=== PATIENT | male | born 1965 | race Caucasian/White ===

== ENCOUNTER → 2018-11-30 | Outpatient (CLI) | payer OTHER ==
--- NOTE | 2018-11-30 16:25 | CT ---
EXAMINATION TYPE: CT sinus wo con DATE OF EXAM: 11/30/2018 COMPARISON: NONE HISTORY: chronic sinus congestion and facial pain worse on right side per patient. Chronic sinusitis prior. CT DLP: 495 mGycm. Automated Exposure Control for Dose Reduction was Utilized. TECHNIQUE: CT scan of the sinuses is performed without contrast, axial images are obtained, coronal r eformatted images are also reviewed. FINDINGS: There is hyperdense material nearly completely filling the right maxillary sinus extending into the nasal vault. Moderate mucosal thickening is present superiorly . No bony destruction is evid ent. Mild mucosal thickening in the periphery of the left maxillary sinus is seen. Patchy opacificati on right ethmoid sinuses is noted. There is mild mucosal thickening inferior right maxillary sinus. T he ostiomeatal complex is patent on the left on the coronal images. Nasal septum is slightly deviated to right of midline. Visualized portion of mastoid air cells show no abnormal opacification. The globes are intact bilate rally. Visualized portion of brain parenchyma is unremarkable. IMPRESSION: Confirmation of significant right maxillary sinus disease. Consider ENT referral and dir ect visualization if this does not clear with treatment to rule out underlying mass.
== END | disposition home or self-care (01) ==
LOC: RADCTMAIN 15:48
PROVIDERS: ATTEND Internal Medicine
DX: J32.0 Chronic maxillary sinusitis (principal)
CPT/HCPCS: 70486

== ENCOUNTER 2023-01-17 09:18 | Inpatient (IN) | payer OTHER ==
[2023-01-17] MEDS: SODIUM CHLORIDE 0.9% 1,000 ML IV SCH (12:32)
--- NOTE | 2023-01-17 14:48 | XR ---
EXAMINATION TYPE: XR chest 2V DATE OF EXAM: 01/17/2023 COMPARISON: NONE TECHNIQUE: PA and lateral views submitted. HISTORY: Preop FINDINGS: The lungs are clear and there is no pneumothorax, pleural effusion, or focal pneumonia. Heart size normal and no overt failure. Osseous structures demonstrate hypertrophic changes of the spine. Hyperi nflation suggests COPD. IMPRESSION: 1. No acute process.
[2023-01-17 15:24] LABS: Basophils # (A) 0.1 k/uL (0-0.2); Basophils % (A) 1 %; Eosinophils # (A) 0.3 k/uL (0-0.7); Eosinophils % (A) 3 %; HCT 46.4 % (39.0-53.0); HGB 15.7 gm/dL (13.0-17.5); Lymphocytes # (A) 2.1 k/uL (1.0-4.8); Lymphocytes % (A) 18 %; MCH 31.3 pg (25.0-35.0); MCHC 33.8 g/dL (31.0-37.0); MCV 92.5 fL (80.0-100.0); Mean Platelet Volume 7.4; Monocytes # (A) 0.8 k/uL (0-1.0); Monocytes % (A) 7 %; Neutrophils # (A) 8.3 k/uL (1.3-7.7); Neutrophils % (A) 70 %; Platelet Count 217 k/uL (150-450); RBC 5.01 m/uL (4.30-5.90); RDW 12.7 % (11.5-15.5); WBC 11.8 k/uL (3.8-10.6)
[2023-01-17 15:34] LABS: Partial Thromboplastin Time 23.7 sec (22.0-30.0); Prothrombin Time 10.4 sec (9.0-12.0)
[2023-01-17 16:17] LABS: ALT 71 U/L (4-49); AST 52 U/L (17-59); African American GFR (CKD) >90 (>60 ml/min/1.73 sqM); Albumin 4.4 g/dL (3.5-5.0); Alkaline Phosphatase 104 U/L (38-126); Anion Gap 8 mmol/L; Blood Urea Nitrogen 16 mg/dL (9-20); Calcium 9.5 mg/dL (8.4-10.2); Carbon Dioxide 28 mmol/L (22-30); Chloride 100 mmol/L (98-107); Glucose 130 mg/dL (74-99); Magnesium 2.2 mg/dL (1.6-2.3); Non-African American GFR(CKD) >90 (>60 ml/min/1.73 sqM); Potassium 4.4 mmol/L (3.5-5.1); Sodium 136 mmol/L (137-145); Total Bilirubin 1.6 mg/dL (0.2-1.3); Total Protein 7.2 g/dL (6.3-8.2)
[2023-01-17] MEDS: METOPROLOL SUCCINATE (ER) 25 MG TAB.ER.24H PO SCH (17:08)
[2023-01-17] MEDS: EZETIMIBE 10 MG TAB PO SCH (17:08)
[2023-01-17] MEDS: ATORVASTATIN 80 MG TAB PO SCH (17:08)
[2023-01-17 17:34] LABS: Appearance,Urine Clear (Clear); Bilirubin,Urine Negative (Negative); Blood,Urine Negative (Negative); Glucose,Urine (UA) Negative (Negative); Ketones,Urine Negative (Negative); Leukocyte Esterase,Urine Negative (Negative); Nitrite,Urine Negative (Negative); PH, Urine 5.5 (5.0-8.0); Protein,Urine Negative (Negative); Specific Gravity,Urine 1.021 (1.001-1.035); Urobilinogen,Urine <2.0 mg/dL (<2.0)
--- NOTE | 2023-01-17 17:34 | P.GSCN ---
History of Present Illness Consult date: 01/17/23 Reason for Consult: Coronary artery disease with left main disease Requesting physician: Oneal Vaughan History of present illness: This a 57-year-old gentleman who follows on an outpatient basis for his primary care service with Dr. Garnica and with Dr. Byrd for his cardiology care. He is a past medical history significant for hyperlipidemia, cardiomyopathy with an ejection fraction of 40%, myocardial infarction 15 years ago, insomnia, hiatal hernia, GERD, family history of early onset coronary artery disease with his mom having a myocardial infarction before the age of 60 and has a remote history of nicotine dependence in which he quit smoking 13 years ago. Recently, the patient has had complaints of progressive shortness of breath in which the patient states that his shortness of breath has been getting worse over about a 1 year period. The patient denies any recent fever, chills, nausea, vomiting, diarrhea, headache, palpitations, lightheadedness, chest pain/pressure, presyncope or syncope. Subsequently, due to the patient's complaints of shortness of breath he underwent a pulmonary function test on 12/29/2022 which showed an FEV1 of 87% of predicted value with a base volume of 3.56. The patient also underwent a low-dose CT of the chest which showed scattered small nodules and severe calcification of his coronary arteries. Due to the findings of coronary calcification on the computed tomography scan it triggered an evaluation for workup for coronary artery disease. The patient underwent a stress test on 10/27/2022 which showed no evidence of stress-induced ischemia. Today 01/17/2023 the patient underwent a cardiac catheterization at [facility] which revealed multivessel coronary artery disease with an 80% stenosis to his distal left main coronary artery and 80% stenosis to his mid left anterior descending coronary artery, and 80% stenosis to his ostial left circumflex coronary artery and a 20-30% stenosis in his right coronary artery. Due to the findings on the cardiac catheterization the patient was transferred here to [facility] with a consult placed to Dr. Justin Whitlock from cardiothoracic surgery for further evaluation and treatment recommendations including myocardial revascularization surgery. Review of Systems A 14 point review of systems was completed and was negative except as mentioned in the HPI. Past Medical History Past Medical History: GERD/Reflux, Hyperlipidemia, Myocardial Infarction (SD) Additional Past Medical History / Comment(s): Stress test negative in October that was negative, SD in about 2003, insomnia, hiatal hernia, cardiomyopathy with an ejection fraction of 40% Last Myocardial Infarction Date:: 2003 History of Any Multi-Drug Resistant Organisms: None Reported Past Surgical History: Heart Catheterization Additional Past Surgical History / Comment(s): Nasal polyps removed "a couple years ago," heart catheterization 01/17/23 revealing severe left main blockage (cardiothoracic consult) Past Anesthesia/Blood Transfusion Reactions: No Reported Reaction Past Psychological History: No Psychological Hx Reported Smoking Status: Former smoker (Quit smoking about 13 years ago) Past Alcohol Use History: None Reported Additional Past Alcohol Use History / Comment(s): Reports he quit drinking in 1998 Past Drug Use History: None Reported - Past Family History Father Additional Family Medical History / Comment(s): Heart disease Mother Family Medical History: Myocardial Infarction (SD) Additional Family Medical History / Comment(s): Heart disease Medications and Allergies Home Medications Medication Instructions Recorded Confirmed Type Atorvastatin [Lipitor] 80 mg PO DAILY 01/17/23 01/17/23 History Ezetimibe [Zetia] 10 mg PO DAILY 01/17/23 01/17/23 History Metoprolol Succinate (ER) [Toprol 25 mg PO DAILY 01/17/23 01/17/23 History Xl] Omeprazole [PriLOSEC] 20 mg PO AC-BRKFST 01/17/23 01/17/23 History Allergies Allergy/AdvReac Type Severity Reaction Status Date / Time Sesame Seed Allergy Rash/Hives Verified 01/17/23 12:17 Surgical - Exam Vital Signs Pulse 55 L 01/17/23 11:15 - General well developed, well nourished, no distress, no pain - Eyes PERRL, normal ocular movement, no pale, no icteric - ENT normal pinna, normal nares, normal mucosa, no hearing loss, no congestion - Neck Neck is supple, no JVD. no masses, no bruits, trachea midline, no venous distension - Respiratory Lungs sounds essentially clear throughout. No wheezes, rhonchi or crackles. Respirations are symmetrical and nonlabored. - Cardiovascular Regular rhythm and rate. S1 and S2 present, negative for S3, gallop or murmur. - Abdomen Abdomen soft, nontender and nondistended. Active bowel sounds present in all 4 abdominal quadrants. No guarding or rigidity. No organomegaly appreciated. - Genitourinary Deferred - Rectum Deferred - Integumentary Skin is warm and dry. No clubbing or cyanosis is present. No rash or abnormal pigmentation is present. - Neurologic No focal deficits. normal coordination, normal sensation - Musculoskeletal Moves all 4 extremities with equal strength bilateral. normal gait, normal posture Results - Labs 01/17/23 14:52 01/17/23 14:52 Abnormal Lab Results - Last 24 Hours (Table) 01/17/23 01/17/23 Range/Units 14:52 14:52 WBC 11.8 H (3.8-10.6) k/uL Neutrophils # 8.3 H (1.3-7.7) k/uL Sodium 136 L (137-145) mmol/L Glucose 130 H (74-99) mg/dL Total Bilirubin 1.6 H (0.2-1.3) mg/dL ALT 71 H (4-49) U/L Diabetes panel 01/17/23 Range/Units 14:52 Sodium 136 L (137-145) mmol/L Potassium 4.4 (3.5-5.1) mmol/L Chloride 100 (98-107) mmol/L Carbon Dioxide 28 (22-30) mmol/L BUN 16 (9-20) mg/dL Creatinine 0.93 (0.66-1.25) mg/dL Glucose 130 H (74-99) mg/dL Calcium 9.5 (8.4-10.2) mg/dL AST 52 (17-59) U/L ALT 71 H (4-49) U/L Alkaline Phosphatase 104 (38-126) U/L Total Protein 7.2 (6.3-8.2) g/dL Albumin 4.4 (3.5-5.0) g/dL Thyroid panel 01/17/23 Range/Units 14:52 TSH 1.050 (0.465-4.680) mIU/L Calcium panel 01/17/23 Range/Units 14:52 Calcium 9.5 (8.4-10.2) mg/dL Albumin 4.4 (3.5-5.0) g/dL Pituitary panel 01/17/23 Range/Units 14:52 Sodium 136 L (137-145) mmol/L Potassium 4.4 (3.5-5.1) mmol/L Chloride 100 (98-107) mmol/L Carbon Dioxide 28 (22-30) mmol/L BUN 16 (9-20) mg/dL Creatinine 0.93 (0.66-1.25) mg/dL Glucose 130 H (74-99) mg/dL Calcium 9.5 (8.4-10.2) mg/dL TSH 1.050 (0.465-4.680) mIU/L Adrenal panel 01/17/23 Range/Units 14:52 Sodium 136 L (137-145) mmol/L Potassium 4.4 (3.5-5.1) mmol/L Chloride 100 (98-107) mmol/L Carbon Dioxide 28 (22-30) mmol/L BUN 16 (9-20) mg/dL Creatinine 0.93 (0.66-1.25) mg/dL Glucose 130 H (74-99) mg/dL Calcium 9.5 (8.4-10.2) mg/dL Total Bilirubin 1.6 H (0.2-1.3) mg/dL AST 52 (17-59) U/L ALT 71 H (4-49) U/L Alkaline Phosphatase 104 (38-126) U/L Total Protein 7.2 (6.3-8.2) g/dL Albumin 4.4 (3.5-5.0) g/dL - Imaging Additional studies: Cardiac catheterization films reviewed by Dr. Justin Whitlock. Assessment and Plan Assessment: Multivessel coronary artery disease with left main disease Hyperlipidemia History of cardiomyopathy with an ejection fraction of 40% Myocardial infarction 15 years ago History of insomnia History of hiatal hernia GERD Family history of early onset coronary artery disease with his mom having a myocardial infarction before the age of 60 years of age Remote history of nicotine dependence quit smoking around 13 years ago Plan: The patient was seen and examined at his bedside on the cardiac stepdown unit with Dr. Justin Whitlock. His chart and diagnostics were reviewed. Dr. Whitlock reviewed the patient's cardiac catheterization findings with the patient and with the patient's daughter present at his bedside. Treatment options discussed including myocardial revascularization surgery. Risks and benefits of myocardial revascularization surgery discussed. Preoperative teaching and preo perative testing has been initiated. Once the patient's preoperative testing has been obtained and reviewed, timing of surgery to follow. Continue to maximize medical management with aspirin, statin and beta mustapha. Once the patient is able to ambulate we will obtain a 5 m walk test. Once the patient's preoperative testing has been obtained we will calculate an STS risk score which will be discussed with the patient. Medical management and other comorbidities per primary care service and cardiology. More recommendations to follow based on patient's clinical course. Thank you Dr. Vaughan for this consult and we will look forward to working with you in the care of this patient. I have personally seen and examined the patient, performed the documentation and the assessment and plan as written. Number of minutes spent on the visit, 30 minutes . Junior SALDIVAR
[2023-01-17 17:37] LABS: Color,Urine Light Yellow
[2023-01-17] MEDS ORDERED: ACETAMINOPHEN TAB 325 MG TAB PO PRN (18:58)
[2023-01-17] MEDS ORDERED: MELATONIN 3 MG TABLET PO PRN (18:58)
[2023-01-17] MEDS ORDERED: CALCIUM CARBONATE 500 MG CHEWABLE PO PRN (18:58)
[2023-01-17] MEDS ORDERED: ONDANSETRON 4 MG/2 ML VIAL IVP PRN (18:58)
[2023-01-17] MEDS ORDERED: LACTULOSE 20 GM/30 ML CUP PO PRN (18:58)
[2023-01-17] MEDS ORDERED: NALOXONE 0.4 MG/ML 1 ML VIAL IV PRN (18:58)
[2023-01-17] MEDS ORDERED: ALBUTEROL NEBULIZED 2.5 MG/3 ML INHALATION PRN (19:01)
--- NOTE | 2023-01-17 19:01 | P.HPIM ---
History of Present Illness H&P Date: 01/17/23 Chief Complaint: CAD This is a pleasant 57-year-old patient who follows with Dr.S Garnica. Chronic stable medical conditions include GERD, hyperlipidemia, hiatal hernia, known cardiomyopathy EF of 40%. Patient had been experiencing short of breath with activity for example going on to the mailbox. Going on for some time. 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 Patient did undergo a elective cardiac catheterization at [facility] by Dr. Vaughan. Was found to have significant disease in the left main. Sent over to [facility] for surgical evaluation. Denies any cramping in the lower extremity. No chest pain. Patient is accompanied by his daughter the bedside. Review of systems: GEN.: None EYES: None HEENT: None NECK: None RESPIRATORY: As above CARDIOVASCULAR: As above, no edema GASTROINTESTINAL: Reflux GENITOURINARY: None MUSCULOSKELETAL: None LYMPHATICS: None HEMATOLOGICAL: None PSYCHIATRY: None NEUROLOGICAL: None Past medical history to include: GERD, hyperlipidemia, hiatal hernia, myocardial infarction in 2003, insomnia, cardiomyopathy with EF of 40%. Social history: Lives alone. 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 Smoked a pack a day for about 30 years stopped about 30 years ago. Quit drinking alcohol in 1998. Physical examination: VITAL SIGNS: 97.7, 63, 20, 112/71, 96% room air GENERAL: BMI 26.9, reclining in bed awake comfortable. EYES: Pupils equal. Conjunctiva normal. HEENT: External appearance of nose and ears normal, oral cavity grossly normal. NECK: JVD not raised; masses not palpable. HEART: First and second heart sounds are normal; no edema. LUNGS: Respiratory rate normal; clear to auscultation. ABDOMEN: Soft, nontender, liver spleen not palpable, no masses palpable. PSYCH: Alert and oriented x3; mood and affect normal. MUSCULOSKELETAL:No Clubbing/cyanosis;muscles-grossly intact NEUROLOGICAL: Cranial nerves grossly intact; no facial asymmetry, power and sensation grossly intact. LYMPHATICS: No lymph nodes palpable in the axilla and neck INVESTIGATIONS, reviewed in the clinical context: White count 11.8 hemoglobin 15.7 platelets 217 sodium 136 potassium 4.4 BUN 16 creatinine 0.93 UA: Unremarkable EKG tracing personally reviewed by me-normal sinus rhythm. Chest x-ray film personally reviewed by me-mild hyperinflation Assessment plan: -Significant coronary artery disease with left main disease. Patient had been symptomatic outpatient,, was short of breath with exertion Aspirin. Lipitor. Zetia. Toprol-XL. Cardiothoracic surgery consulted for bypass evaluation. -CAD with prior NC in 2013 -Mild emphysema and a prior smoker. Albuterol when necessary -GERD Protonix -Hyperlipidemia Lipitor -Hiatal hernia Care was discussed with the patient and daughter the bedside. Patient is being evaluated for coronary bypass to the cardiothoracic team. Preoperative workup is in place. Patient is probably not safe to go home because of significant disease of the left main.Given the complexity and severity of patient's condition expect the patient to be in the hospital at least for 2 overnights Past Medical History Past Medical History: GERD/Reflux, Hyperlipidemia, Myocardial Infarction (NC) Additional Past Medical History / Comment(s): Stress test negative in October that was negative, NC in about 2003, insomnia, hiatal hernia, cardiomyopathy with an ejection fraction of 40% Last Myocardial Infarction Date:: 2003 History of Any Multi-Drug Resistant Organisms: None Reported Past Surgical History: Heart Catheterization Additional Past Surgical History / Comment(s): Nasal polyps removed "a couple years ago," heart catheterization 01/17/23 revealing severe left main blockage (cardiothoracic consult) Past Anesthesia/Blood Transfusion Reactions: No Reported Reaction Past Psychological History: No Psychological Hx Reported Smoking Status: Former smoker (Quit smoking about 13 years ago) Past Alcohol Use History: None Reported Additional Past Alcohol Use History / Comment(s): Reports he quit drinking in 1998 Past Drug Use History: None Reported - Past Family History Father Additional Family Medical History / Comment(s): Heart disease Mother Family Medical History: Myocardial Infarction (NC) Additional Family Medical History / Comment(s): Heart disease Medications and Allergies Home Medications Medication Instructions Recorded Confirmed Type Atorvastatin [Lipitor] 80 mg PO DAILY 01/17/23 01/17/23 History Ezetimibe [Zetia] 10 mg PO DAILY 01/17/23 01/17/23 History Metoprolol Succinate (ER) [Toprol 25 mg PO DAILY 01/17/23 01/17/23 History Xl] Omeprazole [PriLOSEC] 20 mg PO AC-BRKFST 01/17/23 01/17/23 History Allergies Allergy/AdvReac Type Severity Reaction Status Date / Time Sesame Seed Allergy Rash/Hives Verified 01/17/23 12:17 Physical Exam Vitals: Vital Signs Temp Pulse Resp BP Pulse Ox 01/17/23 15:04 97.7 F 63 20 112/71 96 01/17/23 11:19 98.2 F 55 L 20 135/80 94 L 01/17/23 11:15 55 L Intake and Output 01/17/23 01/17/23 01/17/23 06:59 14:59 22:59 Intake Total 110 Output Total 600 Balance -490 Intake: Oral 110 Output: Urine 600 Other: Voiding Method Toilet Weight 97.72 kg Results CBC & Chem 7: 01/17/23 14:52 01/17/23 14:52 Labs: Abnormal Lab Results - Last 24 Hours (Table) 01/17/23 01/17/23 Range/Units 14:52 14:52 WBC 11.8 H (3.8-10.6) k/uL Neutrophils # 8.3 H (1.3-7.7) k/uL Sodium 136 L (137-145) mmol/L Glucose 130 H (74-99) mg/dL Total Bilirubin 1.6 H (0.2-1.3) mg/dL ALT 71 H (4-49) U/L Thrombosis Risk Factor Assmnt - Choose All That Apply Any of the Below Risk Factors Present?: Yes Each Factor Represents 1 point: Age 41-60 years Other Risk Factors: No Other congenital or acquired thrombophilia - If yes, enter type in comment: No Thrombosis Risk Factor Assessment Total Risk Factor Score: 1 Thrombosis Risk Factor Assessment Level: Low Risk
[2023-01-17 20:43] LABS: Chol/HDL Ratio 3.49 Ratio; LDL Cholesterol,Calculated 51.1 mg/dL (0.0-131.0)
[2023-01-17 20:50] LABS: Hepatitis A Antibody IgM Nonreactive; Hepatitis B Core IgM Nonreactive; Hepatitis B Surface Antigen Nonreactive; Hepatitis C IgG Antibody Nonreactive
--- NOTE | 2023-01-17 22:12 | US ---
EXAMINATION TYPE: Pre-Operative Non-Invasive Evaluation of the hand for Potential Radial Artery Yancy gutierrez, Measurements only DATE OF EXAM: 01/17/2023 4:40 PM CLINICAL INDICATION: Male, 57 years old with history of Pre-Op Cardiac Surgery; open heart SIDE PERFORMED: Left TECHNIQUE: Radial artery is measured utilizing real time linear array sonography. Dominant hand: Right Duplex Findings: Radial Artery: Color flow seen Measurements in mm, transverse view: Left Radial: Proximal: 3.7 x 4.1 mm Mid: 3.4 x 4.1 mm Distal: 4.0 x 4.2 mm IMPRESSION: 1. Left radial measurements listed above. 2. Performing surgeon to determine viability as conduit.
--- NOTE | 2023-01-17 22:12 | US ---
EXAMINATION TYPE: US vein mapping BILAT DATE OF EXAM: 01/17/2023 4:40 PM COMPARISON: NONE CLINICAL INDICATION: Male, 57 years old with history of PreOp Cardiac Surgery; open heart SIDE PERFORMED: Bilateral TECHNIQUE: Lower extremity saphenous vein is examined and measured utilizing real time linear array sonography DUPLEX FINDINGS: Greater Saphenous: Color flow seen Measurements in mm: Right Greater Saphenous: Groin: 7.9 x 6.8 mm High Thigh: 3.7 x 4.4 mm Mid Thigh: 2.7 x 3.3 mm Above Knee: 3.0 x 3.1 mm Knee: 3.1 x 4.2 mm Below Knee: 2.6 x 3.0 mm Mid Calf: 2.1 x 2.4 mm At Ankle: 3.1 x 3.6 mm Left Greater Saphenous: Groin: 11.2 x 8.9 mm High Thigh: 3.1 x 3.5 mm Mid Thigh: 2.9 x 3.6 mm Above Knee: 3.1 x 4.7 mm Knee: 2.9 x 3.8 mm Below Knee: 1.9 x 2.2 mm Mid Calf: 2.4 x 3.0 mm At Ankle: 2.5 x 2.8 mm IMPRESSION: 1. Bilateral GSV measurements listed above. 2. Performing surgeon to determine viability as conduit.
--- NOTE | 2023-01-17 22:14 | US ---
EXAMINATION TYPE: US arterial LE single level DATE OF EXAM: 01/17/2023 9:34 PM CLINICAL INDICATION: Male, 57 years old with history of Ankle Brachial Index (VALENCIA) ; History of: Smoker: Yes Hypertension: No Diabetic: No Hyperlipidemia: Yes TIA/CVA: No Previous Vascular Surgery: No CAD: WV: Yes Vascular Ulcers: Claudication: No Gangrene: Doppler Waveforms: Right: Monophasic multiphasic Left: Predominantly monophasic Right Brachial Pressure: Left Brachial Pressure: 131 Ankle-Brachial Indices: Right: 1.16 Left: 1.10 Toe Brachial Indices: Right: 0.79 Left: n/o IMPRESSION: Loss of phasicity is nonspecific. Normal bilateral VALENCIA values noted.
--- NOTE | 2023-01-17 22:15 | US ---
EXAMINATION TYPE: US carotid duplex BILAT DATE OF EXAM: 01/17/2023 COMPARISON: NONE CLINICAL INDICATION: Male, 57 years old with history of PreOp Cardiac Surgery; open heart, no h/o str cristina TECHNIQUE: Carotid duplex ultrasound examination. Indirect Doppler criteria was utilized. 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 Criteria for Assigning % of Stenosis / Diameter reduction (Estimation based on the indirect measurements of the internal carotid artery velocities (ICA PSV). 1. Normal (no stenosis)=ICA PSV < 125 cm/s: ratio < 2.0: ICA EDV<40 cm/s. 2. Less than 50% stenosis=ICA PSV < 125 cm/s: ratio < 2.0: ICA EDV<40 cm/s. 3. 50 to 69% stenosis=ICA PSV of 125 to 230 cm/s: ration 2.0 ? 4.0: ICA EDV 40-100 cm/s. 4. Greater than 70% stenosis to near occlusion= ICA PSV > 230 cm/s: ratio > 4.0: ICA EDV > 100 cm/s. 5. Near occlusion= ICA PSV velocities may be low or undetectable: variable ratio and ICA EDV. 6. Total occlusion=unable to detect flow.
[2023-01-17] MEDS: MUPIROCIN 2% OINT 22 GM TUBE NASAL SCH (22:30)
[2023-01-18] MEDS: PANTOPRAZOLE 40 MG TABLET PO SCH (07:13)
[2023-01-18] MEDS: SODIUM CHLORIDE 0.9% 1,000 ML IV SCH ×2 (07:13→17:38)
[2023-01-18] MEDS: MUPIROCIN 2% OINT 22 GM TUBE NASAL SCH ×2 (08:21→20:13)
[2023-01-18] MEDS: ASPIRIN 81 MG PO SCH (08:21)
--- NOTE | 2023-01-18 09:00 | P.CRDCN ---
History of Present Illness Consult date: 01/18/23 History of present illness: History of present illness: This is a 57-year-old male patient of Dr. Byrd with past medical history of hyperlipidemia, cardiomyopathy with EF 40%, myocardial infarction 15 years ago, insomnia, hiatal hernia, gastric esophageal reflux disease, family history of early onset coronary artery disease, history of tobacco use and dependence, e nvironmental exposure to paint fumes, history of alcohol use in the past. Patient had recent workup for dyspnea on exertion with pulmonary medicine for PFT and a low-dose CAT scan of the lungs which showed mild nodules and also severe coronary calcification. He was recently started on atorvastatin and Zetia. He also underwent stress test which revealed EF of 38% and normal wall motion, no distinct perfusion abnormality. Patient subsequently underwent cardiac catheterization at [facility] was performed by Dr. Vaughan on 01/17/2023 which revealed multivessel disease with 80% distal left main stenosis, ostial circumflex disease and bifurcating mid LAD/diagonal disease. Patient has been transferred to [facility] for evaluation by cardiothoracic surgery team. At the time of this evaluation, patient denies having any chest pain, he continues to have some shortness of breath although he thinks this is slightly improved. He has dyspnea on exertion. He denies having any lightheadedness or dizziness. Physical examination: Gen: This is a 57-year-old male, resting in recliner and appears to be comfortable and in no acute distress. VS: reviewed HEENT: Head is atraumatic, normocephalic. Pupils equal, round. Sclerae is anicteric. NECK: Supple. No JVD. . LUNGS: Bilateral wheezing. No intercostal retractions. HEART: Regular rate and rhythm. No murmur. ABDOMEN: Soft No tenderness. EXTREMITIES: No pedal edema. No calf tenderness. NEUROLOGICAL: Patient is awake, alert and oriented x3. Assessment: Multivessel coronary artery disease with 80% left main disease, evaluation with cardiothoracic surgery Hyperlipidemia History of cardiomyopathy with EF of 40% History of myocardial infarction 15 years ago, details are unknown History of tobacco use and dependence and alcohol use quit both 13 years ago Plan: Cardiothoracic team evaluation for CABG scheduled for tomorrow Continue current cardiac medications Further recommendations to follow based upon clinical course Thank you kindly for this consultation. Nurse practitioner note has been reviewed, I agree with documented findings and plan of care. Patient was seen and examined. Past Medical History Past Medical History: GERD/Reflux, Hyperlipidemia, Myocardial Infarction (GA) Additional Past Medical History / Comment(s): Stress test negative in October that was negative, GA in about 2003, insomnia, hiatal hernia, cardiomyopathy with an ejection fraction of 40% Last Myocardial Infarction Date:: 2003 History of Any Multi-Drug Resistant Organisms: None Reported Past Surgical History: Heart Catheterization Additional Past Surgical History / Comment(s): Nasal polyps removed "a couple years ago," heart catheterization 01/17/23 revealing severe left main blockage (cardiothoracic consult) Past Anesthesia/Blood Transfusion Reactions: No Reported Reaction Past Psychological History: No Psychological Hx Reported Smoking Status: Former smoker (Quit smoking about 13 years ago) Past Alcohol Use History: None Reported Additional Past Alcohol Use History / Comment(s): Reports he quit drinking in 1998 Past Drug Use History: None Reported - Past Family History Father Additional Family Medical History / Comment(s): Heart disease Mother Family Medical History: Myocardial Infarction (GA) Additional Family Medical History / Comment(s): Heart disease Medications and Allergies Home Medications Medication Instructions Recorded Confirmed Type Atorvastatin [Lipitor] 80 mg PO DAILY 01/17/23 01/17/23 History Ezetimibe [Zetia] 10 mg PO DAILY 01/17/23 01/17/23 History Metoprolol Succinate (ER) [Toprol 25 mg PO DAILY 01/17/23 01/17/23 History Xl] Omeprazole [PriLOSEC] 20 mg PO AC-BRKFST 01/17/23 01/17/23 History Allergies Allergy/AdvReac Type Severity Reaction Status Date / Time Sesame Seed Allergy Rash/Hives Verified 01/17/23 12:17 Physical Exam Vitals: Vital Signs Temp Pulse Pulse Resp BP Pulse Ox 01/18/23 07:41 96.9 F L 71 17 113/61 95 01/18/23 04:00 97.8 F 67 20 119/76 94 L 01/18/23 02:00 60 63 20 01/18/23 00:00 97.7 F 60 20 124/82 93 L 01/17/23 20:00 97.7 F 65 63 20 136/69 94 L 01/17/23 15:04 97.7 F 63 20 112/71 96 08/29/23 11:19 98.2 F 55 L 20 135/80 94 L 01/17/23 11:15 55 L Intake and Output 01/17/23 01/18/23 01/18/23 22:59 06:59 14:59 Intake Total 110 Output Total 600 Balance -490 Intake: Oral 110 Output: Urine 600 Other: Voiding Method Toilet Toilet # Voids 2 Results 01/17/23 14:52 01/17/23 14:52 Cardiac Enzymes 01/17/23 Range/Units 14:52 AST 52 (17-59) U/L Coagulation 01/17/23 Range/Units 14:52 PT 10.4 (9.0-12.0) sec APTT 23.7 (22.0-30.0) sec Lipids 01/17/23 Range/Units 14:52 Triglycerides 251.00 H (0.00-149.00) mg/dL Cholesterol 142.00 (0.00-200.00) mg/dL HDL Cholesterol 40.70 (40.00-60.00) mg/dL Cholesterol/HDL Ratio 3.49 Ratio CBC 01/17/23 Range/Units 14:52 WBC 11.8 H (3.8-10.6) k/uL RBC 5.01 (4.30-5.90) m/uL Hgb 15.7 (13.0-17.5) gm/dL Hct 46.4 (39.0-53.0) % Plt Count 217 (150-450) k/uL Comprehensive Metabolic Panel 01/17/23 Range/Units 14:52 Sodium 136 L (137-145) mmol/L Potassium 4.4 (3.5-5.1) mmol/L Chloride 100 (98-107) mmol/L Carbon Dioxide 28 (22-30) mmol/L BUN 16 (9-20) mg/dL Creatinine 0.93 (0.66-1.25) mg/dL Glucose 130 H (74-99) mg/dL Calcium 9.5 (8.4-10.2) mg/dL AST 52 (17-59) U/L ALT 71 H (4-49) U/L Alkaline Phosphatase 104 (38-126) U/L Total Protein 7.2 (6.3-8.2) g/dL Albumin 4.4 (3.5-5.0) g/dL Current Medications Generic Name Dose Route Start Last Admin Trade Name Freq PRN Reason Stop Dose Admin Acetaminophen 650 mg 01/17/23 18:58 Acetaminophen Tab 325 Mg Tab PO Q6HR PRN Mild Pain or Fever > 100.5 Albuterol Sulfate 2.5 mg 01/17/23 19:01 Albuterol Nebulized 2.5 Mg/3 Ml INHALATION RT-QID PRN Shortness Of Breath Or Wheezing Alprazolam 0.25 mg 01/17/23 18:58 Alprazolam 0.25 Mg Tab PO Q6HR PRN Anxiety Aspirin 81 mg 01/18/23 09:00 Aspirin 81 Mg PO DAILY INA Atorvastatin Calcium 80 mg 01/17/23 18:00 01/17/23 17:08 Atorvastatin 80 Mg Tab PO 80 mg DAILY@1800 INA Administration Calcium Carbonate/Glycine 1,000 mg 01/17/23 18:58 Calcium Carbonate 500 Mg Chewable PO Q4HR PRN Dyspepsia Ezetimibe 10 mg 01/17/23 18:00 01/17/23 17:08 Ezetimibe 10 Mg Tab PO 10 mg DAILY@1800 INA Administration Sodium Chloride 1,000 mls @ 75 mls/hr 01/17/23 12:30 01/18/23 07:13 Saline 0.9% IV 75 mls/hr .[id number] INA Administration Lactulose 20 gm 01/17/23 18:58 Lactulose 20 Gm/30 Ml Cup PO DAILY PRN Constipation Melatonin 3 mg 01/17/23 18:58 Melatonin 3 Mg Tablet PO HS PRN Insomnia Metoprolol Succinate 25 mg 01/17/23 18:00 01/17/23 17:08 Metoprolol Succinate (Er) 25 Mg Tab.Er.24h PO 25 mg DAILY@1800 INA Administration Mupirocin 1 applic 01/17/23 21:00 01/17/23 22:30 Mupirocin 2% Oint 22 Gm Tube NASAL 01/22/23 21:01 Not Given BID INA Naloxone HCl 0.2 mg 01/17/23 18:58 Naloxone 0.4 Mg/Ml 1 Ml Vial IV Q2M PRN Opioid Reversal Ondansetron HCl 4 mg 01/17/23 18:58 Ondansetron 4 Mg/2 Ml Vial IVP Q8HR PRN Nausea And Vomiting Pantoprazole Sodium 40 mg 01/18/23 07:30 01/18/23 07:13 Pantoprazole 40 Mg Tablet PO 40 mg AC-BRKFST IAN Administration Intake and Output 01/17/23 01/18/23 01/18/23 22:59 06:59 14:59 Intake Total 110 Output Total 600 Balance -490 Intake: Oral 110 Output: Urine 600 Other: Voiding Method Toilet Toilet # Voids 2 01/17/23 14:52 01/17/23 14:52
--- NOTE | 2023-01-18 10:09 | CA ---
Transthoracic Echo Report Name: Daniel Walton Age: 57 Gender: M : 1965 Exam Date: 01/17/2023 16:40 Exam Location: [place] [facility] Echo Ht (in): 75 Wt (lb): 215 Ordering Physician: Jacky Curry Attending/Referring Phys: Patricio FRANCO Packaging Manager Rakel Mcdowell RDCS Procedure CPT: Indications: preop cabg Cardiac Hx: Technical Quality: Technically difficult study Contrast 1: Lumason Total Dose (mL): 4 Contrast 2: Total Dose (mL): MEASUREMENTS (Male / Female) Normal Values 2D ECHO LV Diastolic Diameter PLAX 4.2 cm 4.2 - 5.9 / 3.9 - 5.3 cm LV Systolic Diameter PLAX 2.8 cm IVS Diastolic Thickness 1.5 cm 0.6 - 1.0 / 0.6 - 0.9 cm LVPW Diastolic Thickness 1.3 cm 0.6 - 1.0 / 0.6 - 0.9 cm LV Relative Wall Thickness 0.7 RV Internal Dim ED PLAX 4.6 cm LA Volume 38.5 cm??? 18 - 58 / 22 - 52 cm??? M-MODE Aortic Root Diameter MM 2.9 cm LA Systolic Diameter MM 4.5 cm LA Ao Ratio MM 1.6 AV Cusp Separation MM 1.5 cm DOPPLER AV Peak Velocity 150.3 cm/s AV Peak Gradient 9.0 mmHg AV Mean Velocity 108.2 cm/s AV Mean Gradient 5.2 mmHg AV Velocity Time Integral 30.1 cm LVOT Peak Velocity 102.2 cm/s LVOT Peak Gradient 4.2 mmHg LVOT Velocity Time Integral 20.0 cm MV Area PHT 3.2 cm??? Mitral E Point Velocity 65.3 cm/s Mitral A Point Velocity 83.5 cm/s Mitral E to A Ratio 0.8 MV Deceleration Time 240.1 ms MV E' Velocity 6.8 cm/s Mitral E to MV E' Ratio 9.5 TR Peak Velocity 236.8 cm/s TR Peak Gradient 22.4 mmHg Right Ventricular Systolic Press 27.4 mmHg FINDINGS Left Ventricle Moderately increased left ventricular wall thickness. Left ventricular cavity size normal. Preserved Systolic function.left ventricular cavity size normal. Left ventricular ejection fraction is estimated at 50 %. Right Ventricle Moderate right ventricular dilatation. Right ventricular systolic pressure within normal limits. Right Atrium Normal right atrial size. Left Atrium Normal left atrial size. Mitral Valve Structurally normal mitral valve. No mitral stenosis, regurgitation or prolapse. Mild mitral annular calcification. Aortic Valve No aortic valve stenosis or regurgitation. Tricuspid Valve Structurally normal tricuspid valve. Mild tricuspid regurgitation. Pulmonic Valve Structurally normal pulmonic valve. Pericardium No pericardial effusion. Aorta Normal size aortic root and proximal ascending aorta. CONCLUSIONS Technically difficult study for interpretation Low normal LV systolic function. The ejection fraction is 50% Previewed by: Dr. Baldemar Quinteros MD (Electronically Signed) Final Date: 18 January 2023 10:08
[2023-01-18] MEDS ORDERED: MD COMMUNICATION TO PHARMACY 1 EACH MISC PO ONE ×4 (11:21)
--- NOTE | 2023-01-18 11:59 | P.PN ---
Subjective Progress Note Date: 01/18/23 Principal diagnosis: Coronary artery disease with left main disease. Past medical history significant for hyperlipidemia, cardiomyopathy with an ejection fraction of 40%, myocardial infarction 15 years ago, insomnia, hiatal hernia, GERD, family history of early onset coronary artery disease with his mom having a myocardial infarction before the age of 60 and has a remote history of nicotine dependence in which he quit smoking 13 years ago. The patient was seen and examined in follow-up today 01/18/2023 at his bedside on the cardiac stepdown unit. He is currently up ambulating in his room, is alert, oriented 3 and is in no acute apparent distress. Denies any complaints of pain or shortness of breath at this time. FEV1 from 12/29/2022 has been obtained which shows a predicted value of 87% and a base volume of 3.56. As part of his preoperative workup he underwent a carotid duplex study which demonstrated no hemodynamically significant stenosis in either internal carotid artery. Preoperative teaching has been reinforced with the patient. Transthoracic 2-D echocardiogram was completed which demonstrated a normal left ventricular ejection fraction estimated at 50%, no mitral valve stenosis or regurgitation, no aortic valve stenosis or regurgitation, and no pericardial effusion. Remote telemetry showing normal sinus rhythm heart rate 88 BPM. Laboratory results from yesterday were reviewed which showed a WBC count of 11.8, hemoglobin 15.7, hematocrit 46.4, platelets 217, sodium 136, potassium 4.4, BUN 16, creatinine 0.93, hemoglobin A1c 6.3%, magnesium 2.2, total bilirubin 1.6, AST 52, ALT 71, triglycerides 251, cholesterol 142, LDL 51, an HDL 40.7. Chest x-ray showed no acute process. Objective - Vital Signs Vital signs: Vital Signs Temp 97.6 F 01/18/23 07:41 Pulse 71 01/18/23 07:41 Resp 17 01/18/23 07:41 BP 113/61 01/18/23 07:41 Pulse Ox 95 01/18/23 07:41 FiO2 Intake & Output 01/17/23 01/18/23 01/18/23 18:59 06:59 18:59 Intake Total 110 110 Output Total 600 Balance -490 110 Weight 97.72 kg Intake: Oral 110 110 Output: Urine 600 Other: Voiding Method Toilet Toilet Toilet # Voids 2 - Exam CONSTITUTIONAL: Up ambulating in his room on the cardiac stepdown unit, appears comfortable, cooperative, no apparent acute distress. HEENT: Neck is supple, no JVD, no lymphadenopathy. RESPIRATORY: Lungs sounds essentially clear throughout. Respirations are symmetrical and nonlabored. Currently on room air with oxygen saturations 95%. Able to achieve 4000 mL on his incentive spirometry. Strong cough. CARDIOVASCULAR: Regular rhythm and rate. S1 and S2 present, negative for S3, gallop or murmur. Remote telemetry showing normal sinus rhythm heart rate 88 BPM. GASTROINTESTINAL: Abdomen soft, nontender, nondistended. Active bowel sounds present 4 quadrants. Tolerating diet. Passing flatus. No guarding or rigidity. GENITOURINARY: Continues to void. INTEGUMENTARY: Skin is warm and dry with no evidence of clubbing or cyanosis. NEUROLOGIC: Cranial nerves II through XII intact. No focal deficits. MUSKULOSKELETAL: Able to move all extremities, strength equal bilaterally. PSYCHIATRIC: Alert and oriented to person place and time, appropriate affect, intact judgment and insight. - Allied health notes Allied health notes reviewed: nursing - Labs CBC & Chem 7: 01/17/23 14:52 01/17/23 14:52 Labs: Abnormal Lab Results - Last 24 Hours (Table) 01/17/23 01/17/23 01/17/23 Range/Units 14:52 14:52 14:52 WBC 11.8 H (3.8-10.6) k/uL Neutrophils # 8.3 H (1.3-7.7) k/uL Sodium 136 L (137-145) mmol/L Glucose 130 H (74-99) mg/dL Hemoglobin A1c 6.3 H (<=6.0) % Total Bilirubin 1.6 H (0.2-1.3) mg/dL ALT 71 H (4-49) U/L Triglycerides 251.00 H (0.00-149.00) mg/dL VLDL Cholesterol, Calc 50.20 H (5.00-40.00) mg/dL - Imaging and Cardiology Chest x-ray: report reviewed, image reviewed Assessment and Plan Assessment: Multivessel coronary artery disease with left main disease Hyperlipidemia History of cardiomyopathy with an ejection fraction of 40%, ejection fraction 50% on most current transthoracic 2-D echocardiogram. Myocardial infarction 15 years ago History of insomnia History of hiatal hernia GERD Family history of early onset coronary artery disease with his mom having a myocardial infarction before the age of 60 years of age Remote history of nicotine dependence quit smoking around 13 years ago Plan: Preoperative teaching has been reinforced with patient. An STS risk score has been calculated in discussed with the patient. Continue to maximize medical therapy with aspirin, statin and beta mustapha. The patient is scheduled for myocardial revascularization surgery with left internal mammary artery, left radial artery endoscopic harvest, endoscopic vein harvest, exclusion of left atrial appendage and intraoperative transesophageal echocardiogram tomorrow 01/19/2023 to be performed by Dr. Justin Whitlock. Nothing by mouth after midnight A 5 m walk test was completed with the patient, time 1: 2.28 seconds, Time 2: 2.38 seconds, Time 3: 2.51 seconds. More recommendations to follow based on patient's clinical course. Time with Patient: Greater than 30
[2023-01-18 12:58] LABS: Basophils # (A) 0.1 k/uL (0-0.2); Basophils % (A) 1 %; Eosinophils # (A) 0.2 k/uL (0-0.7); Eosinophils % (A) 2 %; HCT 50.2 % (39.0-53.0); HGB 16.8 gm/dL (13.0-17.5); Lymphocytes # (A) 2.3 k/uL (1.0-4.8); Lymphocytes % (A) 23 %; MCH 31.1 pg (25.0-35.0); MCHC 33.5 g/dL (31.0-37.0); MCV 92.6 fL (80.0-100.0); Mean Platelet Volume 7.8; Monocytes # (A) 0.8 k/uL (0-1.0); Monocytes % (A) 8 %; Neutrophils # (A) 6.5 k/uL (1.3-7.7); Neutrophils % (A) 65 %; Platelet Count 232 k/uL (150-450); RBC 5.42 m/uL (4.30-5.90); RDW 12.7 % (11.5-15.5); WBC 10.1 k/uL (3.8-10.6)
[2023-01-18] MEDS ORDERED: DEXTROSE 50% SYRINGE 50 ML IVP PRN ×2 (16:09)
--- NOTE | 2023-01-18 16:16 | P.PN ---
Subjective Progress Note Date: 01/18/23 This is a 57-year-old male admitted to the hospital for further evaluation for coronary artery disease. Patient has undergone extensive workup being followed by cardiothoracic services. Echocardiogram showing low normal LV systolic function with EF of 50%, mild TR. On patient underwent cardiac catheterization at [facility] which revealed multivessel disease with 80% distal left main stenosis, ostial circumflex disease and bifurcating mid LAD/diagonal disease. Patient was transferred to [facility] for cardiothoracic evaluation. Patient is scheduled to undergo coronary artery bypass grafting tomorrow with Dr. Whitlock. Today he has no acute complaints. Discussed he will go to the ICU after surgery tomorrow. Patient would like to have a BM today. He complains of heart burn sensation today and is continued on oral protonix. Review of Systems Constitutional: Denied any fatigue denied any fever. Cardio vascular: denied any chest pain, palpitations Gastrointestinal: denied any nausea, vomiting, diarrhea Pulmonary: Denied any shortness of breath cough Neurologic denied any new focal deficits All inpatient medications were reviewed and appropriate changes in these medications as dictated in the interval history and assessment and plan. REVIEW OF SYSTEMS: CONSTITUTIONAL: No fever, no malaise, no fatigue. HEENT: No recent visual problems or hearing problems. Denied any sore throat. CARDIOVASCULAR: No chest pain, orthopnea, PND, no palpitations, no syncope. PULMONARY: No shortness of breath, no cough, no hemoptysis. GASTROINTESTINAL: No diarrhea, no nausea, no vomiting, no abdominal pain. NEUROLOGICAL: No headaches, no weakness, no numbness. HEMATOLOGICAL: Denies any bleeding or petechiae. GENITOURINARY: Denies any burning micturition, frequency, or urgency. MUSCULOSKELETAL/RHEUMATOLOGICAL: Denies any joint pain, swelling, or any muscle pain. ENDOCRINE: Denies any polyuria or polydipsia. The rest of the 14-point review of systems is negative. Assessment Exertional dyspnea with outpatient CT showing coronary calcifications and mild nodules Positive stress test and cardiac catheterization revealing multivessel disease History of myocardial infarction 15 yrs ago and prior cardiac catheterization Hyperglycemia with A1C of 6.3 consistent with prediabetes History hyperlipidemia Hx cardiomyopathy with EF 40% with improved EF of 50% this hospital stay Gastroesophageal reflux disease Hx hiatal hernia Hx of tobacco use in the past Hx of alcohol use in the past GI prophylaxis on protonix Full Code Plan Patient continues on oral protonix Continue accuchecks ACHS and sliding scale insulin has been added for improved glycemic control patient likely will not require insulin on discharge Patient scheduled to undergo coronary artery bypass grafting tomorrow 01/18/[address] Whitlock The impression and plan of care has been dictated by Kera Blair, Nurse Practitioner as directed. Dr. Juanpablo MD I have performed a history and physical examination and medical decision making of this patient, discussed the same with the dictator, and agree with the dictators assessment and plan as written, documented as a scribe. Based on total visit time, I have performed more than 50% of this visit. Objective - Vital Signs Vital signs: Vital Signs Temp 97.6 F 01/18/23 12:24 Pulse 68 01/18/23 15:53 Resp 18 01/18/23 15:53 BP 141/81 01/18/23 15:53 Pulse Ox 97 01/18/23 15:53 FiO2 Intake & Output 01/17/23 01/18/23 01/18/23 18:59 06:59 18:59 Intake Total 110 460 Output Total 600 Balance -490 460 Weight 97.72 kg Intake: Oral 110 460 Output: Urine 600 Other: Voiding Method Toilet Toilet Toilet # Voids 2 3 - Labs CBC & Chem 7: 01/18/23 12:24 01/17/23 14:52 Labs: Abnormal Lab Results - Last 24 Hours (Table) 01/17/23 01/17/23 Range/Units 14:52 14:52 Sodium 136 L (137-145) mmol/L Glucose 130 H (74-99) mg/dL Hemoglobin A1c 6.3 H (<=6.0) % Total Bilirubin 1.6 H (0.2-1.3) mg/dL ALT 71 H (4-49) U/L Triglycerides 251.00 H (0.00-149.00) mg/dL VLDL Cholesterol, Calc 50.20 H (5.00-40.00) mg/dL Assessment and Plan Time with Patient: Less than 30
[2023-01-18] MEDS: INSULIN ASPART (NovoLOG) 100 UNIT/ML VIAL SQ SCH ×2 (16:31→20:13)
[2023-01-18 16:32] LABS: Glucose,Whole Blood 103 mg/dL (70-110)
[2023-01-18] MEDS: EZETIMIBE 10 MG TAB PO SCH (17:37)
[2023-01-18] MEDS: METOPROLOL SUCCINATE (ER) 25 MG TAB.ER.24H PO SCH (17:37)
[2023-01-18] MEDS: ATORVASTATIN 80 MG TAB PO SCH (17:37)
[2023-01-18 19:52] LABS: Glucose,Whole Blood 105 mg/dL (70-110)
[2023-01-18] MEDS: ALPRAZolam 0.25 MG TAB PO PRN (20:13)
[2023-01-19 00:22] LABS: Glucose,Whole Blood 107 mg/dL (70-110)
[2023-01-19 04:13] LABS: Glucose,Whole Blood 108 mg/dL (70-110)
[2023-01-19] MEDS: PANTOPRAZOLE 40 MG TABLET PO SCH (04:16)
[2023-01-19] MEDS: ALPRAZolam 0.25 MG TAB PO PRN (04:17)
[2023-01-19] MEDS ORDERED: ALBUMIN HUMAN 25% 50 ML in EMPTY BAG 1 BAG IVPB ONE (05:00)
[2023-01-19] MEDS ORDERED: NOREPINEPHRINE 4 MG in SODIUM CHLORIDE 0.9% 250 ML IV SCH (05:00)
[2023-01-19] MEDS ORDERED: INSULIN REGULAR 100 UNIT in SODIUM CHLORIDE 0.9% 100 ML IV SCH (05:00)
[2023-01-19] MEDS ORDERED: PAPAVERINE 360 MG in SODIUM CHLORIDE 0.9% 90 ML IV ONE ×2 (05:00→09:32)
[2023-01-19] MEDS ORDERED: PHENYLEPHRINE 40 MG in SODIUM CHLORIDE 0.9% 250 ML IV ONE (05:00)
[2023-01-19] MEDS ORDERED: PROTAMINE SULFATE 250 MG in EMPTY BAG 1 BAG IV ONE (05:00)
[2023-01-19] MEDS ORDERED: HEPARIN SODIUM 1,000 UN/ML (10ML VL) IV ONE (05:00)
[2023-01-19] MEDS ORDERED: TRANEXAMIC ACID 2,000 MG in SODIUM CHLORIDE 0.9% 80 ML IV ONE ×4 (05:00)
[2023-01-19] MEDS ORDERED: CALCIUM CHLORIDE 100 MG/ML 10 ML SYRINGE IVP ONE (05:00)
[2023-01-19] MEDS ORDERED: MAGNESIUM SULFATE 16.24 MEQ in EMPTY SYRINGE 1 SYR IV ONE (05:00)
[2023-01-19] MEDS ORDERED: PROTAMINE SULFATE 10 MG/ML 25 ML VIAL IV ONE (05:00)
[2023-01-19] MEDS ORDERED: METOPROLOL TARTRATE 12.5 MG TAB PO ONE (05:00)
[2023-01-19] MEDS ORDERED: DILTIAZEM 125 MG in SODIUM CHLORIDE 0.9% 100 ML IV SCH (05:00)
[2023-01-19] MEDS ORDERED: PHENYLEPHRINE 10 MG/ML VIAL IV ONE (05:00)
[2023-01-19] MEDS ORDERED: ATORVASTATIN 10 MG TAB PO ONE (05:00)
[2023-01-19] MEDS ORDERED: ELECTROLYTE-A SOLUTION 1,000 ML with POTASSIUM CHLORIDE 40 MEQ, MAGNESIUM SULFATE 16 ME... IV ONE ×5 (05:00)
[2023-01-19] MEDS ORDERED: ASPIRIN 325 MG TAB PO ONE (05:00)
[2023-01-19] MEDS ORDERED: SODIUM BICARB 8.4% 50 ML SYR (1 MEQ/ML) IV ONE (05:00)
[2023-01-19] MEDS ORDERED: NITROGLYCERIN-D5W PMX 25 MG/250 ML BTL IV ONE (05:00)
[2023-01-19] MEDS ORDERED: CHLORHEXIDINE GLUCONATE 15 ML CUP MUCOUS MEM ONE (05:00)
[2023-01-19] MEDS ORDERED: ELECTROLYTE-A SOLUTION 1,000 ML with POTASSIUM CHLORIDE 100 MEQ, MAGNESIUM SULFATE 16 M... IV ONE ×5 (05:00)
[2023-01-19] MEDS ORDERED: HEPARIN SODIUM,PORCINE (1 ML) 5,000 UNIT in SODIUM CHLORIDE 0.9% 500 ML 500 ML IV ONE (05:00)
[2023-01-19] MEDS ORDERED: ceFAZolin 1,000 MG in SODIUM CHLORIDE 0.9% IRRIGATIO 1,000 ML IRRIGATION ONE (05:00)
[2023-01-19] MEDS ORDERED: MANNITOL 25% 12.5 GM/50 ML VIAL IV ONE ×2 (05:00)
[2023-01-19] MEDS ORDERED: ALBUMIN HUMAN 5% 500 ML in EMPTY BAG 1 BAG IVPB ONE ×6 (05:00)
[2023-01-19] MEDS ORDERED: IV FLUID CONTINUATION 200 ML IV ONE (06:04)
[2023-01-19] MEDS ORDERED: LIDOCAINE 2% INJ 20 MG/ML (2 ML VIAL) ONE (07:25)
[2023-01-19] MEDS ORDERED: GLYCOPYRROLATE 0.2 MG/ML 2 ML VIAL ONE (07:25)
[2023-01-19] MEDS ORDERED: HEPARIN SODIUM,PORCINE 10,000 UNIT/ML 1 ML VIAL ONE (07:25)
[2023-01-19] MEDS ORDERED: NITROGLYCERIN-D5W PMX 50 MG/250 ML BOTTLE IV ONE (07:25)
[2023-01-19] MEDS ORDERED: VECURONIUM 10 MG VIAL IV ONE (07:25)
[2023-01-19] MEDS ORDERED: fentaNYL (PF) 50 MCG/ML 50 ML VIAL ONE (07:25)
[2023-01-19] MEDS ORDERED: MIDAZOLAM HCL 10 MG/10 ML VIAL ONE (07:25)
[2023-01-19] MEDS ORDERED: ALBUMIN HUMAN 5% (25gm) 500 ML VIAL IVPB ONE (07:25)
[2023-01-19] MEDS ORDERED: INSULIN REGULAR 100 UNIT/ML VIAL (IV) ONE (07:25)
[2023-01-19] MEDS ORDERED: TRANEXAMIC 1,000 MG/100ML-NACL PREMIX BAG ONE (07:25)
[2023-01-19] MEDS ORDERED: PROPOFOL 10 MG/ML 20 ML VIAL IV ONE (07:25)
[2023-01-19] MEDS ORDERED: PROTAMINE SULFATE 10 MG/ML 5 ML VIAL IV ONE (07:25)
[2023-01-19] MEDS ORDERED: ceFAZolin 1,000 MG in SODIUM CHLORIDE 0.9% 1,000 ML IRRIGATION ONE (09:32)
[2023-01-19] MEDS ORDERED: SODIUM CHLORIDE 0.9% 500 ML 500 ML with HEPARIN SODIUM,PORCINE (1 ML) 5,000 UNIT IV ONE ×2 (09:32)
[2023-01-19 10:06] LABS: ABG Base Excess -0.3 mmol/L; ABG Glucose Whole Blood 133 mg/dL (75-99); ABG HCO3 28 mmol/L (21-25); ABG Hematocrit 43 % (34.0-46.0); ABG Ionized Calcium 4.8 mg/dL (4.5-5.3); ABG Lactic Acid Whole Blood 1.1 mmol/L (0.5-1.6); ABG Oxygen Saturation 98.5 % (94-97); ABG PCO2 57 mmHg (35-45); ABG PH 7.29 (7.35-7.45); ABG PO2 166 mmHg (83-108); ABG Potassium Whole Blood 4.3 mmol/L (3.4-4.5); ABG Sodium Whole Blood 139 mmol/L (135-146); ABG TCO2 29 mmol/L (19-24)
[2023-01-19 11:19] LABS: ABG Base Excess 3.5 mmol/L; ABG Glucose Whole Blood 108 mg/dL (75-99); ABG HCO3 28 mmol/L (21-25); ABG Hematocrit 35 % (34.0-46.0); ABG Lactic Acid Whole Blood 1.3 mmol/L (0.5-1.6); ABG Oxygen Saturation 99.6 % (94-97); ABG PCO2 39 mmHg (35-45); ABG PH 7.46 (7.35-7.45); ABG Potassium Whole Blood 4.4 mmol/L (3.4-4.5); ABG Sodium Whole Blood 138 mmol/L (135-146); ABG TCO2 29 mmol/L (19-24)
--- NOTE | 2023-01-19 11:22 | P.ANPRN ---
Procedure Note - Anesthesia - NIMISHA Intraop Pre Bypass NIMISHA Intraop - Anesthesia Indication: Coronary artery bypass graft Date of Procedure: 01/19/23 Pre-operative Diagnosis: Coronary artery disease Post-operative Diagnosis: Coronary arterty disease s/p CABG Surgeon: Justin Whitlock Ejection Fraction: Other (50%) Regional Wall Motion Abnormalities: None Left Ventricle Hypertrophy: No R. Ventricle Function: Other (mildly dilated) Aortic Valve: peak gradient 8mm of Hg and mean 4 mm of Hg Anatomy: Trileaflet Aortic Stenosis: None Aortic Regurgitation: None Mitral Stenosis: None Mitral Regurgitation: None Tricuspid Stenosis: None Tricuspid Regurgitation: Trace Pulmonic Stenosis: None Pulmonic Regurgitation: None R. Atrial Dilation: Yes R. Atrial PFO: No L. Atrial Dilation: Yes Aortic Dissection: No Aortic Calcification: None Plural Effusion: None - NIMISHA Intraop Post Bypass NIMISHA Intraop Post Bypass Procedure Performed: Coronary artery bypass graft Left Ventricle: Ejection fraction 50%, normal No new Regional wall motion abnormalities noted. Ejection Fraction: Normal Regional Wall Motion Abnormalities: None R. Ventricle Function: Normal Aortic Valve: Unchanged Mitral Valve: Unchanged Tricuspid: Unchanged Pulmonic: Unchanged Aortic Dissection: No
--- NOTE | 2023-01-19 11:39 | P.ANPRN ---
Procedure Note - Anesthesia - Invasive Line Right Central Line Time Out Performed: Yes (711) Date of Procedure: 01/19/23 Time of Procedure: 07:12 Location of Patient: PreOp Preparation: Sterile Prep, Sterile Dressing Central Line Location: Internal Jugular (right ij cordis) Ultrasound Used: Yes Purpose - Visualization and Identification of Vasculature: Yes Needle Guage: 18g angio Image Stored and Saved: Yes Narrative: Central line placement per sterile protocol utilized. +local +angio +jwire +cvp +uneventful dilation and introduction right ij cordis. Lumens bled and flushed.
--- NOTE | 2023-01-19 11:40 | P.ANPRN ---
Procedure Note - Anesthesia - Invasive Line Right Gunlock Rekha Time Out Performed: Yes (711) Date of Procedure: 01/19/23 Time of Procedure: 07:12 Location of Patient: PreOp Preparation: Sterile Prep, Sterile Dressing Gunlock Rekha Line Location: Internal Jugular (right IJ floated sterily in sheath in one attempt to wedge at 53cm, b/d and w/d to 48cm.) Ultrasound Used: No Purpose - Visualization and Identification of Vasculature: No Image Stored and Saved: No Narrative: Central line placement per sterile protocol utilized.
[2023-01-19 11:47] LABS: ABG Glucose Whole Blood 135 mg/dL (75-99); ABG HCO3 28 mmol/L (21-25); ABG Hematocrit 33 % (34.0-46.0); ABG Ionized Calcium 4.1 mg/dL (4.5-5.3); ABG Lactic Acid Whole Blood 1.5 mmol/L (0.5-1.6); ABG Oxygen Saturation 99.5 % (94-97); ABG PCO2 42 mmHg (35-45); ABG PH 7.43 (7.35-7.45); ABG PO2 403 mmHg (83-108); ABG Potassium Whole Blood 5.6 mmol/L (3.4-4.5); ABG Sodium Whole Blood 137 mmol/L (135-146); ABG TCO2 29 mmol/L (19-24)
[2023-01-19 13:05] LABS: ABG Base Excess 1.6 mmol/L; ABG Glucose Whole Blood 118 mg/dL (75-99); ABG HCO3 26 mmol/L (21-25); ABG Hematocrit 33 % (34.0-46.0); ABG Ionized Calcium 4.1 mg/dL (4.5-5.3); ABG Lactic Acid Whole Blood 1.9 mmol/L (0.5-1.6); ABG Oxygen Saturation 99.5 % (94-97); ABG PCO2 38 mmHg (35-45); ABG PH 7.44 (7.35-7.45); ABG Potassium Whole Blood 5.8 mmol/L (3.4-4.5); ABG Sodium Whole Blood 138 mmol/L (135-146); ABG TCO2 27 mmol/L (19-24)
--- NOTE | 2023-01-19 13:54 | P.PN ---
Subjective Progress Note Date: 01/19/23 This is a 57-year-old male admitted to the hospital for further evaluation for coronary artery disease. Patient has undergone extensive workup being followed by cardiothoracic services. Echocardiogram showing low normal LV systolic function with EF of 50%, mild TR. On patient underwent cardiac catheterization at [facility] which revealed multivessel disease with 80% distal left main stenosis, ostial circumflex disease and bifurcating mid LAD/diagonal disease. Patient was transferred to [facility] for cardiothoracic evaluation. Patient is scheduled to undergo coronary artery bypass grafting tomorrow with Dr. Whitlock. Today he has no acute complaints. Discussed he will go to the ICU after surgery tomorrow. Patient would like to have a BM today. He complains of heart burn sensation today and is continued on oral protonix. 01/19/2023 Patient scheduled to undergo coronary artery bypass grafting today for multivessel CAD with left main disease. Patient will be monitored in the intensive care unit post procedure. Patient remains on optimized medical therapy. Sliding scale insulin coverage and blood glucose has been controlled in the 100s and not requiring any insulin. Preoperative vital signs; temperature of 98.1, heart rate 68, blood pressure 135/70, 95% on room air. Review of Systems Constitutional: Denied any fatigue denied any fever. Cardio vascular: denied any chest pain, palpitations Gastrointestinal: denied any nausea, vomiting, diarrhea Pulmonary: Denied any shortness of breath cough Neurologic denied any new focal deficits All inpatient medications were reviewed and appropriate changes in these medications as dictated in the interval history and assessment and plan. REVIEW OF SYSTEMS: CONSTITUTIONAL: No fever, no malaise, no fatigue. HEENT: No recent visual problems or hearing problems. Denied any sore throat. CARDIOVASCULAR: No chest pain, orthopnea, PND, no palpitations, no syncope. PULMONARY: No shortness of breath, no cough, no hemoptysis. GASTROINTESTINAL: No diarrhea, no nausea, no vomiting, no abdominal pain. NEUROLOGICAL: No headaches, no weakness, no numbness. HEMATOLOGICAL: Denies any bleeding or petechiae. GENITOURINARY: Denies any burning micturition, frequency, or urgency. MUSCULOSKELETAL/RHEUMATOLOGICAL: Denies any joint pain, swelling, or any muscle pain. ENDOCRINE: Denies any polyuria or polydipsia. The rest of the 14-point review of systems is negative. Assessment Exertional dyspnea with outpatient CT showing coronary calcifications and mild nodules Positive stress test and cardiac catheterization revealing multivessel CAD with left main disease. History of myocardial infarction 15 yrs ago and prior cardiac catheterization Hyperglycemia with A1C of 6.3 consistent with prediabetes History hyperlipidemia Hx cardiomyopathy with EF 40% with improved EF of 50% this hospital stay Gastroesophageal reflux disease Hx hiatal hernia Hx of tobacco use in the past Hx of alcohol use in the past GI prophylaxis on protonix Full Code Plan Remains on optimal medical therapy, protonix for GI prophylaxis. Continue accuchecks ACHS and sliding scale insulin has been added for improved glycemic control patient likely will not require insulin on discharge and has not been requiring insulin in the hospital. Patient scheduled to undergo coronary artery bypass grafting today 01/18/[address] Whitlock Patient will be monitored in the ICU postoperative. The impression and plan of care has been dictated by Kera Blair, Nurse Practitioner as directed. Dr. Juanpablo MD I have performed a history and physical examination and medical decision making of this patient, discussed the same with the dictator, and agree with the dictators assessment and plan as written, documented as a scribe. Based on total visit time, I have performed more than 50% of this visit. Objective - Vital Signs Vital signs: Vital Signs Temp 97.8 F 01/19/23 06:09 Pulse 71 01/19/23 06:09 Resp 18 01/19/23 06:09 BP 160/77 01/19/23 06:09 Pulse Ox 96 01/19/23 06:09 FiO2 Intake & Output 01/18/23 01/19/23 01/19/23 18:59 06:59 18:59 Intake Total 700 50 54 Balance 700 50 54 Weight 94.347 kg Intake: IV 50 54 Oral 700 Other: Voiding Method Toilet Toilet # Voids 3 - Labs CBC & Chem 7: 01/18/23 12:24 01/17/23 14:52 Labs: Abnormal Lab Results - Last 24 Hours (Table) 01/18/23 Range/Units 12:24 Crossmatch See Detail Microbiology - Last 24 Hours (Table) 01/17/23 14:30 Nasal Screen MRSA/MSSA - Final Nasal Swab Assessment and Plan Time with Patient: Less than 30
[2023-01-19 14:03] LABS: ABG Base Excess -0.4 mmol/L; ABG Glucose Whole Blood 134 mg/dL (75-99); ABG HCO3 25 mmol/L (21-25); ABG Hematocrit 30 % (34.0-46.0); ABG Ionized Calcium 4.1 mg/dL (4.5-5.3); ABG Oxygen Saturation 97.1 % (94-97); ABG PCO2 46 mmHg (35-45); ABG PH 7.35 (7.35-7.45); ABG PO2 90 mmHg (83-108); ABG Potassium Whole Blood 4.7 mmol/L (3.4-4.5); ABG Sodium Whole Blood 139 mmol/L (135-146); ABG TCO2 27 mmol/L (19-24)
[2023-01-19 14:45] LABS: ABG PO2 >420 mmHg (83-108)
[2023-01-19 14:48] LABS: ABG PO2 >420 mmHg (83-108)
[2023-01-19] MEDS: NITROGLYCERIN-D5W PMX 50 MG in DEXTROSE/WATER 1 250ML.BAG IV SCH ×2 (15:35→16:48)
[2023-01-19 15:41] LABS: Glucose,Whole Blood 101 mg/dL (70-110)
[2023-01-19] MEDS: CLEVIDIPINE BUTYRATE 25 MG in EMPTY BAG 1 BAG IV SCH ×3 (15:45→17:15)
--- NOTE | 2023-01-19 16:06 | P.CNPUL ---
History of Present Illness Consult date: 01/19/23 Requesting physician: Justin Whitlock Reason for consult: other (Ventilator/critical care management) Chief complaint: Dyspnea on exertion History of present illness: This is a 57-year-old male patient with a known history of hyperlipidemia, gastroesophageal reflux disease, hiatal hernia, ischemic cardiomyopathy with ejection fraction of 40% and a prior myocardial infarction, former smoker. He had been having ongoing issues with dyspnea on minimal exertion. He had undergone elective cardiac catheterization at [facility] and was found to have significant triple-vessel disease and was transferred here for cardiothoracic evaluation. Epogen FEV1 value from 12/29/2022 revealed a baseline of 3.56 which is 87% of predicted. He had undergone coronary artery bypass grafting 4 today 01/19/2023. He is seen in the immediate postop per day. In the intensive care unit. Currently intubated on mechanical ventilator with blood settings of assist control mode of 14, tidal M6 100, FiO2 100% and a PEEP of 5. Sternal dressing is dry and intact mediastinal split chest tubes in place, right and left pleural chest tubes in place, right IJ [place]-Rekha catheter in place. Initial cardiac output 5.1. Cardiac index 2.3. PA pressures 31/16, CVP of 10. He is currently on propofol 50 mcg/kg/m. Nitroglycerin drip at 10 mcg/m. Insulin drip currently off. Labs, chest x-ray and ABGs are pending. Review of Systems ROS unobtainable: due to endotracheal tube Past Medical History Past Medical History: GERD/Reflux, Hyperlipidemia, Myocardial Infarction (RI) Additional Past Medical History / Comment(s): Stress test negative in October that was negative, RI in about 2003, insomnia, hiatal hernia, cardiomyopathy with an ejection fraction of 40% Last Myocardial Infarction Date:: 2003 History of Any Multi-Drug Resistant Organisms: None Reported Past Surgical History: Heart Catheterization Additional Past Surgical History / Comment(s): Nasal polyps removed "a couple years ago," heart catheterization 01/17/23 revealing severe left main blockage (cardiothoracic consult) Past Anesthesia/Blood Transfusion Reactions: No Reported Reaction Past Psychological History: No Psychological Hx Reported Smoking Status: Former smoker (Quit smoking about 13 years ago) Past Alcohol Use History: None Reported Additional Past Alcohol Use History / Comment(s): Reports he quit drinking in 1998 Past Drug Use History: None Reported - Past Family History Father Additional Family Medical History / Comment(s): Heart disease Mother Family Medical History: Myocardial Infarction (RI) Additional Family Medical History / Comment(s): Heart disease Medications and Allergies Home Medications Medication Instructions Recorded Confirmed Type Atorvastatin [Lipitor] 80 mg PO DAILY 01/17/23 01/17/23 History Ezetimibe [Zetia] 10 mg PO DAILY 01/17/23 01/17/23 History Metoprolol Succinate (ER) [Toprol 25 mg PO DAILY 01/17/23 01/17/23 History Xl] Omeprazole [PriLOSEC] 20 mg PO AC-BRKFST 01/17/23 01/17/23 History Allergies Allergy/AdvReac Type Severity Reaction Status Date / Time Sesame Seed Allergy Rash/Hives Verified 01/17/23 12:17 Physical Exam Vitals: Vital Signs Temp Pulse Resp BP BP Pulse Ox FiO2 01/19/23 15:37 100 01/19/23 15:11 100 01/19/23 06:09 97.8 F 71 18 160/77 96 01/19/23 04:10 98.1 F 68 18 135/70 134/76 95 01/19/23 02:00 16 01/19/23 00:00 97.7 F 62 16 144/82 96 01/18/23 20:00 97.7 F 67 18 143/86 95 01/18/23 15:53 68 18 141/81 97 Intake and Output 01/19/23 01/19/23 01/19/23 06:59 14:59 22:59 Intake Total 50 54 Output Total 2700 Balance 50 2646 Intake: IV 50 54 Output: Urine 700 Estimated Blood Loss 1999 Other: Voiding Method Toilet Weight 94.347 kg GENERAL EXAM: Intubated, sedated 57-year-old male patient, comfortable in no apparent distress. HEAD: Normocephalic. EYES: Sluggish reaction of pupils, equal size. NOSE: Clear with pink turbinates. THROAT: Oral endotracheal and gastric tube secured in place. No erythema or exudates. NECK: No masses, no JVD. CHEST: Sternal dressing dry and intact. Mediastinal split chest tubes, right and left pleural chest tubes in place. Pacer wires in place.. LUNGS: Equal air entry with no crackles, wheeze, rhonchi or dullness. CVS: S1 and S2 normal with no audible murmur, regular rhythm. ABDOMEN: No hepatosplenomegaly, normal bowel sounds, no guarding or rigidity. SPINE: No scoliosis or deformity SKIN: No rashes CENTRAL NERVOUS SYSTEM: Sedated, tone is normal in all 4 extremities. EXTREMITIES: Right radial arterial line in place. Raul wraps to bilateral lower extremities. There is no peripheral edema. No clubbing, no cyanosis. Peripheral pulses are intact. Results - Laboratory Findings CBC and BMP: 01/18/23 12:24 01/17/23 14:52 ABG ABG pH 7.35 (7.35-7.45) 01/19/23 07:29 ABG pH 7.40 (7.35-7.45) 01/19/23 07:29 ABG pH 7.43 (7.35-7.45) 01/19/23 07:29 ABG pH 7.44 (7.35-7.45) 01/19/23 07:29 ABG pH 7.44 (7.35-7.45) 01/19/23 07:29 ABG pH 7.46 (7.35-7.45) H 01/19/23 07:29 ABG pCO2 38 mmHg (35-45) 01/19/23 07:29 ABG pCO2 39 mmHg (35-45) 01/19/23 07:29 ABG pCO2 39 mmHg (35-45) 01/19/23 07:29 ABG pCO2 42 mmHg (35-45) 01/19/23 07:29 ABG pCO2 42 mmHg (35-45) 01/19/23 07:29 ABG pCO2 46 mmHg (35-45) H 01/19/23 07:29 ABG pO2 90 mmHg (83-108) 01/19/23 07:29 ABG pO2 92 mmHg (83-108) 01/19/23 07:29 ABG pO2 354 mmHg (83-108) H 01/19/23 07:29 ABG pO2 403 mmHg (83-108) H 01/19/23 07:29 ABG pO2 >420 mmHg (83-108) H 01/19/23 07:29 ABG pO2 >420 mmHg (83-108) H 01/19/23 07:29 ABG O2 Saturation 97.1 % (94-97) H 01/19/23 07:29 ABG O2 Saturation 97.3 % (94-97) H 01/19/23 07:29 ABG O2 Saturation 99.5 % (94-97) H 01/19/23 07:29 ABG O2 Saturation 99.5 % (94-97) H 01/19/23 07:29 ABG O2 Saturation 99.5 % (94-97) H 01/19/23 07:29 ABG O2 Saturation 99.6 % (94-97) H 01/19/23 07:29 PT/INR, D-dimer PT 10.4 sec (9.0-12.0) 01/17/23 14:52 INR 1.0 (<1.2) 01/17/23 14:52 Abnormal lab findings: Abnormal Labs 01/17/23 01/17/23 01/17/23 14:52 14:52 14:52 WBC 11.8 H Neutrophils # 8.3 H ABG pH ABG pCO2 ABG pO2 ABG HCO3 ABG Total CO2 ABG O2 Saturation ABG Hematocrit ABG Potassium ABG Ionized Calcium ABG Glucose ABG Lactic Acid Hemoglobin Sodium 136 L Glucose 130 H Hemoglobin A1c 6.3 H Total Bilirubin 1.6 H ALT 71 H Triglycerides 251.00 H VLDL Cholesterol, Calc 50.20 H Arterial Blood Potassium Arterial Blood Glucose Crossmatch 01/18/23 01/19/23 01/19/23 12:24 07:26 07:29 WBC Neutrophils # ABG pH 7.29 L 7.46 H ABG pCO2 57 H ABG pO2 166 H >420 H ABG HCO3 28 H 28 H ABG Total CO2 29 H 29 H ABG O2 Saturation 98.5 H 99.6 H ABG Hematocrit ABG Potassium ABG Ionized Calcium 4.0 L ABG Glucose 133 H 108 H ABG Lactic Acid Hemoglobin 11.5 L Sodium Glucose Hemoglobin A1c Total Bilirubin ALT Triglycerides VLDL Cholesterol, Calc Arterial Blood Potassium Arterial Blood Glucose 133 H 108 H Crossmatch See Detail 01/19/23 01/19/23 01/19/23 07:29 07:29 07:29 WBC Neutrophils # ABG pH ABG pCO2 46 H ABG pO2 >420 H 403 H ABG HCO3 26 H 28 H ABG Total CO2 27 H 29 H 27 H ABG O2 Saturation 99.5 H 99.5 H 97.1 H ABG Hematocrit 33 L 33 L 30 L ABG Potassium 5.8 H 5.6 H 4.7 H ABG Ionized Calcium 4.1 L 4.1 L 4.1 L ABG Glucose 118 H 135 H 134 H ABG Lactic Acid 1.9 H 2.0 H Hemoglobin 10.6 L 10.8 L 9.9 L Sodium Glucose Hemoglobin A1c Total Bilirubin ALT Triglycerides VLDL Cholesterol, Calc Arterial Blood Potassium 5.8 H 5.6 H 4.7 H Arterial Blood Glucose 118 H 135 H 134 H Crossmatch 01/19/23 01/19/23 07:29 07:29 WBC Neutrophils # ABG pH ABG pCO2 ABG pO2 354 H ABG HCO3 27 H 26 H ABG Total CO2 28 H 27 H ABG O2 Saturation 99.5 H 97.3 H ABG Hematocrit 33 L ABG Potassium 5.7 H ABG Ionized Calcium 4.1 L ABG Glucose 132 H 122 H ABG Lactic Acid Hemoglobin 10.7 L Sodium Glucose Hemoglobin A1c Total Bilirubin ALT Triglycerides VLDL Cholesterol, Calc Arterial Blood Potassium 5.7 H Arterial Blood Glucose 132 H 122 H Crossmatch Assessment and Plan Assessment: Significant coronary artery disease, status post coronary artery bypass grafting 4. Postoperative day #0 History of ischemic cardiomyopathy with ejection fraction 40-50%, previous myocardial infarction many years ago Hyperlipidemia Hypertension Gastroesophageal reflux disease Hiatal hernia Former smoker, FEV1 value 2.36 L, 87% of predicted Plan: The patient was seen and evaluated Ventilator settings and medications reviewed Chest x-ray, ABGs and labs pending We'll plan for early extubation protocol if tolerated We will continue to follow and make further recommendations based on his clinical status I have personally seen and examined the patient, performed the documentation and the assessment and plan as written. Number of minutes spent on the visit: 20.
[2023-01-19 16:21] LABS: ABG HCO3 25 mmol/L (21-25); ABG Oxygen Saturation 97.7 % (94-97); ABG PCO2 44 mmHg (35-45); ABG PH 7.37 (7.35-7.45); ABG PO2 104 mmHg (83-108); ABG TCO2 27 mmol/L (19-24)
[2023-01-19 16:22] LABS: Glucose,Whole Blood 128 mg/dL (70-110)
--- NOTE | 2023-01-19 16:32 | XR ---
EXAMINATION TYPE: XR chest 1V portable DATE OF EXAM: 01/19/2023 4:13 PM COMPARISON: Chest radiographs from 01/17/2023 TECHNIQUE: XR chest 1V portable Portable AP radiograph of the chest. CLINICAL INDICATION:Male, 57 years old with history of sob ; FINDINGS: Lungs/Pleura: There is no evidence of pleural effusion, focal consolidation, or pneumothorax. Right midlung linear atelectasis. Pulmonary vascularity: Unremarkable. Heart/mediastinum: Cardiomediastinal silhouette is enlarged and stable. Post CABG changes Left atria l appendage occlusion devices present. Musculoskeletal: No acute osseous pathology. Midline sternotomy wires are noted and stable. Other findings: None Lines/Tubes: Endotracheal tube with distal tip 6.5 cm above the patti Nasogastric tube with its distal tip in the lower esophagus. Mediastinal drains identified. Right IJ [place]Rekha catheter with distal tip in the region of the main pulmonary artery. IMPRESSION: 1. Endotracheal tube 6.5 cm above the patti. Recommend advancement of 2 to 3 cm. 2. NG tube with distal tip in the distal esophagus. Recommend advancement of 15 cm. 3. Post CABG changes.
[2023-01-19 16:33] LABS: HCT 32.7 % (39.0-53.0); MCH 32.3 pg (25.0-35.0); MCHC 35.3 g/dL (31.0-37.0); MCV 91.3 fL (80.0-100.0); Mean Platelet Volume 7.8; RBC 3.58 m/uL (4.30-5.90); RDW 12.5 % (11.5-15.5); WBC 13.9 k/uL (3.8-10.6)
[2023-01-19 16:43] LABS: HGB 11.6 gm/dL (13.0-17.5); Platelet Count 96 k/uL (150-450)
[2023-01-19 16:44] LABS: Allen Test Performed? no
[2023-01-19] MEDS: SODIUM CHLORIDE 0.9% 1,000 ML IV SCH (16:45)
[2023-01-19] MEDS: INSULIN ASPART (NovoLOG) 100 UNIT/ML VIAL SQ SCH ×2 (16:50→16:51)
[2023-01-19] MEDS: MUPIROCIN 2% OINT 22 GM TUBE NASAL SCH ×2 (16:51→21:37)
[2023-01-19] MEDS: ASPIRIN 81 MG PO SCH (16:51)
[2023-01-19 16:53] LABS: ALT 33 U/L (4-49); AST 53 U/L (17-59); African American GFR (CKD) >90 (>60 ml/min/1.73 sqM); Albumin 3.2 g/dL (3.5-5.0); Alkaline Phosphatase 58 U/L (38-126); Anion Gap 6 mmol/L; Blood Urea Nitrogen 13 mg/dL (9-20); Calcium 7.6 mg/dL (8.4-10.2); Carbon Dioxide 25 mmol/L (22-30); Chloride 107 mmol/L (98-107); Glucose 102 mg/dL (74-99); Magnesium 2.6 mg/dL (1.6-2.3); Non-African American GFR(CKD) >90 (>60 ml/min/1.73 sqM); Potassium 4.3 mmol/L (3.5-5.1); Sodium 138 mmol/L (137-145); Total Bilirubin 2.2 mg/dL (0.2-1.3)
[2023-01-19] MEDS: INSULIN REGULAR 100 UNIT in SODIUM CHLORIDE 0.9% 100 ML IV SCH (17:00)
[2023-01-19] MEDS ORDERED: FUROSEMIDE 10 MG/ML 2 ML VIAL IV ONE (17:02)
[2023-01-19 17:07] LABS: INR 1.2 (<1.2)
[2023-01-19 17:11] LABS: Glucose,Whole Blood 151 mg/dL (70-110)
[2023-01-19] MEDS ORDERED: CALCIUM GLUCONATE IN NACL 2 GM in SALINE 1 100ML.BAG IVPB PRN (17:29)
[2023-01-19] MEDS ORDERED: IPRATROPIUM-ALBUTEROL 3 ML NEB INHALATION PRN (17:29)
[2023-01-19] MEDS ORDERED: DEXTROSE 50% SYRINGE 50 ML IVP PRN ×2 (17:29)
[2023-01-19] MEDS ORDERED: CLEVIDIPINE BUTYRATE 25 MG in EMPTY BAG 1 BAG IV SCH (17:29)
[2023-01-19] MEDS ORDERED: Potassium Replacement Protocol 1 EACH MISC MISCELLANE PRN (17:29)
[2023-01-19] MEDS ORDERED: NITROGLYCERIN-D5W PMX 50 MG in DEXTROSE/WATER 1 250ML.BAG IV SCH (17:29)
[2023-01-19] MEDS ORDERED: ONDANSETRON 4 MG/2 ML VIAL IVP PRN (17:29)
[2023-01-19] MEDS ORDERED: METOCLOPRAMIDE 5 MG/ML 2 ML VIAL IVP PRN (17:29)
[2023-01-19] MEDS ORDERED: Phosphorus Replacement Protoco 1 EACH MISC MISCELLANE PRN (17:29)
[2023-01-19] MEDS ORDERED: BENZOCAINE/MENTHOL LOZENG 1 EACH LOZENGE MUCOUS MEM PRN (17:29)
[2023-01-19] MEDS ORDERED: Magnesium Replacement Protocol 1 EACH MISC MISCELLANE PRN (17:29)
--- NOTE | 2023-01-19 17:34 | P.PN ---
Subjective Progress Note Date: 01/19/23 PROGRESS NOTE The patient is a 57-year-old male who underwent cardiac catheterization and was found to have severe coronary artery disease with severe left main, ostial left circumflex and mid LAD and diagonal branch disease. He underwent coronary artery bypass grafting today. He is intubated and sedated. Hemodynamically stable. He is in sinus mechanism. There is no evidence of malignant arrhythmia and he is on no vasopressors. Medications: Aspirin, Lipitor 40 mg daily, IV nitroglycerin, metoprolol 12.5 mg twice a day. PHYSICAL EXAMINATION: Blood pressure 110/60 heart rate 90 intubated and sedated LUNGS: Clear to auscultation anteriorly HEART: Regular rate and rhythm, S1, S2. No S3. No systolic murmur ABDOMEN: Soft, no organomegaly EXTREMETIES: No edema LAB: Hemoglobin 11.6, BUN 13, creatinine 0.74 IMPRESSION: 1. Status post CABG 2. Hyperlipidemia 3. Remote history of myocardial infarction 4. Remote history of smoking PLAN: 1. Routine postoperative care 2. . Wean and extubate soon 3. Depending on the blood pressure adjust medical therapy with adjustment of the beta mustapha Objective - Vital Signs Vital signs: Vital Signs Temp 97.2 F L 01/19/23 16:00 Pulse 92 01/19/23 17:15 Resp 14 01/19/23 17:15 BP 160/77 01/19/23 06:09 Pulse Ox 92 L 01/19/23 17:15 FiO2 90 01/19/23 16:49 Intake & Output 01/18/23 01/19/23 01/19/23 18:59 06:59 18:59 Intake Total 700 50 301 Output Total 3894 Balance 700 50 -3593 Weight 94.347 kg Intake: IV 50 301 0.9 NACL 150 Co/CI 70 pressure bags 27 Oral 700 Output: Chest Tube Drainage 559 Left pleural 158 Right pleural 131 mediastinal x2 270 Urine 1335 Estimated Blood Loss 1999 Other: Voiding Method Toilet Toilet # Voids 3 ABP, PAP, CO, CI - Last Documented Arterial Blood Pressure 110/56 Pulmonary Artery Pressure 39/26 Cardiac Output 6.6 Cardiac Index 3 - Labs CBC & Chem 7: 01/19/23 15:46 01/19/23 15:46 Labs: Abnormal Lab Results - Last 24 Hours (Table) 01/18/23 01/19/23 01/19/23 Range/Units 12:24 07:26 07:29 WBC (3.8-10.6) k/uL RBC (4.30-5.90) m/uL Hgb (13.0-17.5) gm/dL Hct (39.0-53.0) % Plt Count (150-450) k/uL INR (<1.2) ABG pH 7.29 L 7.46 H (7.35-7.45) ABG pCO2 57 H (35-45) mmHg ABG pO2 166 H >420 H (83-108) mmHg ABG HCO3 28 H 28 H (21-25) mmol/L ABG Total CO2 29 H 29 H (19-24) mmol/L ABG O2 Saturation 98.5 H 99.6 H (94-97) % ABG Hematocrit (34.0-46.0) % ABG Potassium (3.4-4.5) mmol/L ABG Ionized Calcium 4.0 L (4.5-5.3) mg/dL ABG Glucose 133 H 108 H (75-99) mg/dL ABG Lactic Acid (0.5-1.6) mmol/L Hemoglobin 11.5 L (13.0-17.5) gm/dL Glucose (74-99) mg/dL POC Glucose (mg/dL) (70-110) mg/dL Calcium (8.4-10.2) mg/dL Magnesium (1.6-2.3) mg/dL Total Bilirubin (0.2-1.3) mg/dL Total Protein (6.3-8.2) g/dL Albumin (3.5-5.0) g/dL Arterial Blood Potassium (3.4-4.5) mmol/L Arterial Blood Glucose 133 H 108 H (75-99) mg/dL Crossmatch See Detail 01/19/23 01/19/23 01/19/23 Range/Units 07: 07:29 07:29 WBC (3.8-10.6) k/uL RBC (4.30-5.90) m/uL Hgb (13.0-17.5) gm/dL Hct (39.0-53.0) % Plt Count (150-450) k/uL INR (<1.2) ABG pH (7.35-7.45) ABG pCO2 46 H (35-45) mmHg ABG pO2 >420 H 403 H (83-108) mmHg ABG HCO3 26 H 28 H (21-25) mmol/L ABG Total CO2 27 H 29 H 27 H (19-24) mmol/L ABG O2 Saturation 99.5 H 99.5 H 97.1 H (94-97) % ABG Hematocrit 33 L 33 L 30 L (34.0-46.0) % ABG Potassium 5.8 H 5.6 H 4.7 H (3.4-4.5) mmol/L ABG Ionized Calcium 4.1 L 4.1 L 4.1 L (4.5-5.3) mg/dL ABG Glucose 118 H 135 H 134 H (75-99) mg/dL ABG Lactic Acid 1.9 H 2.0 H (0.5-1.6) mmol/L Hemoglobin 10.6 L 10.8 L 9.9 L (13.0-17.5) gm/dL Glucose (74-99) mg/dL POC Glucose (mg/dL) (70-110) mg/dL Calcium (8.4-10.2) mg/dL Magnesium (1.6-2.3) mg/dL Total Bilirubin (0.2-1.3) mg/dL Total Protein (6.3-8.2) g/dL Albumin (3.5-5.0) g/dL Arterial Blood Potassium 5.8 H 5.6 H 4.7 H (3.4-4.5) mmol/L Arterial Blood Glucose 118 H 135 H 134 H (75-99) mg/dL Crossmatch 01/19/23 01/19/23 01/19/23 Range/Units 15:46 15:46 16:19 WBC 13.9 H (3.8-10.6) k/uL RBC 3.58 L (4.30-5.90) m/uL Hgb 11.6 L D (13.0-17.5) gm/dL Hct 32.7 L (39.0-53.0) % Plt Count 96 L D (150-450) k/uL INR (<1.2) ABG pH (7.35-7.45) ABG pCO2 (35-45) mmHg ABG pO2 (83-108) mmHg ABG HCO3 (21-25) mmol/L ABG Total CO2 27 H (19-24) mmol/L ABG O2 Saturation 97.7 H (94-97) % ABG Hematocrit (34.0-46.0) % ABG Potassium (3.4-4.5) mmol/L ABG Ionized Calcium (4.5-5.3) mg/dL ABG Glucose (75-99) mg/dL ABG Lactic Acid (0.5-1.6) mmol/L Hemoglobin (13.0-17.5) gm/dL Glucose 102 H (74-99) mg/dL POC Glucose (mg/dL) (70-110) mg/dL Calcium 7.6 L (8.4-10.2) mg/dL Magnesium 2.6 H (1.6-2.3) mg/dL Total Bilirubin 2.2 H (0.2-1.3) mg/dL Total Protein 5.0 L (6.3-8.2) g/dL Albumin 3.2 L (3.5-5.0) g/dL Arterial Blood Potassium (3.4-4.5) mmol/L Arterial Blood Glucose (75-99) mg/dL Crossmatch 01/19/23 01/19/23 01/19/23 Range/Units 16:19 16:21 17:10 WBC (3.8-10.6) k/uL RBC (4.30-5.90) m/uL Hgb (13.0-17.5) gm/dL Hct (39.0-53.0) % Plt Count (150-450) k/uL INR 1.2 H (<1.2) ABG pH (7.35-7.45) ABG pCO2 (35-45) mmHg ABG pO2 (83-108) mmHg ABG HCO3 (21-25) mmol/L ABG Total CO2 (19-24) mmol/L ABG O2 Saturation (94-97) % ABG Hematocrit (34.0-46.0) % ABG Potassium (3.4-4.5) mmol/L ABG Ionized Calcium (4.5-5.3) mg/dL ABG Glucose (75-99) mg/dL ABG Lactic Acid (0.5-1.6) mmol/L Hemoglobin (13.0-17.5) gm/dL Glucose (74-99) mg/dL POC Glucose (mg/dL) 128 H 151 H (70-110) mg/dL Calcium (8.4-10.2) mg/dL Magnesium (1.6-2.3) mg/dL Total Bilirubin (0.2-1.3) mg/dL Total Protein (6.3-8.2) g/dL Albumin (3.5-5.0) g/dL Arterial Blood Potassium (3.4-4.5) mmol/L Arterial Blood Glucose (75-99) mg/dL Crossmatch Microbiology - Last 24 Hours (Table) 01/17/23 14:30 Nasal Screen MRSA/MSSA - Final Nasal Swab
[2023-01-19 17:41] LABS: ABG Base Excess -2.1 mmol/L; ABG HCO3 25 mmol/L (21-25); ABG Oxygen Saturation 94.3 % (94-97); ABG PCO2 53 mmHg (35-45); ABG PH 7.28 (7.35-7.45); ABG PO2 78 mmHg (83-108); ABG TCO2 26 mmol/L (19-24)
[2023-01-19 17:43] LABS: Allen Test Performed? no
[2023-01-19] MEDS: NOREPINEPHRINE 4 MG in SODIUM CHLORIDE 0.9% 250 ML IV SCH (18:03)
[2023-01-19] MEDS: ALBUMIN HUMAN 5% 250 ML in EMPTY BAG 1 BAG IVPB PRN ×3 (18:05→21:36)
[2023-01-19 18:16] LABS: Glucose,Whole Blood 140 mg/dL (70-110)
[2023-01-19] MEDS: ACETAMINOPHEN IV (For NPO) 1,000 MG in EMPTY BAG 1 BAG IVPB SCH (18:45)
[2023-01-19 19:03] LABS: Glucose,Whole Blood 132 mg/dL (70-110)
[2023-01-19 19:56] LABS: Glucose,Whole Blood 136 mg/dL (70-110)
[2023-01-19] MEDS ORDERED: IPRATROPIUM-ALBUTEROL 3 ML NEB INHALATION SCH (20:00)
[2023-01-19 20:02] LABS: ABG Base Excess -0.2 mmol/L; ABG HCO3 25 mmol/L (21-25); ABG Oxygen Saturation 98.6 % (94-97); ABG PCO2 43 mmHg (35-45); ABG PH 7.38 (7.35-7.45); ABG PO2 304 mmHg (83-108); ABG TCO2 26 mmol/L (19-24); Allen Test Performed? Yes
[2023-01-19 20:05] LABS: Basophils % (A) 0 %; Eosinophils % (A) 0 %; HCT 30.9 % (39.0-53.0); HGB 10.7 gm/dL (13.0-17.5); Lymphocytes # (A) 0.6 k/uL (1.0-4.8); Lymphocytes % (A) 5 %; MCH 31.7 pg (25.0-35.0); MCHC 34.6 g/dL (31.0-37.0); MCV 91.6 fL (80.0-100.0); Monocytes # (A) 0.7 k/uL (0-1.0); Monocytes % (A) 6 %; Neutrophils # (A) 10.6 k/uL (1.3-7.7); Neutrophils % (A) 88 %; Platelet Count 115 k/uL (150-450); RBC 3.38 m/uL (4.30-5.90); RDW 12.7 % (11.5-15.5)
[2023-01-19 20:54] LABS: Glucose,Whole Blood 136 mg/dL (70-110)
[2023-01-19 22:07] LABS: Glucose,Whole Blood 135 mg/dL (70-110)
[2023-01-19 22:19] LABS: ABG Base Excess -0.3 mmol/L; ABG HCO3 25 mmol/L (21-25); ABG Oxygen Saturation 98.6 % (94-97); ABG PCO2 42 mmHg (35-45); ABG PH 7.38 (7.35-7.45); ABG PO2 132 mmHg (83-108); ABG TCO2 26 mmol/L (19-24); Allen Test Performed? Yes
--- NOTE | 2023-01-19 22:34 | OP ---
OPERATIVE REPORT DATE OF SERVICE : 01/19/2023 ASSISTANTS: Junior Curry, nurse practitioner and Eduardo Casey. PREOPERATIVE DIAGNOSES: Triple-vessel coronary artery disease with left main disease, history of prior myocardial infarction with mild to moderate left ventricular dysfunction, hyperlipidemia, strong family history of coronary artery disease. POSTOPERATIVE DIAGNOSES: Triple-vessel coronary artery disease with left main disease, history of prior myocardial infarction with mild to moderate left ventricular dysfunction, hyperlipidemia, strong family history of coronary artery disease with severe diffuse coronary artery disease. PROCEDURES PERFORMED: 1. Quadruple multiple arterial coronary artery bypass grafting using the left internal mammary artery sequentially to the diagonal artery, then to the left anterior descending artery, left radial artery from the aorta to the obtuse marginal artery, reverse saphenous vein graft from the aorta to the posterior descending artery. 2. Exclusion of the left atrial appendage using a 35 mm AtriClip. 3. Intraoperative graft flow measurements using the Vivonetstim system. 4. Endoscopic harvesting of the left radial artery. 5. Endoscopic harvesting of the left greater saphenous vein. 6. Intraoperative transesophageal echocardiogram and epiaortic scanning. INDICATION FOR SURGERY: The patient is a 57-year-old gentleman with the above comorbidities, who was worked up for essentially worsening shortness of breath with a cardiac catheterization at [facility] in view of severe calcification of his coronary vessels by cardiac CTA. He was found to have left main disease with calcified coronary artery disease and what seems to be also moderate disease of the right coronary artery as well as the proximal part of the posterior descending artery. His echocardiogram performed here as a prelude for surgery showed a low normal left ventricular function and no significant valvular abnormalities. The patient has been taken today for urgent coronary artery bypass grafting. The STS risk was discussed with him and his daughter. They understood it and agreed to proceed. DESCRIPTION OF THE PROCEDURE: The patient in supine position. Right internal jugular [place]-Rekha catheter and a right radial arterial line were placed in the preoperative holding area. The patient had normal PA pressure and normal cardiac index. Subsequently, he was brought to the operating room, where general endotracheal anesthesia was induced uneventfully. Thomas catheter was inserted. The patient received 2 g of cefazolin intravenously. Subsequently, the chest, abdomen, both lower extremity and the left upper extremities were prepped and draped using ChloraPrep. Ioban was used to cover the skin. Transesophageal echocardiogram confirmed the preoperative finding of mild left ventricular dysfunction and no valvular abnormalities. Midline sternotomy was performed and no bone wax was used. There was a breach in the right pleura that was drained with a 19[place] Jarred drain. The left hemisternum was elevated and the left internal mammary artery was harvested in a somewhat skeletonized fashion. The left pleura was intentionally opened in this process and drained with a 19[place] Jarred drain. The patient was given 5000 units of heparin and the mammary artery was clipped distally and transected, had an excellent pulsatile flow in it and was around 2 mm in diameter. In the same setting, the left radial artery was exposed at the wrist and clamping trial revealed preserved signal in the left index O2 saturation probe. Subsequently, the radial artery was harvested endoscopically without using a tourniquet. The forearm incisions were closed over a drain. The radial artery was prepared by incising the fascia all along its volar aspect and clipping all its branches. It was of excellent quality around 3 mm in diameter. Also in the same setting, the left greater saphenous vein was harvested endoscopically from groin to just below knee level. The leg incisions were closed over a drain. The vein was prepared by tying and clipping all its branches. It was of good quality around 4 mm in diameter. Ankeney retractor was used. Mediastinal fat was transected between 2 ties and epiaortic ultrasound revealed no protruding atheroma in the ascending aorta. Pericardium was opened in an inverted T-fashion and a pericardial cradle was created. Findings included a normal soft, short aorta and a normal size heart; however, there was a palpable and visible diffuse calcific coronary artery disease. After systemic heparinization and after placement of respective pledgeted pursestring, the aortic cannulation in the proximal arch with a 21-[place] soft flow cannula, venous cannulation via the right atrial appendage with a 3-stage 29-[place] cannula was performed. Antegrade as well as retrograde cardioplegia catheters were placed. Cardiopulmonary bypass was initiated and with the heart empty and beating, we looked at the target. Again, there was diffuse coronary artery disease. We found a spot between 2 plaques in the left anterior descending artery distally, which would be the site for bypass. The diagonal artery was also identified as well as the first obtuse marginal artery as site for bypass. The bifurcation of the right coronary artery was calcified and it was diseased in the proximal part of the posterior descending artery, but there was a soft spot beyond that, so the proximal descending artery would be the site for bypass. Aorta was clamped and during aortic clamping, myocardial protection was achieved with initial dose of 900 mL of antegrade cold blood cardioplegia, followed by 400 mL of retrograde cold blood cardioplegia. All subsequent doses were given retrograde at 15 minutes interval. We also had to give some doses from [id number] as there was a lot of noncoronary collateral flow to the heart resulting into reversal of the cardioplegic effect. We started by excluding the left atrial appendage by deploying a 35 mm AtriClip at its base. The first distal anastomosis was to the segment of vein of good quality and 1.5 mm posterior descending artery proximally using Prolene 7-0 in continuous fashion. The second distal anastomosis was between the radial artery and 1.5 mm diffusely diseased first obtuse marginal artery,using Prolene 7-0 in continuous fashion. The third distal anastomosis was between the in situ left internal mammary artery and the first diagonal artery in a [id number] parallel fashion using Prolene 7-0 in continuous fashion. The fourth and last distal anastomoses wAS between the end of the left internal mammary artery that had preserved flow in it and the mid to distal left anterior descending artery again that was a diffusely diseased using Prolene 7-0 in continuous fashion. I used a 1 mm shunt in all the vessels as I was performing the anastomosis. Satisfied with the distal anastomosis, rewarming was started as we punched out 2 buttons of the ascending aorta and performed the 2 proximal anastomoses of the radial artery and the vein using running Prolene. The patient was given lidocaine and magnesium. He was placed in Trendelenburg position and after de-airing, the aorta was unclamped. The patient regained spontaneous sinus rhythm readily after. Two monopolar atrial pacing wires were affixed to the respective pursing of the right atrium and two 19[place] Jarred drains were left substernally. After around 15 minutes of reperfusion, we were able to wean off cardiac bypass without the need of any inotropic or vasopressor support. NIMISHA showed good LV function. Cardiac index was 2.4, then 3. With stable hemodynamics, we proceeded at the graft flow measurements using the OneBreath system. The flow into the vein to the posterior descending artery was 44 mL/minute, pulsatility index of 3.2, diastolic filling of 51%. The flow into the radial artery to the obtuse marginal artery was 69 mL/minute, pulsatility index of 2.1 and diastolic filling of 66%. The flow into the left internal mammary artery to the left anterior descending artery and sequentially to the diagonal artery was 74 mL/minute, pulsatility index of 1.3 and diastolic filling 53% showing excellent functioning graft. With that, all pump suckers were stopped as we gave test dose followed by full dose protamine. Decannulation followed. No ventricular pacing wire was placed. Mediastinal and pericardial fat were approximated over the aorta and the heart. After ensuring adequate hemostasis and hemodynamic and after correct sponge, instrument, and needle count, the sternum was closed using 5 [id number] pioneer cable as well as 1 interrupted pioneer cable distally after interposing the fibrillar between the sternal edges. Thorough irrigation with cefazolin followed. The rest of the closure proceeded in layers. Skin glue was applied. The patient did not receive any blood bank product, but received 900 mL of Cell Saver blood. He was transferred to the ICU on low-dose nitroglycerin, stable with a cardiac index of 2.5, PA pressure of 35/12, atrially paced at 84, sinus bradycardia at around 65 and a mean pressure of around 72. MMODL / IJN: [id number] / NANCY
[2023-01-19 22:38] LABS: Basophils % (A) 0 %; Eosinophils # (A) 0.1 k/uL (0-0.7); Eosinophils % (A) 1 %; HCT 30.3 % (39.0-53.0); HGB 10.6 gm/dL (13.0-17.5); Lymphocytes # (A) 0.9 k/uL (1.0-4.8); Lymphocytes % (A) 8 %; MCHC 34.9 g/dL (31.0-37.0); MCV 91.7 fL (80.0-100.0); Mean Platelet Volume 8.5; Monocytes # (A) 0.7 k/uL (0-1.0); Monocytes % (A) 6 %; Neutrophils # (A) 10.1 k/uL (1.3-7.7); Neutrophils % (A) 84 %; Platelet Count 121 k/uL (150-450); RBC 3.31 m/uL (4.30-5.90)
[2023-01-19] MEDS: DEXMEDETOMIDINE/0.9% NACL(PMX) 400 MCG in EMPTY BAG 1 BAG IV SCH (22:38)
[2023-01-19 23:14] LABS: Glucose,Whole Blood 134 mg/dL (70-110)
--- NOTE | 2023-01-19 23:57 | XR ---
EXAMINATION TYPE: XR chest 1V portable DATE OF EXAM: 01/19/2023 COMPARISON: 01/19/2023 at 4:02 PM. HISTORY: Tube placement. TECHNIQUE: Single frontal view of the chest is obtained. FINDINGS: Endotracheal tube is unchanged since the previous examination. [place]-Rekha catheter is also unchanged. NG tube projects projects in the expected location of the gastroesophageal junction. Recom mend advancement. The cardiac silhouette is moderately enlarged with some mild diffuse interstitial changes seen throug hout the lungs which are likely chronic. There are midline sternotomy wires. There is no gross pulmon kurt edema clearly identified. There is no focal area of consolidation. IMPRESSION: No significant change.
[2023-01-20 00:03] LABS: Glucose,Whole Blood 132 mg/dL (70-110)
[2023-01-20] MEDS: HEPARIN SODIUM,PORCINE 5,000 UNIT/ML 1 ML VIAL SQ SCH ×3 (00:14→16:02)
[2023-01-20] MEDS: ACETAMINOPHEN IV (For NPO) 1,000 MG in EMPTY BAG 1 BAG IVPB SCH (00:14)
[2023-01-20 01:19] LABS: Glucose,Whole Blood 132 mg/dL (70-110)
[2023-01-20 02:17] LABS: Glucose,Whole Blood 128 mg/dL (70-110)
[2023-01-20 03:06] LABS: Glucose,Whole Blood 128 mg/dL (70-110)
[2023-01-20 03:56] LABS: Glucose,Whole Blood 127 mg/dL (70-110)
[2023-01-20 04:10] LABS: Basophils % (A) 0 %; Eosinophils % (A) 0 %; HCT 29.2 % (39.0-53.0); HGB 10.3 gm/dL (13.0-17.5); Lymphocytes # (A) 1.1 k/uL (1.0-4.8); Lymphocytes % (A) 10 %; MCH 32.2 pg (25.0-35.0); MCHC 35.4 g/dL (31.0-37.0); Mean Platelet Volume 9.1; Monocytes # (A) 0.8 k/uL (0-1.0); Monocytes % (A) 7 %; Neutrophils # (A) 8.9 k/uL (1.3-7.7); Neutrophils % (A) 81 %; Platelet Count 101 k/uL (150-450); RBC 3.21 m/uL (4.30-5.90); RDW 12.8 % (11.5-15.5); WBC 10.9 k/uL (3.8-10.6)
[2023-01-20 04:13] LABS: Ionized Calcium 4.5 mg/dL (4.5-5.3)
[2023-01-20 04:22] LABS: ALT 30 U/L (4-49); AST 50 U/L (17-59); African American GFR (CKD) >90 (>60 ml/min/1.73 sqM); Albumin 3.3 g/dL (3.5-5.0); Alkaline Phosphatase 51 U/L (38-126); Anion Gap 6 mmol/L; Blood Urea Nitrogen 13 mg/dL (9-20); Calcium 7.7 mg/dL (8.4-10.2); Carbon Dioxide 24 mmol/L (22-30); Chloride 106 mmol/L (98-107); Glucose 117 mg/dL (74-99); Magnesium 2.3 mg/dL (1.6-2.3); Non-African American GFR(CKD) >90 (>60 ml/min/1.73 sqM); Potassium 4.1 mmol/L (3.5-5.1); Sodium 136 mmol/L (137-145); Total Bilirubin 2.2 mg/dL (0.2-1.3); Total Protein 5.1 g/dL (6.3-8.2)
[2023-01-20] MEDS ORDERED: HYDROcodone/APAP 5-325MG 1 EACH TAB PO PRN (04:51)
[2023-01-20 05:02] LABS: Glucose,Whole Blood 126 mg/dL (70-110)
[2023-01-20 05:59] LABS: Glucose,Whole Blood 127 mg/dL (70-110)
[2023-01-20 06:48] LABS: ABG Base Excess 0.7 mmol/L; ABG HCO3 25 mmol/L (21-25); ABG Oxygen Saturation 97.8 % (94-97); ABG PCO2 39 mmHg (35-45); ABG PH 7.42 (7.35-7.45); ABG PO2 93 mmHg (83-108); ABG TCO2 26 mmol/L (19-24); Allen Test Performed? Yes
[2023-01-20 07:00] LABS: Glucose,Whole Blood 122 mg/dL (70-110)
--- NOTE | 2023-01-20 08:00 | P.PN ---
Subjective Progress Note Date: 01/20/23 PROGRESS NOTE The patient is a 57-year-old male who underwent cardiac catheterization and was found to have severe coronary artery disease with severe left main, ostial left circumflex and mid LAD and diagonal branch disease. He underwent coronary artery bypass grafting today. He is intubated and sedated. Hemodynamically stable. He is in sinus mechanism. There is no evidence of malignant arrhythmia and he is on no vasopressors. January 20: The patient underwent CABG yesterday, he remains intubated, following commands. Hemodynamically stable. His urine output has been stable. He could not be weaned and extubated yesterday. Apparently had bradycardia with attempted weaning yesterday. He received sequential GOMEZ to the diastolic in the LAD, left radial to the OM and SVG to the PDA with left atrial appendage clipped. His echocardiogram preoperatively showed an ejection fraction of 50% Medications: Aspirin, Lipitor 40 mg daily, IV nitroglycerin, metoprolol 12.5 mg twice a day. Plavix 75 mg daily PHYSICAL EXAMINATION: Blood pressure 105/50 heart rate 85 intubated , opening eyes to verbal stimulation LUNGS: Clear to auscultation anteriorly HEART: Regular rate and rhythm, S1, S2. No S3. No systolic murmur ABDOMEN: Soft, no organomegaly EXTREMETIES: No edema LAB: Hemoglobin 10.3, BUN 13, creatinine 0.77 IMPRESSION: 1. Status post CABG 2. Hyperlipidemia 3. Remote history of myocardial infarction 4. Remote history of smoking PLAN: 1. Routine postoperative care 2. . Wean and extubate soon 3. Depending on the blood pressure adjust medical therapy with adjustment of the beta mustapha Objective - Vital Signs Vital signs: Vital Signs Temp 99.5 F 01/20/23 04:00 Pulse 85 01/20/23 07:00 Resp 16 01/20/23 07:00 BP 107/62 01/20/23 07:00 Pulse Ox 96 01/20/23 07:00 FiO2 50 01/20/23 07:00 Intake & Output 01/19/23 01/20/23 01/20/23 18:59 06:59 18:59 Intake Total 230.612 5221.743 79 Output Total 4018 1150 115 Balance -3369.267 1140.743 -36 Weight 99.8 kg Intake: IV 640 1828 79 0.9% NaCl @ 50 200 600 50 ACETAMINOPHEN IV (For NPO 200 ) 1,000 mg In Empty Bag 1 bag @ 400 mls/hr IVPB Q6HR INA Rx#:[id number] Albumin Human 5% 250 ml 250 500 In Empty Bag 1 bag @ 250 mls/hr IVPB Q1HR PRN Rx#: [id number] CO/CI 100 320 20 Pressure Bags 36 108 9 ceFAZolin 2 gm In Sodium 100 Chloride 0.9% 50 ml @ 100 mls/hr IVPB ONCE ONE Rx# :[id number] Intake, IV Titration 8.733 412.743 Amount Clevidipine Butyrate 25 1.333 mg In Empty Bag 1 bag @ 1 MG/HR 2 mls/hr IV .Q24H INA Rx#:[id number] Dexmedetomidine/0.9% NaCl 3.499 (Pmx) 400 mcg In Empty Bag 1 bag @ 0.2 MCG/KG/HR 4.717 mls/hr IV .[id number] INA Rx#:[id number] Insulin Regular 100 unit 15.00 In Sodium Chloride 0.9% 100 ml @ Per Protocol IV .Q0M INA Rx#:[id number] Nitroglycerin-D5w Pmx 50 7.4 mg In Dextrose/Water 1 250ml.bag @ 5 MCG/MIN 1.5 mls/hr IV .Q24H INA Rx#: [id number] Norepinephrine 4 mg In 23.005 Sodium Chloride 0.9% 250 ml @ 0.03 MCG/KG/MIN 10. 784 mls/hr IV .[id number] INA Rx#:[id number] propofoL 1,000 mg In 371.239 Empty Bag 1 bag @ Titrate IV .Q0M INA Rx#: [id number] Other 50 Output: Chest Tube Drainage 623 405 30 Left pleural 166 108 10 Right pleural 167 57 10 mediastinal x2 290 240 10 Urine 1395 745 85 Estimated Blood Loss 1999 Other: Voiding Method Indwelling Catheter Indwelling Catheter ABP, PAP, CO, CI - Last Documented Arterial Blood Pressure 105/44 Pulmonary Artery Pressure 22/11 Cardiac Output 5.7 Cardiac Index 2.6 - Labs CBC & Chem 7: 01/20/23 03:50 01/20/23 03:50 Labs: Abnormal Lab Results - Last 24 Hours (Table) 01/18/23 01/19/23 01/19/23 Range/Units 12:24 07:26 07:29 WBC (3.8-10.6) k/uL RBC (4.30-5.90) m/uL Hgb (13.0-17.5) gm/dL Hct (39.0-53.0) % Plt Count (150-450) k/uL Neutrophils # (1.3-7.7) k/uL Lymphocytes # (1.0-4.8) k/uL INR (<1.2) ABG pH 7.29 L 7.46 H (7.35-7.45) ABG pCO2 57 H (35-45) mmHg ABG pO2 166 H >420 H (83-108) mmHg ABG HCO3 28 H 28 H (21-25) mmol/L ABG Total CO2 29 H 29 H (19-24) mmol/L ABG O2 Saturation 98.5 H 99.6 H (94-97) % ABG Hematocrit (34.0-46.0) % ABG Potassium (3.4-4.5) mmol/L ABG Ionized Calcium 4.0 L (4.5-5.3) mg/dL ABG Glucose 133 H 108 H (75-99) mg/dL ABG Lactic Acid (0.5-1.6) mmol/L Hemoglobin 11.5 L (13.0-17.5) gm/dL Sodium (137-145) mmol/L Glucose (74-99) mg/dL POC Glucose (mg/dL) (70-110) mg/dL Calcium (8.4-10.2) mg/dL Magnesium (1.6-2.3) mg/dL Total Bilirubin (0.2-1.3) mg/dL Total Protein (6.3-8.2) g/dL Albumin (3.5-5.0) g/dL Arterial Blood Potassium (3.4-4.5) mmol/L Arterial Blood Glucose 133 H 108 H (75-99) mg/dL Crossmatch See Detail 01/19/23 01/19/23 01/19/23 Range/Units 07: 07:29 07:29 WBC (3.8-10.6) k/uL RBC (4.30-5.90) m/uL Hgb (13.0-17.5) gm/dL Hct (39.0-53.0) % Plt Count (150-450) k/uL Neutrophils # (1.3-7.7) k/uL Lymphocytes # (1.0-4.8) k/uL INR (<1.2) ABG pH (7.35-7.45) ABG pCO2 46 H (35-45) mmHg ABG pO2 >420 H 403 H (83-108) mmHg ABG HCO3 26 H 28 H (21-25) mmol/L ABG Total CO2 27 H 29 H 27 H (19-24) mmol/L ABG O2 Saturation 99.5 H 99.5 H 97.1 H (94-97) % ABG Hematocrit 33 L 33 L 30 L (34.0-46.0) % ABG Potassium 5.8 H 5.6 H 4.7 H (3.4-4.5) mmol/L ABG Ionized Calcium 4.1 L 4.1 L 4.1 L (4.5-5.3) mg/dL ABG Glucose 118 H 135 H 134 H (75-99) mg/dL ABG Lactic Acid 1.9 H 2.0 H (0.5-1.6) mmol/L Hemoglobin 10.6 L 10.8 L 9.9 L (13.0-17.5) gm/dL Sodium (137-145) mmol/L Glucose (74-99) mg/dL POC Glucose (mg/dL) (70-110) mg/dL Calcium (8.4-10.2) mg/dL Magnesium (1.6-2.3) mg/dL Total Bilirubin (0.2-1.3) mg/dL Total Protein (6.3-8.2) g/dL Albumin (3.5-5.0) g/dL Arterial Blood Potassium 5.8 H 5.6 H 4.7 H (3.4-4.5) mmol/L Arterial Blood Glucose 118 H 135 H 134 H (75-99) mg/dL Crossmatch 01/19/23 01/19/23 01/19/23 Range/Units 15:46 15:46 16:19 WBC 13.9 H (3.8-10.6) k/uL RBC 3.58 L (4.30-5.90) m/uL Hgb 11.6 L D (13.0-17.5) gm/dL Hct 32.7 L (39.0-53.0) % Plt Count 96 L D (150-450) k/uL Neutrophils # (1.3-7.7) k/uL Lymphocytes # (1.0-4.8) k/uL INR (<1.2) ABG pH (7.35-7.45) ABG pCO2 (35-45) mmHg ABG pO2 (83-108) mmHg ABG HCO3 (21-25) mmol/L ABG Total CO2 27 H (19-24) mmol/L ABG O2 Saturation 97.7 H (94-97) % ABG Hematocrit (34.0-46.0) % ABG Potassium (3.4-4.5) mmol/L ABG Ionized Calcium (4.5-5.3) mg/dL ABG Glucose (75-99) mg/dL ABG Lactic Acid (0.5-1.6) mmol/L Hemoglobin (13.0-17.5) gm/dL Sodium (137-145) mmol/L Glucose 102 H (74-99) mg/dL POC Glucose (mg/dL) (70-110) mg/dL Calcium 7.6 L (8.4-10.2) mg/dL Magnesium 2.6 H (1.6-2.3) mg/dL Total Bilirubin 2.2 H (0.2-1.3) mg/dL Total Protein 5.0 L (6.3-8.2) g/dL Albumin 3.2 L (3.5-5.0) g/dL Arterial Blood Potassium (3.4-4.5) mmol/L Arterial Blood Glucose (75-99) mg/dL Crossmatch 01/19/23 01/19/23 01/19/23 Range/Units 16:19 16:21 17:10 WBC (3.8-10.6) k/uL RBC (4.30-5.90) m/uL Hgb (13.0-17.5) gm/dL Hct (39.0-53.0) % Plt Count (150-450) k/uL Neutrophils # (1.3-7.7) k/uL Lymphocytes # (1.0-4.8) k/uL INR 1.2 H (<1.2) ABG pH (7.35-7.45) ABG pCO2 (35-45) mmHg ABG pO2 (83-108) mmHg ABG HCO3 (21-25) mmol/L ABG Total CO2 (19-24) mmol/L ABG O2 Saturation (94-97) % ABG Hematocrit (34.0-46.0) % ABG Potassium (3.4-4.5) mmol/L ABG Ionized Calcium (4.5-5.3) mg/dL ABG Glucose (75-99) mg/dL ABG Lactic Acid (0.5-1.6) mmol/L Hemoglobin (13.0-17.5) gm/dL Sodium (137-145) mmol/L Glucose (74-99) mg/dL POC Glucose (mg/dL) 128 H 151 H (70-110) mg/dL Calcium (8.4-10.2) mg/dL Magnesium (1.6-2.3) mg/dL Total Bilirubin (0.2-1.3) mg/dL Total Protein (6.3-8.2) g/dL Albumin (3.5-5.0) g/dL Arterial Blood Potassium (3.4-4.5) mmol/L Arterial Blood Glucose (75-99) mg/dL Crossmatch 01/19/23 01/19/23 01/19/23 Range/Units 17:39 18:15 19:02 WBC (3.8-10.6) k/uL RBC (4.30-5.90) m/uL Hgb (13.0-17.5) gm/dL Hct (39.0-53.0) % Plt Count (150-450) k/uL Neutrophils # (1.3-7.7) k/uL Lymphocytes # (1.0-4.8) k/uL INR (<1.2) ABG pH 7.28 L (7.35-7.45) ABG pCO2 53 H (35-45) mmHg ABG pO2 78 L (83-108) mmHg ABG HCO3 (21-25) mmol/L ABG Total CO2 26 H (19-24) mmol/L ABG O2 Saturation (94-97) % ABG Hematocrit (34.0-46.0) % ABG Potassium (3.4-4.5) mmol/L ABG Ionized Calcium (4.5-5.3) mg/dL ABG Glucose (75-99) mg/dL ABG Lactic Acid (0.5-1.6) mmol/L Hemoglobin (13.0-17.5) gm/dL Sodium (137-145) mmol/L Glucose (74-99) mg/dL POC Glucose (mg/dL) 140 H 132 H (70-110) mg/dL Calcium (8.4-10.2) mg/dL Magnesium (1.6-2.3) mg/dL Total Bilirubin (0.2-1.3) mg/dL Total Protein (6.3-8.2) g/dL Albumin (3.5-5.0) g/dL Arterial Blood Potassium (3.4-4.5) mmol/L Arterial Blood Glucose (75-99) mg/dL Crossmatch 01/19/23 01/19/23 01/19/23 Range/Units 19:48 19:52 19:57 WBC 12.0 H (3.8-10.6) k/uL RBC 3.38 L (4.30-5.90) m/uL Hgb 10.7 L (13.0-17.5) gm/dL Hct 30.9 L (39.0-53.0) % Plt Count 115 L (150-450) k/uL Neutrophils # 10.6 H (1.3-7.7) k/uL Lymphocytes # 0.6 L (1.0-4.8) k/uL INR (<1.2) ABG pH (7.35-7.45) ABG pCO2 (35-45) mmHg ABG pO2 304 H (83-108) mmHg ABG HCO3 (21-25) mmol/L ABG Total CO2 26 H (19-24) mmol/L ABG O2 Saturation 98.6 H (94-97) % ABG Hematocrit (34.0-46.0) % ABG Potassium (3.4-4.5) mmol/L ABG Ionized Calcium (4.5-5.3) mg/dL ABG Glucose (75-99) mg/dL ABG Lactic Acid (0.5-1.6) mmol/L Hemoglobin (13.0-17.5) gm/dL Sodium (137-145) mmol/L Glucose (74-99) mg/dL POC Glucose (mg/dL) 136 H (70-110) mg/dL Calcium (8.4-10.2) mg/dL Magnesium (1.6-2.3) mg/dL Total Bilirubin (0.2-1.3) mg/dL Total Protein (6.3-8.2) g/dL Albumin (3.5-5.0) g/dL Arterial Blood Potassium (3.4-4.5) mmol/L Arterial Blood Glucose (75-99) mg/dL Crossmatch 01/19/23 01/19/23 01/19/23 Range/Units 20:53 22:06 22:13 WBC 12.0 H (3.8-10.6) k/uL RBC 3.31 L (4.30-5.90) m/uL Hgb 10.6 L (13.0-17.5) gm/dL Hct 30.3 L (39.0-53.0) % Plt Count 121 L (150-450) k/uL Neutrophils # 10.1 H (1.3-7.7) k/uL Lymphocytes # 0.9 L (1.0-4.8) k/uL INR (<1.2) ABG pH (7.35-7.45) ABG pCO2 (35-45) mmHg ABG pO2 (83-108) mmHg ABG HCO3 (21-25) mmol/L ABG Total CO2 (19-24) mmol/L ABG O2 Saturation (94-97) % ABG Hematocrit (34.0-46.0) % ABG Potassium (3.4-4.5) mmol/L ABG Ionized Calcium (4.5-5.3) mg/dL ABG Glucose (75-99) mg/dL ABG Lactic Acid (0.5-1.6) mmol/L Hemoglobin (13.0-17.5) gm/dL Sodium (137-145) mmol/L Glucose (74-99) mg/dL POC Glucose (mg/dL) 136 H 135 H (70-110) mg/dL Calcium (8.4-10.2) mg/dL Magnesium (1.6-2.3) mg/dL Total Bilirubin (0.2-1.3) mg/dL Total Protein (6.3-8.2) g/dL Albumin (3.5-5.0) g/dL Arterial Blood Potassium (3.4-4.5) mmol/L Arterial Blood Glucose (75-99) mg/dL Crossmatch 01/19/23 01/19/23 01/20/23 Range/Units 22:15 23:13 00:02 WBC (3.8-10.6) k/uL RBC (4.30-5.90) m/uL Hgb (13.0-17.5) gm/dL Hct (39.0-53.0) % Plt Count (150-450) k/uL Neutrophils # (1.3-7.7) k/uL Lymphocytes # (1.0-4.8) k/uL INR (<1.2) ABG pH (7.35-7.45) ABG pCO2 (35-45) mmHg ABG pO2 132 H (83-108) mmHg ABG HCO3 (21-25) mmol/L ABG Total CO2 26 H (19-24) mmol/L ABG O2 Saturation 98.6 H (94-97) % ABG Hematocrit (34.0-46.0) % ABG Potassium (3.4-4.5) mmol/L ABG Ionized Calcium (4.5-5.3) mg/dL ABG Glucose (75-99) mg/dL ABG Lactic Acid (0.5-1.6) mmol/L Hemoglobin (13.0-17.5) gm/dL Sodium (137-145) mmol/L Glucose (74-99) mg/dL POC Glucose (mg/dL) 134 H 132 H (70-110) mg/dL Calcium (8.4-10.2) mg/dL Magnesium (1.6-2.3) mg/dL Total Bilirubin (0.2-1.3) mg/dL Total Protein (6.3-8.2) g/dL Albumin (3.5-5.0) g/dL Arterial Blood Potassium (3.4-4.5) mmol/L Arterial Blood Glucose (75-99) mg/dL Crossmatch 01/20/23 01/20/23 01/20/23 Range/Units 01:18 02:16 03:05 WBC (3.8-10.6) k/uL RBC (4.30-5.90) m/uL Hgb (13.0-17.5) gm/dL Hct (39.0-53.0) % Plt Count (150-450) k/uL Neutrophils # (1.3-7.7) k/uL Lymphocytes # (1.0-4.8) k/uL INR (<1.2) ABG pH (7.35-7.45) ABG pCO2 (35-45) mmHg ABG pO2 (83-108) mmHg ABG HCO3 (21-25) mmol/L ABG Total CO2 (19-24) mmol/L ABG O2 Saturation (94-97) % ABG Hematocrit (34.0-46.0) % ABG Potassium (3.4-4.5) mmol/L ABG Ionized Calcium (4.5-5.3) mg/dL ABG Glucose (75-99) mg/dL ABG Lactic Acid (0.5-1.6) mmol/L Hemoglobin (13.0-17.5) gm/dL Sodium (137-145) mmol/L Glucose (74-99) mg/dL POC Glucose (mg/dL) 132 H 128 H 128 H (70-110) mg/dL Calcium (8.4-10.2) mg/dL Magnesium (1.6-2.3) mg/dL Total Bilirubin (0.2-1.3) mg/dL Total Protein (6.3-8.2) g/dL Albumin (3.5-5.0) g/dL Arterial Blood Potassium (3.4-4.5) mmol/L Arterial Blood Glucose (75-99) mg/dL Crossmatch 01/20/23 01/20/23 01/20/23 Range/Units 03:50 03:50 03:54 WBC 10.9 H (3.8-10.6) k/uL RBC 3.21 L (4.30-5.90) m/uL Hgb 10.3 L (13.0-17.5) gm/dL Hct 29.2 L (39.0-53.0) % Plt Count 101 L (150-450) k/uL Neutrophils # 8.9 H (1.3-7.7) k/uL Lymphocytes # (1.0-4.8) k/uL INR (<1.2) ABG pH (7.35-7.45) ABG pCO2 (35-45) mmHg ABG pO2 (83-108) mmHg ABG HCO3 (21-25) mmol/L ABG Total CO2 (19-24) mmol/L ABG O2 Saturation (94-97) % ABG Hematocrit (34.0-46.0) % ABG Potassium (3.4-4.5) mmol/L ABG Ionized Calcium (4.5-5.3) mg/dL ABG Glucose (75-99) mg/dL ABG Lactic Acid (0.5-1.6) mmol/L Hemoglobin (13.0-17.5) gm/dL Sodium 136 L (137-145) mmol/L Glucose 117 H (74-99) mg/dL POC Glucose (mg/dL) 127 H (70-110) mg/dL Calcium 7.7 L (8.4-10.2) mg/dL Magnesium (1.6-2.3) mg/dL Total Bilirubin 2.2 H (0.2-1.3) mg/dL Total Protein 5.1 L (6.3-8.2) g/dL Albumin 3.3 L (3.5-5.0) g/dL Arterial Blood Potassium (3.4-4.5) mmol/L Arterial Blood Glucose (75-99) mg/dL Crossmatch 01/20/23 01/20/23 01/20/23 Range/Units 05:01 05:58 06:44 WBC (3.8-10.6) k/uL RBC (4.30-5.90) m/uL Hgb (13.0-17.5) gm/dL Hct (39.0-53.0) % Plt Count (150-450) k/uL Neutrophils # (1.3-7.7) k/uL Lymphocytes # (1.0-4.8) k/uL INR (<1.2) ABG pH (7.35-7.45) ABG pCO2 (35-45) mmHg ABG pO2 (83-108) mmHg ABG HCO3 (21-25) mmol/L ABG Total CO2 26 H (19-24) mmol/L ABG O2 Saturation 97.8 H (94-97) % ABG Hematocrit (34.0-46.0) % ABG Potassium (3.4-4.5) mmol/L ABG Ionized Calcium (4.5-5.3) mg/dL ABG Glucose (75-99) mg/dL ABG Lactic Acid (0.5-1.6) mmol/L Hemoglobin (13.0-17.5) gm/dL Sodium (137-145) mmol/L Glucose (74-99) mg/dL POC Glucose (mg/dL) 126 H 127 H (70-110) mg/dL Calcium (8.4-10.2) mg/dL Magnesium (1.6-2.3) mg/dL Total Bilirubin (0.2-1.3) mg/dL Total Protein (6.3-8.2) g/dL Albumin (3.5-5.0) g/dL Arterial Blood Potassium (3.4-4.5) mmol/L Arterial Blood Glucose (75-99) mg/dL Crossmatch 01/20/23 Range/Units 06:58 WBC (3.8-10.6) k/uL RBC (4.30-5.90) m/uL Hgb (13.0-17.5) gm/dL Hct (39.0-53.0) % Plt Count (150-450) k/uL Neutrophils # (1.3-7.7) k/uL Lymphocytes # (1.0-4.8) k/uL INR (<1.2) ABG pH (7.35-7.45) ABG pCO2 (35-45) mmHg ABG pO2 (83-108) mmHg ABG HCO3 (21-25) mmol/L ABG Total CO2 (19-24) mmol/L ABG O2 Saturation (94-97) % ABG Hematocrit (34.0-46.0) % ABG Potassium (3.4-4.5) mmol/L ABG Ionized Calcium (4.5-5.3) mg/dL ABG Glucose (75-99) mg/dL ABG Lactic Acid (0.5-1.6) mmol/L Hemoglobin (13.0-17.5) gm/dL Sodium (137-145) mmol/L Glucose (74-99) mg/dL POC Glucose (mg/dL) 122 H (70-110) mg/dL Calcium (8.4-10.2) mg/dL Magnesium (1.6-2.3) mg/dL Total Bilirubin (0.2-1.3) mg/dL Total Protein (6.3-8.2) g/dL Albumin (3.5-5.0) g/dL Arterial Blood Potassium (3.4-4.5) mmol/L Arterial Blood Glucose (75-99) mg/dL Crossmatch
[2023-01-20] MEDS: IPRATROPIUM-ALBUTEROL 3 ML NEB INHALATION SCH ×4 (08:02→20:17)
[2023-01-20] MEDS: HYDROcodone/APAP 10-325MG 1 EACH TAB PO PRN ×4 (08:26→20:33)
[2023-01-20] MEDS: ASPIRIN 325 MG TAB PO SCH (08:27)
[2023-01-20] MEDS: ATORVASTATIN 40 MG TAB PO SCH (08:27)
[2023-01-20] MEDS: CLOPIDOGREL 75 MG TAB PO SCH (08:27)
[2023-01-20] MEDS: MUPIROCIN 2% OINT 22 GM TUBE NASAL SCH ×2 (08:28→20:33)
--- NOTE | 2023-01-20 08:32 | XR ---
EXAMINATION TYPE: XR chest 1V portable DATE OF EXAM: 01/20/2023 COMPARISON: 01/19/2023 HISTORY: Tube placement TECHNIQUE: Single frontal view of the chest is obtained. FINDINGS: ET tube, NG tube and [place] catheter stable. Just in the mediastinal. Bilateral consoli dation small effusion. No pneumothorax. Limited inspiration. Postoperative changes and atrial appenda ge clip. IMPRESSION: Bilateral consolidation small effusion.
[2023-01-20] MEDS: ALBUMIN HUMAN 5% 250 ML in EMPTY BAG 1 BAG IVPB PRN ×3 (08:35→09:50)
[2023-01-20] MEDS ORDERED: bisacodyL 10 MG SUPP RECTAL PRN (09:00)
[2023-01-20] MEDS ORDERED: PANTOPRAZOLE 40 MG/10 ML VIAL IVP SCH (09:00)
[2023-01-20 09:03] LABS: Glucose,Whole Blood 124 mg/dL (70-110)
[2023-01-20 09:56] LABS: ABG Base Excess -0.2 mmol/L; ABG HCO3 25 mmol/L (21-25); ABG Oxygen Saturation 98.3 % (94-97); ABG PCO2 41 mmHg (35-45); ABG PH 7.39 (7.35-7.45); ABG PO2 109 mmHg (83-108); ABG TCO2 26 mmol/L (19-24)
[2023-01-20] MEDS: KETOROLAC 15 MG/ML 1 ML VIAL IVP SCH ×2 (10:23→16:50)
[2023-01-20 10:47] LABS: Glucose,Whole Blood 139 mg/dL (70-110)
[2023-01-20] MEDS: METOPROLOL TARTRATE 12.5 MG TAB PO SCH ×2 (12:12→20:33)
[2023-01-20 13:00] LABS: Glucose,Whole Blood 120 mg/dL (70-110)
--- NOTE | 2023-01-20 13:54 | P.PN ---
Subjective Progress Note Date: 01/20/23 Principal diagnosis: Significant coronary artery disease, status post coronary artery bypass grafting 4. Postoperative day #1 This is a 57-year-old male patient with a known history of hyperlipidemia, gastroesophageal reflux disease, hiatal hernia, ischemic cardiomyopathy with ejection fraction of 40% and a prior myocardial infarction, former smoker. He had been having ongoing issues with dyspnea on minimal exertion. He had undergone elective cardiac catheterization at [facility] and was found to have significant triple-vessel disease and was transferred here for cardiothoracic evaluation. Epogen FEV1 value from 12/29/2022 revealed a baseline of 3.56 which is 87% of predicted. He had undergone coronary artery bypass grafting 4 today 01/19/2023. He is seen in the immediate postop per day. In the intensive care unit. Currently intubated on mechanical ventilator with blood settings of assist control mode of 14, tidal M6 100, FiO2 100% and a PEEP of 5. Sternal dressing is dry and intact mediastinal split chest tubes in place, right and left pleural chest tubes in place, right IJ Houck-Rekha catheter in place. Initial cardiac output 5.1. Cardiac index 2.3. PA pressures 31/16, CVP of 10. He is currently on propofol 50 mcg/kg/m. Nitroglycerin drip at 10 mcg/m. Insulin drip currently off. Labs, chest x-ray and ABGs are pending. Patient was reevaluated today on 01/20/2023, patient is now postoperative day #1, remains intubated and mechanically ventilated, he is presently on assist control rate of 16 tidal volume 600 FiO2 50% and PEEP of 5. Patient is still requiring propofol at 10 mcg/kg/m, he is on norepinephrine at 0.03 mcg/kg/m, he is on insulin at 0.5 units per hour and on IV fluid at 50 mL per hour in the form of 0.9 normal saline. Patient has borderline blood pressure, hence he was given albumin 2, urine output is about 60 mL per hour. Cardiac output is 3.0, cardiac index is 6.7. CVP is 10. Pulmonary artery pressure 28/13. ABG on the same noted above are pO2 of 93 pCO2 39 pH of 7.42. Chest x-ray showed adequate placement of the lines and the PA catheter, adequate placement of the endotracheal tube and nasogastric tube, there is a fairly good sized left-sided pleural effusion noted. With minimal atelectasis at the left base, expected, patient will be weaned off from propofol, and I plan to give the patient a trial of weaning if tolerated may even consider extubation. WBC count today is 10.9 hemoglobin is 10.3. Basic metabolic profile is normal, renal profile is normal. Objective - Vital Signs Vital signs: Vital Signs Temp 100.2 F H 01/20/23 08:00 Pulse 90 01/20/23 12:38 Resp 17 01/20/23 12:00 BP 98/63 01/20/23 12:00 Pulse Ox 93 L 01/20/23 12:00 FiO2 50 01/20/23 08:00 Intake & Output 01/19/23 01/20/23 01/20/23 18:59 06:59 18:59 Intake Total 668.842 3111.743 1273.113 Output Total 4018 1150 635 Balance -3369.267 1140.743 638.113 Weight 99.8 kg 99.8 kg Intake: IV 640 1828 876 0.9% NaCl @ 50 200 600 270 ACETAMINOPHEN IV (For NPO 200 ) 1,000 mg In Empty Bag 1 bag @ 400 mls/hr IVPB Q6HR INA Rx#:[id number] Albumin Human 5% 250 ml 250 500 500 In Empty Bag 1 bag @ 250 mls/hr IVPB Q1HR PRN Rx#: [id number] CO/CI 100 320 70 Pressure Bags 36 108 36 ceFAZolin 2 gm In Sodium 100 Chloride 0.9% 50 ml @ 100 mls/hr IVPB ONCE ONE Rx# :[id number] Intake, IV Titration 8.733 412.743 397.113 Amount Albumin Human 5% 250 ml 250 In Empty Bag 1 bag @ 250 mls/hr IVPB Q1HR PRN Rx#: [id number] Clevidipine Butyrate 25 1.333 mg In Empty Bag 1 bag @ 1 MG/HR 2 mls/hr IV .Q24H INA Rx#:[id number] Dexmedetomidine/0.9% NaCl 3.499 22.566 (Pmx) 400 mcg In Empty Bag 1 bag @ 0.2 MCG/KG/HR 4.717 mls/hr IV .[id number] INA Rx#:[id number] Insulin Regular 100 unit 15.00 1.9 In Sodium Chloride 0.9% 100 ml @ Per Protocol IV .Q0M INA Rx#:[id number] Nitroglycerin-D5w Pmx 50 7.4 mg In Dextrose/Water 1 250ml.bag @ 5 MCG/MIN 1.5 mls/hr IV .Q24H INA Rx#: [id number] Norepinephrine 4 mg In 23.005 Sodium Chloride 0.9% 250 ml @ 0.03 MCG/KG/MIN 10. 784 mls/hr IV .[id number] INA Rx#:[id number] ceFAZolin 2 gm In Sodium 50 Chloride 0.9% 50 ml @ 100 mls/hr IVPB Q8HR INA Rx# :[id number] propofoL 1,000 mg In 371.239 72.647 Empty Bag 1 bag @ Titrate IV .Q0M INA Rx#: [id number] Other 50 Output: Chest Tube Drainage 623 405 320 Left pleural 166 108 90 Right pleural 167 57 140 mediastinal x2 290 240 90 Drainage 10 Left calf 10 Urine 1395 745 305 Estimated Blood Loss 1999 Other: Voiding Method Indwelling Catheter Indwelling Catheter Indwelling Catheter ABP, PAP, CO, CI - Last Documented Arterial Blood Pressure 105/54 Pulmonary Artery Pressure 35/20 Cardiac Output 6.6 Cardiac Index 3 - Exam GENERAL EXAM: Intubated, sedated, remains on propofol, mechanically ventilated, does not seem to be in distress seems a bit restless on the ventilator. HEAD: Normocephalic. EENT: PERRLA, EOMI, nonicteric, no neck masses. No JVD. CHEST: Sternal dressing dry and intact. Mediastinal split chest tubes, right and left pleural chest tubes in place. Pacer wires in place.. LUNGS: Symmetrical chest expansion, diminished breath sounds at the bases especially at the left base nor rhonchi no wheezes. CVS: S1 and S2 normal with no audible murmur, regular rhythm. ABDOMEN: Soft nontender no megaly no rebound no guarding. SKIN: No rashes CENTRAL NERVOUS SYSTEM: Bit lethargic, remains on propofol, and follows very simple instructions but generally weak. EXTREMITIES: Right radial arterial line in place. Raul wraps to bilateral lower extremities. There is no peripheral edema. No clubbing, no cyanosis. Periph eral pulses are intact. Psychiatric: Could not assess. - Labs CBC & Chem 7: 01/20/23 03:50 01/20/23 03:50 Labs: Abnormal Lab Results - Last 24 Hours (Table) 01/18/23 01/19/23 01/19/23 Range/Units 12:24 07:26 07:29 WBC (3.8-10.6) k/uL RBC (4.30-5.90) m/uL Hgb (13.0-17.5) gm/dL Hct (39.0-53.0) % Plt Count (150-450) k/uL Neutrophils # (1.3-7.7) k/uL Lymphocytes # (1.0-4.8) k/uL INR (<1.2) ABG pH 7.29 L 7.46 H (7.35-7.45) ABG pCO2 57 H (35-45) mmHg ABG pO2 166 H >420 H (83-108) mmHg ABG HCO3 28 H 28 H (21-25) mmol/L ABG Total CO2 29 H 29 H (19-24) mmol/L ABG O2 Saturation 98.5 H 99.6 H (94-97) % ABG Hematocrit (34.0-46.0) % ABG Potassium (3.4-4.5) mmol/L ABG Ionized Calcium 4.0 L (4.5-5.3) mg/dL ABG Glucose 133 H 108 H (75-99) mg/dL ABG Lactic Acid (0.5-1.6) mmol/L Hemoglobin 11.5 L (13.0-17.5) gm/dL Sodium (137-145) mmol/L Glucose (74-99) mg/dL POC Glucose (mg/dL) (70-110) mg/dL Calcium (8.4-10.2) mg/dL Magnesium (1.6-2.3) mg/dL Total Bilirubin (0.2-1.3) mg/dL Total Protein (6.3-8.2) g/dL Albumin (3.5-5.0) g/dL Arterial Blood Potassium (3.4-4.5) mmol/L Arterial Blood Glucose 133 H 108 H (75-99) mg/dL Crossmatch See Detail 01/19/23 01/19/23 01/19/23 Range/Units 07:29 07:29 07:29 WBC (3.8-10.6) k/uL RBC (4.30-5.90) m/uL Hgb (13.0-17.5) gm/dL Hct (39.0-53.0) % Plt Count (150-450) k/uL Neutrophils # (1.3-7.7) k/uL Lymphocytes # (1.0-4.8) k/uL INR (<1.2) ABG pH (7.35-7.45) ABG pCO2 46 H (35-45) mmHg ABG pO2 >420 H 403 H (83-108) mmHg ABG HCO3 26 H 28 H (21-25) mmol/L ABG Total CO2 27 H 29 H 27 H (19-24) mmol/L ABG O2 Saturation 99.5 H 99.5 H 97.1 H (94-97) % ABG Hematocrit 33 L 33 L 30 L (34.0-46.0) % ABG Potassium 5.8 H 5.6 H 4.7 H (3.4-4.5) mmol/L ABG Ionized Calcium 4.1 L 4.1 L 4.1 L (4.5-5.3) mg/dL ABG Glucose 118 H 135 H 134 H (75-99) mg/dL ABG Lactic Acid 1.9 H 2.0 H (0.5-1.6) mmol/L Hemoglobin 10.6 L 10.8 L 9.9 L (13.0-17.5) gm/dL Sodium (137-145) mmol/L Glucose (74-99) mg/dL POC Glucose (mg/dL) (70-110) mg/dL Calcium (8.4-10.2) mg/dL Magnesium (1.6-2.3) mg/dL Total Bilirubin (0.2-1.3) mg/dL Total Protein (6.3-8.2) g/dL Albumin (3.5-5.0) g/dL Arterial Blood Potassium 5.8 H 5.6 H 4.7 H (3.4-4.5) mmol/L Arterial Blood Glucose 118 H 135 H 134 H (75-99) mg/dL Crossmatch 01/19/23 01/19/23 01/19/23 Range/Units 15:46 15:46 16:19 WBC 13.9 H (3.8-10.6) k/uL RBC 3.58 L (4.30-5.90) m/uL Hgb 11.6 L D (13.0-17.5) gm/dL Hct 32.7 L (39.0-53.0) % Plt Count 96 L D (150-450) k/uL Neutrophils # (1.3-7.7) k/uL Lymphocytes # (1.0-4.8) k/uL INR (<1.2) ABG pH (7.35-7.45) ABG pCO2 (35-45) mmHg ABG pO2 (83-108) mmHg ABG HCO3 (21-25) mmol/L ABG Total CO2 27 H (19-24) mmol/L ABG O2 Saturation 97.7 H (94-97) % ABG Hematocrit (34.0-46.0) % ABG Potassium (3.4-4.5) mmol/L ABG Ionized Calcium (4.5-5.3) mg/dL ABG Glucose (75-99) mg/dL ABG Lactic Acid (0.5-1.6) mmol/L Hemoglobin (13.0-17.5) gm/dL Sodium (137-145) mmol/L Glucose 102 H (74-99) mg/dL POC Glucose (mg/dL) (70-110) mg/dL Calcium 7.6 L (8.4-10.2) mg/dL Magnesium 2.6 H (1.6-2.3) mg/dL Total Bilirubin 2.2 H (0.2-1.3) mg/dL Total Protein 5.0 L (6.3-8.2) g/dL Albumin 3.2 L (3.5-5.0) g/dL Arterial Blood Potassium (3.4-4.5) mmol/L Arterial Blood Glucose (75-99) mg/dL Crossmatch 01/19/23 01/19/23 01/19/23 Range/Units 16:19 16:21 17:10 WBC (3.8-10.6) k/uL RBC (4.30-5.90) m/uL Hgb (13.0-17.5) gm/dL Hct (39.0-53.0) % Plt Count (150-450) k/uL Neutrophils # (1.3-7.7) k/uL Lymphocytes # (1.0-4.8) k/uL INR 1.2 H (<1.2) ABG pH (7.35-7.45) ABG pCO2 (35-45) mmHg ABG pO2 (83-108) mmHg ABG HCO3 (21-25) mmol/L ABG Total CO2 (19-24) mmol/L ABG O2 Saturation (94-97) % ABG Hematocrit (34.0-46.0) % ABG Potassium (3.4-4.5) mmol/L ABG Ionized Calcium (4.5-5.3) mg/dL ABG Glucose (75-99) mg/dL ABG Lactic Acid (0.5-1.6) mmol/L Hemoglobin (13.0-17.5) gm/dL Sodium (137-145) mmol/L Glucose (74-99) mg/dL POC Glucose (mg/dL) 128 H 151 H (70-110) mg/dL Calcium (8.4-10.2) mg/dL Magnesium (1.6-2.3) mg/dL Total Bilirubin (0.2-1.3) mg/dL Total Protein (6.3-8.2) g/dL Albumin (3.5-5.0) g/dL Arterial Blood Potassium (3.4-4.5) mmol/L Arterial Blood Glucose (75-99) mg/dL Crossmatch 01/19/23 01/19/23 01/19/23 Range/Units 17:39 18:15 19:02 WBC (3.8-10.6) k/uL RBC (4.30-5.90) m/uL Hgb (13.0-17.5) gm/dL Hct (39.0-53.0) % Plt Count (150-450) k/uL Neutrophils # (1.3-7.7) k/uL Lymphocytes # (1.0-4.8) k/uL INR (<1.2) ABG pH 7.28 L (7.35-7.45) ABG pCO2 53 H (35-45) mmHg ABG pO2 78 L (83-108) mmHg ABG HCO3 (21-25) mmol/L ABG Total CO2 26 H (19-24) mmol/L ABG O2 Saturation (94-97) % ABG Hematocrit (34.0-46.0) % ABG Potassium (3.4-4.5) mmol/L ABG Ionized Calcium (4.5-5.3) mg/dL ABG Glucose (75-99) mg/dL ABG Lactic Acid (0.5-1.6) mmol/L Hemoglobin (13.0-17.5) gm/dL Sodium (137-145) mmol/L Glucose (74-99) mg/dL POC Glucose (mg/dL) 140 H 132 H (70-110) mg/dL Calcium (8.4-10.2) mg/dL Magnesium (1.6-2.3) mg/dL Total Bilirubin (0.2-1.3) mg/dL Total Protein (6.3-8.2) g/dL Albumin (3.5-5.0) g/dL Arterial Blood Potassium (3.4-4.5) mmol/L Arterial Blood Glucose (75-99) mg/dL Crossmatch 01/19/23 01/19/23 01/19/23 Range/Units 19:48 19:52 19:57 WBC 12.0 H (3.8-10.6) k/uL RBC 3.38 L (4.30-5.90) m/uL Hgb 10.7 L (13.0-17.5) gm/dL Hct 30.9 L (39.0-53.0) % Plt Count 115 L (150-450) k/uL Neutrophils # 10.6 H (1.3-7.7) k/uL Lymphocytes # 0.6 L (1.0-4.8) k/uL INR (<1.2) ABG pH (7.35-7.45) ABG pCO2 (35-45) mmHg ABG pO2 304 H (83-108) mmHg ABG HCO3 (21-25) mmol/L ABG Total CO2 26 H (19-24) mmol/L ABG O2 Saturation 98.6 H (94-97) % ABG Hematocrit (34.0-46.0) % ABG Potassium (3.4-4.5) mmol/L ABG Ionized Calcium (4.5-5.3) mg/dL ABG Glucose (75-99) mg/dL ABG Lactic Acid (0.5-1.6) mmol/L Hemoglobin (13.0-17.5) gm/dL Sodium (137-145) mmol/L Glucose (74-99) mg/dL POC Glucose (mg/dL) 136 H (70-110) mg/dL Calcium (8.4-10.2) mg/dL Magnesium (1.6-2.3) mg/dL Total Bilirubin (0.2-1.3) mg/dL Total Protein (6.3-8.2) g/dL Albumin (3.5-5.0) g/dL Arterial Blood Potassium (3.4-4.5) mmol/L Arterial Blood Glucose (75-99) mg/dL Crossmatch 01/19/23 01/19/23 01/19/23 Range/Units 20:53 22:06 22:13 WBC 12.0 H (3.8-10.6) k/uL RBC 3.31 L (4.30-5.90) m/uL Hgb 10.6 L (13.0-17.5) gm/dL Hct 30.3 L (39.0-53.0) % Plt Count 121 L (150-450) k/uL Neutrophils # 10.1 H (1.3-7.7) k/uL Lymphocytes # 0.9 L (1.0-4.8) k/uL INR (<1.2) ABG pH (7.35-7.45) ABG pCO2 (35-45) mmHg ABG pO2 (83-108) mmHg ABG HCO3 (21-25) mmol/L ABG Total CO2 (19-24) mmol/L ABG O2 Saturation (94-97) % ABG Hematocrit (34.0-46.0) % ABG Potassium (3.4-4.5) mmol/L ABG Ionized Calcium (4.5-5.3) mg/dL ABG Glucose (75-99) mg/dL ABG Lactic Acid (0.5-1.6) mmol/L Hemoglobin (13.0-17.5) gm/dL Sodium (137-145) mmol/L Glucose (74-99) mg/dL POC Glucose (mg/dL) 136 H 135 H (70-110) mg/dL Calcium (8.4-10.2) mg/dL Magnesium (1.6-2.3) mg/dL Total Bilirubin (0.2-1.3) mg/dL Total Protein (6.3-8.2) g/dL Albumin (3.5-5.0) g/dL Arterial Blood Potassium (3.4-4.5) mmol/L Arterial Blood Glucose (75-99) mg/dL Crossmatch 01/19/23 01/19/23 01/20/23 Range/Units 22:15 23:13 00:02 WBC (3.8-10.6) k/uL RBC (4.30-5.90) m/uL Hgb (13.0-17.5) gm/dL Hct (39.0-53.0) % Plt Count (150-450) k/uL Neutrophils # (1.3-7.7) k/uL Lymphocytes # (1.0-4.8) k/uL INR (<1.2) ABG pH (7.35-7.45) ABG pCO2 (35-45) mmHg ABG pO2 132 H (83-108) mmHg ABG HCO3 (21-25) mmol/L ABG Total CO2 26 H (19-24) mmol/L ABG O2 Saturation 98.6 H (94-97) % ABG Hematocrit (34.0-46.0) % ABG Potassium (3.4-4.5) mmol/L ABG Ionized Calcium (4.5-5.3) mg/dL ABG Glucose (75-99) mg/dL ABG Lactic Acid (0.5-1.6) mmol/L Hemoglobin (13.0-17.5) gm/dL Sodium (137-145) mmol/L Glucose (74-99) mg/dL POC Glucose (mg/dL) 134 H 132 H (70-110) mg/dL Calcium (8.4-10.2) mg/dL Magnesium (1.6-2.3) mg/dL Total Bilirubin (0.2-1.3) mg/dL Total Protein (6.3-8.2) g/dL Albumin (3.5-5.0) g/dL Arterial Blood Potassium (3.4-4.5) mmol/L Arterial Blood Glucose (75-99) mg/dL Crossmatch 01/20/23 01/20/23 01/20/23 Range/Units 01:18 02:16 03:05 WBC (3.8-10.6) k/uL RBC (4.30-5.90) m/uL Hgb (13.0-17.5) gm/dL Hct (39.0-53.0) % Plt Count (150-450) k/uL Neutrophils # (1.3-7.7) k/uL Lymphocytes # (1.0-4.8) k/uL INR (<1.2) ABG pH (7.35-7.45) ABG pCO2 (35-45) mmHg ABG pO2 (83-108) mmHg ABG HCO3 (21-25) mmol/L ABG Total CO2 (19-24) mmol/L ABG O2 Saturation (94-97) % ABG Hematocrit (34.0-46.0) % ABG Potassium (3.4-4.5) mmol/L ABG Ionized Calcium (4.5-5.3) mg/dL ABG Glucose (75-99) mg/dL ABG Lactic Acid (0.5-1.6) mmol/L Hemoglobin (13.0-17.5) gm/dL Sodium (137-145) mmol/L Glucose (74-99) mg/dL POC Glucose (mg/dL) 132 H 128 H 128 H (70-110) mg/dL Calcium (8.4-10.2) mg/dL Magnesium (1.6-2.3) mg/dL Total Bilirubin (0.2-1.3) mg/dL Total Protein (6.3-8.2) g/dL Albumin (3.5-5.0) g/dL Arterial Blood Potassium (3.4-4.5) mmol/L Arterial Blood Glucose (75-99) mg/dL Crossmatch 01/20/23 01/20/23 01/20/23 Range/Units 03:50 03:50 03:54 WBC 10.9 H (3.8-10.6) k/uL RBC 3.21 L (4.30-5.90) m/uL Hgb 10.3 L (13.0-17.5) gm/dL Hct 29.2 L (39.0-53.0) % Plt Count 101 L (150-450) k/uL Neutrophils # 8.9 H (1.3-7.7) k/uL Lymphocytes # (1.0-4.8) k/uL INR (<1.2) ABG pH (7.35-7.45) ABG pCO2 (35-45) mmHg ABG pO2 (83-108) mmHg ABG HCO3 (21-25) mmol/L ABG Total CO2 (19-24) mmol/L ABG O2 Saturation (94-97) % ABG Hematocrit (34.0-46.0) % ABG Potassium (3.4-4.5) mmol/L ABG Ionized Calcium (4.5-5.3) mg/dL ABG Glucose (75-99) mg/dL ABG Lactic Acid (0.5-1.6) mmol/L Hemoglobin (13.0-17.5) gm/dL Sodium 136 L (137-145) mmol/L Glucose 117 H (74-99) mg/dL POC Glucose (mg/dL) 127 H (70-110) mg/dL Calcium 7.7 L (8.4-10.2) mg/dL Magnesium (1.6-2.3) mg/dL Total Bilirubin 2.2 H (0.2-1.3) mg/dL Total Protein 5.1 L (6.3-8.2) g/dL Albumin 3.3 L (3.5-5.0) g/dL Arterial Blood Potassium (3.4-4.5) mmol/L Arterial Blood Glucose (75-99) mg/dL Crossmatch 01/20/23 01/20/23 01/20/23 Range/Units 05:01 05:58 06:44 WBC (3.8-10.6) k/uL RBC (4.30-5.90) m/uL Hgb (13.0-17.5) gm/dL Hct (39.0-53.0) % Plt Count (150-450) k/uL Neutrophils # (1.3-7.7) k/uL Lymphocytes # (1.0-4.8) k/uL INR (<1.2) ABG pH (7.35-7.45) ABG pCO2 (35-45) mmHg ABG pO2 (83-108) mmHg ABG HCO3 (21-25) mmol/L ABG Total CO2 26 H (19-24) mmol/L ABG O2 Saturation 97.8 H (94-97) % ABG Hematocrit (34.0-46.0) % ABG Potassium (3.4-4.5) mmol/L ABG Ionized Calcium (4.5-5.3) mg/dL ABG Glucose (75-99) mg/dL ABG Lactic Acid (0.5-1.6) mmol/L Hemoglobin (13.0-17.5) gm/dL Sodium (137-145) mmol/L Glucose (74-99) mg/dL POC Glucose (mg/dL) 126 H 127 H (70-110) mg/dL Calcium (8.4-10.2) mg/dL Magnesium (1.6-2.3) mg/dL Total Bilirubin (0.2-1.3) mg/dL Total Protein (6.3-8.2) g/dL Albumin (3.5-5.0) g/dL Arterial Blood Potassium (3.4-4.5) mmol/L Arterial Blood Glucose (75-99) mg/dL Crossmatch 01/20/23 01/20/23 01/20/23 Range/Units 06:58 09:01 09:53 WBC (3.8-10.6) k/uL RBC (4.30-5.90) m/uL Hgb (13.0-17.5) gm/dL Hct (39.0-53.0) % Plt Count (150-450) k/uL Neutrophils # (1.3-7.7) k/uL Lymphocytes # (1.0-4.8) k/uL INR (<1.2) ABG pH (7.35-7.45) ABG pCO2 (35-45) mmHg ABG pO2 109 H (83-108) mmHg ABG HCO3 (21-25) mmol/L ABG Total CO2 26 H (19-24) mmol/L ABG O2 Saturation 98.3 H (94-97) % ABG Hematocrit (34.0-46.0) % ABG Potassium (3.4-4.5) mmol/L ABG Ionized Calcium (4.5-5.3) mg/dL ABG Glucose (75-99) mg/dL ABG Lactic Acid (0.5-1.6) mmol/L Hemoglobin (13.0-17.5) gm/dL Sodium (137-145) mmol/L Glucose (74-99) mg/dL POC Glucose (mg/dL) 122 H 124 H (70-110) mg/dL Calcium (8.4-10.2) mg/dL Magnesium (1.6-2.3) mg/dL Total Bilirubin (0.2-1.3) mg/dL Total Protein (6.3-8.2) g/dL Albumin (3.5-5.0) g/dL Arterial Blood Potassium (3.4-4.5) mmol/L Arterial Blood Glucose (75-99) mg/dL Crossmatch 01/20/23 01/20/23 Range/Units 10:45 12:58 WBC (3.8-10.6) k/uL RBC (4.30-5.90) m/uL Hgb (13.0-17.5) gm/dL Hct (39.0-53.0) % Plt Count (150-450) k/uL Neutrophils # (1.3-7.7) k/uL Lymphocytes # (1.0-4.8) k/uL INR (<1.2) ABG pH (7.35-7.45) ABG pCO2 (35-45) mmHg ABG pO2 (83-108) mmHg ABG HCO3 (21-25) mmol/L ABG Total CO2 (19-24) mmol/L ABG O2 Saturation (94-97) % ABG Hematocrit (34.0-46.0) % ABG Potassium (3.4-4.5) mmol/L ABG Ionized Calcium (4.5-5.3) mg/dL ABG Glucose (75-99) mg/dL ABG Lactic Acid (0.5-1.6) mmol/L Hemoglobin (13.0-17.5) gm/dL Sodium (137-145) mmol/L Glucose (74-99) mg/dL POC Glucose (mg/dL) 139 H 120 H (70-110) mg/dL Calcium (8.4-10.2) mg/dL Magnesium (1.6-2.3) mg/dL Total Bilirubin (0.2-1.3) mg/dL Total Protein (6.3-8.2) g/dL Albumin (3.5-5.0) g/dL Arterial Blood Potassium (3.4-4.5) mmol/L Arterial Blood Glucose (75-99) mg/dL Crossmatch Assessment and Plan Assessment: Impression: Delayed weaning from mechanical ventilation, patient was not ready to be weaned and extubated in the postoperative period/within a few hours, hence his weaning was delayed for multiple factors, patient remains on pressors and requiring norepinephrine. Patient remains on propofol patient is also getting more agitation last night hence we decided to place the patient on Precedex after stopping propofol today. Status post CABG 4 postoperative day #1 Ischemic cardiomyopathy and LV dysfunction and mild. Dyslipidemia Benign essential hypertension Ex-smoker. History of hiatal hernia and GERD. Recommendation: Continue ventilatory support for now Discontinue propofol. Used Precedex instead. Give the patient a weaning trial today with pressure support and CPAP after propofol wearing off. Continue hemodynamic support/norepinephrine Agree with albumin infusions for low blood pressure. We will continue to monitor in the ICU and hopefully will wean and extubate in the next couple of hours. Patient remains critically ill. We will continue to follow Critical care time is over 30 minutes Time with Patient: Greater than 30
--- NOTE | 2023-01-20 14:58 | P.PN ---
Subjective Progress Note Date: 01/20/23 Principal diagnosis: Coronary artery disease with left main disease. Past medical history significant for hyperlipidemia, cardiomyopathy with an ejection fraction of 40%, myocardial infarction 15 years ago, insomnia, hiatal hernia, GERD, family history of early onset coronary artery disease with his mom having a myocardial infarction before the age of 60 and has a remote history of nicotine dependence in which he quit smoking 13 years ago. POD #1 quadruple multiple arterial coronary artery bypass grafting using the left internal mammary artery sequentially to the diagonal coronary artery, then to the left anterior descending coronary artery, left radial artery from the aorta to the obtuse marginal coronary artery, a reverse greater saphenous vein graft from the aorta to the posterior descending coronary artery. Exclusion of the left atrial appendage using a 35 mm Atriclip, intraoperative graft flow measurement using the [employer] system, endoscopic harvesting of the left radial artery, endoscopic harvesting of the left greater saphenous vein, intraoperative transesophageal echocardiogram and epi-aortic scanning. Postoperative acute blood loss anemia, expected given hemodilution and cardiopulmonary bypass. The patient was seen and examined in follow-up today 01/20/2023 at his bedside in the intensive care unit. The patient remains intubated with mechanical ventilator support and is sedated on propofol drip at this time. He is following some verbal commands appropriately. Current mechanical ventilator settings are assist control 16, tidal volume 600, FiO2 50% and a PEEP of 5. Oxygen saturations are 96% on current mechanical ventilator settings. Right IJ Cordis and [place]-Rekha catheter remains in place with current hemodynamic showing a cardiac output of 5.7, cardiac index 2.6, PA pressures 24/10 and a CVP of 6 mmHg. Bedside telemetry showing normal sinus rhythm heart rate 74 BPM. He remains on the Levophed drip at 0.03 mcg/kg/m for blood pressure support. Mediastinal, left pleural and right pleural chest tubes remain in place to low continuous wall suction -20 cm H2O. Small intermittent air leak is present to his mediastinal chest tubes. Left pleural chest tube draining 80 mL of thin serosanguineous drainage in the last 8 hours and 280 mL since surgery. Mediastinal chest tubes drained 160 mL of thin serosanguineous drainage in the last 8 hours and 540 mL since surgery. Right pleural chest tube drained 40 mL of thin serosanguineous drainage in the last 8 hours and 260 mL output since surgery. Atrial epicardial pacemaker wires remain in place and is currently on an AAI backup of 50 BPM. Chest x-ray and laboratory results reviewed. Objective - Vital Signs Vital signs: Vital Signs Temp 100.2 F H 01/20/23 08:00 Pulse 90 01/20/23 14:00 Resp 19 01/20/23 14:00 BP 107/71 01/20/23 13:00 Pulse Ox 92 L 01/20/23 14:00 FiO2 50 01/20/23 08:00 Intake & Output 01/19/23 01/20/23 01/20/23 18:59 06:59 18:59 Intake Total 249.677 1500.743 1546.855 Output Total 4018 1150 750 Balance -3369.267 1140.743 796.855 Weight 99.8 kg 99.8 kg Intake: IV 640 1828 976 0.9% NaCl @ 50 200 600 370 ACETAMINOPHEN IV (For NPO 200 ) 1,000 mg In Empty Bag 1 bag @ 400 mls/hr IVPB Q6HR INA Rx#:[id number] Albumin Human 5% 250 ml 250 500 500 In Empty Bag 1 bag @ 250 mls/hr IVPB Q1HR PRN Rx#: [id number] CO/CI 100 320 70 Pressure Bags 36 108 36 ceFAZolin 2 gm In Sodium 100 Chloride 0.9% 50 ml @ 100 mls/hr IVPB ONCE ONE Rx# :[id number] Intake, IV Titration 8.733 412.743 570.855 Amount Albumin Human 5% 250 ml 250 In Empty Bag 1 bag @ 250 mls/hr IVPB Q1HR PRN Rx#: [id number] Clevidipine Butyrate 25 1.333 mg In Empty Bag 1 bag @ 1 MG/HR 2 mls/hr IV .Q24H INA Rx#:[id number] Dexmedetomidine/0.9% NaCl 3.499 22.566 (Pmx) 400 mcg In Empty Bag 1 bag @ 0.2 MCG/KG/HR 4.717 mls/hr IV .[id number] INA Rx#:[id number] Insulin Regular 100 unit 15.00 1.9 In Sodium Chloride 0.9% 100 ml @ Per Protocol IV .Q0M INA Rx#:[id number] Nitroglycerin-D5w Pmx 50 7.4 mg In Dextrose/Water 1 250ml.bag @ 5 MCG/MIN 1.5 mls/hr IV .Q24H INA Rx#: [id number] Norepinephrine 4 mg In 23.005 173.742 Sodium Chloride 0.9% 250 ml @ 0.03 MCG/KG/MIN 10. 784 mls/hr IV .[id number] INA Rx#:[id number] ceFAZolin 2 gm In Sodium 50 Chloride 0.9% 50 ml @ 100 mls/hr IVPB Q8HR INA Rx# :[id number] propofoL 1,000 mg In 371.239 72.647 Empty Bag 1 bag @ Titrate IV .Q0M INA Rx#: [id number] Other 50 Output: Chest Tube Drainage 623 405 380 Left pleural 166 108 90 Right pleural 167 57 170 mediastinal x2 290 240 120 Drainage 10 Left calf 10 Urine 1395 745 360 Estimated Blood Loss 1999 Other: Voiding Method Indwelling Catheter Indwelling Catheter Indwelling Catheter ABP, PAP, CO, CI - Last Documented Arterial Blood Pressure 116/58 Pulmonary Artery Pressure 28/15 Cardiac Output 6.6 Cardiac Index 3 - Exam CONSTITUTIONAL: Laying in bed in the intensive care unit, appears comfortable, cooperative, remain sedated on propofol drip and is currently intubated with mechanical ventilator support, no apparent acute distress. HEENT: Neck is supple, no JVD, no lymphadenopathy. Right IJ Cordis and [place]- Rekha catheter in place and functioning. RESPIRATORY: Lungs sounds essentially clear throughout, diminished to his bilateral bases. Respirations are symmetrical and nonlabored with mechanical ventilator support. Currently remains intubated with mechanical ventilator support. Oxygen saturations are 96% on current mechanical ventilator settings. Strong cough. CARDIOVASCULAR: Regular rhythm and rate. S1 and S2 present, negative for S3, gallop or murmur. Sternum is stable. Palpable peripheral pulses bilaterally, +1 edema to his bilateral lower extremities. No calf pain or tenderness noted. Heart hugger in place. Knee-high MIRTHA hose and sequential compression devices in place to his bilateral lower extremities. GASTROINTESTINAL: Abdomen soft, nontender, nondistended. Hypoactive bowel sounds present 4 quadrants. Tolerating diet. No guarding or rigidity. GENITOURINARY: Thomas present draining clear, yellow urine. Output 570 mL in the last 8 hours INTEGUMENTARY: Skin is warm and dry with no evidence of clubbing or cyanosis. Midline sternal incision clean dry and well approximated, covered with dry intact dressing. Left lower extremity EVH sites well approximated without redness or drainage. Ecchymosis to his left thigh, soft to touch. Left arm radial artery harvest sites clean, dry and approximated. No drainage or redness is present. NEUROLOGIC: Cranial nerves II through XII intact. No focal deficits. MUSKULOSKELETAL: Unable to accurately assess at this time as the patient remains sedated on propofol drip PSYCHIATRIC: Unable to accurately assess at this time as the patient remains sedated on propofol drip INVASIVE LINES AND TUBES: Mediastinal/left/right pleural chest tubes present and connected to low continuous wall suction, small intermittent air leak present to his mediastinal chest tubes. Mediastinal tube with 160 mL of thin serosanguineous drainage overnight, 540 mL output in the last 24 hours. Left pleural chest tube with 80 mL of thin serosanguineous drainage overnight, 280 mL output in the last 24 hours. Right pleural chest tube with 40 mL of thin serosanguineous drainage overnight, 260 mL output in the last 24 hours. Atrial epicardial pacemaker wires present, connected to generator, AAI backup rate 50 bpm. Right internal jugular [place]/Cordis, right radial arterial line present. Last CO 5.7, CI 2.6, PA 24/10 and CVP 6 mmHg. Left lower extremity CARLITA drain in place with scant thin serosanguineous drainage with 10 mL output in the last 8 hours. - Allied health notes Allied health notes reviewed: nursing - Labs CBC & Chem 7: 01/20/23 03:50 01/20/23 03:50 Labs: Abnormal Lab Results - Last 24 Hours (Table) 01/18/23 01/19/23 01/19/23 Range/Units 12:24 07:26 07:29 WBC (3.8-10.6) k/uL RBC (4.30-5.90) m/uL Hgb (13.0-17.5) gm/dL Hct (39.0-53.0) % Plt Count (150-450) k/uL Neutrophils # (1.3-7.7) k/uL Lymphocytes # (1.0-4.8) k/uL INR (<1.2) ABG pH 7.29 L 7.46 H (7.35-7.45) ABG pCO2 57 H (35-45) mmHg ABG pO2 166 H >420 H (83-108) mmHg ABG HCO3 28 H 28 H (21-25) mmol/L ABG Total CO2 29 H 29 H (19-24) mmol/L ABG O2 Saturation 98.5 H 99.6 H (94-97) % ABG Hematocrit (34.0-46.0) % ABG Potassium (3.4-4.5) mmol/L ABG Ionized Calcium 4.0 L (4.5-5.3) mg/dL ABG Glucose 133 H 108 H (75-99) mg/dL ABG Lactic Acid (0.5-1.6) mmol/L Hemoglobin 11.5 L (13.0-17.5) gm/dL Sodium (137-145) mmol/L Glucose (74-99) mg/dL POC Glucose (mg/dL) (70-110) mg/dL Calcium (8.4-10.2) mg/dL Magnesium (1.6-2.3) mg/dL Total Bilirubin (0.2-1.3) mg/dL Total Protein (6.3-8.2) g/dL Albumin (3.5-5.0) g/dL Arterial Blood Potassium (3.4-4.5) mmol/L Arterial Blood Glucose 133 H 108 H (75-99) mg/dL Crossmatch See Detail 01/19/23 01/19/23 01/19/23 Range/Units 07:29 07:29 07:29 WBC (3.8-10.6) k/uL RBC (4.30-5.90) m/uL Hgb (13.0-17.5) gm/dL Hct (39.0-53.0) % Plt Count (150-450) k/uL Neutrophils # (1.3-7.7) k/uL Lymphocytes # (1.0-4.8) k/uL INR (<1.2) ABG pH (7.35-7.45) ABG pCO2 46 H (35-45) mmHg ABG pO2 >420 H 403 H (83-108) mmHg ABG HCO3 26 H 28 H (21-25) mmol/L ABG Total CO2 27 H 29 H 27 H (19-24) mmol/L ABG O2 Saturation 99.5 H 99.5 H 97.1 H (94-97) % ABG Hematocrit 33 L 33 L 30 L (34.0-46.0) % ABG Potassium 5.8 H 5.6 H 4.7 H (3.4-4.5) mmol/L ABG Ionized Calcium 4.1 L 4.1 L 4.1 L (4.5-5.3) mg/dL ABG Glucose 118 H 135 H 134 H (75-99) mg/dL ABG Lactic Acid 1.9 H 2.0 H (0.5-1.6) mmol/L Hemoglobin 10.6 L 10.8 L 9.9 L (13.0-17.5) gm/dL Sodium (137-145) mmol/L Glucose (74-99) mg/dL POC Glucose (mg/dL) (70-110) mg/dL Calcium (8.4-10.2) mg/dL Magnesium (1.6-2.3) mg/dL Total Bilirubin (0.2-1.3) mg/dL Total Protein (6.3-8.2) g/dL Albumin (3.5-5.0) g/dL Arterial Blood Potassium 5.8 H 5.6 H 4.7 H (3.4-4.5) mmol/L Arterial Blood Glucose 118 H 135 H 134 H (75-99) mg/dL Crossmatch 01/19/23 01/19/23 01/19/23 Range/Units 15:46 15:46 16:19 WBC 13.9 H (3.8-10.6) k/uL RBC 3.58 L (4.30-5.90) m/uL Hgb 11.6 L D (13.0-17.5) gm/dL Hct 32.7 L (39.0-53.0) % Plt Count 96 L D (150-450) k/uL Neutrophils # (1.3-7.7) k/uL Lymphocytes # (1.0-4.8) k/uL INR (<1.2) ABG pH (7.35-7.45) ABG pCO2 (35-45) mmHg ABG pO2 (83-108) mmHg ABG HCO3 (21-25) mmol/L ABG Total CO2 27 H (19-24) mmol/L ABG O2 Saturation 97.7 H (94-97) % ABG Hematocrit (34.0-46.0) % ABG Potassium (3.4-4.5) mmol/L ABG Ionized Calcium (4.5-5.3) mg/dL ABG Glucose (75-99) mg/dL ABG Lactic Acid (0.5-1.6) mmol/L Hemoglobin (13.0-17.5) gm/dL Sodium (137-145) mmol/L Glucose 102 H (74-99) mg/dL POC Glucose (mg/dL) (70-110) mg/dL Calcium 7.6 L (8.4-10.2) mg/dL Magnesium 2.6 H (1.6-2.3) mg/dL Total Bilirubin 2.2 H (0.2-1.3) mg/dL Total Protein 5.0 L (6.3-8.2) g/dL Albumin 3.2 L (3.5-5.0) g/dL Arterial Blood Potassium (3.4-4.5) mmol/L Arterial Blood Glucose (75-99) mg/dL Crossmatch 01/19/23 01/19/23 01/19/23 Range/Units 16:19 16:21 17:10 WBC (3.8-10.6) k/uL RBC (4.30-5.90) m/uL Hgb (13.0-17.5) gm/dL Hct (39.0-53.0) % Plt Count (150-450) k/uL Neutrophils # (1.3-7.7) k/uL Lymphocytes # (1.0-4.8) k/uL INR 1.2 H (<1.2) ABG pH (7.35-7.45) ABG pCO2 (35-45) mmHg ABG pO2 (83-108) mmHg ABG HCO3 (21-25) mmol/L ABG Total CO2 (19-24) mmol/L ABG O2 Saturation (94-97) % ABG Hematocrit (34.0-46.0) % ABG Potassium (3.4-4.5) mmol/L ABG Ionized Calcium (4.5-5.3) mg/dL ABG Glucose (75-99) mg/dL ABG Lactic Acid (0.5-1.6) mmol/L Hemoglobin (13.0-17.5) gm/dL Sodium (137-145) mmol/L Glucose (74-99) mg/dL POC Glucose (mg/dL) 128 H 151 H (70-110) mg/dL Calcium (8.4-10.2) mg/dL Magnesium (1.6-2.3) mg/dL Total Bilirubin (0.2-1.3) mg/dL Total Protein (6.3-8.2) g/dL Albumin (3.5-5.0) g/dL Arterial Blood Potassium (3.4-4.5) mmol/L Arterial Blood Glucose (75-99) mg/dL Crossmatch 01/19/23 01/19/23 01/19/23 Range/Units 17:39 18:15 19:02 WBC (3.8-10.6) k/uL RBC (4.30-5.90) m/uL Hgb (13.0-17.5) gm/dL Hct (39.0-53.0) % Plt Count (150-450) k/uL Neutrophils # (1.3-7.7) k/uL Lymphocytes # (1.0-4.8) k/uL INR (<1.2) ABG pH 7.28 L (7.35-7.45) ABG pCO2 53 H (35-45) mmHg ABG pO2 78 L (83-108) mmHg ABG HCO3 (21-25) mmol/L ABG Total CO2 26 H (19-24) mmol/L ABG O2 Saturation (94-97) % ABG Hematocrit (34.0-46.0) % ABG Potassium (3.4-4.5) mmol/L ABG Ionized Calcium (4.5-5.3) mg/dL ABG Glucose (75-99) mg/dL ABG Lactic Acid (0.5-1.6) mmol/L Hemoglobin (13.0-17.5) gm/dL Sodium (137-145) mmol/L Glucose (74-99) mg/dL POC Glucose (mg/dL) 140 H 132 H (70-110) mg/dL Calcium (8.4-10.2) mg/dL Magnesium (1.6-2.3) mg/dL Total Bilirubin (0.2-1.3) mg/dL Total Protein (6.3-8.2) g/dL Albumin (3.5-5.0) g/dL Arterial Blood Potassium (3.4-4.5) mmol/L Arterial Blood Glucose (75-99) mg/dL Crossmatch 01/19/23 01/19/23 01/19/23 Range/Units 19:48 19:52 19:57 WBC 12.0 H (3.8-10.6) k/uL RBC 3.38 L (4.30-5.90) m/uL Hgb 10.7 L (13.0-17.5) gm/dL Hct 30.9 L (39.0-53.0) % Plt Count 115 L (150-450) k/uL Neutrophils # 10.6 H (1.3-7.7) k/uL Lymphocytes # 0.6 L (1.0-4.8) k/uL INR (<1.2) ABG pH (7.35-7.45) ABG pCO2 (35-45) mmHg ABG pO2 304 H (83-108) mmHg ABG HCO3 (21-25) mmol/L ABG Total CO2 26 H (19-24) mmol/L ABG O2 Saturation 98.6 H (94-97) % ABG Hematocrit (34.0-46.0) % ABG Potassium (3.4-4.5) mmol/L ABG Ionized Calcium (4.5-5.3) mg/dL ABG Glucose (75-99) mg/dL ABG Lactic Acid (0.5-1.6) mmol/L Hemoglobin (13.0-17.5) gm/dL Sodium (137-145) mmol/L Glucose (74-99) mg/dL POC Glucose (mg/dL) 136 H (70-110) mg/dL Calcium (8.4-10.2) mg/dL Magnesium (1.6-2.3) mg/dL Total Bilirubin (0.2-1.3) mg/dL Total Protein (6.3-8.2) g/dL Albumin (3.5-5.0) g/dL Arterial Blood Potassium (3.4-4.5) mmol/L Arterial Blood Glucose (75-99) mg/dL Crossmatch 01/19/23 01/19/23 01/19/23 Range/Units 20:53 22:06 22:13 WBC 12.0 H (3.8-10.6) k/uL RBC 3.31 L (4.30-5.90) m/uL Hgb 10.6 L (13.0-17.5) gm/dL Hct 30.3 L (39.0-53.0) % Plt Count 121 L (150-450) k/uL Neutrophils # 10.1 H (1.3-7.7) k/uL Lymphocytes # 0.9 L (1.0-4.8) k/uL INR (<1.2) ABG pH (7.35-7.45) ABG pCO2 (35-45) mmHg ABG pO2 (83-108) mmHg ABG HCO3 (21-25) mmol/L ABG Total CO2 (19-24) mmol/L ABG O2 Saturation (94-97) % ABG Hematocrit (34.0-46.0) % ABG Potassium (3.4-4.5) mmol/L ABG Ionized Calcium (4.5-5.3) mg/dL ABG Glucose (75-99) mg/dL ABG Lactic Acid (0.5-1.6) mmol/L Hemoglobin (13.0-17.5) gm/dL Sodium (137-145) mmol/L Glucose (74-99) mg/dL POC Glucose (mg/dL) 136 H 135 H (70-110) mg/dL Calcium (8.4-10.2) mg/dL Magnesium (1.6-2.3) mg/dL Total Bilirubin (0.2-1.3) mg/dL Total Protein (6.3-8.2) g/dL Albumin (3.5-5.0) g/dL Arterial Blood Potassium (3.4-4.5) mmol/L Arterial Blood Glucose (75-99) mg/dL Crossmatch 01/19/23 01/19/23 01/20/23 Range/Units 22:15 23:13 00:02 WBC (3.8-10.6) k/uL RBC (4.30-5.90) m/uL Hgb (13.0-17.5) gm/dL Hct (39.0-53.0) % Plt Count (150-450) k/uL Neutrophils # (1.3-7.7) k/uL Lymphocytes # (1.0-4.8) k/uL INR (<1.2) ABG pH (7.35-7.45) ABG pCO2 (35-45) mmHg ABG pO2 132 H (83-108) mmHg ABG HCO3 (21-25) mmol/L ABG Total CO2 26 H (19-24) mmol/L ABG O2 Saturation 98.6 H (94-97) % ABG Hematocrit (34.0-46.0) % ABG Potassium (3.4-4.5) mmol/L ABG Ionized Calcium (4.5-5.3) mg/dL ABG Glucose (75-99) mg/dL ABG Lactic Acid (0.5-1.6) mmol/L Hemoglobin (13.0-17.5) gm/dL Sodium (137-145) mmol/L Glucose (74-99) mg/dL POC Glucose (mg/dL) 134 H 132 H (70-110) mg/dL Calcium (8.4-10.2) mg/dL Magnesium (1.6-2.3) mg/dL Total Bilirubin (0.2-1.3) mg/dL Total Protein (6.3-8.2) g/dL Albumin (3.5-5.0) g/dL Arterial Blood Potassium (3.4-4.5) mmol/L Arterial Blood Glucose (75-99) mg/dL Crossmatch 01/20/23 01/20/23 01/20/23 Range/Units 01:18 02:16 03:05 WBC (3.8-10.6) k/uL RBC (4.30-5.90) m/uL Hgb (13.0-17.5) gm/dL Hct (39.0-53.0) % Plt Count (150-450) k/uL Neutrophils # (1.3-7.7) k/uL Lymphocytes # (1.0-4.8) k/uL INR (<1.2) ABG pH (7.35-7.45) ABG pCO2 (35-45) mmHg ABG pO2 (83-108) mmHg ABG HCO3 (21-25) mmol/L ABG Total CO2 (19-24) mmol/L ABG O2 Saturation (94-97) % ABG Hematocrit (34.0-46.0) % ABG Potassium (3.4-4.5) mmol/L ABG Ionized Calcium (4.5-5.3) mg/dL ABG Glucose (75-99) mg/dL ABG Lactic Acid (0.5-1.6) mmol/L Hemoglobin (13.0-17.5) gm/dL Sodium (137-145) mmol/L Glucose (74-99) mg/dL POC Glucose (mg/dL) 132 H 128 H 128 H (70-110) mg/dL Calcium (8.4-10.2) mg/dL Magnesium (1.6-2.3) mg/dL Total Bilirubin (0.2-1.3) mg/dL Total Protein (6.3-8.2) g/dL Albumin (3.5-5.0) g/dL Arterial Blood Potassium (3.4-4.5) mmol/L Arterial Blood Glucose (75-99) mg/dL Crossmatch 01/20/23 01/20/23 01/20/23 Range/Units 03:50 03:50 03:54 WBC 10.9 H (3.8-10.6) k/uL RBC 3.21 L (4.30-5.90) m/uL Hgb 10.3 L (13.0-17.5) gm/dL Hct 29.2 L (39.0-53.0) % Plt Count 101 L (150-450) k/uL Neutrophils # 8.9 H (1.3-7.7) k/uL Lymphocytes # (1.0-4.8) k/uL INR (<1.2) ABG pH (7.35-7.45) ABG pCO2 (35-45) mmHg ABG pO2 (83-108) mmHg ABG HCO3 (21-25) mmol/L ABG Total CO2 (19-24) mmol/L ABG O2 Saturation (94-97) % ABG Hematocrit (34.0-46.0) % ABG Potassium (3.4-4.5) mmol/L ABG Ionized Calcium (4.5-5.3) mg/dL ABG Glucose (75-99) mg/dL ABG Lactic Acid (0.5-1.6) mmol/L Hemoglobin (13.0-17.5) gm/dL Sodium 136 L (137-145) mmol/L Glucose 117 H (74-99) mg/dL POC Glucose (mg/dL) 127 H (70-110) mg/dL Calcium 7.7 L (8.4-10.2) mg/dL Magnesium (1.6-2.3) mg/dL Total Bilirubin 2.2 H (0.2-1.3) mg/dL Total Protein 5.1 L (6.3-8.2) g/dL Albumin 3.3 L (3.5-5.0) g/dL Arterial Blood Potassium (3.4-4.5) mmol/L Arterial Blood Glucose (75-99) mg/dL Crossmatch 01/20/23 01/20/23 01/20/23 Range/Units 05:01 05:58 06:44 WBC (3.8-10.6) k/uL RBC (4.30-5.90) m/uL Hgb (13.0-17.5) gm/dL Hct (39.0-53.0) % Plt Count (150-450) k/uL Neutrophils # (1.3-7.7) k/uL Lymphocytes # (1.0-4.8) k/uL INR (<1.2) ABG pH (7.35-7.45) ABG pCO2 (35-45) mmHg ABG pO2 (83-108) mmHg ABG HCO3 (21-25) mmol/L ABG Total CO2 26 H (19-24) mmol/L ABG O2 Saturation 97.8 H (94-97) % ABG Hematocrit (34.0-46.0) % ABG Potassium (3.4-4.5) mmol/L ABG Ionized Calcium (4.5-5.3) mg/dL ABG Glucose (75-99) mg/dL ABG Lactic Acid (0.5-1.6) mmol/L Hemoglobin (13.0-17.5) gm/dL Sodium (137-145) mmol/L Glucose (74-99) mg/dL POC Glucose (mg/dL) 126 H 127 H (70-110) mg/dL Calcium (8.4-10.2) mg/dL Magnesium (1.6-2.3) mg/dL Total Bilirubin (0.2-1.3) mg/dL Total Protein (6.3-8.2) g/dL Albumin (3.5-5.0) g/dL Arterial Blood Potassium (3.4-4.5) mmol/L Arterial Blood Glucose (75-99) mg/dL Crossmatch 01/20/23 01/20/23 01/20/23 Range/Units 06:58 09:01 09:53 WBC (3.8-10.6) k/uL RBC (4.30-5.90) m/uL Hgb (13.0-17.5) gm/dL Hct (39.0-53.0) % Plt Count (150-450) k/uL Neutrophils # (1.3-7.7) k/uL Lymphocytes # (1.0-4.8) k/uL INR (<1.2) ABG pH (7.35-7.45) ABG pCO2 (35-45) mmHg ABG pO2 109 H (83-108) mmHg ABG HCO3 (21-25) mmol/L ABG Total CO2 26 H (19-24) mmol/L ABG O2 Saturation 98.3 H (94-97) % ABG Hematocrit (34.0-46.0) % ABG Potassium (3.4-4.5) mmol/L ABG Ionized Calcium (4.5-5.3) mg/dL ABG Glucose (75-99) mg/dL ABG Lactic Acid (0.5-1.6) mmol/L Hemoglobin (13.0-17.5) gm/dL Sodium (137-145) mmol/L Glucose (74-99) mg/dL POC Glucose (mg/dL) 122 H 124 H (70-110) mg/dL Calcium (8.4-10.2) mg/dL Magnesium (1.6-2.3) mg/dL Total Bilirubin (0.2-1.3) mg/dL Total Protein (6.3-8.2) g/dL Albumin (3.5-5.0) g/dL Arterial Blood Potassium (3.4-4.5) mmol/L Arterial Blood Glucose (75-99) mg/dL Crossmatch 01/20/23 01/20/23 Range/Units 10:45 12:58 WBC (3.8-10.6) k/uL RBC (4.30-5.90) m/uL Hgb (13.0-17.5) gm/dL Hct (39.0-53.0) % Plt Count (150-450) k/uL Neutrophils # (1.3-7.7) k/uL Lymphocytes # (1.0-4.8) k/uL INR (<1.2) ABG pH (7.35-7.45) ABG pCO2 (35-45) mmHg ABG pO2 (83-108) mmHg ABG HCO3 (21-25) mmol/L ABG Total CO2 (19-24) mmol/L ABG O2 Saturation (94-97) % ABG Hematocrit (34.0-46.0) % ABG Potassium (3.4-4.5) mmol/L ABG Ionized Calcium (4.5-5.3) mg/dL ABG Glucose (75-99) mg/dL ABG Lactic Acid (0.5-1.6) mmol/L Hemoglobin (13.0-17.5) gm/dL Sodium (137-145) mmol/L Glucose (74-99) mg/dL POC Glucose (mg/dL) 139 H 120 H (70-110) mg/dL Calcium (8.4-10.2) mg/dL Magnesium (1.6-2.3) mg/dL Total Bilirubin (0.2-1.3) mg/dL Total Protein (6.3-8.2) g/dL Albumin (3.5-5.0) g/dL Arterial Blood Potassium (3.4-4.5) mmol/L Arterial Blood Glucose (75-99) mg/dL Crossmatch - Imaging and Cardiology Chest x-ray: report reviewed, image reviewed Assessment and Plan Assessment: Multivessel coronary artery disease with left main disease, status post four- vessel coronary artery bypass grafting surgery Hyperlipidemia History of cardiomyopathy with an ejection fraction of 40%, ejection fraction 50% on most current transthoracic 2-D echocardiogram. Myocardial infarction 15 years ago History of insomnia History of hiatal hernia GERD Family history of early onset coronary artery disease with his mom having a myocardial infarction before the age of 60 years of age Remote history of nicotine dependence quit smoking around 13 years ago Postoperative acute blood loss anemia, expected given hemodilution and cardiopulmonary bypass Hypotension, requiring norepinephrine drip Plan: Continue to maximize medical therapy with aspirin, Plavix, statin, beta mustapha. Metoprolol tartrate this a.m. Wean norepinephrine drip as tolerated to keep a map greater than or equal to 70 mmHg Will start oral calcium channel mustapha for radial artery spasm prophylaxis when blood pressure is able to tolerate. Mechanical ventilator weaning per pulmonary/critical care medicine recommendations. Once extubated encourage incentive spirometry use 10 times every hour while awake. Bronchodilators per pulmonology. Increase activity, ambulate as tolerated. PT/OT/cardiac rehab consulted. Will monitor daily labs and x-rays. Electrolyte replacement per protocol. GI/DVT prophylaxis. Pain control with current medication regimen. Toradol added Insulin management per internal medicine. Patient is not diabetic, preoperative hemoglobin A1c 6.3%. Needs tight blood sugar control to promote healing and prevent infection Keep right IJ Cordis and [place] catheter in place, continue to monitor hemodynamics. Continue mediastinal/left/right pleural chest tubes for another 24 hours. Will discontinue CARLITA drain to his [place] leg. Continue Thomas catheter for another 24 hours for strict accurate intake and output. Daily weights. More recommendations to follow based on patient's clinical course. Time with Patient: Greater than 30
[2023-01-20 15:18] LABS: Glucose,Whole Blood 130 mg/dL (70-110)
[2023-01-20 17:06] LABS: Glucose,Whole Blood 136 mg/dL (70-110)
[2023-01-20] MEDS: NOREPINEPHRINE 4 MG in SODIUM CHLORIDE 0.9% 250 ML IV SCH (18:25)
[2023-01-20] MEDS: ALPRAZolam 0.25 MG TAB PO PRN (18:36)
[2023-01-20 19:11] LABS: Glucose,Whole Blood 132 mg/dL (70-110)
[2023-01-20 20:03] LABS: Glucose,Whole Blood 136 mg/dL (70-110)
[2023-01-20] MEDS: DEXMEDETOMIDINE/0.9% NACL(PMX) 400 MCG in EMPTY BAG 1 BAG IV SCH (20:08)
[2023-01-20] MEDS: SENNOSIDES-DOCUSATE SODIUM 1 EACH TAB PO SCH (20:33)
[2023-01-20 20:58] LABS: Glucose,Whole Blood 142 mg/dL (70-110)
[2023-01-20 22:05] LABS: Glucose,Whole Blood 137 mg/dL (70-110)
[2023-01-20 22:58] LABS: Glucose,Whole Blood 139 mg/dL (70-110)
[2023-01-21] MEDS: KETOROLAC 15 MG/ML 1 ML VIAL IVP SCH ×4 (00:08→17:40)
[2023-01-21] MEDS: HEPARIN SODIUM,PORCINE 5,000 UNIT/ML 1 ML VIAL SQ SCH ×3 (00:09→16:14)
[2023-01-21 00:38] LABS: Glucose,Whole Blood 130 mg/dL (70-110)
[2023-01-21 01:09] LABS: Glucose,Whole Blood 131 mg/dL (70-110)
[2023-01-21 02:05] LABS: Glucose,Whole Blood 127 mg/dL (70-110)
[2023-01-21 03:15] LABS: Glucose,Whole Blood 121 mg/dL (70-110)
[2023-01-21 04:07] LABS: Glucose,Whole Blood 125 mg/dL (70-110)
[2023-01-21] MEDS: HYDROcodone/APAP 10-325MG 1 EACH TAB PO PRN ×5 (04:12→22:37)
[2023-01-21 04:20] LABS: Basophils % (A) 0 %; Eosinophils % (A) 0 %; HCT 28.4 % (39.0-53.0); HGB 9.7 gm/dL (13.0-17.5); Lymphocytes # (A) 1.3 k/uL (1.0-4.8); Lymphocytes % (A) 10 %; MCH 31.9 pg (25.0-35.0); MCHC 34.2 g/dL (31.0-37.0); MCV 93.3 fL (80.0-100.0); Mean Platelet Volume 8.5; Monocytes # (A) 0.8 k/uL (0-1.0); Monocytes % (A) 6 %; Neutrophils # (A) 11.2 k/uL (1.3-7.7); Neutrophils % (A) 83 %; RBC 3.04 m/uL (4.30-5.90); RDW 13.1 % (11.5-15.5); WBC 13.4 k/uL (3.8-10.6)
[2023-01-21 04:46] LABS: Ionized Calcium 4.8 mg/dL (4.5-5.3)
[2023-01-21 04:50] LABS: ALT 27 U/L (4-49); AST 58 U/L (17-59); African American GFR (CKD) >90 (>60 ml/min/1.73 sqM); Albumin 3.7 g/dL (3.5-5.0); Alkaline Phosphatase 58 U/L (38-126); Anion Gap 7 mmol/L; Blood Urea Nitrogen 15 mg/dL (9-20); Calcium 8.4 mg/dL (8.4-10.2); Carbon Dioxide 23 mmol/L (22-30); Chloride 106 mmol/L (98-107); Glucose 111 mg/dL (74-99); Non-African American GFR(CKD) >90 (>60 ml/min/1.73 sqM); Potassium 4.3 mmol/L (3.5-5.1); Sodium 136 mmol/L (137-145); Total Bilirubin 2.5 mg/dL (0.2-1.3); Total Protein 5.7 g/dL (6.3-8.2)
[2023-01-21 04:54] LABS: Platelet Count 92 k/uL (150-450)
[2023-01-21 04:55] LABS: Glucose,Whole Blood 127 mg/dL (70-110)
[2023-01-21] MEDS: PANTOPRAZOLE 40 MG TABLET PO SCH (06:45)
[2023-01-21 06:59] LABS: Glucose,Whole Blood 136 mg/dL (70-110)
--- NOTE | 2023-01-21 07:08 | P.PN ---
Subjective Progress Note Date: 01/20/23 This is a 57-year-old male admitted to the hospital for further evaluation for coronary artery disease. Patient has undergone extensive workup being followed by cardiothoracic services. Echocardiogram showing low normal LV systolic function with EF of 50%, mild TR. On patient underwent cardiac catheterization at [facility] which revealed multivessel disease with 80% distal left main stenosis, ostial circumflex disease and bifurcating mid LAD/diagonal disease. Patient was transferred to [facility] for cardiothoracic evaluation. Patient is scheduled to undergo coronary artery bypass grafting tomorrow with Dr. Whitlock. Today he has no acute complaints. Discussed he will go to the ICU after surgery tomorrow. Patient would like to have a BM today. He complains of heart burn sensation today and is continued on oral protonix. 01/19/2023 Patient scheduled to undergo coronary artery bypass grafting today for multivessel CAD with left main disease. Patient will be monitored in the intensive care unit post procedure. Patient remains on optimized medical therapy. Sliding scale insulin coverage and blood glucose has been controlled in the 100s and not requiring any insulin. Preoperative vital signs; temperature of 98.1, heart rate 68, blood pressure 135/70, 95% on room air. 01/20/2023 Patient is seen in follow-up today remains in the ICU with multiple medical consultations following. Per nursing staff there was difficulty with patient being ready for extubation requiring Precedex his propofol was being weaned off. Patient remains on pressor support and has been weaned off of sedation and is status post extubation approximately 20 minutes prior to exam. Patient is on 4- 5 L via nasal cannula and appears in no acute distress. Patient is reporting significantly dry mouth requesting swabs as patient remains nothing by mouth per protocol. Chest x-ray showing pleural effusion. Patient remains on insulin drip per surgical protocol and we will transition to sliding scale once resumed on oral diet. Patient is afebrile report some generalized discomfort with extensive weakness and chest wall pain. Patient does have heart hugger noted. Multiple chest tubes and drains remain in place at this time. Review of Systems Constitutional: Denied any fatigue denied any fever. Cardio vascular: denied any chest pain, palpitations Gastrointestinal: denied any nausea, vomiting, diarrhea Pulmonary: reports shortness of breath cough Neurologic denied any new focal deficits, reports generalized weakness All inpatient medications were reviewed and appropriate changes in these medications as dictated in the interval history and assessment and plan. Assessment: Exertional dyspnea with outpatient CT showing coronary calcifications and mild nodules Positive stress test and cardiac catheterization revealing multivessel CAD with left main disease. Patient is status post CABG 4 History of myocardial infarction 15 yrs ago and prior cardiac catheterization Hyperglycemia with A1C of 6.3 consistent with prediabetes History hyperlipidemia Hx cardiomyopathy with EF 40% with improved EF of 50% this hospital stay Gastroesophageal reflux disease Hx hiatal hernia Hx of tobacco use in the past Hx of alcohol use in the past GI prophylaxis on protonix Full Code Plan: Patient continues in the ICU with multiple medical consultations following status post CABG 4 postop day 1. Patient was continued on mechanical ventilation and was just successfully extubated approximately 20-30 minutes ago and maintained on 4 L via nasal cannula Patient is awake, alert and oriented 3. Awaiting per protocol for swallow eval in the next few hours. Patient to continue on insulin drip until diet is resumed we'll transition to sliding scale with Accu-Cheks Remains on pressor support at this time and weaning as tolerated. Patient was just weaned off Precedex and propofol has been off. Patient will be continued in the ICU with guarded prognosis We will continue to follow with cardiothoracic surgery during hospitalization. Thank you kindly for this consultation The impression and plan of care has been dictated by Cesilia Ordonez, Nurse Practitioner as directed. Dr. Tanner MD I have performed a history and examination and MDM of this patient, discussed the same with the dictator, and agree with the dictator's assessment and plan as written ,documented as a scribe. Based on total visit time, I have performed more than 50% of the visit. Objective - Vital Signs Vital signs: Vital Signs Temp 100.2 F H 01/20/23 08:00 Pulse 80 01/20/23 09:00 Resp 17 01/20/23 09:00 BP 105/34 01/20/23 09:00 Pulse Ox 96 01/20/23 09:00 FiO2 50 01/20/23 08:00 Intake & Output 01/19/23 01/20/23 01/20/23 18:59 06:59 18:59 Intake Total 780.008 0430.743 837.274 Output Total 4018 1150 325 Balance -3369.267 1140.743 512.274 Weight 99.8 kg Intake: IV 640 1828 707 0.9% NaCl @ 50 200 600 120 ACETAMINOPHEN IV (For NPO 200 ) 1,000 mg In Empty Bag 1 bag @ 400 mls/hr IVPB Q6HR INA Rx#:[id number] Albumin Human 5% 250 ml 250 500 500 In Empty Bag 1 bag @ 250 mls/hr IVPB Q1HR PRN Rx#: [id number] CO/CI 100 320 60 Pressure Bags 36 108 27 ceFAZolin 2 gm In Sodium 100 Chloride 0.9% 50 ml @ 100 mls/hr IVPB ONCE ONE Rx# :[id number] Intake, IV Titration 8.733 412.743 130.274 Amount Clevidipine Butyrate 25 1.333 mg In Empty Bag 1 bag @ 1 MG/HR 2 mls/hr IV .Q24H INA Rx#:[id number] Dexmedetomidine/0.9% NaCl 3.499 7.627 (Pmx) 400 mcg In Empty Bag 1 bag @ 0.2 MCG/KG/HR 4.717 mls/hr IV .[id number] INA Rx#:[id number] Insulin Regular 100 unit 15.00 In Sodium Chloride 0.9% 100 ml @ Per Protocol IV .Q0M INA Rx#:[id number] Nitroglycerin-D5w Pmx 50 7.4 mg In Dextrose/Water 1 250ml.bag @ 5 MCG/MIN 1.5 mls/hr IV .Q24H INA Rx#: [id number] Norepinephrine 4 mg In 23.005 Sodium Chloride 0.9% 250 ml @ 0.03 MCG/KG/MIN 10. 784 mls/hr IV .[id number] INA Rx#:[id number] ceFAZolin 2 gm In Sodium 50 Chloride 0.9% 50 ml @ 100 mls/hr IVPB Q8HR INA Rx# :[id number] propofoL 1,000 mg In 371.239 72.647 Empty Bag 1 bag @ Titrate IV .Q0M INA Rx#: [id number] Other 50 Output: Chest Tube Drainage 623 405 120 Left pleural 166 108 30 Right pleural 167 57 60 mediastinal x2 290 240 30 Urine 1395 745 205 Estimated Blood Loss 1999 Other: Voiding Method Indwelling Catheter Indwelling Catheter ABP, PAP, CO, CI - Last Documented Arterial Blood Pressure 99/41 Pulmonary Artery Pressure 24/9 Cardiac Output 6.7 Cardiac Index 3.0 - Labs CBC & Chem 7: 01/21/23 04:07 01/21/23 04:07 Labs: Abnormal Lab Results - Last 24 Hours (Table) 01/18/23 01/19/23 01/19/23 Range/Units 12:24 07:26 07:29 WBC (3.8-10.6) k/uL RBC (4.30-5.90) m/uL Hgb (13.0-17.5) gm/dL Hct (39.0-53.0) % Plt Count (150-450) k/uL Neutrophils # (1.3-7.7) k/uL Lymphocytes # (1.0-4.8) k/uL INR (<1.2) ABG pH 7.29 L 7.46 H (7.35-7.45) ABG pCO2 57 H (35-45) mmHg ABG pO2 166 H >420 H (83-108) mmHg ABG HCO3 28 H 28 H (21-25) mmol/L ABG Total CO2 29 H 29 H (19-24) mmol/L ABG O2 Saturation 98.5 H 99.6 H (94-97) % ABG Hematocrit (34.0-46.0) % ABG Potassium (3.4-4.5) mmol/L ABG Ionized Calcium 4.0 L (4.5-5.3) mg/dL ABG Glucose 133 H 108 H (75-99) mg/dL ABG Lactic Acid (0.5-1.6) mmol/L Hemoglobin 11.5 L (13.0-17.5) gm/dL Sodium (137-145) mmol/L Glucose (74-99) mg/dL POC Glucose (mg/dL) (70-110) mg/dL Calcium (8.4-10.2) mg/dL Magnesium (1.6-2.3) mg/dL Total Bilirubin (0.2-1.3) mg/dL Total Protein (6.3-8.2) g/dL Albumin (3.5-5.0) g/dL Arterial Blood Potassium (3.4-4.5) mmol/L Arterial Blood Glucose 133 H 108 H (75-99) mg/dL Crossmatch See Detail 01/19/23 01/19/23 01/19/23 Range/Units 07:29 07:29 07:29 WBC (3.8-10.6) k/uL RBC (4.30-5.90) m/uL Hgb (13.0-17.5) gm/dL Hct (39.0-53.0) % Plt Count (150-450) k/uL Neutrophils # (1.3-7.7) k/uL Lymphocytes # (1.0-4.8) k/uL INR (<1.2) ABG pH (7.35-7.45) ABG pCO2 46 H (35-45) mmHg ABG pO2 >420 H 403 H (83-108) mmHg ABG HCO3 26 H 28 H (21-25) mmol/L ABG Total CO2 27 H 29 H 27 H (19-24) mmol/L ABG O2 Saturation 99.5 H 99.5 H 97.1 H (94-97) % ABG Hematocrit 33 L 33 L 30 L (34.0-46.0) % ABG Potassium 5.8 H 5.6 H 4.7 H (3.4-4.5) mmol/L ABG Ionized Calcium 4.1 L 4.1 L 4.1 L (4.5-5.3) mg/dL ABG Glucose 118 H 135 H 134 H (75-99) mg/dL ABG Lactic Acid 1.9 H 2.0 H (0.5-1.6) mmol/L Hemoglobin 10.6 L 10.8 L 9.9 L (13.0-17.5) gm/dL Sodium (137-145) mmol/L Glucose (74-99) mg/dL POC Glucose (mg/dL) (70-110) mg/dL Calcium (8.4-10.2) mg/dL Magnesium (1.6-2.3) mg/dL Total Bilirubin (0.2-1.3) mg/dL Total Protein (6.3-8.2) g/dL Albumin (3.5-5.0) g/dL Arterial Blood Potassium 5.8 H 5.6 H 4.7 H (3.4-4.5) mmol/L Arterial Blood Glucose 118 H 135 H 134 H (75-99) mg/dL Crossmatch 01/19/23 01/19/23 01/19/23 Range/Units 15:46 15:46 16:19 WBC 13.9 H (3.8-10.6) k/uL RBC 3.58 L (4.30-5.90) m/uL Hgb 11.6 L D (13.0-17.5) gm/dL Hct 32.7 L (39.0-53.0) % Plt Count 96 L D (150-450) k/uL Neutrophils # (1.3-7.7) k/uL Lymphocytes # (1.0-4.8) k/uL INR (<1.2) ABG pH (7.35-7.45) ABG pCO2 (35-45) mmHg ABG pO2 (83-108) mmHg ABG HCO3 (21-25) mmol/L ABG Total CO2 27 H (19-24) mmol/L ABG O2 Saturation 97.7 H (94-97) % ABG Hematocrit (34.0-46.0) % ABG Potassium (3.4-4.5) mmol/L ABG Ionized Calcium (4.5-5.3) mg/dL ABG Glucose (75-99) mg/dL ABG Lactic Acid (0.5-1.6) mmol/L Hemoglobin (13.0-17.5) gm/dL Sodium (137-145) mmol/L Glucose 102 H (74-99) mg/dL POC Glucose (mg/dL) (70-110) mg/dL Calcium 7.6 L (8.4-10.2) mg/dL Magnesium 2.6 H (1.6-2.3) mg/dL Total Bilirubin 2.2 H (0.2-1.3) mg/dL Total Protein 5.0 L (6.3-8.2) g/dL Albumin 3.2 L (3.5-5.0) g/dL Arterial Blood Potassium (3.4-4.5) mmol/L Arterial Blood Glucose (75-99) mg/dL Crossmatch 01/19/23 01/19/23 01/19/23 Range/Units 16:19 16:21 17:10 WBC (3.8-10.6) k/uL RBC (4.30-5.90) m/uL Hgb (13.0-17.5) gm/dL Hct (39.0-53.0) % Plt Count (150-450) k/uL Neutrophils # (1.3-7.7) k/uL Lymphocytes # (1.0-4.8) k/uL INR 1.2 H (<1.2) ABG pH (7.35-7.45) ABG pCO2 (35-45) mmHg ABG pO2 (83-108) mmHg ABG HCO3 (21-25) mmol/L ABG Total CO2 (19-24) mmol/L ABG O2 Saturation (94-97) % ABG Hematocrit (34.0-46.0) % ABG Potassium (3.4-4.5) mmol/L ABG Ionized Calcium (4.5-5.3) mg/dL ABG Glucose (75-99) mg/dL ABG Lactic Acid (0.5-1.6) mmol/L Hemoglobin (13.0-17.5) gm/dL Sodium (137-145) mmol/L Glucose (74-99) mg/dL POC Glucose (mg/dL) 128 H 151 H (70-110) mg/dL Calcium (8.4-10.2) mg/dL Magnesium (1.6-2.3) mg/dL Total Bilirubin (0.2-1.3) mg/dL Total Protein (6.3-8.2) g/dL Albumin (3.5-5.0) g/dL Arterial Blood Potassium (3.4-4.5) mmol/L Arterial Blood Glucose (75-99) mg/dL Crossmatch 01/19/23 01/19/23 01/19/23 Range/Units 17:39 18:15 19:02 WBC (3.8-10.6) k/uL RBC (4.30-5.90) m/uL Hgb (13.0-17.5) gm/dL Hct (39.0-53.0) % Plt Count (150-450) k/uL Neutrophils # (1.3-7.7) k/uL Lymphocytes # (1.0-4.8) k/uL INR (<1.2) ABG pH 7.28 L (7.35-7.45) ABG pCO2 53 H (35-45) mmHg ABG pO2 78 L (83-108) mmHg ABG HCO3 (21-25) mmol/L ABG Total CO2 26 H (19-24) mmol/L ABG O2 Saturation (94-97) % ABG Hematocrit (34.0-46.0) % ABG Potassium (3.4-4.5) mmol/L ABG Ionized Calcium (4.5-5.3) mg/dL ABG Glucose (75-99) mg/dL ABG Lactic Acid (0.5-1.6) mmol/L Hemoglobin (13.0-17.5) gm/dL Sodium (137-145) mmol/L Glucose (74-99) mg/dL POC Glucose (mg/dL) 140 H 132 H (70-110) mg/dL Calcium (8.4-10.2) mg/dL Magnesium (1.6-2.3) mg/dL Total Bilirubin (0.2-1.3) mg/dL Total Protein (6.3-8.2) g/dL Albumin (3.5-5.0) g/dL Arterial Blood Potassium (3.4-4.5) mmol/L Arterial Blood Glucose (75-99) mg/dL Crossmatch 01/19/23 01/19/23 01/19/23 Range/Units 19:48 19:52 19:57 WBC 12.0 H (3.8-10.6) k/uL RBC 3.38 L (4.30-5.90) m/uL Hgb 10.7 L (13.0-17.5) gm/dL Hct 30.9 L (39.0-53.0) % Plt Count 115 L (150-450) k/uL Neutrophils # 10.6 H (1.3-7.7) k/uL Lymphocytes # 0.6 L (1.0-4.8) k/uL INR (<1.2) ABG pH (7.35-7.45) ABG pCO2 (35-45) mmHg ABG pO2 304 H (83-108) mmHg ABG HCO3 (21-25) mmol/L ABG Total CO2 26 H (19-24) mmol/L ABG O2 Saturation 98.6 H (94-97) % ABG Hematocrit (34.0-46.0) % ABG Potassium (3.4-4.5) mmol/L ABG Ionized Calcium (4.5-5.3) mg/dL ABG Glucose (75-99) mg/dL ABG Lactic Acid (0.5-1.6) mmol/L Hemoglobin (13.0-17.5) gm/dL Sodium (137-145) mmol/L Glucose (74-99) mg/dL POC Glucose (mg/dL) 136 H (70-110) mg/dL Calcium (8.4-10.2) mg/dL Magnesium (1.6-2.3) mg/dL Total Bilirubin (0.2-1.3) mg/dL Total Protein (6.3-8.2) g/dL Albumin (3.5-5.0) g/dL Arterial Blood Potassium (3.4-4.5) mmol/L Arterial Blood Glucose (75-99) mg/dL Crossmatch 01/19/23 01/19/23 01/19/23 Range/Units 20:53 22:06 22:13 WBC 12.0 H (3.8-10.6) k/uL RBC 3.31 L (4.30-5.90) m/uL Hgb 10.6 L (13.0-17.5) gm/dL Hct 30.3 L (39.0-53.0) % Plt Count 121 L (150-450) k/uL Neutrophils # 10.1 H (1.3-7.7) k/uL Lymphocytes # 0.9 L (1.0-4.8) k/uL INR (<1.2) ABG pH (7.35-7.45) ABG pCO2 (35-45) mmHg ABG pO2 (83-108) mmHg ABG HCO3 (21-25) mmol/L ABG Total CO2 (19-24) mmol/L ABG O2 Saturation (94-97) % ABG Hematocrit (34.0-46.0) % ABG Potassium (3.4-4.5) mmol/L ABG Ionized Calcium (4.5-5.3) mg/dL ABG Glucose (75-99) mg/dL ABG Lactic Acid (0.5-1.6) mmol/L Hemoglobin (13.0-17.5) gm/dL Sodium (137-145) mmol/L Glucose (74-99) mg/dL POC Glucose (mg/dL) 136 H 135 H (70-110) mg/dL Calcium (8.4-10.2) mg/dL Magnesium (1.6-2.3) mg/dL Total Bilirubin (0.2-1.3) mg/dL Total Protein (6.3-8.2) g/dL Albumin (3.5-5.0) g/dL Arterial Blood Potassium (3.4-4.5) mmol/L Arterial Blood Glucose (75-99) mg/dL Crossmatch 01/19/23 01/19/23 01/20/23 Range/Units 22:15 23:13 00:02 WBC (3.8-10.6) k/uL RBC (4.30-5.90) m/uL Hgb (13.0-17.5) gm/dL Hct (39.0-53.0) % Plt Count (150-450) k/uL Neutrophils # (1.3-7.7) k/uL Lymphocytes # (1.0-4.8) k/uL INR (<1.2) ABG pH (7.35-7.45) ABG pCO2 (35-45) mmHg ABG pO2 132 H (83-108) mmHg ABG HCO3 (21-25) mmol/L ABG Total CO2 26 H (19-24) mmol/L ABG O2 Saturation 98.6 H (94-97) % ABG Hematocrit (34.0-46.0) % ABG Potassium (3.4-4.5) mmol/L ABG Ionized Calcium (4.5-5.3) mg/dL ABG Glucose (75-99) mg/dL ABG Lactic Acid (0.5-1.6) mmol/L Hemoglobin (13.0-17.5) gm/dL Sodium (137-145) mmol/L Glucose (74-99) mg/dL POC Glucose (mg/dL) 134 H 132 H (70-110) mg/dL Calcium (8.4-10.2) mg/dL Magnesium (1.6-2.3) mg/dL Total Bilirubin (0.2-1.3) mg/dL Total Protein (6.3-8.2) g/dL Albumin (3.5-5.0) g/dL Arterial Blood Potassium (3.4-4.5) mmol/L Arterial Blood Glucose (75-99) mg/dL Crossmatch 01/20/23 01/20/23 01/20/23 Range/Units 01:18 02:16 03:05 WBC (3.8-10.6) k/uL RBC (4.30-5.90) m/uL Hgb (13.0-17.5) gm/dL Hct (39.0-53.0) % Plt Count (150-450) k/uL Neutrophils # (1.3-7.7) k/uL Lymphocytes # (1.0-4.8) k/uL INR (<1.2) ABG pH (7.35-7.45) ABG pCO2 (35-45) mmHg ABG pO2 (83-108) mmHg ABG HCO3 (21-25) mmol/L ABG Total CO2 (19-24) mmol/L ABG O2 Saturation (94-97) % ABG Hematocrit (34.0-46.0) % ABG Potassium (3.4-4.5) mmol/L ABG Ionized Calcium (4.5-5.3) mg/dL ABG Glucose (75-99) mg/dL ABG Lactic Acid (0.5-1.6) mmol/L Hemoglobin (13.0-17.5) gm/dL Sodium (137-145) mmol/L Glucose (74-99) mg/dL POC Glucose (mg/dL) 132 H 128 H 128 H (70-110) mg/dL Calcium (8.4-10.2) mg/dL Magnesium (1.6-2.3) mg/dL Total Bilirubin (0.2-1.3) mg/dL Total Protein (6.3-8.2) g/dL Albumin (3.5-5.0) g/dL Arterial Blood Potassium (3.4-4.5) mmol/L Arterial Blood Glucose (75-99) mg/dL Crossmatch 01/20/23 01/20/23 01/20/23 Range/Units 03:50 03:50 03:54 WBC 10.9 H (3.8-10.6) k/uL RBC 3.21 L (4.30-5.90) m/uL Hgb 10.3 L (13.0-17.5) gm/dL Hct 29.2 L (39.0-53.0) % Plt Count 101 L (150-450) k/uL Neutrophils # 8.9 H (1.3-7.7) k/uL Lymphocytes # (1.0-4.8) k/uL INR (<1.2) ABG pH (7.35-7.45) ABG pCO2 (35-45) mmHg ABG pO2 (83-108) mmHg ABG HCO3 (21-25) mmol/L ABG Total CO2 (19-24) mmol/L ABG O2 Saturation (94-97) % ABG Hematocrit (34.0-46.0) % ABG Potassium (3.4-4.5) mmol/L ABG Ionized Calcium (4.5-5.3) mg/dL ABG Glucose (75-99) mg/dL ABG Lactic Acid (0.5-1.6) mmol/L Hemoglobin (13.0-17.5) gm/dL Sodium 136 L (137-145) mmol/L Glucose 117 H (74-99) mg/dL POC Glucose (mg/dL) 127 H (70-110) mg/dL Calcium 7.7 L (8.4-10.2) mg/dL Magnesium (1.6-2.3) mg/dL Total Bilirubin 2.2 H (0.2-1.3) mg/dL Total Protein 5.1 L (6.3-8.2) g/dL Albumin 3.3 L (3.5-5.0) g/dL Arterial Blood Potassium (3.4-4.5) mmol/L Arterial Blood Glucose (75-99) mg/dL Crossmatch 01/20/23 01/20/23 01/20/23 Range/Units 05:01 05:58 06:44 WBC (3.8-10.6) k/uL RBC (4.30-5.90) m/uL Hgb (13.0-17.5) gm/dL Hct (39.0-53.0) % Plt Count (150-450) k/uL Neutrophils # (1.3-7.7) k/uL Lymphocytes # (1.0-4.8) k/uL INR (<1.2) ABG pH (7.35-7.45) ABG pCO2 (35-45) mmHg ABG pO2 (83-108) mmHg ABG HCO3 (21-25) mmol/L ABG Total CO2 26 H (19-24) mmol/L ABG O2 Saturation 97.8 H (94-97) % ABG Hematocrit (34.0-46.0) % ABG Potassium (3.4-4.5) mmol/L ABG Ionized Calcium (4.5-5.3) mg/dL ABG Glucose (75-99) mg/dL ABG Lactic Acid (0.5-1.6) mmol/L Hemoglobin (13.0-17.5) gm/dL Sodium (137-145) mmol/L Glucose (74-99) mg/dL POC Glucose (mg/dL) 126 H 127 H (70-110) mg/dL Calcium (8.4-10.2) mg/dL Magnesium (1.6-2.3) mg/dL Total Bilirubin (0.2-1.3) mg/dL Total Protein (6.3-8.2) g/dL Albumin (3.5-5.0) g/dL Arterial Blood Potassium (3.4-4.5) mmol/L Arterial Blood Glucose (75-99) mg/dL Crossmatch 01/20/23 01/20/23 01/20/23 Range/Units 06:58 09:01 09:53 WBC (3.8-10.6) k/uL RBC (4.30-5.90) m/uL Hgb (13.0-17.5) gm/dL Hct (39.0-53.0) % Plt Count (150-450) k/uL Neutrophils # (1.3-7.7) k/uL Lymphocytes # (1.0-4.8) k/uL INR (<1.2) ABG pH (7.35-7.45) ABG pCO2 (35-45) mmHg ABG pO2 109 H (83-108) mmHg ABG HCO3 (21-25) mmol/L ABG Total CO2 26 H (19-24) mmol/L ABG O2 Saturation 98.3 H (94-97) % ABG Hematocrit (34.0-46.0) % ABG Potassium (3.4-4.5) mmol/L ABG Ionized Calcium (4.5-5.3) mg/dL ABG Glucose (75-99) mg/dL ABG Lactic Acid (0.5-1.6) mmol/L Hemoglobin (13.0-17.5) gm/dL Sodium (137-145) mmol/L Glucose (74-99) mg/dL POC Glucose (mg/dL) 122 H 124 H (70-110) mg/dL Calcium (8.4-10.2) mg/dL Magnesium (1.6-2.3) mg/dL Total Bilirubin (0.2-1.3) mg/dL Total Protein (6.3-8.2) g/dL Albumin (3.5-5.0) g/dL Arterial Blood Potassium (3.4-4.5) mmol/L Arterial Blood Glucose (75-99) mg/dL Crossmatch
[2023-01-21] MEDS: IPRATROPIUM-ALBUTEROL 3 ML NEB INHALATION SCH ×4 (07:32→20:31)
--- NOTE | 2023-01-21 07:41 | XR ---
EXAMINATION TYPE: XR chest 1V portable DATE OF EXAM: 01/21/2023 5:59 AM COMPARISON: Chest radiographs from 01/20/2023 TECHNIQUE: XR chest 1V portable Portable AP radiograph of the chest. CLINICAL INDICATION:Male, 57 years old with history of Post Operative Cardiac Surgery; FINDINGS: Patient is rotated which limits evaluation. Lungs/Pleura: No pneumothorax. Blunting of both costophrenic angles. Bibasilar atelectasis. Mild inte rstitial prominence. Heart/mediastinum: Cardiomediastinal silhouette is unremarkable. Post CABG changes. Left atrial appe ndage occlusion devices present. Atherosclerotic calcification of the aorta. Musculoskeletal: No acute osseous pathology. Midline sternotomy wires are noted and stable. Other findings: None Lines/Tubes: Right approach [place] catheter with tip in the main pulmonary artery. Mediastinal drains identified. Interval removal of NG and enteric tube. IMPRESSION: Post CABG changes with small bilateral pleural effusions and associated atelectasis.
[2023-01-21] MEDS: ASPIRIN 325 MG TAB PO SCH (08:26)
[2023-01-21] MEDS: METOPROLOL TARTRATE 25 MG TAB PO SCH ×2 (08:26→20:53)
[2023-01-21] MEDS: ATORVASTATIN 40 MG TAB PO SCH (08:26)
[2023-01-21] MEDS: CLOPIDOGREL 75 MG TAB PO SCH (08:27)
[2023-01-21] MEDS: ALPRAZolam 0.25 MG TAB PO PRN ×2 (08:28→17:44)
[2023-01-21] MEDS ORDERED: FUROSEMIDE 10 MG/ML 4 ML VIAL IV STA (08:34)
[2023-01-21] MEDS ORDERED: POTASSIUM CHLORIDE ER 10 MEQ TAB.ER.PRT PO STA (08:34)
[2023-01-21] MEDS: MUPIROCIN 2% OINT 22 GM TUBE NASAL SCH ×2 (09:01→20:54)
--- NOTE | 2023-01-21 09:19 | P.PN ---
Subjective Progress Note Date: 01/21/23 Principal diagnosis: Coronary artery disease with left main disease. Past medical history significant for hyperlipidemia, cardiomyopathy with an ejection fraction of 40%, myocardial infarction 15 years ago, insomnia, hiatal hernia, GERD, family history of early onset coronary artery disease with his mom having a myocardial infarction before the age of 60 and has a remote history of nicotine dependence in which he quit smoking 13 years ago. POD #2 quadruple multiple arterial coronary artery bypass grafting using the left internal mammary artery sequentially to the diagonal coronary artery, then to the left anterior descending coronary artery, left radial artery from the aorta to the obtuse marginal coronary artery, a reverse greater saphenous vein graft from the aorta to the posterior descending coronary artery. Exclusion of the left atrial appendage using a 35 mm Atriclip, intraoperative graft flow measurement using the [facility] system, endoscopic harvesting of the left radial artery, endoscopic harvesting of the left greater saphenous vein, intraoperative transesophageal echocardiogram and epi-aortic scanning. Postoperative acute blood loss anemia, expected given hemodilution and cardiopulmonary bypass. The patient was seen and examined in follow-up today 01/21/2023 at his bedside in the intensive care unit. He is currently sitting up to the bedside chair, is awake, alert, oriented 3 and is in no acute distress. Denies any complaints of shortness of breath or pain at this time, although is complaining of some back spasms which is chronic in nature and is complaining of anxiety. He reports when he gets anxious at home he does pushups to help his anxiety. He was started on Xanax 0.25 mg by mouth every 8 hours yesterday for his anxiety. Beds [facility] telemetry showing sinus tachycardia heart rate 110 bpm. Oxygen saturations are 92% on 6 L nasal cannula and he is achieving 750 mL on his incentive spirometry with encouragement. Right IJ cordis and Leupp-Rekha catheter remains in place with current hemodynamic showing a cardiac output 6.8, cardiac index 3.0, PA pressures 41/19 and CVP 25 mmHg. SVR is 764. He remains hemodynamically stable and is currently on no on topical pressor support. Mediastinal, left and right pleural chest tubes remain in place to low continuous wall suction -20 cm H2O. No air leak is present. Chest tubes are draining thin serosanguineous drainage. Mediastinal chest tube drained 70 mL output in the last 8 hours and 230 mL output in the last 24 hours. Left pleural chest tube drained 110 mL output in the last 8 hours and 400 mL output in the last 24 hours. Right pleural chest tube drained 90 mL output in the last 8 hours and 200 mL output in the last 24 hours. Chest x-ray and laboratory results were reviewed. Objective - Vital Signs Vital signs: Vital Signs Temp 99.0 F 01/21/23 04:00 Pulse 94 01/21/23 07:54 Resp 13 01/21/23 07:00 BP 134/79 01/21/23 06:00 Pulse Ox 92 L 01/21/23 07:00 FiO2 50 01/20/23 12:00 Intake & Output 01/20/23 01/21/23 01/21/23 18:59 06:59 18:59 Intake Total 1809.855 719.217 79 Output Total 975 835 0 Balance 834.855 -115.783 79 Weight 99.8 kg 100.2 kg Intake: IV 1239 698 79 0.9% NaCl @ 50 550 480 40 Albumin Human 5% 250 ml 500 In Empty Bag 1 bag @ 250 mls/hr IVPB Q1HR PRN Rx#: [id number] CO/CI 90 110 30 Pressure Bags 99 108 9 Intake, IV Titration 570.855 21.217 Amount Albumin Human 5% 250 ml 250 In Empty Bag 1 bag @ 250 mls/hr IVPB Q1HR PRN Rx#: [id number] Dexmedetomidine/0.9% NaCl 22.566 (Pmx) 400 mcg In Empty Bag 1 bag @ 0.2 MCG/KG/HR 4.717 mls/hr IV .[id number] INA Rx#:[id number] Insulin Regular 100 unit 1.9 21.217 In Sodium Chloride 0.9% 100 ml @ Per Protocol IV .Q0M INA Rx#:[id number] Norepinephrine 4 mg In 173.742 Sodium Chloride 0.9% 250 ml @ 0.03 MCG/KG/MIN 10. 784 mls/hr IV .[id number] INA Rx#:[id number] ceFAZolin 2 gm In Sodium 50 Chloride 0.9% 50 ml @ 100 mls/hr IVPB Q8HR INA Rx# :[id number] propofoL 1,000 mg In 72.647 Empty Bag 1 bag @ Titrate IV .Q0M INA Rx#: [id number] Output: Chest Tube Drainage 470 420 0 Left pleural 90 180 0 Right pleural 230 120 0 mediastinal x2 150 120 0 Drainage 10 20 Left calf 10 20 Urine 495 395 Other: Voiding Method Indwelling Catheter Indwelling Catheter ABP, PAP, CO, CI - Last Documented Arterial Blood Pressure 125/63 Pulmonary Artery Pressure 24/11 Cardiac Output 6.8 Cardiac Index 3 - Exam CONSTITUTIONAL: Sitting up to the bedside chair in the intensive care unit, anxious, cooperative, no apparent acute distress. HEENT: Neck is supple, no JVD, no lymphadenopathy. Right IJ Cordis and Leupp- Rekha catheter in place and functioning. RESPIRATORY: Lungs sounds essentially clear throughout, diminished to his bilateral bases. Respirations are symmetrical and nonlabored. Currently on 6 L nasal cannula with oxygen saturations 92%. Able to achieve 750 mL on their incentive spirometry. Strong cough. CARDIOVASCULAR: Regular rhythm and rate. S1 and S2 present, negative for S3, gallop or murmur. Sternum is stable. Palpable peripheral pulses bilaterally, +1 edema to his bilateral lower extremities. No calf pain or tenderness noted. Heart hugger in place with patient demonstrating appropriate use. Knee-high MIRTHA hose and sequential compression devices in place to his bilateral lower extremities. GASTROINTESTINAL: Abdomen soft, nontender, nondistended. Active bowel sounds present 4 quadrants. Tolerating diet. Passing flatus. No guarding or rigidity. GENITOURINARY: Thomas present draining clear, yellow urine. Urine output 265 mL in the last 8 hours. INTEGUMENTARY: Skin is warm and dry with no evidence of clubbing or cyanosis. Midline sternal incision clean dry and well approximated, covered with dry intact dressing. Left lower extremity EVH sites well approximated without red ness or drainage. Left arm radial artery harvest sites clean, dry and approximated. No drainage or redness is present. NEUROLOGIC: Cranial nerves II through XII intact. No focal deficits. MUSKULOSKELETAL: Able to move all extremities, strength equal bilaterally, generalized weakness. PSYCHIATRIC: Alert and oriented to person place and time, appropriate affect, intact judgment and insight, episodes of anxiety. INVASIVE LINES AND TUBES: Mediastinal/left/right pleural chest tubes present and connected to low continuous wall suction, no air leaks present. Mediastinal tube with 70 mL of thin serosanguineous drainage overnight, 250 mL output in the last 24 hours. Left pleural chest tube with 110 mL of thin serosanguineous drainage overnight, 400 mL output in the last 24 hours. Rght pleural chest tube with 90 mL of thin serosanguineous drainage overnight, 200 mL output in the last 24 hours. Atrial epicardial pacemaker wires present, connected to generator, AAI backup rate 50 bpm. Right internal jugular Leupp/Cordis, right radial arterial line present. Last CO 6.8, CI 3.0, PA 41/19 and CVP 25 mmHg. Left lower extremity CARLITA drain in place with scant thin serosanguineous drainage with 20 mL output in the last 8 hours. - Allied health notes Allied health notes reviewed: nursing - Labs CBC & Chem 7: 01/21/23 04:07 01/21/23 04:07 Labs: Abnormal Lab Results - Last 24 Hours (Table) 01/20/23 01/20/23 01/20/23 Range/Units 09:01 09:53 10:45 WBC (3.8-10.6) k/uL RBC (4.30-5.90) m/uL Hgb (13.0-17.5) gm/dL Hct (39.0-53.0) % Plt Count (150-450) k/uL Neutrophils # (1.3-7.7) k/uL ABG pO2 109 H (83-108) mmHg ABG Total CO2 26 H (19-24) mmol/L ABG O2 Saturation 98.3 H (94-97) % Sodium (137-145) mmol/L Glucose (74-99) mg/dL POC Glucose (mg/dL) 124 H 139 H (70-110) mg/dL Total Bilirubin (0.2-1.3) mg/dL Total Protein (6.3-8.2) g/dL 01/20/23 01/20/23 01/20/23 Range/Units 12:58 15:14 17:03 WBC (3.8-10.6) k/uL RBC (4.30-5.90) m/uL Hgb (13.0-17.5) gm/dL Hct (39.0-53.0) % Plt Count (150-450) k/uL Neutrophils # (1.3-7.7) k/uL ABG pO2 (83-108) mmHg ABG Total CO2 (19-24) mmol/L ABG O2 Saturation (94-97) % Sodium (137-145) mmol/L Glucose (74-99) mg/dL POC Glucose (mg/dL) 120 H 130 H 136 H (70-110) mg/dL Total Bilirubin (0.2-1.3) mg/dL Total Protein (6.3-8.2) g/dL 01/20/23 01/20/23 01/20/23 Range/Units 19:09 20:02 20:56 WBC (3.8-10.6) k/uL RBC (4.30-5.90) m/uL Hgb (13.0-17.5) gm/dL Hct (39.0-53.0) % Plt Count (150-450) k/uL Neutrophils # (1.3-7.7) k/uL ABG pO2 (83-108) mmHg ABG Total CO2 (19-24) mmol/L ABG O2 Saturation (94-97) % Sodium (137-145) mmol/L Glucose (74-99) mg/dL POC Glucose (mg/dL) 132 H 136 H 142 H (70-110) mg/dL Total Bilirubin (0.2-1.3) mg/dL Total Protein (6.3-8.2) g/dL 01/20/23 01/20/23 01/21/23 Range/Units 22:02 22:56 00:24 WBC (3.8-10.6) k/uL RBC (4.30-5.90) m/uL Hgb (13.0-17.5) gm/dL Hct (39.0-53.0) % Plt Count (150-450) k/uL Neutrophils # (1.3-7.7) k/uL ABG pO2 (83-108) mmHg ABG Total CO2 (19-24) mmol/L ABG O2 Saturation (94-97) % Sodium (137-145) mmol/L Glucose (74-99) mg/dL POC Glucose (mg/dL) 137 H 139 H 130 H (70-110) mg/dL Total Bilirubin (0.2-1.3) mg/dL Total Protein (6.3-8.2) g/dL 01/21/23 01/21/23 01/21/23 Range/Units 01:07 02:03 03:12 WBC (3.8-10.6) k/uL RBC (4.30-5.90) m/uL Hgb (13.0-17.5) gm/dL Hct (39.0-53.0) % Plt Count (150-450) k/uL Neutrophils # (1.3-7.7) k/uL ABG pO2 (83-108) mmHg ABG Total CO2 (19-24) mmol/L ABG O2 Saturation (94-97) % Sodium (137-145) mmol/L Glucose (74-99) mg/dL POC Glucose (mg/dL) 131 H 127 H 121 H (70-110) mg/dL Total Bilirubin (0.2-1.3) mg/dL Total Protein (6.3-8.2) g/dL 01/21/23 01/21/23 01/21/23 Range/Units 04:05 04:07 04:07 WBC 13.4 H (3.8-10.6) k/uL RBC 3.04 L (4.30-5.90) m/uL Hgb 9.7 L (13.0-17.5) gm/dL Hct 28.4 L (39.0-53.0) % Plt Count 92 L (150-450) k/uL Neutrophils # 11.2 H (1.3-7.7) k/uL ABG pO2 (83-108) mmHg ABG Total CO2 (19-24) mmol/L ABG O2 Saturation (94-97) % Sodium 136 L (137-145) mmol/L Glucose 111 H (74-99) mg/dL POC Glucose (mg/dL) 125 H (70-110) mg/dL Total Bilirubin 2.5 H (0.2-1.3) mg/dL Total Protein 5.7 L (6.3-8.2) g/dL 01/21/23 01/21/23 Range/Units 04:52 06:59 WBC (3.8-10.6) k/uL RBC (4.30-5.90) m/uL Hgb (13.0-17.5) gm/dL Hct (39.0-53.0) % Plt Count (150-450) k/uL Neutrophils # (1.3-7.7) k/uL ABG pO2 (83-108) mmHg ABG Total CO2 (19-24) mmol/L ABG O2 Saturation (94-97) % Sodium (137-145) mmol/L Glucose (74-99) mg/dL POC Glucose (mg/dL) 127 H 136 H (70-110) mg/dL Total Bilirubin (0.2-1.3) mg/dL Total Protein (6.3-8.2) g/dL - Imaging and Cardiology Chest x-ray: report reviewed, image reviewed Assessment and Plan Assessment: Multivessel coronary artery disease with left main disease, status post four- vessel coronary artery bypass grafting surgery Hyperlipidemia History of cardiomyopathy with an ejection fraction of 40%, ejection fraction 50% on most current transthoracic 2-D echocardiogram. Myocardial infarction 15 years ago History of insomnia History of hiatal hernia GERD History of anxiety Family history of early onset coronary artery disease with his mom having a myocardial infarction before the age of 60 years of age Remote history of nicotine dependence quit smoking around 13 years ago Postoperative acute blood loss anemia, expected given hemodilution and cardiopulmonary bypass Hypotension, requiring norepinephrine drip Plan: Continue to maximize medical therapy with aspirin, Plavix, statin, beta mustapha. Metoprolol tartrate increased to 25 mg by mouth twice a day. Lasix 40 mg IV 1 now and potassium chloride 10 mEq by mouth 1 now. Will start amlodipine 2.5 mg by mouth daily for radial artery spasm prophylaxis. Wean oxygen as tolerated. Encourage incentive spirometry use 10 times every hour while awake. Bronchodilators per pulmonology. Increase activity, ambulate as tolerated. PT/OT/cardiac rehab following. Will monitor daily labs and x-rays. Electrolyte replacement per protocol. GI/DVT prophylaxis. Pain control with current medication regimen. Insulin management per internal medicine. Patient is not diabetic, preoperative hemoglobin A1c 6.3%. Needs tight blood sugar control to promote healing and prevent infection Remove right IJ Cordis and Leupp-Rekha catheter. We will remove his mediastinal/right pleural chest tubes, keep his left pleural chest tube in place for another 24 hours. Will discontinue CARLITA drain to his left lower leg. Discontinue Thomas catheter, continue to record strict accurate intake and output. Me bladder scan every 6 hours and when necessary post void residual. Daily weights. Continue Xanax 0.25 mg by mouth every 8 hours when necessary anxiety. Start melatonin 6 mg by mouth daily at bedtime when necessary insomnia. More recommendations to follow based on patient's clinical course. Time with Patient: Greater than 30
[2023-01-21 09:36] LABS: Glucose,Whole Blood 195 mg/dL (70-110)
[2023-01-21] MEDS: MULTIVITAMINS, THERA 1 EACH TAB PO SCH (09:36)
--- NOTE | 2023-01-21 10:04 | P.PN ---
Subjective Progress Note Date: 01/21/23 PROGRESS NOTE The patient is a 57-year-old male who underwent cardiac catheterization and was found to have severe coronary artery disease with severe left main, ostial left circumflex and mid LAD and diagonal branch disease. He underwent coronary artery bypass grafting today. He is intubated and sedated. Hemodynamically stable. He is in sinus mechanism. There is no evidence of malignant arrhythmia and he is on no vasopressors. January 20: The patient underwent CABG yesterday, he remains intubated, following commands. Hemodynamically stable. His urine output has been stable. He could not be weaned and extubated yesterday. Apparently had bradycardia with attempted weaning yesterday. He received sequential GOMEZ to the diastolic in the LAD, left radial to the OM and SVG to the PDA with left atrial appendage clipped. His echocardiogram preoperatively showed an ejection fraction of 50% January 21: The patient is extubated, in sinus mechanism, hemodynamically stable. He feels anxious at times. He denies any dizziness or palpitations. He feels tired. He has no nausea or vomiting. He is on no vasopressors. His urine output stable. He is scheduled to have removal of [place]-Rekha catheter and Cordis. Medications: Aspirin, Lipitor 40 mg daily, metoprolol 25 mg twice a day. Plavix 75 mg daily, amlodipine 2.5 mg daily PHYSICAL EXAMINATION: Blood pressure 125/60 heart rate 90 LUNGS: Clear to auscultation anteriorly HEART: Regular rate and rhythm, S1, S2. No S3. No systolic murmur ABDOMEN: Soft, no organomegaly EXTREMETIES: No edema LAB: Hemoglobin 9.7, BUN 15, creatinine 0.77 IMPRESSION: 1. Status post CABG, extubated 2. Hyperlipidemia 3. Remote history of myocardial infarction 4. Remote history of smoking PLAN: 1. Continue present therapy 2. Incentive spirometry 3. Increase physical activity 4. Depending on his progress further recommendations will be made Objective - Vital Signs Vital signs: Vital Signs Temp 99.0 F 01/21/23 04:00 Pulse 94 01/21/23 07:54 Resp 13 01/21/23 07:00 BP 134/79 01/21/23 06:00 Pulse Ox 92 L 01/21/23 07:00 FiO2 50 01/20/23 12:00 Intake & Output 01/20/23 01/21/23 01/21/23 18:59 06:59 18:59 Intake Total 1809.855 719.217 79 Output Total 975 835 0 Balance 834.855 -115.783 79 Weight 99.8 kg 100.2 kg Intake: IV 1239 698 79 0.9% NaCl @ 50 550 480 40 Albumin Human 5% 250 ml 500 In Empty Bag 1 bag @ 250 mls/hr IVPB Q1HR PRN Rx#: [id number] CO/CI 90 110 30 Pressure Bags 99 108 9 Intake, IV Titration 570.855 21.217 Amount Albumin Human 5% 250 ml 250 In Empty Bag 1 bag @ 250 mls/hr IVPB Q1HR PRN Rx#: [id number] Dexmedetomidine/0.9% NaCl 22.566 (Pmx) 400 mcg In Empty Bag 1 bag @ 0.2 MCG/KG/HR 4.717 mls/hr IV .[id number] INA Rx#:[id number] Insulin Regular 100 unit 1.9 21.217 In Sodium Chloride 0.9% 100 ml @ Per Protocol IV .Q0M INA Rx#:[id number] Norepinephrine 4 mg In 173.742 Sodium Chloride 0.9% 250 ml @ 0.03 MCG/KG/MIN 10. 784 mls/hr IV .[id number] INA Rx#:[id number] ceFAZolin 2 gm In Sodium 50 Chloride 0.9% 50 ml @ 100 mls/hr IVPB Q8HR INA Rx# :[id number] propofoL 1,000 mg In 72.647 Empty Bag 1 bag @ Titrate IV .Q0M INA Rx#: [id number] Output: Chest Tube Drainage 470 420 0 Left pleural 90 180 0 Right pleural 230 120 0 mediastinal x2 150 120 0 Drainage 10 20 Left calf 10 20 Urine 495 395 Other: Voiding Method Indwelling Catheter Indwelling Catheter ABP, PAP, CO, CI - Last Documented Arterial Blood Pressure 125/63 Pulmonary Artery Pressure 24/11 Cardiac Output 6.8 Cardiac Index 3 - Labs CBC & Chem 7: 01/21/23 04:07 01/21/23 04:07 Labs: Abnormal Lab Results - Last 24 Hours (Table) 01/20/23 01/20/23 01/20/23 Range/Units 09:53 10:45 12:58 WBC (3.8-10.6) k/uL RBC (4.30-5.90) m/uL Hgb (13.0-17.5) gm/dL Hct (39.0-53.0) % Plt Count (150-450) k/uL Neutrophils # (1.3-7.7) k/uL ABG pO2 109 H (83-108) mmHg ABG Total CO2 26 H (19-24) mmol/L ABG O2 Saturation 98.3 H (94-97) % Sodium (137-145) mmol/L Glucose (74-99) mg/dL POC Glucose (mg/dL) 139 H 120 H (70-110) mg/dL Total Bilirubin (0.2-1.3) mg/dL Total Protein (6.3-8.2) g/dL 01/20/23 01/20/23 01/20/23 Range/Units 15:14 17:03 19:09 WBC (3.8-10.6) k/uL RBC (4.30-5.90) m/uL Hgb (13.0-17.5) gm/dL Hct (39.0-53.0) % Plt Count (150-450) k/uL Neutrophils # (1.3-7.7) k/uL ABG pO2 (83-108) mmHg ABG Total CO2 (19-24) mmol/L ABG O2 Saturation (94-97) % Sodium (137-145) mmol/L Glucose (74-99) mg/dL POC Glucose (mg/dL) 130 H 136 H 132 H (70-110) mg/dL Total Bilirubin (0.2-1.3) mg/dL Total Protein (6.3-8.2) g/dL 01/20/23 01/20/23 01/20/23 Range/Units 20:02 20:56 22:02 WBC (3.8-10.6) k/uL RBC (4.30-5.90) m/uL Hgb (13.0-17.5) gm/dL Hct (39.0-53.0) % Plt Count (150-450) k/uL Neutrophils # (1.3-7.7) k/uL ABG pO2 (83-108) mmHg ABG Total CO2 (19-24) mmol/L ABG O2 Saturation (94-97) % Sodium (137-145) mmol/L Glucose (74-99) mg/dL POC Glucose (mg/dL) 136 H 142 H 137 H (70-110) mg/dL Total Bilirubin (0.2-1.3) mg/dL Total Protein (6.3-8.2) g/dL 01/20/23 01/21/23 01/21/23 Range/Units 22:56 00:24 01:07 WBC (3.8-10.6) k/uL RBC (4.30-5.90) m/uL Hgb (13.0-17.5) gm/dL Hct (39.0-53.0) % Plt Count (150-450) k/uL Neutrophils # (1.3-7.7) k/uL ABG pO2 (83-108) mmHg ABG Total CO2 (19-24) mmol/L ABG O2 Saturation (94-97) % Sodium (137-145) mmol/L Glucose (74-99) mg/dL POC Glucose (mg/dL) 139 H 130 H 131 H (70-110) mg/dL Total Bilirubin (0.2-1.3) mg/dL Total Protein (6.3-8.2) g/dL 01/21/23 01/21/23 01/21/23 Range/Units 02:03 03:12 04:05 WBC (3.8-10.6) k/uL RBC (4.30-5.90) m/uL Hgb (13.0-17.5) gm/dL Hct (39.0-53.0) % Plt Count (150-450) k/uL Neutrophils # (1.3-7.7) k/uL ABG pO2 (83-108) mmHg ABG Total CO2 (19-24) mmol/L ABG O2 Saturation (94-97) % Sodium (137-145) mmol/L Glucose (74-99) mg/dL POC Glucose (mg/dL) 127 H 121 H 125 H (70-110) mg/dL Total Bilirubin (0.2-1.3) mg/dL Total Protein (6.3-8.2) g/dL 01/21/23 01/21/23 01/21/23 Range/Units 04:07 04:07 04:52 WBC 13.4 H (3.8-10.6) k/uL RBC 3.04 L (4.30-5.90) m/uL Hgb 9.7 L (13.0-17.5) gm/dL Hct 28.4 L (39.0-53.0) % Plt Count 92 L (150-450) k/uL Neutrophils # 11.2 H (1.3-7.7) k/uL ABG pO2 (83-108) mmHg ABG Total CO2 (19-24) mmol/L ABG O2 Saturation (94-97) % Sodium 136 L (137-145) mmol/L Glucose 111 H (74-99) mg/dL POC Glucose (mg/dL) 127 H (70-110) mg/dL Total Bilirubin 2.5 H (0.2-1.3) mg/dL Total Protein 5.7 L (6.3-8.2) g/dL 01/21/23 01/21/23 Range/Units 06:59 09:33 WBC (3.8-10.6) k/uL RBC (4.30-5.90) m/uL Hgb (13.0-17.5) gm/dL Hct (39.0-53.0) % Plt Count (150-450) k/uL Neutrophils # (1.3-7.7) k/uL ABG pO2 (83-108) mmHg ABG Total CO2 (19-24) mmol/L ABG O2 Saturation (94-97) % Sodium (137-145) mmol/L Glucose (74-99) mg/dL POC Glucose (mg/dL) 136 H 195 H (70-110) mg/dL Total Bilirubin (0.2-1.3) mg/dL Total Protein (6.3-8.2) g/dL
[2023-01-21 10:47] LABS: Glucose,Whole Blood 168 mg/dL (70-110)
[2023-01-21] MEDS: amLODIPine 2.5 MG TAB PO SCH (11:22)
--- NOTE | 2023-01-21 11:44 | P.PN ---
Subjective Progress Note Date: 01/21/23 Principal diagnosis: Significant coronary artery disease, status post coronary artery bypass grafting 4. Postoperative day #2 This is a 57-year-old male patient with a known history of hyperlipidemia, gastroesophageal reflux disease, hiatal hernia, ischemic cardiomyopathy with ejection fraction of 40% and a prior myocardial infarction, former smoker. He had been having ongoing issues with dyspnea on minimal exertion. He had undergone elective cardiac catheterization at [facility] and was found to have significant triple-vessel disease and was transferred here for cardiothoracic evaluation. Epogen FEV1 value from 12/29/2022 revealed a baseline of 3.56 which is 87% of predicted. He had undergone coronary artery bypass grafting 4 today 01/19/2023. He is seen in the immediate postop per day. In the intensive care unit. Currently intubated on mechanical ventilator with blood settings of assist control mode of 14, tidal M6 100, FiO2 100% and a PEEP of 5. Sternal dressing is dry and intact mediastinal split chest tubes in place, right and left pleural chest tubes in place, right IJ [place]-Rekha catheter in place. Initial cardiac output 5.1. Cardiac index 2.3. PA pressures 31/16, CVP of 10. He is currently on propofol 50 mcg/kg/m. Nitroglycerin drip at 10 mcg/m. Insulin drip currently off. Labs, chest x-ray and ABGs are pending. Patient was reevaluated today on 01/20/2023, patient is now postoperative day #1, remains intubated and mechanically ventilated, he is presently on assist control rate of 16 tidal volume 600 FiO2 50% and PEEP of 5. Patient is still requiring propofol at 10 mcg/kg/m, he is on norepinephrine at 0.03 mcg/kg/m, he is on insulin at 0.5 units per hour and on IV fluid at 50 mL per hour in the form of 0.9 normal saline. Patient has borderline blood pressure, hence he was given albumin 2, urine output is about 60 mL per hour. Cardiac output is 3.0, cardiac index is 6.7. CVP is 10. Pulmonary artery pressure 28/13. ABG on the same noted above are pO2 of 93 pCO2 39 pH of 7.42. Chest x-ray showed adequate placement of the lines and the PA catheter, adequate placement of the endotracheal tube and nasogastric tube, there is a fairly good sized left-sided pleural effusion noted. With minimal atelectasis at the left base, expected, patient will be weaned off from propofol, and I plan to give the patient a trial of weaning if tolerated may even consider extubation. WBC count today is 10.9 hemoglobin is 10.3. Basic metabolic profile is normal, renal profile is normal. Reevaluated today on 01/21/2023, patient is sitting in bed, awake alert oriented 3, denies any specific complaints, he feels much better today compared to yesterday. He does have chronic back spasms, and these are chronic in nature patient was placed on Xanax by thoracic surgery, he is a bit tachycardic, O2 sats is 92% on 6 L nasal cannula, achieving about 76 50 mL with his incentive spirometry and with encouragement. His cardiac output is 6.8 cardiac index is 3.0 PA pressure 41/19 CVP is 25 patient did receive Lasix earlier today from cardiothoracic surgery. Chest tubes and mediastinal chest tube are in place. No air leak. WBC count is 13.4 hemoglobin 9. electrolytes are normal renal profile is normal. Chest x-ray showed evidence of postoperative changes small bilateral pleural effusions and atelectasis with mild congestive changes noted Objective - Vital Signs Vital signs: Vital Signs Temp 99.0 F 01/21/23 08:00 Pulse 92 01/21/23 11:16 Resp 28 H 01/21/23 10:30 BP 114/76 01/21/23 10:30 Pulse Ox 93 L 01/21/23 10:30 FiO2 50 01/20/23 12:00 Intake & Output 01/20/23 01/21/23 01/21/23 18:59 06:59 18:59 Intake Total 1809.855 719.217 214 Output Total 975 835 235 Balance 834.855 -115.783 -21 Weight 99.8 kg 100.2 kg Intake: IV 1239 698 207 0.9% NaCl @ 50 550 480 140 Albumin Human 5% 250 ml 500 In Empty Bag 1 bag @ 250 mls/hr IVPB Q1HR PRN Rx#: [id number] CO/CI 90 110 40 Pressure Bags 99 108 27 Intake, IV Titration 570.855 21.217 7 Amount Albumin Human 5% 250 ml 250 In Empty Bag 1 bag @ 250 mls/hr IVPB Q1HR PRN Rx#: [id number] Dexmedetomidine/0.9% NaCl 22.566 (Pmx) 400 mcg In Empty Bag 1 bag @ 0.2 MCG/KG/HR 4.717 mls/hr IV .[id number] [facility] Rx#:[id number] Insulin Regular 100 unit 1.9 21.217 7 In Sodium Chloride 0.9% 100 ml @ Per Protocol IV .Q0M [facility] Rx#:[id number] Norepinephrine 4 mg In 173.742 Sodium Chloride 0.9% 250 ml @ 0.03 MCG/KG/MIN 10. 784 mls/hr IV .[id number] [facility] Rx#:[id number] ceFAZolin 2 gm In Sodium 50 Chloride 0.9% 50 ml @ 100 mls/hr IVPB Q8HR [facility] Rx# :[id number] propofoL 1,000 mg In 72.647 Empty Bag 1 bag @ Titrate IV .Q0M [facility] Rx#: [id number] Output: Chest Tube Drainage 470 420 10 Left pleural 90 180 0 Right pleural 230 120 10 mediastinal x2 150 120 0 Drainage 10 20 Left calf 10 20 Urine 495 395 225 Other: Voiding Method Indwelling Catheter Indwelling Catheter ABP, PAP, CO, CI - Last Documented Arterial Blood Pressure 122/59 Pulmonary Artery Pressure 30/15 Cardiac Output 6.6 Cardiac Index 3 - Exam GENERAL EXAM: Revealed 57-year-old white male in no distress, on 6 L nasal cannula HEAD: Normocephalic. EENT: PERRLA, EOMI, nonicteric, no neck masses. No JVD. CHEST: Sternal dressing dry and intact. Chest tubes were noted. Seems to be intact. LUNGS: Symmetrical chest expansion, diminished breath sounds at the bases minimal crackles bilaterally. CVS: S1 and S2 normal with no audible murmur, regular rhythm. ABDOMEN: Soft nontender no megaly no rebound no guarding. SKIN: No rashes CENTRAL NERVOUS SYSTEM: Normal mental status, alert oriented 3 no focal deficit EXTREMITIES: No clubbing edema or cyanosis Psychiatric: Normal mood affect and normal mental status examination - Labs CBC & Chem 7: 01/21/23 04:07 01/21/23 04:07 Labs: Abnormal Lab Results - Last 24 Hours (Table) 01/20/23 01/20/23 01/20/23 Range/Units 12:58 15:14 17:03 WBC (3.8-10.6) k/uL RBC (4.30-5.90) m/uL Hgb (13.0-17.5) gm/dL Hct (39.0-53.0) % Plt Count (150-450) k/uL Neutrophils # (1.3-7.7) k/uL Sodium (137-145) mmol/L Glucose (74-99) mg/dL POC Glucose (mg/dL) 120 H 130 H 136 H (70-110) mg/dL Total Bilirubin (0.2-1.3) mg/dL Total Protein (6.3-8.2) g/dL 01/20/23 01/20/23 01/20/23 Range/Units 19:09 20:02 20:56 WBC (3.8-10.6) k/uL RBC (4.30-5.90) m/uL Hgb (13.0-17.5) gm/dL Hct (39.0-53.0) % Plt Count (150-450) k/uL Neutrophils # (1.3-7.7) k/uL Sodium (137-145) mmol/L Glucose (74-99) mg/dL POC Glucose (mg/dL) 132 H 136 H 142 H (70-110) mg/dL Total Bilirubin (0.2-1.3) mg/dL Total Protein (6.3-8.2) g/dL 01/20/23 01/20/23 01/21/23 Range/Units 22:02 22:56 00:24 WBC (3.8-10.6) k/uL RBC (4.30-5.90) m/uL Hgb (13.0-17.5) gm/dL Hct (39.0-53.0) % Plt Count (150-450) k/uL Neutrophils # (1.3-7.7) k/uL Sodium (137-145) mmol/L Glucose (74-99) mg/dL POC Glucose (mg/dL) 137 H 139 H 130 H (70-110) mg/dL Total Bilirubin (0.2-1.3) mg/dL Total Protein (6.3-8.2) g/dL 01/21/23 01/21/23 01/21/23 Range/Units 01:07 02:03 03:12 WBC (3.8-10.6) k/uL RBC (4.30-5.90) m/uL Hgb (13.0-17.5) gm/dL Hct (39.0-53.0) % Plt Count (150-450) k/uL Neutrophils # (1.3-7.7) k/uL Sodium (137-145) mmol/L Glucose (74-99) mg/dL POC Glucose (mg/dL) 131 H 127 H 121 H (70-110) mg/dL Total Bilirubin (0.2-1.3) mg/dL Total Protein (6.3-8.2) g/dL 01/21/23 01/21/23 01/21/23 Range/Units 04:05 04:07 04:07 WBC 13.4 H (3.8-10.6) k/uL RBC 3.04 L (4.30-5.90) m/uL Hgb 9.7 L (13.0-17.5) gm/dL Hct 28.4 L (39.0-53.0) % Plt Count 92 L (150-450) k/uL Neutrophils # 11.2 H (1.3-7.7) k/uL Sodium 136 L (137-145) mmol/L Glucose 111 H (74-99) mg/dL POC Glucose (mg/dL) 125 H (70-110) mg/dL Total Bilirubin 2.5 H (0.2-1.3) mg/dL Total Protein 5.7 L (6.3-8.2) g/dL 01/21/23 01/21/23 01/21/23 Range/Units 04:52 06:59 09:33 WBC (3.8-10.6) k/uL RBC (4.30-5.90) m/uL Hgb (13.0-17.5) gm/dL Hct (39.0-53.0) % Plt Count (150-450) k/uL Neutrophils # (1.3-7.7) k/uL Sodium (137-145) mmol/L Glucose (74-99) mg/dL POC Glucose (mg/dL) 127 H 136 H 195 H (70-110) mg/dL Total Bilirubin (0.2-1.3) mg/dL Total Protein (6.3-8.2) g/dL 01/21/23 Range/Units 10:45 WBC (3.8-10.6) k/uL RBC (4.30-5.90) m/uL Hgb (13.0-17.5) gm/dL Hct (39.0-53.0) % Plt Count (150-450) k/uL Neutrophils # (1.3-7.7) k/uL Sodium (137-145) mmol/L Glucose (74-99) mg/dL POC Glucose (mg/dL) 168 H (70-110) mg/dL Total Bilirubin (0.2-1.3) mg/dL Total Protein (6.3-8.2) g/dL Assessment and Plan Assessment: Impression: Delayed weaning from mechanical ventilation, patient was not ready to be weaned and extubated in the postoperative period/within a few hours, hence his weaning was delayed for multiple factors, patient remains on pressors and requiring norepinephrine. Patient remains on propofol patient is also getting more agitation last night hence we decided to place the patient on Precedex after stopping propofol today. Status post CABG 4 postoperative day #2 Ischemic cardiomyopathy and LV dysfunction and mild. Dyslipidemia Benign essential hypertension Ex-smoker. History of hiatal hernia and GERD. Recommendation: Continue to monitor in the ICU Titrate and hopefully discontinue oxygen if tolerated Agree with Lasix given this morning We will continue to monitor in the ICU We will continue to follow Continue incentive spirometry Early ambulation. Discontinue unnecessary catheters and lines. Continue to maximize medical therapy including statins, Plavix, aspirin, and beta blockers We will continue to follow. Time with Patient: Less than 30
[2023-01-21 11:55] LABS: Glucose,Whole Blood 127 mg/dL (70-110)
[2023-01-21 12:48] LABS: Glucose,Whole Blood 168 mg/dL (70-110)
[2023-01-21 13:52] LABS: Glucose,Whole Blood 190 mg/dL (70-110)
[2023-01-21] MEDS: INSULIN REGULAR 100 UNIT in SODIUM CHLORIDE 0.9% 100 ML IV SCH (13:57)
[2023-01-21 15:07] LABS: Glucose,Whole Blood 145 mg/dL (70-110)
[2023-01-21 16:11] LABS: Glucose,Whole Blood 150 mg/dL (70-110)
[2023-01-21] MEDS ORDERED: DEXTROSE 50% SYRINGE 50 ML IVP PRN ×2 (16:22)
[2023-01-21] MEDS: LIDOCAINE 5% PATCH TOPICAL SCH (16:56)
[2023-01-21] MEDS: INSULIN ASPART (NovoLOG) 100 UNIT/ML VIAL SQ SCH ×2 (16:56→20:17)
[2023-01-21 19:53] LABS: Glucose,Whole Blood 132 mg/dL (70-110)
[2023-01-21] MEDS: TAMSULOSIN 0.4 MG CAP.ER.24H PO SCH (20:52)
[2023-01-21] MEDS: SENNOSIDES-DOCUSATE SODIUM 1 EACH TAB PO SCH (20:52)
[2023-01-21] MEDS: MELATONIN 3 MG TABLET PO SCH (20:52)
[2023-01-22] MEDS: HEPARIN SODIUM,PORCINE 5,000 UNIT/ML 1 ML VIAL SQ SCH ×4 (00:37→23:03)
[2023-01-22] MEDS: KETOROLAC 15 MG/ML 1 ML VIAL IVP SCH ×5 (00:37→23:03)
[2023-01-22] MEDS: HYDROcodone/APAP 10-325MG 1 EACH TAB PO PRN (02:52)
[2023-01-22] MEDS: ALPRAZolam 0.25 MG TAB PO PRN ×3 (02:53→17:36)
[2023-01-22 05:04] LABS: Basophils % (A) 0 %; Eosinophils # (A) 0.3 k/uL (0-0.7); Eosinophils % (A) 3 %; HGB 8.8 gm/dL (13.0-17.5); Lymphocytes # (A) 1.2 k/uL (1.0-4.8); Lymphocytes % (A) 11 %; MCH 31.6 pg (25.0-35.0); MCHC 33.7 g/dL (31.0-37.0); MCV 93.7 fL (80.0-100.0); Mean Platelet Volume 8.4; Monocytes # (A) 0.6 k/uL (0-1.0); Monocytes % (A) 6 %; Neutrophils # (A) 8.7 k/uL (1.3-7.7); Neutrophils % (A) 79 %; Platelet Count 114 k/uL (150-450); RBC 2.78 m/uL (4.30-5.90); RDW 13.2 % (11.5-15.5); WBC 11.1 k/uL (3.8-10.6)
[2023-01-22 05:24] LABS: ALT 27 U/L (4-49); AST 45 U/L (17-59); African American GFR (CKD) >90 (>60 ml/min/1.73 sqM); Albumin 3.5 g/dL (3.5-5.0); Alkaline Phosphatase 60 U/L (38-126); Anion Gap 7 mmol/L; Blood Urea Nitrogen 17 mg/dL (9-20); Calcium 8.9 mg/dL (8.4-10.2); Carbon Dioxide 25 mmol/L (22-30); Chloride 105 mmol/L (98-107); Glucose 124 mg/dL (74-99); Non-African American GFR(CKD) >90 (>60 ml/min/1.73 sqM); Potassium 4.3 mmol/L (3.5-5.1); Sodium 137 mmol/L (137-145); Total Bilirubin 1.9 mg/dL (0.2-1.3); Total Protein 5.7 g/dL (6.3-8.2)
[2023-01-22 06:00] LABS: Glucose,Whole Blood 138 mg/dL (70-110)
[2023-01-22] MEDS: INSULIN ASPART (NovoLOG) 100 UNIT/ML VIAL SQ SCH ×4 (06:30→20:31)
[2023-01-22] MEDS: PANTOPRAZOLE 40 MG TABLET PO SCH (06:31)
[2023-01-22] MEDS: IPRATROPIUM-ALBUTEROL 3 ML NEB INHALATION SCH ×4 (07:33→20:15)
--- NOTE | 2023-01-22 08:08 | XR ---
EXAMINATION TYPE: XR chest 1V portable DATE OF EXAM: 01/22/2023 5:37 AM COMPARISON: Chest radiographs from 01/21/2023 TECHNIQUE: XR chest 1V portable Portable AP radiograph of the chest. CLINICAL INDICATION:Male, 57 years old with history of Postop CABG; FINDINGS: Lungs/Pleura: Development of small right apical pneumothorax. Blunting of both costophrenic angles. B ibasilar atelectasis. Mild interstitial prominence. Heart/mediastinum: Cardiomediastinal silhouette is unremarkable. Post CABG changes. Left atrial appe ndage occlusion devices present. Atherosclerotic calcification of the aorta. Musculoskeletal: No acute osseous pathology. Midline sternotomy wires are noted and stable. Other findings: None Lines/Tubes: Removal of mediastinal drains and [place]-Rekha catheter. IMPRESSION: 1. Development of small right apical pneumothorax. 2. Post CABG changes with small bilateral pleural effusions and associated atelectasis.
[2023-01-22] MEDS: CLOPIDOGREL 75 MG TAB PO SCH (08:33)
[2023-01-22] MEDS: MULTIVITAMINS, THERA 1 EACH TAB PO SCH (08:33)
[2023-01-22] MEDS: ASPIRIN 325 MG TAB PO SCH (08:33)
[2023-01-22] MEDS: ATORVASTATIN 40 MG TAB PO SCH (08:34)
[2023-01-22] MEDS ORDERED: FUROSEMIDE 10 MG/ML 4 ML VIAL IV STA (09:08)
[2023-01-22] MEDS ORDERED: POTASSIUM CHLORIDE ER 10 MEQ TAB.ER.PRT PO STA (09:08)
[2023-01-22] MEDS: PRAMIPEXOLE 0.5 MG TAB PO SCH ×3 (09:44→23:04)
[2023-01-22] MEDS: METOPROLOL TARTRATE 25 MG TAB PO SCH ×2 (09:45→20:25)
[2023-01-22] MEDS: LIDOCAINE 5% PATCH TOPICAL SCH (09:46)
--- NOTE | 2023-01-22 09:55 | P.PN ---
Subjective Progress Note Date: 01/22/23 PROGRESS NOTE The patient is a 57-year-old male who underwent cardiac catheterization and was found to have severe coronary artery disease with severe left main, ostial left circumflex and mid LAD and diagonal branch disease. He underwent coronary artery bypass grafting today. He is intubated and sedated. Hemodynamically stable. He is in sinus mechanism. There is no evidence of malignant arrhythmia and he is on no vasopressors. January 20: The patient underwent CABG yesterday, he remains intubated, following commands. Hemodynamically stable. His urine output has been stable. He could not be weaned and extubated yesterday. Apparently had bradycardia with attempted weaning yesterday. He received sequential GOMEZ to the diastolic in the LAD, left radial to the OM and SVG to the PDA with left atrial appendage clipped. His echocardiogram preoperatively showed an ejection fraction of 50% January 21: The patient is extubated, in sinus mechanism, hemodynamically stable. He feels anxious at times. He denies any dizziness or palpitations. He feels tired. He has no nausea or vomiting. He is on no vasopressors. His urine output stable. He is scheduled to have removal of [place]-Rekha catheter and [place]. January 22: The patient is sitting up in the chair, feels tired and has generalized discomfort. He is in sinus mechanism. He walked today. He is in sinus mechanism with no evidence of malignant arrhythmia. His urine output is stable. He has no significant dyspnea or dizziness. He has no nausea. He is using his incentive spirometry. Medications: Aspirin, Lipitor 40 mg daily, metoprolol 25 mg twice a day. Plavix 75 mg daily, amlodipine 2.5 mg daily PHYSICAL EXAMINATION: Blood pressure 108/60 heart rate 98 LUNGS: Clear to auscultation with mild decrease in the breath sounds at the bases HEART: Regular rate and rhythm, S1, S2. No S3. No systolic murmur ABDOMEN: Soft, no organomegaly EXTREMETIES: No edema LAB: Hemoglobin 8.8, BUN 17, creatinine 0.82, potassium 4.3. IMPRESSION: 1. Status post CABG, extubated 2. Hyperlipidemia 3. Remote history of myocardial infarction 4. Remote history of smoking PLAN: 1. Continue present therapy 2. Incentive spirometry 3. Increase physical activity 4. Follow blood pressure and depending on that adjust dose of beta [place]ha. Objective - Vital Signs Vital signs: Vital Signs Temp 98.1 F 01/22/23 08:00 Pulse 98 01/22/23 09:00 Resp 14 01/22/23 09:00 BP 108/66 01/22/23 09:00 Pulse Ox 94 L 01/22/23 09:00 FiO2 50 01/20/23 12:00 Intake & Output 01/21/23 01/22/23 01/22/23 18:59 06:59 18:59 Intake Total 281.125 Output Total 1105 590 360 Balance -823.875 -590 -360 Weight 98.6 kg Intake: IV 257 0.9% NaCl @ 50 190 CO/CI 40 Pressure Bags 27 Intake, IV Titration 24.125 Amount Insulin Regular 100 unit 24.125 In Sodium Chloride 0.9% 100 ml @ Per Protocol IV .Q0M [facility] Rx#:[id number] Output: Chest Tube Drainage 30 90 20 Left pleural 20 90 20 Right pleural 10 mediastinal x2 0 Urine 1075 250 340 Post Void Residual 250 Other: Voiding Method Indwelling Catheter Indwelling Catheter ABP, PAP, CO, CI - Last Documented Arterial Blood Pressure 122/59 Pulmonary Artery Pressure 30/15 Cardiac Output 6.6 Cardiac Index 3 - Labs CBC & Chem 7: 01/22/23 04:50 01/22/23 04:50 Labs: Abnormal Lab Results - Last 24 Hours (Table) 01/21/23 01/21/23 01/21/23 Range/Units 10:45 11:54 12:47 WBC (3.8-10.6) k/uL RBC (4.30-5.90) m/uL Hgb (13.0-17.5) gm/dL Hct (39.0-53.0) % Plt Count (150-450) k/uL Neutrophils # (1.3-7.7) k/uL Glucose (74-99) mg/dL POC Glucose (mg/dL) 168 H 127 H 168 H (70-110) mg/dL Hemoglobin A1c (<=6.0) % Total Bilirubin (0.2-1.3) mg/dL Total Protein (6.3-8.2) g/dL 01/21/23 01/21/23 01/21/23 Range/Units 13:50 15:05 16:09 WBC (3.8-10.6) k/uL RBC (4.30-5.90) m/uL Hgb (13.0-17.5) gm/dL Hct (39.0-53.0) % Plt Count (150-450) k/uL Neutrophils # (1.3-7.7) k/uL Glucose (74-99) mg/dL POC Glucose (mg/dL) 190 H 145 H 150 H (70-110) mg/dL Hemoglobin A1c (<=6.0) % Total Bilirubin (0.2-1.3) mg/dL Total Protein (6.3-8.2) g/dL 01/21/23 01/22/23 01/22/23 Range/Units 19:51 04:50 04:50 WBC 11.1 H (3.8-10.6) k/uL RBC 2.78 L (4.30-5.90) m/uL Hgb 8.8 L (13.0-17.5) gm/dL Hct 26.0 L (39.0-53.0) % Plt Count 114 L (150-450) k/uL Neutrophils # 8.7 H (1.3-7.7) k/uL Glucose (74-99) mg/dL POC Glucose (mg/dL) 132 H (70-110) mg/dL Hemoglobin A1c 6.2 H (<=6.0) % Total Bilirubin (0.2-1.3) mg/dL Total Protein (6.3-8.2) g/dL 01/22/23 01/22/23 Range/Units 04:50 05:58 WBC (3.8-10.6) k/uL RBC (4.30-5.90) m/uL Hgb (13.0-17.5) gm/dL Hct (39.0-53.0) % Plt Count (150-450) k/uL Neutrophils # (1.3-7.7) k/uL Glucose 124 H (74-99) mg/dL POC Glucose (mg/dL) 138 H (70-110) mg/dL Hemoglobin A1c (<=6.0) % Total Bilirubin 1.9 H (0.2-1.3) mg/dL Total Protein 5.7 L (6.3-8.2) g/dL
--- NOTE | 2023-01-22 10:02 | P.PN ---
Subjective Progress Note Date: 01/22/23 Principal diagnosis: Coronary artery disease with left main disease. Past medical history significant for hyperlipidemia, cardiomyopathy with an ejection fraction of 40%, myocardial infarction 15 years ago, insomnia, hiatal hernia, GERD, family history of early onset coronary artery disease with his mom having a myocardial infarction before the age of 60 and has a remote history of nicotine dependence in which he quit smoking 13 years ago. POD #3 quadruple multiple arterial coronary artery bypass grafting using the left internal mammary artery sequentially to the diagonal coronary artery, then to the left anterior descending coronary artery, left radial artery from the aorta to the obtuse marginal coronary artery, a reverse greater saphenous vein graft from the aorta to the posterior descending coronary artery. Exclusion of the left atrial appendage using a 35 mm Atriclip, intraoperative graft flow measurement using the Codefied system, endoscopic harvesting of the left radial artery, endoscopic harvesting of the left greater saphenous vein, intraoperative transesophageal echocardiogram and epi-aortic scanning. Postoperative acute blood loss anemia, expected given hemodilution and cardiopulmonary bypass. The patient was seen and examined in follow-up today 01/22/2023 at his bedside in the intensive care unit. He is currently sitting up to the bedside chair, is awake, alert, oriented 3 and is in no acute apparent distress. Denies any complaints of shortness of breath or pain at this time, although is complaining of some back spasms to his left chest. Oxygen saturations are 94% on 4 L nasal cannula and he is achieving 1250 mL on his incentive spirometry with encouragement. Bedside telemetry is showing normal sinus rhythm heart rate 92 BPM. He remains hemodynamically stable and is currently on no on pressor support. He was having some urinary retention throughout the night requiring straight catheterization and subsequently placement of Thomas catheter. Urine output in the last 8 hours is 530 mL. Left pleural chest tube remains to low continuous wall suction -20 cm H2O. Draining thin serosanguineous drainage. No air leak is present. 70 mL output in the last 8 hours and 220 mL output in the last 24 hours. Atrial epicardial pacemaker wires remain in place and are grounded. Chest x-ray and laboratory results reviewed. Objective - Vital Signs Vital signs: Vital Signs Temp 98.1 F 01/22/23 08:00 Pulse 108 H 01/22/23 08:00 Resp 13 01/22/23 08:00 BP 96/66 01/22/23 08:00 Pulse Ox 92 L 01/22/23 08:00 FiO2 50 01/20/23 12:00 Intake & Output 01/21/23 01/22/23 01/22/23 18:59 06:59 18:59 Intake Total 281.125 Output Total 1105 590 310 Balance -823.875 -590 -310 Weight 98.6 kg Intake: IV 257 0.9% NaCl @ 50 190 CO/CI 40 Pressure Bags 27 Intake, IV Titration 24.125 Amount Insulin Regular 100 unit 24.125 In Sodium Chloride 0.9% 100 ml @ Per Protocol IV .Q0M [facility] Rx#:[id number] Output: Chest Tube Drainage 30 90 0 Left pleural 20 90 0 Right pleural 10 mediastinal x2 0 Urine 1075 250 310 Post Void Residual 250 Other: Voiding Method Indwelling Catheter Indwelling Catheter ABP, PAP, CO, CI - Last Documented Arterial Blood Pressure 122/59 Pulmonary Artery Pressure 30/15 Cardiac Output 6.6 Cardiac Index 3 - Exam CONSTITUTIONAL: Sitting up to the bedside chair in the intensive care unit, periods of feeling anxious, cooperative, no apparent acute distress. HEENT: Neck is supple, no JVD, no lymphadenopathy. RESPIRATORY: Lungs sounds essentially clear throughout, diminished to his bilateral bases. Respirations are symmetrical and nonlabored. Currently on4 L nasal cannula with oxygen saturations 94%. Able to achieve 1250 mL on his incentive spirometry. Strong cough. CARDIOVASCULAR: Regular rhythm and rate. S1 and S2 present, negative for S3, gallop or murmur. Sternum is stable. Palpable peripheral pulses bilaterally, +1 edema to his bilateral lower extremities. No calf pain or tenderness noted. Heart hugger in place with patient demonstrating appropriate use. Knee-high MIRTHA hose and sequential compression devices in place to his bilateral lower extremities. GASTROINTESTINAL: Abdomen soft, nontender, nondistended. Active bowel sounds present 4 quadrants. Tolerating diet. Passing flatus. No guarding or rigidity. GENITOURINARY: Urine retention, requiring Thomas catheter placement, draining clear yellow urine. Urine output 530 mL in the last 8 hours. INTEGUMENTARY: Skin is warm and dry with no evidence of clubbing or cyanosis. Midline sternal incision clean dry and well approximated, covered with dry intact dressing. Left lower extremity EVH sites well approximated without redn ess or drainage. Left arm radial artery harvest sites clean, dry and approximated. No drainage or redness is present. NEUROLOGIC: Cranial nerves II through XII intact. No focal deficits. MUSKULOSKELETAL: Able to move all extremities, strength equal bilaterally, generalized weakness. PSYCHIATRIC: Alert and oriented to person place and time, appropriate affect, intact judgment and insight, episodes of anxiety. INVASIVE LINES AND TUBES: Left pleural chest tube present and connected to low continuous wall suction, no air leak present. Left pleural chest tube with 70 mL of thin serosanguineous drainage overnight, 220 mL output in the last 24 hours. Atrial epicardial pacemaker wires present, and are grounded. - Allied health notes Allied health notes reviewed: nursing - Labs CBC & Chem 7: 01/22/23 04:50 01/22/23 04:50 Labs: Abnormal Lab Results - Last 24 Hours (Table) 01/21/23 01/21/23 01/21/23 Range/Units 09:33 10:45 11:54 WBC (3.8-10.6) k/uL RBC (4.30-5.90) m/uL Hgb (13.0-17.5) gm/dL Hct (39.0-53.0) % Plt Count (150-450) k/uL Neutrophils # (1.3-7.7) k/uL Glucose (74-99) mg/dL POC Glucose (mg/dL) 195 H 168 H 127 H (70-110) mg/dL Hemoglobin A1c (<=6.0) % Total Bilirubin (0.2-1.3) mg/dL Total Protein (6.3-8.2) g/dL 01/21/23 01/21/23 01/21/23 Range/Units 12:47 13:50 15:05 WBC (3.8-10.6) k/uL RBC (4.30-5.90) m/uL Hgb (13.0-17.5) gm/dL Hct (39.0-53.0) % Plt Count (150-450) k/uL Neutrophils # (1.3-7.7) k/uL Glucose (74-99) mg/dL POC Glucose (mg/dL) 168 H 190 H 145 H (70-110) mg/dL Hemoglobin A1c (<=6.0) % Total Bilirubin (0.2-1.3) mg/dL Total Protein (6.3-8.2) g/dL 01/21/23 01/21/23 01/22/23 Range/Units 16:09 19:51 04:50 WBC (3.8-10.6) k/uL RBC (4.30-5.90) m/uL Hgb (13.0-17.5) gm/dL Hct (39.0-53.0) % Plt Count (150-450) k/uL Neutrophils # (1.3-7.7) k/uL Glucose (74-99) mg/dL POC Glucose (mg/dL) 150 H 132 H (70-110) mg/dL Hemoglobin A1c 6.2 H (<=6.0) % Total Bilirubin (0.2-1.3) mg/dL Total Protein (6.3-8.2) g/dL 01/22/23 01/22/23 01/22/23 Range/Units 04:50 04:50 05:58 WBC 11.1 H (3.8-10.6) k/uL RBC 2.78 L (4.30-5.90) m/uL Hgb 8.8 L (13.0-17.5) gm/dL Hct 26.0 L (39.0-53.0) % Plt Count 114 L (150-450) k/uL Neutrophils # 8.7 H (1.3-7.7) k/uL Glucose 124 H (74-99) mg/dL POC Glucose (mg/dL) 138 H (70-110) mg/dL Hemoglobin A1c (<=6.0) % Total Bilirubin 1.9 H (0.2-1.3) mg/dL Total Protein 5.7 L (6.3-8.2) g/dL - Imaging and Cardiology Chest x-ray: report reviewed, image reviewed Assessment and Plan Assessment: Multivessel coronary artery disease with left main disease, status post four- vessel coronary artery bypass grafting surgery Hyperlipidemia History of cardiomyopathy with an ejection fraction of 40%, ejection fraction 50% on most current transthoracic 2-D echocardiogram. Remote history of myocardial infarction 15 years ago History of insomnia History of hiatal hernia GERD History of anxiety Family history of early onset coronary artery disease with his mom having a myocardial infarction before the age of 60 years of age Remote history of nicotine dependence quit smoking around 13 years ago Postoperative acute blood loss anemia, expected given hemodilution and cardiopulmonary bypass Hypotension, requiring norepinephrine drip, resolved Plan: Continue to maximize medical therapy with aspirin, Plavix, statin, beta mustapha. Continue Metoprolol tartrate 25 mg by mouth twice a day, will increase as tolerated. Lasix 40 mg IV 1 now and potassium chloride 10 mEq by mouth 1 now. Continue amlodipine 2.5 mg by mouth daily for radial artery spasm prophylaxis. Wean oxygen as tolerated. Encourage incentive spirometry use 10 times every hour while awake. Bronchodilators per pulmonology. Increase activity, ambulate as tolerated. PT/OT/cardiac rehab following. Will monitor daily labs and x-rays. Electrolyte replacement per protocol. GI/DVT prophylaxis. Pain control with current medication regimen. Insulin management per internal medicine. Patient is not diabetic, preoperative hemoglobin A1c 6.3%. Needs tight blood sugar control to promote healing and prevent infection We will remove his left pleural chest tube today. Continue Thomas catheter due to urinary retention, urology consulted. Continue Flomax 0.4 mg by mouth daily at bedtime. Daily weights. Continue Xanax 0.25 mg by mouth every 8 hours when necessary anxiety. Continue melatonin 6 mg by mouth daily at bedtime when necessary insomnia. More recommendations to follow based on patient's clinical course. Time with Patient: Greater than 30
[2023-01-22] MEDS: ACETAMINOPHEN TAB 500 MG TAB PO PRN ×3 (10:06→20:47)
[2023-01-22] MEDS: MUPIROCIN 2% OINT 22 GM TUBE NASAL SCH ×2 (10:14→21:00)
[2023-01-22] MEDS: amLODIPine 2.5 MG TAB PO SCH (11:08)
--- NOTE | 2023-01-22 11:13 | P.PN ---
Subjective Progress Note Date: 01/22/23 Principal diagnosis: Significant coronary artery disease, status post coronary artery bypass grafting 4. Postoperative day #3 This is a 57-year-old male patient with a known history of hyperlipidemia, gastroesophageal reflux disease, hiatal hernia, ischemic cardiomyopathy with ejection fraction of 40% and a prior myocardial infarction, former smoker. He had been having ongoing issues with dyspnea on minimal exertion. He had undergone elective cardiac catheterization at [facility] and was found to have significant triple-vessel disease and was transferred here for cardiothoracic evaluation. Epogen FEV1 value from 12/29/2022 revealed a baseline of 3.56 which is 87% of predicted. He had undergone coronary artery bypass grafting 4 today 01/19/2023. He is seen in the immediate postop per day. In the intensive care unit. Currently intubated on mechanical ventilator with blood settings of assist control mode of 14, tidal M6 100, FiO2 100% and a PEEP of 5. Sternal dressing is dry and intact mediastinal split chest tubes in place, right and left pleural chest tubes in place, right IJ Guy-Rekha catheter in place. Initial cardiac output 5.1. Cardiac index 2.3. PA pressures 31/16, CVP of 10. He is currently on propofol 50 mcg/kg/m. Nitroglycerin drip at 10 mcg/m. Insulin drip currently off. Labs, chest x-ray and ABGs are pending. Patient was reevaluated today on 01/20/2023, patient is now postoperative day #1, remains intubated and mechanically ventilated, he is presently on assist control rate of 16 tidal volume 600 FiO2 50% and PEEP of 5. Patient is still requiring propofol at 10 mcg/kg/m, he is on norepinephrine at 0.03 mcg/kg/m, he is on insulin at 0.5 units per hour and on IV fluid at 50 mL per hour in the form of 0.9 normal saline. Patient has borderline blood pressure, hence he was given albumin 2, urine output is about 60 mL per hour. Cardiac output is 3.0, cardiac index is 6.7. CVP is 10. Pulmonary artery pressure 28/13. ABG on the same noted above are pO2 of 93 pCO2 39 pH of 7.42. Chest x-ray showed adequate placement of the lines and the PA catheter, adequate placement of the endotracheal tube and nasogastric tube, there is a fairly good sized left-sided pleural effusion noted. With minimal atelectasis at the left base, expected, patient will be weaned off from propofol, and I plan to give the patient a trial of weaning if tolerated may even consider extubation. WBC count today is 10.9 hemoglobin is 10.3. Basic metabolic profile is normal, renal profile is normal. Reevaluated today on 01/21/2023, patient is sitting in bed, awake alert oriented 3, denies any specific complaints, he feels much better today compared to yesterday. He does have chronic back spasms, and these are chronic in nature patient was placed on Xanax by thoracic surgery, he is a bit tachycardic, O2 sats is 92% on 6 L nasal cannula, achieving about 76 50 mL with his incentive spirometry and with encouragement. His cardiac output is 6.8 cardiac index is 3.0 PA pressure 41/19 CVP is 25 patient did receive Lasix earlier today from cardiothoracic surgery. Chest tubes and mediastinal chest tube are in place. No air leak. WBC count is 13.4 hemoglobin 9. electrolytes are normal renal profile is normal. Chest x-ray showed evidence of postoperative changes small bilateral pleural effusions and atelectasis with mild congestive changes noted Patient was reevaluated today on 01/22/2023, remains in the ICU, on 4 L nasal cannula, patient is having difficulty with his back spasms and muscle spasms for which I recommended a trial of Mirapex. Continues to do well with incentive spirometry about 1250 patient does not seem to have any significant shortness of breath, chest x-ray showed bilateral atelectasis, small bilateral pleural effusions and a small right-sided pneumothorax. Left-sided chest tube would lik gautam be removed today. Patient is hemodynamically stable, not requiring any inotropes or pressors. Did require straight catheterization and subsequent placement of Thomas catheter for urinary retention and unable to urinate on his own, Objective - Vital Signs Vital signs: Vital Signs Temp 98.1 F 01/22/23 08:00 Pulse 94 01/22/23 10:00 Resp 26 H 01/22/23 10:00 BP 121/71 01/22/23 10:00 Pulse Ox 92 L 01/22/23 10:00 FiO2 50 01/20/23 12:00 Intake & Output 01/21/23 01/22/23 01/22/23 18:59 06:59 18:59 Intake Total 281.125 Output Total 1105 590 400 Balance -823.875 -590 -400 Weight 98.6 kg Intake: IV 257 0.9% NaCl @ 50 190 CO/CI 40 Pressure Bags 27 Intake, IV Titration 24.125 Amount Insulin Regular 100 unit 24.125 In Sodium Chloride 0.9% 100 ml @ Per Protocol IV .Q0M [facility] Rx#:[id number] Output: Chest Tube Drainage 30 90 20 Left pleural 20 90 20 Right pleural 10 mediastinal x2 0 Urine 1075 250 380 Post Void Residual 250 Other: Voiding Method Indwelling Catheter Indwelling Catheter ABP, PAP, CO, CI - Last Documented Arterial Blood Pressure 122/59 Pulmonary Artery Pressure 30/15 Cardiac Output 6.6 Cardiac Index 3 - Exam GENERAL EXAM: Revealed 57-year-old white male in no distress, on 4 L nasal cannula HEAD: Normocephalic. EENT: PERRLA, EOMI, nonicteric, no neck masses. No JVD. CHEST: Sternal dressing dry and intact. LUNGS: Symmetrical chest expansion, diminished breath sounds at the bases minimal crackles bilaterally. CVS: S1 and S2 normal with no audible murmur, regular rhythm. ABDOMEN: Soft nontender no megaly no rebound no guarding. SKIN: No rashes CENTRAL NERVOUS SYSTEM: Normal mental status, alert oriented 3 no focal deficit EXTREMITIES: No clubbing edema or cyanosis Psychiatric: Normal mood affect and normal mental status examination - Labs CBC & Chem 7: 01/22/23 04:50 01/22/23 04:50 Labs: Abnormal Lab Results - Last 24 Hours (Table) 01/21/23 01/21/23 01/21/23 Range/Units 11:54 12:47 13:50 WBC (3.8-10.6) k/uL RBC (4.30-5.90) m/uL Hgb (13.0-17.5) gm/dL Hct (39.0-53.0) % Plt Count (150-450) k/uL Neutrophils # (1.3-7.7) k/uL Glucose (74-99) mg/dL POC Glucose (mg/dL) 127 H 168 H 190 H (70-110) mg/dL Hemoglobin A1c (<=6.0) % Total Bilirubin (0.2-1.3) mg/dL Total Protein (6.3-8.2) g/dL 01/21/23 01/21/23 01/21/23 Range/Units 15:05 16:09 19:51 WBC (3.8-10.6) k/uL RBC (4.30-5.90) m/uL Hgb (13.0-17.5) gm/dL Hct (39.0-53.0) % Plt Count (150-450) k/uL Neutrophils # (1.3-7.7) k/uL Glucose (74-99) mg/dL POC Glucose (mg/dL) 145 H 150 H 132 H (70-110) mg/dL Hemoglobin A1c (<=6.0) % Total Bilirubin (0.2-1.3) mg/dL Total Protein (6.3-8.2) g/dL 01/22/23 01/22/23 01/22/23 Range/Units 04:50 04:50 04:50 WBC 11.1 H (3.8-10.6) k/uL RBC 2.78 L (4.30-5.90) m/uL Hgb 8.8 L (13.0-17.5) gm/dL Hct 26.0 L (39.0-53.0) % Plt Count 114 L (150-450) k/uL Neutrophils # 8.7 H (1.3-7.7) k/uL Glucose 124 H (74-99) mg/dL POC Glucose (mg/dL) (70-110) mg/dL Hemoglobin A1c 6.2 H (<=6.0) % Total Bilirubin 1.9 H (0.2-1.3) mg/dL Total Protein 5.7 L (6.3-8.2) g/dL 01/22/23 Range/Units 05:58 WBC (3.8-10.6) k/uL RBC (4.30-5.90) m/uL Hgb (13.0-17.5) gm/dL Hct (39.0-53.0) % Plt Count (150-450) k/uL Neutrophils # (1.3-7.7) k/uL Glucose (74-99) mg/dL POC Glucose (mg/dL) 138 H (70-110) mg/dL Hemoglobin A1c (<=6.0) % Total Bilirubin (0.2-1.3) mg/dL Total Protein (6.3-8.2) g/dL Assessment and Plan Assessment: Impression: Status post CABG 4 postoperative day #3 Ischemic cardiomyopathy and LV dysfunction and mild. Dyslipidemia Benign essential hypertension Ex-smoker. History of hiatal hernia and GERD. Right sided pneumothorax, small, expected Small bilateral pleural effusions secondary to acute mild congestive heart failure/ischemic cardiomyopathy and LV dysfunction Recommendation: Maximize medical therapy with statin Plavix aspirin and beta bl ockers Continue to monitor in the ICU Continue intermittent diuresis Continue incentive spirometry Titrate FiO2 accordingly and maintaining O2 saturation of 90% Discontinue unnecessary catheters and lines. Thomas catheter had to be placed back again last night. Mostly because of urinary retention We will continue to follow. Time with Patient: Less than 30
[2023-01-22 11:33] LABS: Glucose,Whole Blood 141 mg/dL (70-110)
[2023-01-22] MEDS: CITALOPRAM HYDROBROMIDE 20 MG TAB PO SCH (15:43)
[2023-01-22 16:22] LABS: Glucose,Whole Blood 137 mg/dL (70-110)
[2023-01-22 19:58] LABS: Glucose,Whole Blood 172 mg/dL (70-110)
[2023-01-22] MEDS: SENNOSIDES-DOCUSATE SODIUM 1 EACH TAB PO SCH (20:22)
[2023-01-22] MEDS: MELATONIN 3 MG TABLET PO SCH (20:22)
[2023-01-22] MEDS: TAMSULOSIN 0.4 MG CAP.ER.24H PO SCH (20:23)
[2023-01-23] MEDS: ALPRAZolam 0.25 MG TAB PO PRN ×2 (01:07→08:36)
--- NOTE | 2023-01-23 01:07 | P.PN ---
Subjective Progress Note Date: 01/21/23 This is a 57-year-old male admitted to the hospital for further evaluation for coronary artery disease. Patient has undergone extensive workup being followed by cardiothoracic services. Echocardiogram showing low normal LV systolic function with EF of 50%, mild TR. On patient underwent cardiac catheterization at [facility] which revealed multivessel disease with 80% distal left main stenosis, ostial circumflex disease and bifurcating mid LAD/diagonal disease. Patient was transferred to [facility] for cardiothoracic evaluation. Patient is scheduled to undergo coronary artery bypass grafting tomorrow with Dr. Whitlock. Today he has no acute complaints. Discussed he will go to the ICU after surgery tomorrow. Patient would like to have a BM today. He complains of heart burn sensation today and is continued on oral protonix. 01/19/2023 Patient scheduled to undergo coronary artery bypass grafting today for multivessel CAD with left main disease. Patient will be monitored in the intensive care unit post procedure. Patient remains on optimized medical therapy. Sliding scale insulin coverage and blood glucose has been controlled in the 100s and not requiring any insulin. Preoperative vital signs; temperature of 98.1, heart rate 68, blood pressure 135/70, 95% on room air. 01/20/2023 Patient is seen in follow-up today remains in the ICU with multiple medical consultations following. Per nursing staff there was difficulty with patient being ready for extubation requiring Precedex his propofol was being weaned off. Patient remains on pressor support and has been weaned off of sedation and is status post extubation approximately 20 minutes prior to exam. Patient is on 4- 5 L via nasal cannula and appears in no acute distress. Patient is reporting significantly dry mouth requesting swabs as patient remains nothing by mouth per protocol. Chest x-ray showing pleural effusion. Patient remains on insulin drip per surgical protocol and we will transition to sliding scale once resumed on oral diet. Patient is afebrile report some generalized discomfort with extensive weakness and chest wall pain. Patient does have heart hugger noted. Multiple chest tubes and drains remain in place at this time. 01/21/2023 Patient is currently sitting in chair. Awake alert and oriented x3. Complains of lower back pain, spasms. And also chest soreness patient states that he is feeling very anxious. Otherwise no nausea vomiting or diarrhea. Currently patient is on oxygen at 6 L via nasal cannula. Was able to use incentive spirometry but not consistently. Chest tubes and mediastinal tube in place. Chest x-ray showed post CABG changes with small bilateral pleural effusions and associated atelectasis. Patient was given a dose of IV Lasix this morning. Laboratory data showed WBC 13.2 hemoglobin 9.7 and platelets 92. Sodium 136 potassium 4.3 chloride 106 bicarb 23, BUN 15 and creatinine 0.77. Patient remains on insulin drip at 2 units/h. Review of Systems Constitutional: Denied any fatigue denied any fever. Cardio vascular: denied any chest pain, palpitations Gastrointestinal: denied any nausea, vomiting, diarrhea Pulmonary: reports shortness of breath cough Neurologic denied any new focal deficits, reports generalized weakness All inpatient medications were reviewed and appropriate changes in these medications as dictated in the interval history and assessment and plan. Assessment: Exertional dyspnea with outpatient CT showing coronary calcifications and mild nodules Positive stress test and cardiac catheterization revealing multivessel CAD with left main disease. Patient is status post CABG 4 History of myocardial infarction 15 yrs ago and prior cardiac catheterization Hyperglycemia with A1C of 6.3 consistent with prediabetes History hyperlipidemia Hx cardiomyopathy with EF 40% with improved EF of 50% this hospital stay Gastroesophageal reflux disease Hx hiatal hernia Hx of tobacco use in the past Hx of alcohol use in the past GI prophylaxis on protonix Full Code Plan: Patient continues in the ICU with multiple medical consultations following status post CABG 4 postop day 2. Patient was continued on mechanical ventilation and was successfully extubated/ Patient is awake, alert and oriented 3. Patient was able to tolerate oral diet. Patient to continue on insulin drip until diet is resumed we'll transition to sliding scale with Accu-Cheks pressor support weaning as tolerated. Patient was just weaned off Precedex and propofol has been off. Patient will be continued in the ICU with guarded prognosis We will continue to follow with cardiothoracic surgery during hospitalization. Objective - Vital Signs Vital signs: Vital Signs Temp 99.2 F 01/21/23 20:00 Pulse 88 01/21/23 22:00 Resp 19 01/21/23 22:00 BP 132/87 01/21/23 22:00 Pulse Ox 93 L 01/21/23 22:00 FiO2 50 01/20/23 12:00 Intake & Output 01/21/23 01/21/23 01/22/23 06:59 18:59 06:59 Intake Total 719.217 281.125 Output Total 835 1105 0 Balance -115.783 -823.875 0 Weight 100.2 kg Intake: IV 698 257 0.9% NaCl @ 50 480 190 CO/CI 110 40 Pressure Bags 108 27 Intake, IV Titration 21.217 24.125 Amount Insulin Regular 100 unit 21.217 24.125 In Sodium Chloride 0.9% 100 ml @ Per Protocol IV .Q0M [facility] Rx#:[id number] Output: Chest Tube Drainage 420 30 Left pleural 180 20 Right pleural 120 10 mediastinal x2 120 0 Drainage 20 Left calf 20 Urine 395 1075 0 Other: Voiding Method Indwelling Catheter Indwelling Catheter Indwelling Catheter ABP, PAP, CO, CI - Last Documented Arterial Blood Pressure 122/59 Pulmonary Artery Pressure 30/15 Cardiac Output 6.6 Cardiac Index 3 - Labs CBC & Chem 7: 01/22/23 04:50 01/22/23 04:50 Labs: Abnormal Lab Results - Last 24 Hours (Table) 01/20/23 01/21/23 01/21/23 Range/Units 22:56 00:24 01:07 WBC (3.8-10.6) k/uL RBC (4.30-5.90) m/uL Hgb (13.0-17.5) gm/dL Hct (39.0-53.0) % Plt Count (150-450) k/uL Neutrophils # (1.3-7.7) k/uL Sodium (137-145) mmol/L Glucose (74-99) mg/dL POC Glucose (mg/dL) 139 H 130 H 131 H (70-110) mg/dL Total Bilirubin (0.2-1.3) mg/dL Total Protein (6.3-8.2) g/dL 01/21/23 01/21/23 01/21/23 Range/Units 02:03 03:12 04:05 WBC (3.8-10.6) k/uL RBC (4.30-5.90) m/uL Hgb (13.0-17.5) gm/dL Hct (39.0-53.0) % Plt Count (150-450) k/uL Neutrophils # (1.3-7.7) k/uL Sodium (137-145) mmol/L Glucose (74-99) mg/dL POC Glucose (mg/dL) 127 H 121 H 125 H (70-110) mg/dL Total Bilirubin (0.2-1.3) mg/dL Total Protein (6.3-8.2) g/dL 01/21/23 01/21/23 01/21/23 Range/Units 04:07 04:07 04:52 WBC 13.4 H (3.8-10.6) k/uL RBC 3.04 L (4.30-5.90) m/uL Hgb 9.7 L (13.0-17.5) gm/dL Hct 28.4 L (39.0-53.0) % Plt Count 92 L (150-450) k/uL Neutrophils # 11.2 H (1.3-7.7) k/uL Sodium 136 L (137-145) mmol/L Glucose 111 H (74-99) mg/dL POC Glucose (mg/dL) 127 H (70-110) mg/dL Total Bilirubin 2.5 H (0.2-1.3) mg/dL Total Protein 5.7 L (6.3-8.2) g/dL 01/21/23 01/21/23 01/21/23 Range/Units 06:59 09:33 10:45 WBC (3.8-10.6) k/uL RBC (4.30-5.90) m/uL Hgb (13.0-17.5) gm/dL Hct (39.0-53.0) % Plt Count (150-450) k/uL Neutrophils # (1.3-7.7) k/uL Sodium (137-145) mmol/L Glucose (74-99) mg/dL POC Glucose (mg/dL) 136 H 195 H 168 H (70-110) mg/dL Total Bilirubin (0.2-1.3) mg/dL Total Protein (6.3-8.2) g/dL 01/21/23 01/21/23 01/21/23 Range/Units 11:54 12:47 13:50 WBC (3.8-10.6) k/uL RBC (4.30-5.90) m/uL Hgb (13.0-17.5) gm/dL Hct (39.0-53.0) % Plt Count (150-450) k/uL Neutrophils # (1.3-7.7) k/uL Sodium (137-145) mmol/L Glucose (74-99) mg/dL POC Glucose (mg/dL) 127 H 168 H 190 H (70-110) mg/dL Total Bilirubin (0.2-1.3) mg/dL Total Protein (6.3-8.2) g/dL 01/21/23 01/21/23 01/21/23 Range/Units 15:05 16:09 19:51 WBC (3.8-10.6) k/uL RBC (4.30-5.90) m/uL Hgb (13.0-17.5) gm/dL Hct (39.0-53.0) % Plt Count (150-450) k/uL Neutrophils # (1.3-7.7) k/uL Sodium (137-145) mmol/L Glucose (74-99) mg/dL POC Glucose (mg/dL) 145 H 150 H 132 H (70-110) mg/dL Total Bilirubin (0.2-1.3) mg/dL Total Protein (6.3-8.2) g/dL
--- NOTE | 2023-01-23 01:09 | P.PN ---
Subjective Progress Note Date: 01/22/23 This is a 57-year-old male admitted to the hospital for further evaluation for coronary artery disease. Patient has undergone extensive workup being followed by cardiothoracic services. Echocardiogram showing low normal LV systolic function with EF of 50%, mild TR. On patient underwent cardiac catheterization at [facility] which revealed multivessel disease with 80% distal left main stenosis, ostial circumflex disease and bifurcating mid LAD/diagonal disease. Patient was transferred to [facility] for cardiothoracic evaluation. Patient is scheduled to undergo coronary artery bypass grafting tomorrow with Dr. Whitlock. Today he has no acute complaints. Discussed he will go to the ICU after surgery tomorrow. Patient would like to have a BM today. He complains of heart burn sensation today and is continued on oral protonix. 01/19/2023 Patient scheduled to undergo coronary artery bypass grafting today for multivessel CAD with left main disease. Patient will be monitored in the intensive care unit post procedure. Patient remains on optimized medical therapy. Sliding scale insulin coverage and blood glucose has been controlled in the 100s and not requiring any insulin. Preoperative vital signs; temperature of 98.1, heart rate 68, blood pressure 135/70, 95% on room air. 01/20/2023 Patient is seen in follow-up today remains in the ICU with multiple medical consultations following. Per nursing staff there was difficulty with patient being ready for extubation requiring Precedex his propofol was being weaned off. Patient remains on pressor support and has been weaned off of sedation and is status post extubation approximately 20 minutes prior to exam. Patient is on 4- 5 L via nasal cannula and appears in no acute distress. Patient is reporting significantly dry mouth requesting swabs as patient remains nothing by mouth per protocol. Chest x-ray showing pleural effusion. Patient remains on insulin drip per surgical protocol and we will transition to sliding scale once resumed on oral diet. Patient is afebrile report some generalized discomfort with extensive weakness and chest wall pain. Patient does have heart hugger noted. Multiple chest tubes and drains remain in place at this time. 01/21/2023 Patient is currently sitting in chair. Awake alert and oriented x3. Complains of lower back pain, spasms. And also chest soreness patient states that he is feeling very anxious. Otherwise no nausea vomiting or diarrhea. Currently patient is on oxygen at 6 L via nasal cannula. Was able to use incentive spirometry but not consistently. Chest tubes and mediastinal tube in place. Chest x-ray showed post CABG changes with small bilateral pleural effusions and associated atelectasis. Patient was given a dose of IV Lasix this morning. Laboratory data showed WBC 13.2 hemoglobin 9.7 and platelets 92. Sodium 136 potassium 4.3 chloride 106 bicarb 23, BUN 15 and creatinine 0.77. Patient remains on insulin drip at 2 units/h. 01/22/2023 Patient is lying in the bed. Awake alert and oriented. Requiring oxygen at 4 L via nasal cannula. Patient states that he still having back spasms and states that his pain is not controlled and feels very depressed. Chest x-ray showed development of small right apical pneumothorax. Post CABG changes with small bilateral pleural effusions atelectasis. Laboratory data showed WBC 11.1 hemoglobin 8.8 and platelets 114 Sodium 137 potassium 4.3 chloride 105 bicarb is 25 BUN 17 and creatinine 0.82 and A1c 6.0. Patient will be continued on insulin sliding scale. Blood sugar is controlled. Review of Systems Constitutional: Denied any fatigue denied any fever. Cardio vascular: denied any chest pain, palpitations Gastrointestinal: denied any nausea, vomiting, diarrhea Pulmonary: reports shortness of breath cough Neurologic denied any new focal deficits, reports generalized weakness All inpatient medications were reviewed and appropriate changes in these medications as dictated in the interval history and assessment and plan. Assessment: Exertional dyspnea with outpatient CT showing coronary calcifications and mild nodules Positive stress test and cardiac catheterization revealing multivessel CAD with left main disease. Patient is status post CABG 4 History of myocardial infarction 15 yrs ago and prior cardiac catheterization Hyperglycemia with A1C of 6.3 consistent with prediabetes History hyperlipidemia Hx cardiomyopathy with EF 40% with improved EF of 50% this hospital stay Gastroesophageal reflux disease Hx hiatal hernia Hx of tobacco use in the past Hx of alcohol use in the past GI prophylaxis on protonix Full Code Plan: Patient continues in the ICU with multiple medical consultations following status post CABG 4 postop day 3. Patient was continued on mechanical ventilation and was successfully extubated/ Patient is awake, alert and oriented 3. Patient was able to tolerate oral diet. Patient to continue on sliding scale with Accu-Cheks pressor support weaned off. Patient was just weaned off Precedex and propofol has been off. Patient will be continued in the ICU with guarded prognosis We will continue to follow with cardiothoracic surgery during hospitalization. Objective - Vital Signs Vital signs: Vital Signs Temp 97.7 F 01/22/23 17:00 Pulse 78 01/22/23 19:00 Resp 18 01/22/23 19:00 BP 96/64 01/22/23 19:00 Pulse Ox 95 01/22/23 19:00 FiO2 50 01/20/23 12:00 Intake & Output 01/22/23 01/22/23 01/23/23 06:59 18:59 06:59 Intake Total 400 Output Total 590 1830 Balance -590 -1430 Weight 98.6 kg Intake: Oral 400 Output: Chest Tube Drainage 90 20 Left pleural 90 20 Urine 250 1810 Post Void Residual 250 Other: Voiding Method Indwelling Catheter Indwelling Catheter ABP, PAP, CO, CI - Last Documented Arterial Blood Pressure 122/59 Pulmonary Artery Pressure 30/15 Cardiac Output 6.6 Cardiac Index 3 - Labs CBC & Chem 7: 01/22/23 04:50 01/22/23 04:50 Labs: Abnormal Lab Results - Last 24 Hours (Table) 01/21/23 01/22/23 01/22/23 Range/Units 19:51 04:50 04:50 WBC 11.1 H (3.8-10.6) k/uL RBC 2.78 L (4.30-5.90) m/uL Hgb 8.8 L (13.0-17.5) gm/dL Hct 26.0 L (39.0-53.0) % Plt Count 114 L (150-450) k/uL Neutrophils # 8.7 H (1.3-7.7) k/uL Glucose (74-99) mg/dL POC Glucose (mg/dL) 132 H (70-110) mg/dL Hemoglobin A1c 6.2 H (<=6.0) % Total Bilirubin (0.2-1.3) mg/dL Total Protein (6.3-8.2) g/dL 01/22/23 01/22/23 01/22/23 Range/Units 04:50 05:58 11:31 WBC (3.8-10.6) k/uL RBC (4.30-5.90) m/uL Hgb (13.0-17.5) gm/dL Hct (39.0-53.0) % Plt Count (150-450) k/uL Neutrophils # (1.3-7.7) k/uL Glucose 124 H (74-99) mg/dL POC Glucose (mg/dL) 138 H 141 H (70-110) mg/dL Hemoglobin A1c (<=6.0) % Total Bilirubin 1.9 H (0.2-1.3) mg/dL Total Protein 5.7 L (6.3-8.2) g/dL 01/22/23 Range/Units 16:21 WBC (3.8-10.6) k/uL RBC (4.30-5.90) m/uL Hgb (13.0-17.5) gm/dL Hct (39.0-53.0) % Plt Count (150-450) k/uL Neutrophils # (1.3-7.7) k/uL Glucose (74-99) mg/dL POC Glucose (mg/dL) 137 H (70-110) mg/dL Hemoglobin A1c (<=6.0) % Total Bilirubin (0.2-1.3) mg/dL Total Protein (6.3-8.2) g/dL
[2023-01-23] MEDS: ACETAMINOPHEN TAB 500 MG TAB PO PRN ×3 (03:47→21:08)
[2023-01-23 04:56] LABS: HCT 24.6 % (39.0-53.0); HGB 8.6 gm/dL (13.0-17.5); MCH 32.4 pg (25.0-35.0); MCHC 34.9 g/dL (31.0-37.0); MCV 92.9 fL (80.0-100.0); Platelet Count 145 k/uL (150-450); RBC 2.65 m/uL (4.30-5.90); RDW 13.5 % (11.5-15.5); WBC 9.4 k/uL (3.8-10.6)
[2023-01-23 05:19] LABS: African American GFR (CKD) >90 (>60 ml/min/1.73 sqM); Anion Gap 6 mmol/L; Blood Urea Nitrogen 25 mg/dL (9-20); Carbon Dioxide 27 mmol/L (22-30); Chloride 103 mmol/L (98-107); Glucose 127 mg/dL (74-99); Non-African American GFR(CKD) >90 (>60 ml/min/1.73 sqM); Potassium 4.1 mmol/L (3.5-5.1); Sodium 136 mmol/L (137-145)
[2023-01-23 06:50] LABS: Glucose,Whole Blood 134 mg/dL (70-110)
[2023-01-23] MEDS: INSULIN ASPART (NovoLOG) 100 UNIT/ML VIAL SQ SCH ×4 (07:00→21:28)
[2023-01-23] MEDS: KETOROLAC 15 MG/ML 1 ML VIAL IVP SCH ×3 (07:00→18:18)
--- NOTE | 2023-01-23 07:18 | XR ---
EXAMINATION TYPE: XR chest 2V DATE OF EXAM: 01/23/2023 6:34 AM COMPARISON: Chest radiographs from 01/22/2023 TECHNIQUE: XR chest 2V Frontal and lateral views of the chest. CLINICAL INDICATION:Male, 57 years old with history of Postop CABG; FINDINGS: Lungs/Pleura: No focal consolidation. Blunting of both costophrenic angles. No pneumothorax identifie d . Mild interstitial prominence. Heart/mediastinum: Cardiomediastinal silhouette is unremarkable. Post CABG changes. Left atrial appe ndage occlusion device is present. Atherosclerotic calcification of the aorta. Musculoskeletal: No acute osseous pathology. Midline sternotomy wires are noted and stable. IMPRESSION: Post CABG changes with small bilateral pleural effusions. Resolution of previously seen right pneumot horax.
[2023-01-23] MEDS: PANTOPRAZOLE 40 MG TABLET PO SCH ×2 (08:22→21:09)
[2023-01-23] MEDS: IPRATROPIUM-ALBUTEROL 3 ML NEB INHALATION SCH ×4 (08:28→22:04)
[2023-01-23] MEDS: ATORVASTATIN 40 MG TAB PO SCH (08:35)
[2023-01-23] MEDS: CLOPIDOGREL 75 MG TAB PO SCH (08:35)
[2023-01-23] MEDS: ASPIRIN 325 MG TAB PO SCH (08:35)
[2023-01-23] MEDS: MULTIVITAMINS, THERA 1 EACH TAB PO SCH (08:36)
[2023-01-23] MEDS: METOPROLOL TARTRATE 25 MG TAB PO SCH ×2 (08:36→21:09)
[2023-01-23] MEDS: CITALOPRAM HYDROBROMIDE 20 MG TAB PO SCH (08:36)
[2023-01-23] MEDS: HEPARIN SODIUM,PORCINE 5,000 UNIT/ML 1 ML VIAL SQ SCH ×2 (08:36→15:32)
[2023-01-23] MEDS: LIDOCAINE 5% PATCH TOPICAL SCH (08:41)
[2023-01-23] MEDS: PRAMIPEXOLE 0.5 MG TAB PO SCH ×3 (08:42→21:13)
[2023-01-23] MEDS: amLODIPine 2.5 MG TAB PO SCH (08:43)
[2023-01-23] MEDS ORDERED: ALPRAZolam 0.25 MG TAB PO PRN (08:58)
[2023-01-23] MEDS ORDERED: POTASSIUM CHLORIDE ER 10 MEQ TAB.ER.PRT PO STA (08:59)
[2023-01-23] MEDS ORDERED: FUROSEMIDE 10 MG/ML 2 ML VIAL IV STA (08:59)
--- NOTE | 2023-01-23 09:12 | P.PN ---
Subjective Progress Note Date: 01/23/23 Principal diagnosis: Coronary artery disease with left main disease. Past medical history significant for hyperlipidemia, cardiomyopathy with an ejection fraction of 40%, myocardial infarction 15 years ago, insomnia, hiatal hernia, GERD, family history of early onset coronary artery disease with his mom having a myocardial infarction before the age of 60 and has a remote history of nicotine dependence in which he quit smoking 13 years ago. POD #4 quadruple multiple arterial coronary artery bypass grafting using the left internal mammary artery sequentially to the diagonal coronary artery, then to the left anterior descending coronary artery, left radial artery from the aorta to the obtuse marginal coronary artery, a reverse greater saphenous vein graft from the aorta to the posterior descending coronary artery. Exclusion of the left atrial appendage using a 35 mm Atriclip, intraoperative graft flow measurement using the Quuim system, endoscopic harvesting of the left radial artery, endoscopic harvesting of the left greater saphenous vein, intraoperative transesophageal echocardiogram and epi-aortic scanning. Postoperative acute blood loss anemia, expected given hemodilution and cardiopulmonary bypass. The patient was seen and examined in follow-up today 01/23/2023 at his bedside in the intensive care unit. Currently he is sitting up to the bedside chair, is awake, alert, oriented 3 and is in no acute apparent distress. He denies any complaints of shortness of breath or pain at this time. He remained hemodynamically stable and is currently on no inotropic pressure support. Oxygen saturations are 94% on 4 L nasal cannula and he is achieving 0354-8778 mL on his incentive spirometry with encouragement. Bedside telemetry showing normal sinus rhythm heart rate 92 BPM. His bedside nurse reports yesterday the patient was stating that if he was at home he would try to kill himself as he was having some back spasms. The patient has no suicidal ideations today and states he has no plan to kill himself or harm himself and states that he would not be able to do that to himself. Chest x-ray and laboratory results were reviewed. The patient has been up ambulating in the intensive care unit hallway with standby assistance or nursing and therapy staff. He is tolerating oral intake. Atrial epicardial pacemaker wires remain in place and are grounded. Objective - Vital Signs Vital signs: Vital Signs Temp 97.9 F 01/23/23 08:00 Pulse 78 01/23/23 08:42 Resp 13 01/23/23 08:00 BP 108/67 01/23/23 08:00 Pulse Ox 94 L 01/23/23 07:00 FiO2 50 01/20/23 12:00 Intake & Output 01/22/23 01/23/23 01/23/23 18:59 06:59 18:59 Intake Total 400 250 Output Total 1830 405 75 Balance -1430 -405 175 Weight 98.7 kg Intake: IV 10 Invasive Line 2 10 Oral 400 240 Output: Chest Tube Drainage 20 Left pleural 20 Urine 1810 405 75 Other: Voiding Method Indwelling Catheter Indwelling Catheter Indwelling Catheter ABP, PAP, CO, CI - Last Documented Arterial Blood Pressure 122/59 Pulmonary Artery Pressure 30/15 Cardiac Output 6.6 Cardiac Index 3 - Exam CONSTITUTIONAL: Sitting up to the bedside chair in the intensive care unit, periods of feeling anxious, cooperative, no apparent acute distress. HEENT: Neck is supple, no JVD, no lymphadenopathy. RESPIRATORY: Lungs sounds essentially clear throughout, diminished to his bilateral bases. Respirations are symmetrical and nonlabored. Currently on 4 L nasal cannula with oxygen saturations 94%. Able to achieve 2352-9160 mL on his incentive spirometry. Strong cough. CARDIOVASCULAR: Regular rhythm and rate. S1 and S2 present, negative for S3, gallop or murmur. Sternum is stable. Palpable peripheral pulses bilaterally, trace edema to his bilateral lower extremities. No calf pain or tenderness noted. Heart hugger in place with patient demonstrating appropriate use. Knee- high MIRTHA hose and sequential compression devices in place to his bilateral lower extremities. GASTROINTESTINAL: Abdomen soft, nontender, nondistended. Active bowel sounds present 4 quadrants. Tolerating diet. Passing flatus. No guarding or rigidity. GENITOURINARY: Thomas catheter in place for urinary retention, draining clear yellow urine. Urine output 350 mL in the last 8 hours. INTEGUMENTARY: Skin is warm and dry with no evidence of clubbing or cyanosis. Midline sternal incision clean dry and well approximated, covered with dry intact dressing. Left lower extremity EVH sites well approximated without redness or drainage. Left arm radial artery harvest sites clean, dry and approximated. No drainage or redness is present. NEUROLOGIC: Cranial nerves II through XII intact. No focal deficits. MUSKULOSKELETAL: Able to move all extremities, strength equal bilaterally, generalized weakness. PSYCHIATRIC: Alert and oriented to person place and time, appropriate affect, intact judgment and insight, episodes of anxiety. INVASIVE LINES AND TUBES: Atrial epicardial pacemaker wires present, and are grounded. - Allied health notes Allied health notes reviewed: nursing - Labs CBC & Chem 7: 01/23/23 04:28 01/23/23 04:28 Labs: Abnormal Lab Results - Last 24 Hours (Table) 01/22/23 01/22/23 01/22/23 Range/Units 04:50 11:31 16:21 RBC (4.30-5.90) m/uL Hgb (13.0-17.5) gm/dL Hct (39.0-53.0) % Plt Count (150-450) k/uL Sodium (137-145) mmol/L BUN (9-20) mg/dL Glucose (74-99) mg/dL POC Glucose (mg/dL) 141 H 137 H (70-110) mg/dL Hemoglobin A1c 6.2 H (<=6.0) % 01/22/23 01/23/23 01/23/23 Range/Units 19:57 04:28 04:28 RBC 2.65 L (4.30-5.90) m/uL Hgb 8.6 L (13.0-17.5) gm/dL Hct 24.6 L (39.0-53.0) % Plt Count 145 L (150-450) k/uL Sodium 136 L (137-145) mmol/L BUN 25 H (9-20) mg/dL Glucose 127 H (74-99) mg/dL POC Glucose (mg/dL) 172 H (70-110) mg/dL Hemoglobin A1c (<=6.0) % 01/23/23 Range/Units 06:49 RBC (4.30-5.90) m/uL Hgb (13.0-17.5) gm/dL Hct (39.0-53.0) % Plt Count (150-450) k/uL Sodium (137-145) mmol/L BUN (9-20) mg/dL Glucose (74-99) mg/dL POC Glucose (mg/dL) 134 H (70-110) mg/dL Hemoglobin A1c (<=6.0) % - Imaging and Cardiology Chest x-ray: report reviewed, image reviewed Assessment and Plan Assessment: Multivessel coronary artery disease with left main disease, status post four- vessel coronary artery bypass grafting surgery Hyperlipidemia History of cardiomyopathy with an ejection fraction of 40%, ejection fraction 50% on most current transthoracic 2-D echocardiogram. Remote history of myocardial infarction 15 years ago History of insomnia History of hiatal hernia GERD History of anxiety Family history of early onset coronary artery disease with his mom having a myocardial infarction before the age of 60 years of age Remote history of nicotine dependence quit smoking around 13 years ago Postoperative acute blood loss anemia, expected given hemodilution and cardiopulmonary bypass Hypotension, requiring norepinephrine drip, resolved Plan: Continue to maximize medical therapy with aspirin, Plavix, statin, beta mustapha. Continue Metoprolol tartrate 25 mg by mouth twice a day, will increase as tolerated. Lasix 20 mg IV 1 now and potassium chloride 10 mEq by mouth 1 now. Continue amlodipine 2.5 mg by mouth daily for radial artery spasm prophylaxis. Wean oxygen as tolerated. Encourage incentive spirometry use 10 times every hour while awake. Bronchodilators per pulmonology. Increase activity, ambulate as tolerated. PT/OT/cardiac rehab following. Will monitor daily labs and x-rays. Electrolyte replacement per protocol. GI/DVT prophylaxis. Pain control with current medication regimen. Insulin management per internal medicine. Patient is not diabetic, preoperative hemoglobin A1c 6.3%. Needs tight blood sugar control to promote healing and prevent infection We will remove atrial epicardial pacemaker wires tomorrow morning 01/24/2023. Continue Thomas catheter due to urinary retention, urology consulted noted and appreciated. Continue Flomax 0.4 mg by mouth daily at bedtime. We will discontinue the Thomas catheter tomorrow, with a voiding trial. Daily weights. Continue Xanax 0.25 mg by mouth every at bedtime when necessary for anxiety. The patient was started on Celexa 20 mg by mouth daily yesterday 01/22/2023. Dr. Khalil is from psychiatry has been consulted. Continue melatonin 6 mg by mouth daily at bedtime when necessary insomnia. Transfer orders has been placed to the third floor cardiac stepdown unit, transfer when bed available. Discharge planning is in place. More recommendations to follow based on patient's clinical course. Time with Patient: Greater than 30
--- NOTE | 2023-01-23 09:16 | P.PN ---
Subjective Progress Note Date: 01/23/23 PROGRESS NOTE The patient is a 57-year-old male who underwent cardiac catheterization and was found to have severe coronary artery disease with severe left main, ostial left circumflex and mid LAD and diagonal branch disease. He underwent coronary artery bypass grafting today. He is intubated and sedated. Hemodynamically stable. He is in sinus mechanism. There is no evidence of malignant arrhythmia and he is on no vasopressors. January 20: The patient underwent CABG yesterday, he remains intubated, following commands. Hemodynamically stable. His urine output has been stable. He could not be weaned and extubated yesterday. Apparently had bradycardia with attempted weaning yesterday. He received sequential GOMEZ to the diastolic in the LAD, left radial to the OM and SVG to the PDA with left atrial appendage clipped. His echocardiogram preoperatively showed an ejection fraction of 50% January 21: The patient is extubated, in sinus mechanism, hemodynamically stable. He feels anxious at times. He denies any dizziness or palpitations. He feels tired. He has no nausea or vomiting. He is on no vasopressors. His urine output stable. He is scheduled to have removal of [place]-Rekha catheter and Cordis. January 22: The patient is sitting up in the chair, feels tired and has generalized discomfort. He is in sinus mechanism. He walked today. He is in sinus mechanism with no evidence of malignant arrhythmia. His urine output is stable. He has no significant dyspnea or dizziness. He has no nausea. He is using his incentive spirometry. January 23: The patient had an episode of severe anxiety last night but is better now. He is feeling better. He feels stronger and his breathing is stable. He continues to be in sinus mechanism. He has no dizziness, palpitations or syncope. He denies any nausea or vomiting. He is using incentive spirometry. He feels more positive. Medications: Aspirin, Lipitor 40 mg daily, metoprolol 25 mg twice a day. Plavix 75 mg daily, amlodipine 2.5 mg daily PHYSICAL EXAMINATION: Blood pressure 98/66 heart rate 96 LUNGS: Clear to auscultation HEART: Regular rate and rhythm, S1, S2. No S3. No systolic murmur ABDOMEN: Soft, no organomegaly EXTREMETIES: No edema LAB: Hemoglobin 8.6, BUN 25, creatinine 0.80, potassium 4.1. IMPRESSION: 1. Status post CABG, extubated 2. Hyperlipidemia 3. Remote history of myocardial infarction 4. Remote history of smoking 5. History of anxiety PLAN: 1. Continue present therapy 2. Incentive spirometry 3. Increase physical activity 4. Possible transfer to telemetry Objective - Vital Signs Vital signs: Vital Signs Temp 97.9 F 01/23/23 08:00 Pulse 96 01/23/23 09:00 Resp 14 01/23/23 09:00 BP 98/66 01/23/23 09:00 Pulse Ox 93 L 01/23/23 09:00 FiO2 50 01/20/23 12:00 Intake & Output 01/22/23 01/23/23 01/23/23 18:59 06:59 18:59 Intake Total 400 250 Output Total 1830 405 105 Balance -1430 -405 145 Weight 98.7 kg Intake: IV 10 Invasive Line 2 10 Oral 400 240 Output: Chest Tube Drainage 20 Left pleural 20 Urine 1810 405 105 Other: Voiding Method Indwelling Catheter Indwelling Catheter Indwelling Catheter ABP, PAP, CO, CI - Last Documented Arterial Blood Pressure 122/59 Pulmonary Artery Pressure 30/15 Cardiac Output 6.6 Cardiac Index 3 - Labs CBC & Chem 7: 01/23/23 04:28 01/23/23 04:28 Labs: Abnormal Lab Results - Last 24 Hours (Table) 01/22/23 01/22/23 01/22/23 Range/Units 04:50 11:31 16:21 RBC (4.30-5.90) m/uL Hgb (13.0-17.5) gm/dL Hct (39.0-53.0) % Plt Count (150-450) k/uL Sodium (137-145) mmol/L BUN (9-20) mg/dL Glucose (74-99) mg/dL POC Glucose (mg/dL) 141 H 137 H (70-110) mg/dL Hemoglobin A1c 6.2 H (<=6.0) % 01/22/23 01/23/23 01/23/23 Range/Units 19:57 04:28 04:28 RBC 2.65 L (4.30-5.90) m/uL Hgb 8.6 L (13.0-17.5) gm/dL Hct 24.6 L (39.0-53.0) % Plt Count 145 L (150-450) k/uL Sodium 136 L (137-145) mmol/L BUN 25 H (9-20) mg/dL Glucose 127 H (74-99) mg/dL POC Glucose (mg/dL) 172 H (70-110) mg/dL Hemoglobin A1c (<=6.0) % 01/23/23 Range/Units 06:49 RBC (4.30-5.90) m/uL Hgb (13.0-17.5) gm/dL Hct (39.0-53.0) % Plt Count (150-450) k/uL Sodium (137-145) mmol/L BUN (9-20) mg/dL Glucose (74-99) mg/dL POC Glucose (mg/dL) 134 H (70-110) mg/dL Hemoglobin A1c (<=6.0) %
[2023-01-23] MEDS: EZETIMIBE 10 MG TAB PO SCH (10:52)
[2023-01-23 11:29] LABS: Glucose,Whole Blood 143 mg/dL (70-110)
--- NOTE | 2023-01-23 11:44 | P.PN ---
Subjective Progress Note Date: 01/23/23 Principal diagnosis: Significant coronary artery disease, status post coronary artery bypass grafting 4. Postoperative day #4 This is a 57-year-old male patient with a known history of hyperlipidemia, gastroesophageal reflux disease, hiatal hernia, ischemic cardiomyopathy with ejection fraction of 40% and a prior myocardial infarction, former smoker. He had been having ongoing issues with dyspnea on minimal exertion. He had undergone elective cardiac catheterization at [facility] and was found to have significant triple-vessel disease and was transferred here for cardiothoracic evaluation. Epogen FEV1 value from 12/29/2022 revealed a baseline of 3.56 which is 87% of predicted. He had undergone coronary artery bypass grafting 4 today 01/19/2023. He is seen in the immediate postop per day. In the intensive care unit. Currently intubated on mechanical ventilator with blood settings of assist control mode of 14, tidal M6 100, FiO2 100% and a PEEP of 5. Sternal dressing is dry and intact mediastinal split chest tubes in place, right and left pleural chest tubes in place, right IJ [place]-Rekha catheter in place. Initial cardiac output 5.1. Cardiac index 2.3. PA pressures 31/16, CVP of 10. He is currently on propofol 50 mcg/kg/m. Nitroglycerin drip at 10 mcg/m. Insulin drip currently off. Labs, chest x-ray and ABGs are pending. Patient was reevaluated today on 01/20/2023, patient is now postoperative day #1, remains intubated and mechanically ventilated, he is presently on assist control rate of 16 tidal volume 600 FiO2 50% and PEEP of 5. Patient is still requiring propofol at 10 mcg/kg/m, he is on norepinephrine at 0.03 mcg/kg/m, he is on insulin at 0.5 units per hour and on IV fluid at 50 mL per hour in the form of 0.9 normal saline. Patient has borderline blood pressure, hence he was given albumin 2, urine output is about 60 mL per hour. Cardiac output is 3.0, cardiac index is 6.7. CVP is 10. Pulmonary artery pressure 28/13. ABG on the same noted above are pO2 of 93 pCO2 39 pH of 7.42. Chest x-ray showed adequate placement of the lines and the PA catheter, adequate placement of the endotracheal tube and nasogastric tube, there is a fairly good sized left-sided pleural effusion noted. With minimal atelectasis at the left base, expected, patient will be weaned off from propofol, and I plan to give the patient a trial of weaning if tolerated may even consider extubation. WBC count today is 10.9 hemoglobin is 10.3. Basic metabolic profile is normal, renal profile is normal. Reevaluated today on 01/21/2023, patient is sitting in bed, awake alert oriented 3, denies any specific complaints, he feels much better today compared to yesterday. He does have chronic back spasms, and these are chronic in nature patient was placed on Xanax by thoracic surgery, he is a bit tachycardic, O2 sats is 92% on 6 L nasal cannula, achieving about 76 50 mL with his incentive spirometry and with encouragement. His cardiac output is 6.8 cardiac index is 3.0 PA pressure 41/19 CVP is 25 patient did receive Lasix earlier today from cardiothoracic surgery. Chest tubes and mediastinal chest tube are in place. No air leak. WBC count is 13.4 hemoglobin 9. electrolytes are normal renal profile is normal. Chest x-ray showed evidence of postoperative changes small bilateral pleural effusions and atelectasis with mild congestive changes noted Patient was reevaluated today on 01/22/2023, remains in the ICU, on 4 L nasal cannula, patient is having difficulty with his back spasms and muscle spasms for which I recommended a trial of Mirapex. Continues to do well with incentive spirometry about 1250 patient does not seem to have any significant shortness of breath, chest x-ray showed bilateral atelectasis, small bilateral pleural effusions and a small right-sided pneumothorax. Left-sided chest tube would lik gautam be removed today. Patient is hemodynamically stable, not requiring any inotropes or pressors. Did require straight catheterization and subsequent placement of Thomas catheter for urinary retention and unable to urinate on his own, Patient was seen and reevaluated today on 01/23/2023, patient is on 2 L nasal cannula with O2 saturation 93% feeling better today, does not seem to be in any distress, he is hemodynamically stable, not requiring any pressors or any inotropes. Achieving over 1500 MLS via his incentive spirometer. His back spasms are better today compared to yesterday. CBC is normal except for hemoglobin of 8.6 electrolytes are normal and renal profile is normal. Patient remains on Mirapex at 0.5 mg by mouth 3 times a day Objective - Vital Signs Vital signs: Vital Signs Temp 97.9 F 01/23/23 08:00 Pulse 84 01/23/23 11:00 Resp 14 01/23/23 11:00 BP 96/66 01/23/23 11:00 Pulse Ox 93 L 01/23/23 11:00 FiO2 50 01/20/23 12:00 Intake & Output 01/22/23 01/23/23 01/23/23 18:59 06:59 18:59 Intake Total 400 270 Output Total 1830 405 170 Balance -1430 -405 100 Weight 98.7 kg Intake: IV 30 Invasive Line 2 10 Invasive Line 7 20 Oral 400 240 Output: Chest Tube Drainage 20 Left pleural 20 Urine 1810 405 170 Other: Voiding Method Indwelling Catheter Indwelling Catheter Indwelling Catheter ABP, PAP, CO, CI - Last Documented Arterial Blood Pressure 122/59 Pulmonary Artery Pressure 30/15 Cardiac Output 6.6 Cardiac Index 3 - Exam GENERAL EXAM: Revealed 57-year-old white male in no distress, on 2 L nasal cannula HEAD: Normocephalic. EENT: PERRLA, EOMI, nonicteric, no neck masses. No JVD. CHEST: Sternal dressing dry and intact. LUNGS: Symmetrical chest expansion, clear breath sounds bilaterally no rhonchi and no wheezes CVS: S1 and S2 normal with no audible murmur, regular rhythm. ABDOMEN: Soft nontender no megaly no rebound no guarding. SKIN: No rashes CENTRAL NERVOUS SYSTEM: Normal mental status, alert oriented 3 no focal deficit EXTREMITIES: No clubbing edema or cyanosis Psychiatric: Normal mood affect and normal mental status examination - Labs CBC & Chem 7: 01/23/23 04:28 01/23/23 04:28 Labs: Abnormal Lab Results - Last 24 Hours (Table) 01/22/23 01/22/23 01/23/23 Range/Units 16:21 19:57 04:28 RBC 2.65 L (4.30-5.90) m/uL Hgb 8.6 L (13.0-17.5) gm/dL Hct 24.6 L (39.0-53.0) % Plt Count 145 L (150-450) k/uL Sodium (137-145) mmol/L BUN (9-20) mg/dL Glucose (74-99) mg/dL POC Glucose (mg/dL) 137 H 172 H (70-110) mg/dL 01/23/23 01/23/23 01/23/23 Range/Units 04:28 06:49 11:28 RBC (4.30-5.90) m/uL Hgb (13.0-17.5) gm/dL Hct (39.0-53.0) % Plt Count (150-450) k/uL Sodium 136 L (137-145) mmol/L BUN 25 H (9-20) mg/dL Glucose 127 H (74-99) mg/dL POC Glucose (mg/dL) 134 H 143 H (70-110) mg/dL Assessment and Plan Assessment: Impression: Status post CABG 4 postoperative day #4 Ischemic cardiomyopathy and LV dysfunction and mild. Dyslipidemia Benign essential hypertension Ex-smoker. History of hiatal hernia and GERD. Right sided pneumothorax, small, expected, resolved based on chest x-ray today. Small bilateral pleural effusions secondary to acute mild congestive heart failure/ischemic cardiomyopathy and LV dysfunction Recommendation: Continue medical therapy with statin Plavix aspirin and beta blockers Continue to monitor in the ICU Continue intermittent diuresis Continue incentive spirometry Titrate FiO2 accordingly and maintaining O2 saturation of 90% We'll continue to follow Time with Patient: Less than 30
--- NOTE | 2023-01-23 13:29 | P.CN ---
Psychiatric Consult - . 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 REASON FOR REFERRAL: Psychiatry was consulted for "depression" HISTORY OF PRESENT ILLNESS: The patient presented to the hospital on 01/17 for shortness of breath and has a history of CHF. Patient underwent quadruple artery bypass and grafting and is now postop day 4. Patient is in the ICU and was speaking with his daughter at the bedside and agreeable to speak to medical technical writer. Patient claims that he was in the hospital for spasms in his back and is finding it difficult to breathe while he was working. He states that he was indifferent spots all around and he states that he needed. Heart surgery for over a year now and did not know it. He claims that he has an increase in anxiety. He states that he was possibly overworking and an increased stress level. States that his depression has been chronic and he has been taking Celexa which she does not think is helping him much. He states that he does have mild anxiety at this time. She was fairly talkative to medical technical writer and sometimes difficult to redirect. States that he sleeps with melatonin. He claims that his appetite is fair . At this time patient denies any suicidal or homical ideations, intent or plan. Patient denies any auditory, visual hallucinations and denies any paranoia or delusions. Patients admits to using now recreational drugs or cigarettes PAST PSYCHIATRIC HISTORY: Patient has a depression and anxiety patient is currently on Celexa and melatonin. He takes Xanax when necessary for anxiety. Patient denies any previous psychiatric hospitalizations. Patient denies any psychiatric outpatient follow-up. Patient denies any history of suicide attempts in the past. PAST MEDICAL HISTORY: As per medicine H&P. ALLERGIES: as per EMR. CHEMICAL DEPENDENCY HISTORY: as per HPI. FAMILY PSYCHIATRIC/SUBSTANCE USE HISTORY: He claims that his father may have had some mental illness. SOCIAL HISTORY: Patient was born and raised in [place], [place]. 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 Claims that he is . He has 3 kids. He currently lives in a trailer. MENTAL STATUS EXAM: General Appearance: Patient appears to be balding, stated age is alert, pleasant, and cooperative. Patient appears to have fair hygiene and grooming wearing hospital gown with fair eye contact. Behavior: Patient is calmly lying in bed without any agitated behavior. Speech: Patient's speech is fluent and nonpressured. Fairly talkative Mood/Affect: Patient reports their mood is "mostly anxious]", affect is congruent Suicidality/Homicidality: Patient denies having any suicidal or homicidal ideation intent or plan. Perceptions: Patient denies any visual hallucinations and denies any auditory hallucinations Though content/process: There is no evidence of any delusional thought content and thought process is linear and goal-directed. Rambles at times. Memory and concentration: AOX3, grossly intact for the purposes of this session. Can spell "WORLD" backwards Judgment and insight: Fair IMPRESSIONS: Generalized anxiety disorder Depressive disorder unspecified PLAN: -At this time patient DOES NOT meet criteria for inpatient psychiatric admission. -Would recommend the following medication changes/additions: Discontinue Celexa and replace with Zoloft 25 mg daily for 2 days then increase to 50 mg for mood/anxiety. Increase Marichuy to 10 mg daily at bedtime for sleep. I added trazodone 50 mg daily at bedtime when necessary for insomnia. -Psychiatry will sign off at this time -Please contact with any questions. 01/23/23 13:22 01/23/23 13:27
[2023-01-23] MEDS: SERTRALINE 25 MG TAB PO SCH (13:54)
[2023-01-23] MEDS: MAGNESIUM HYDROXIDE 2,400 MG/30 ML CUP PO PRN (16:19)
[2023-01-23 16:23] LABS: Glucose,Whole Blood 130 mg/dL (70-110)
--- NOTE | 2023-01-23 19:38 | P.PN ---
Subjective Progress Note Date: 01/23/23 This is a 57-year-old male admitted to the hospital for further evaluation for coronary artery disease. Patient has undergone extensive workup being followed by cardiothoracic services. Echocardiogram showing low normal LV systolic function with EF of 50%, mild TR. On patient underwent cardiac catheterization at [facility] which revealed multivessel disease with 80% distal left main stenosis, ostial circumflex disease and bifurcating mid LAD/diagonal disease. Patient was transferred to [facility] for cardiothoracic evaluation. Patient is scheduled to undergo coronary artery bypass grafting tomorrow with Dr. Whitlock. Today he has no acute complaints. Discussed he will go to the ICU after surgery tomorrow. Patient would like to have a BM today. He complains of heart burn sensation today and is continued on oral protonix. 01/19/2023 Patient scheduled to undergo coronary artery bypass grafting today for multivessel CAD with left main disease. Patient will be monitored in the intensive care unit post procedure. Patient remains on optimized medical therapy. Sliding scale insulin coverage and blood glucose has been controlled in the 100s and not requiring any insulin. Preoperative vital signs; temperature of 98.1, heart rate 68, blood pressure 135/70, 95% on room air. 01/20/2023 Patient is seen in follow-up today remains in the ICU with multiple medical consultations following. Per nursing staff there was difficulty with patient being ready for extubation requiring Precedex his propofol was being weaned off. Patient remains on pressor support and has been weaned off of sedation and is status post extubation approximately 20 minutes prior to exam. Patient is on 4- 5 L via nasal cannula and appears in no acute distress. Patient is reporting significantly dry mouth requesting swabs as patient remains nothing by mouth per protocol. Chest x-ray showing pleural effusion. Patient remains on insulin drip per surgical protocol and we will transition to sliding scale once resumed on oral diet. Patient is afebrile report some generalized discomfort with extensive weakness and chest wall pain. Patient does have heart hugger noted. Multiple chest tubes and drains remain in place at this time. 01/21/2023 Patient is currently sitting in chair. Awake alert and oriented x3. Complains of lower back pain, spasms. And also chest soreness patient states that he is feeling very anxious. Otherwise no nausea vomiting or diarrhea. Currently patient is on oxygen at 6 L via nasal cannula. Was able to use incentive spirometry but not consistently. Chest tubes and mediastinal tube in place. Chest x-ray showed post CABG changes with small bilateral pleural effusions and associated atelectasis. Patient was given a dose of IV Lasix this morning. Laboratory data showed WBC 13.2 hemoglobin 9.7 and platelets 92. Sodium 136 potassium 4.3 chloride 106 bicarb 23, BUN 15 and creatinine 0.77. Patient remains on insulin drip at 2 units/h. 01/22/2023 Patient is lying in the bed. Awake alert and oriented. Requiring oxygen at 4 L via nasal cannula. Patient states that he still having back spasms and states that his pain is not controlled and feels very depressed. Chest x-ray showed development of small right apical pneumothorax. Post CABG changes with small bilateral pleural effusions atelectasis. Laboratory data showed WBC 11.1 hemoglobin 8.8 and platelets 114 Sodium 137 potassium 4.3 chloride 105 bicarb is 25 BUN 17 and creatinine 0.82 and A1c 6.0. Patient will be continued on insulin sliding scale. Blood sugar is controlled. 01/23/2023 Patient is seen and evaluated in follow-up currently sitting up in the chair. Chest tubes have been removed and patient continues with indwelling Thomas catheter. Patient has been up and walking the halls. Patient reports having difficulty with having a bowel movement and will adjust medications and add bowel regimen. Blood sugars are well-controlled on current regimen and will be continued on sliding scale. Patient is afebrile with no reports of chest pain or palpitations. Patient having some shortness of breath on exertion and currently maintained over 90% on room air. Patient was given a dose of Lasix today as chest x-ray showing pleural effusions. Previously noted pneumothorax is absent at this time. Patient was evaluated by psychiatry and started on anti depressants. Patient with not much of an appetite and reports some of his food of choice and asking his son can bring food. Okay for heart [employer] type foods. Review of Systems Constitutional: Denied any fatigue denied any fever. Cardio vascular: denied any chest pain, palpitations Gastrointestinal: denied any nausea, vomiting, reports passing gas with no bowel movement as of yet Pulmonary: reports shortness of breath with exertion, no cough Neurologic denied any new focal deficits, reports generalized weakness All inpatient medications were reviewed and appropriate changes in these medica tions as dictated in the interval history and assessment and plan. Assessment: Exertional dyspnea with outpatient CT showing coronary calcifications and mild nodules Positive stress test and cardiac catheterization revealing multivessel CAD with left main disease. Patient is status post CABG 4 History of myocardial infarction 15 yrs ago and prior cardiac catheterization Depression with suicidal ideation Hyperglycemia with A1C of 6.3 consistent with prediabetes History hyperlipidemia Hx cardiomyopathy with EF 40% with improved EF of 50% this hospital stay Gastroesophageal reflux disease Hx hiatal hernia Hx of tobacco use in the past Hx of alcohol use in the past GI prophylaxis on protonix Full Code Plan: Patient continues in the ICU with multiple medical consultations following status post CABG 4. Patient has had chest tubes removed and other drains with only indwelling Thomas catheter remained in to be discontinued soon. Patient has been walking the halls and continues with shortness of breath with exertion. Patient is occasionally using 2 L of oxygen and weaning FiO2 as tolerated. Patient with incentive spirometer and encouraged to continue using a 10 times every hour while awake Patient tolerating diet and will continue on consistent carb heart healthy diet and okay family brings in food. Continued on sliding scale and Accu-Cheks Patient having concerns of constipation and no bowel movement as of yet and passing gas is on Senokot will make sure this is scheduled as well as as needed bowel regimen. Encouraged increase activity as tolerated. Patient is awake, alert and oriented 3. Patient having increased depression with thoughts of suicide and was evaluated by psychiatry started on antidepressants Patient will be continued in the ICU for now and has been downgraded and awaiting a bed on 3 S. Follow-up labs a chest x-ray ordered We will continue to follow with cardiothoracic surgery during hospitalization. Thank you kindly for this consultation The impression and plan of care has been dictated by Cesilia Ordonez, Nurse Practitioner as directed. Dr. Tanner MD I have performed a history and examination and MDM of this patient, discussed the same with the dictator, and agree with the dictator's assessment and plan as written ,documented as a scribe. Based on total visit time, I have performed more than 50% of the visit. Objective - Vital Signs Vital signs: Vital Signs Temp 97.7 F 01/23/23 11:43 Pulse 70 01/23/23 12:13 Resp 16 01/23/23 11:43 BP 105/64 01/23/23 11:43 Pulse Ox 93 L 01/23/23 11:43 FiO2 50 01/20/23 12:00 Intake & Output 01/22/23 01/23/23 01/23/23 18:59 06:59 18:59 Intake Total 400 530 Output Total 1830 405 620 Balance -1430 -405 -90 Weight 98.7 kg Intake: IV 50 Invasive Line 2 10 Invasive Line 7 40 Oral 400 480 Output: Chest Tube Drainage 20 Left pleural 20 Urine 1810 405 620 Other: Voiding Method Indwelling Catheter Indwelling Catheter Indwelling Catheter ABP, PAP, CO, CI - Last Documented Arterial Blood Pressure 122/59 Pulmonary Artery Pressure 30/15 Cardiac Output 6.6 Cardiac Index 3 - Labs CBC & Chem 7: 01/23/23 04:28 01/23/23 04:28 Labs: Abnormal Lab Results - Last 24 Hours (Table) 01/22/23 01/22/23 01/23/23 Range/Units 16:21 19:57 04:28 RBC 2.65 L (4.30-5.90) m/uL Hgb 8.6 L (13.0-17.5) gm/dL Hct 24.6 L (39.0-53.0) % Plt Count 145 L (150-450) k/uL Sodium (137-145) mmol/L BUN (9-20) mg/dL Glucose (74-99) mg/dL POC Glucose (mg/dL) 137 H 172 H (70-110) mg/dL 01/23/23 01/23/23 01/23/23 Range/Units 04:28 06:49 11:28 RBC (4.30-5.90) m/uL Hgb (13.0-17.5) gm/dL Hct (39.0-53.0) % Plt Count (150-450) k/uL Sodium 136 L (137-145) mmol/L BUN 25 H (9-20) mg/dL Glucose 127 H (74-99) mg/dL POC Glucose (mg/dL) 134 H 143 H (70-110) mg/dL
[2023-01-23] MEDS: MELATONIN 5 MG TABLET PO SCH (21:08)
[2023-01-23] MEDS: SENNOSIDES-DOCUSATE SODIUM 1 EACH TAB PO SCH (21:09)
[2023-01-23] MEDS: TAMSULOSIN 0.4 MG CAP.ER.24H PO SCH (21:09)
[2023-01-23] MEDS: traZODone HCL 50 MG TAB PO PRN (21:36)
[2023-01-24] MEDS: HEPARIN SODIUM,PORCINE 5,000 UNIT/ML 1 ML VIAL SQ SCH ×4 (00:45→23:36)
[2023-01-24] MEDS: KETOROLAC 15 MG/ML 1 ML VIAL IVP SCH ×5 (00:45→23:36)
[2023-01-24] MEDS: ACETAMINOPHEN TAB 500 MG TAB PO PRN (03:55)
[2023-01-24 05:41] LABS: HCT 23.8 % (39.0-53.0); HGB 8.2 gm/dL (13.0-17.5); MCHC 34.3 g/dL (31.0-37.0); MCV 93.3 fL (80.0-100.0); Mean Platelet Volume 8.7; Platelet Count 187 k/uL (150-450); RBC 2.55 m/uL (4.30-5.90); RDW 13.2 % (11.5-15.5); WBC 8.9 k/uL (3.8-10.6)
[2023-01-24 05:51] LABS: African American GFR (CKD) >90 (>60 ml/min/1.73 sqM); Anion Gap 7 mmol/L; Blood Urea Nitrogen 27 mg/dL (9-20); Calcium 8.8 mg/dL (8.4-10.2); Carbon Dioxide 28 mmol/L (22-30); Chloride 102 mmol/L (98-107); Glucose 112 mg/dL (74-99); Non-African American GFR(CKD) 87 (>60 ml/min/1.73 sqM); Potassium 4.1 mmol/L (3.5-5.1); Sodium 137 mmol/L (137-145)
[2023-01-24] MEDS: INSULIN ASPART (NovoLOG) 100 UNIT/ML VIAL SQ SCH ×4 (07:25→20:27)
[2023-01-24] MEDS: ATORVASTATIN 40 MG TAB PO SCH (08:17)
[2023-01-24] MEDS: MULTIVITAMINS, THERA 1 EACH TAB PO SCH (08:17)
[2023-01-24] MEDS: CLOPIDOGREL 75 MG TAB PO SCH (08:17)
[2023-01-24] MEDS: MAGNESIUM HYDROXIDE 2,400 MG/30 ML CUP PO PRN (08:17)
[2023-01-24] MEDS: EZETIMIBE 10 MG TAB PO SCH (08:17)
[2023-01-24] MEDS: ASPIRIN 325 MG TAB PO SCH (08:17)
[2023-01-24] MEDS: PANTOPRAZOLE 40 MG TABLET PO SCH ×2 (08:17→20:53)
[2023-01-24] MEDS: METOPROLOL TARTRATE 25 MG TAB PO SCH ×2 (08:17→20:53)
[2023-01-24] MEDS: LIDOCAINE 5% PATCH TOPICAL SCH (08:17)
[2023-01-24] MEDS: PRAMIPEXOLE 0.5 MG TAB PO SCH ×3 (08:21→20:52)
[2023-01-24] MEDS: amLODIPine 2.5 MG TAB PO SCH (08:21)
[2023-01-24] MEDS: SERTRALINE 25 MG TAB PO SCH (08:21)
[2023-01-24] MEDS: ASCORBIC ACID 500 MG TAB PO SCH (08:21)
--- NOTE | 2023-01-24 08:29 | XR ---
EXAMINATION TYPE: XR chest 2V DATE OF EXAM: 01/24/2023 COMPARISON: 01/23/2023 TECHNIQUE: PA and lateral views submitted. HISTORY: Postop CABG FINDINGS: A bilateral consolidation small effusion. Postoperative changes. Heart size normal. No pneumothorax o r overt failure. There is a hiatal hernia. IMPRESSION: 1. Stable postoperative change with bilateral consolidation and small effusion.
[2023-01-24] MEDS ORDERED: FUROSEMIDE 10 MG/ML 2 ML VIAL IV STA (08:30)
[2023-01-24] MEDS ORDERED: POTASSIUM CHLORIDE ER 10 MEQ TAB.ER.PRT PO STA (08:31)
--- NOTE | 2023-01-24 08:40 | P.PN ---
Subjective Progress Note Date: 01/24/23 Principal diagnosis: Coronary artery disease with left main disease. Past medical history significant for hyperlipidemia, cardiomyopathy with an ejection fraction of 40%, myocardial infarction 15 years ago, insomnia, hiatal hernia, GERD, family history of early onset coronary artery disease with his mom having a myocardial infarction before the age of 60 and has a remote history of nicotine dependence in which he quit smoking 13 years ago. POD #5 quadruple multiple arterial coronary artery bypass grafting using the left internal mammary artery sequentially to the diagonal coronary artery, then to the left anterior descending coronary artery, left radial artery from the aorta to the obtuse marginal coronary artery, a reverse greater saphenous vein graft from the aorta to the posterior descending coronary artery. Exclusion of the left atrial appendage using a 35 mm Atriclip, intraoperative graft flow measurement using the GruvIt system, endoscopic harvesting of the left radial artery, endoscopic harvesting of the left greater saphenous vein, intraoperative transesophageal echocardiogram and epi-aortic scanning. Postoperative acute blood loss anemia, expected given hemodilution and cardiopulmonary bypass. The patient was seen and examined in follow-up today 01/24/2023 at his bedside in the intensive care unit. Currently he is sitting up to the bedside chair, is awake, alert, oriented 3 and is in no acute apparent distress. He denies any complaints of shortness of breath or pain at this time. He remains hemodynamically stable and is currently on no inotropic pressure support. Remote telemetry showing normal sinus rhythm heart rate 74 BPM. Oxygen saturations are 95% on 2 L nasal cannula and 88-90% on room air. He is achieving 1500 mL on his incentive spirometry with much encouragement. Atrial epicardial pacemaker wires in place and are grounded. The patient was seen by psychiatry yesterday and medications were changed, he is currently on Zoloft for depression. Thomas catheter remains in place for urinary retention with 400 mL of urine output in the last 8 hours. Chest x-ray and laboratory results were reviewed. He's been afebrile the last 24 hours. He had his first postop shower yesterday and tolerated well. He is awaiting a bed on the third floor cardiac stepdown unit. The patient reports he has been up ambulating in the intensive care unit hallway with standby assistance with nursing and therapy staff and tolerating well. Objective - Vital Signs Vital signs: Vital Signs Temp 97.2 F L 01/24/23 08:00 Pulse 79 01/24/23 08:00 Resp 20 01/24/23 08:00 BP 105/72 01/24/23 08:00 Pulse Ox 95 01/24/23 08:00 FiO2 50 01/20/23 12:00 Intake & Output 01/23/23 01/24/23 01/24/23 18:59 06:59 18:59 Intake Total 930 Output Total 920 375 100 Balance 10 -375 -100 Weight 100.8 kg Intake: IV 50 Invasive Line 2 10 Invasive Line 7 40 Oral 880 Output: Urine 920 375 100 Other: Voiding Method Indwelling Catheter Indwelling Catheter ABP, PAP, CO, CI - Last Documented Arterial Blood Pressure 122/59 Pulmonary Artery Pressure 30/15 Cardiac Output 6.6 Cardiac Index 3 - Exam CONSTITUTIONAL: Sitting up to the bedside chair in the intensive care unit, periods of feeling anxious, cooperative, no apparent acute distress. HEENT: Neck is supple, no JVD, no lymphadenopathy. RESPIRATORY: Lungs sounds essentially clear throughout, diminished to his bilateral bases. Respirations are symmetrical and nonlabored. Currently on 2 L nasal cannula with oxygen saturations 95%. Able to achieve 1500 mL on his i ncentive spirometry. Strong cough. CARDIOVASCULAR: Regular rhythm and rate. S1 and S2 present, negative for S3, gallop or murmur. Sternum is stable. Palpable peripheral pulses bilaterally, trace edema to his bilateral lower extremities. No calf pain or tenderness noted. Heart hugger in place with patient demonstrating appropriate use. Knee- high MIRTHA hose and sequential compression devices in place to his bilateral lower extremities. GASTROINTESTINAL: Abdomen soft, nontender, nondistended. Active bowel sounds present 4 quadrants. Tolerating diet. Passing flatus. No guarding or ri gidity. GENITOURINARY: Thomas catheter in place for urinary retention, draining clear yellow urine. Urine output 400 mL in the last 8 hours. INTEGUMENTARY: Skin is warm and dry with no evidence of clubbing or cyanosis. Midline sternal incision clean dry and well approximated, covered with dry inta ct dressing. Left lower extremity EVH sites well approximated without redness or drainage. Left arm radial artery harvest sites clean, dry and approximated. No drainage or redness is present. NEUROLOGIC: Cranial nerves II through XII intact. No focal deficits. MUSKULOSKELETAL: Able to move all extremities, strength equal bilaterally, generalized weakness. PSYCHIATRIC: Alert and oriented to person place and time, appropriate affect, intact judgment and insight, episodes of anxiety. INVASIVE LINES AND TUBES: Atrial epicardial pacemaker wires present, and are grounded. - Allied health notes Allied health notes reviewed: nursing - Labs CBC & Chem 7: 01/24/23 05:27 01/24/23 05:27 Labs: Abnormal Lab Results - Last 24 Hours (Table) 01/23/23 01/23/23 01/24/23 Range/Units 11:28 16:21 05:27 RBC 2.55 L (4.30-5.90) m/uL Hgb 8.2 L (13.0-17.5) gm/dL Hct 23.8 L (39.0-53.0) % BUN (9-20) mg/dL Glucose (74-99) mg/dL POC Glucose (mg/dL) 143 H 130 H (70-110) mg/dL 01/24/23 Range/Units 05:27 RBC (4.30-5.90) m/uL Hgb (13.0-17.5) gm/dL Hct (39.0-53.0) % BUN 27 H (9-20) mg/dL Glucose 112 H (74-99) mg/dL POC Glucose (mg/dL) (70-110) mg/dL - Imaging and Cardiology Chest x-ray: report reviewed, image reviewed Assessment and Plan Assessment: Multivessel coronary artery disease with left main disease, status post four- vessel coronary artery bypass grafting surgery Hyperlipidemia History of cardiomyopathy with an ejection fraction of 40%, ejection fraction 50% on most current transthoracic 2-D echocardiogram. Remote history of myocardial infarction 15 years ago History of insomnia History of hiatal hernia GERD History of anxiety Family history of early onset coronary artery disease with his mom having a myocardial infarction before the age of 60 years of age Remote history of nicotine dependence quit smoking around 13 years ago Postoperative acute blood loss anemia, expected given hemodilution and cardiopulmonary bypass Hypotension, requiring norepinephrine drip, resolved Depression, started on Zoloft by psychiatrist Plan: Continue to maximize medical therapy with aspirin, Plavix, statin, beta mustapha. Continue Metoprolol tartrate 25 mg by mouth twice a day, will increase as tolerated. Lasix 20 mg IV 1 now and potassium chloride 10 mEq by mouth 1 now. Continue amlodipine 2.5 mg by mouth daily for radial artery spasm prophylaxis. Wean oxygen as tolerated. Encourage incentive spirometry use 10 times every hour while awake. Bronchodilators per pulmonology. Increase activity, ambulate as tolerated. PT/OT/cardiac rehab following. Will monitor daily labs and x-rays. Electrolyte replacement per protocol. GI/DVT prophylaxis. Pain control with current medication regimen. Insulin management per internal medicine. Patient is not diabetic, preoperative hemoglobin A1c 6.3%. Needs tight blood sugar control to promote healing and prevent infection We will remove atrial epicardial pacemaker wires today, bed rest for 1 hour post pacemaker wire removal. Discontinue Thomas catheter today. Continue to record strict and accurate I's and O's, bladder scan every 6 hours and when necessary postvoid residual. If greater than or equal to 300 mL of urine May straight cath. Continue Flomax 0.4 mg by mouth daily at bedtime. Daily weights. Dr. Khalil consult noted and appreciated. Continue melatonin 6 mg by mouth daily at bedtime when necessary insomnia. Patient was also started on trazodone 50 milligrams by mouth daily at bedtime when necessary insomnia. Transfer orders has been placed to the third floor cardiac stepdown unit, transfer when bed available. Discharge planning is in place. More recommendations to follow based on patient's clinical course. Time with Patient: Greater than 30
[2023-01-24] MEDS: FERROUS SULFATE 325 MG TAB PO SCH (09:02)
[2023-01-24] MEDS: IPRATROPIUM-ALBUTEROL 3 ML NEB INHALATION SCH ×4 (09:18→21:28)
[2023-01-24 12:04] LABS: Glucose,Whole Blood 145 mg/dL (70-110)
--- NOTE | 2023-01-24 12:11 | P.PN ---
Subjective Progress Note Date: 01/24/23 This is a 57-year-old male patient with a known history of hyperlipidemia, gastroesophageal reflux disease, hiatal hernia, ischemic cardiomyopathy with ejection fraction of 40% and a prior myocardial infarction, former smoker. He had been having ongoing issues with dyspnea on minimal exertion. He had un dergone elective cardiac catheterization at [facility] and was found to have significant triple-vessel disease and was transferred here for cardiothoracic evaluation. Epogen FEV1 value from 12/29/2022 revealed a baseline of 3.56 which is 87% of predicted. He had undergone coronary artery bypass grafting 4 today 01/19/2023. He is seen in the immediate postop per day. In the intensive care unit. Currently intubated on mechanical ventilator with blood settings of assist control mode of 14, tidal M6 100, FiO2 100% and a PEEP of 5. Sternal dressing is dry and intact mediastinal split chest tubes in place, right and left pleural chest tubes in place, right IJ Everetts-Rekha catheter in place. Initial cardiac output 5.1. Cardiac index 2.3. PA pressures 31/16, CVP of 10. He is currently on propofol 50 mcg/kg/m. Nitroglycerin drip at 10 mcg/m. Insulin drip currently off. Labs, chest x-ray and ABGs are pending. Patient was reevaluated today on 01/20/2023, patient is now postoperative day #1, remains intubated and mechanically ventilated, he is presently on assist control rate of 16 tidal volume 600 FiO2 50% and PEEP of 5. Patient is still requiring propofol at 10 mcg/kg/m, he is on norepinephrine at 0.03 mcg/kg/m, he is on insulin at 0.5 units per hour and on IV fluid at 50 mL per hour in the form of 0.9 normal saline. Patient has borderline blood pressure, hence he was given albumin 2, urine output is about 60 mL per hour. Cardiac output is 3.0, cardiac index is 6.7. CVP is 10. Pulmonary artery pressure 28/13. ABG on the same noted above are pO2 of 93 pCO2 39 pH of 7.42. Chest x-ray showed adequate placement of the lines and the PA catheter, adequate placement of the endotracheal tube and nasogastric tube, there is a fairly good sized left-sided pleural effusion noted. With minimal atelectasis at the left base, expected, patient will be weaned off from propofol, and I plan to give the patient a trial of weaning if tolerated may even consider extubation. WBC count today is 10.9 hemoglobin is 10.3. Basic metabolic profile is normal, renal profile is normal. Reevaluated today on 01/21/2023, patient is sitting in bed, awake alert oriented 3, denies any specific complaints, he feels much better today compared to yesterday. He does have chronic back spasms, and these are chronic in nature patient was placed on Xanax by thoracic surgery, he is a bit tachycardic, O2 sats is 92% on 6 L nasal cannula, achieving about 76 50 mL with his incentive spirometry and with encouragement. His cardiac output is 6.8 cardiac index is 3.0 PA pressure 41/19 CVP is 25 patient did receive Lasix earlier today from cardiothoracic surgery. Chest tubes and mediastinal chest tube are in place. No air leak. WBC count is 13.4 hemoglobin 9. electrolytes are normal renal profile is normal. Chest x-ray showed evidence of postoperative changes small bilateral pleural effusions and atelectasis with mild congestive changes noted Patient was reevaluated today on 01/22/2023, remains in the ICU, on 4 L nasal cannula, patient is having difficulty with his back spasms and muscle spasms for which I recommended a trial of Mirapex. Continues to do well with incentive spirometry about 1250 patient does not seem to have any significant shortness of breath, chest x-ray showed bilateral atelectasis, small bilateral pleural effusions and a small right-sided pneumothorax. Left-sided chest tube would likely be removed today. Patient is hemodynamically stable, not requiring any inotropes or pressors. Did require straight catheterization and subsequent plac ement of Thomas catheter for urinary retention and unable to urinate on his own, Patient was seen and reevaluated today on 01/23/2023, patient is on 2 L nasal cannula with O2 saturation 93% feeling better today, does not seem to be in any distress, he is hemodynamically stable, not requiring any pressors or any inotropes. Achieving over 1500 MLS via his incentive spirometer. His back spasms are better today compared to yesterday. CBC is normal except for hemoglobin of 8.6 electrolytes are normal and renal profile is normal. Patient remains on Mirapex at 0.5 mg by mouth 3 times a day. The patient is seen today 01/24/2023 in follow-up in the intensive care unit. Postoperative day #5. He is maintaining good O2 saturations in the 90s on 2 L/m per nasal cannula. No IV fluids. Pacer wires removed this morning. White count 8.9. Hemoglobin 8.2. Platelets 187. Sodium 137. Potassium 4.1. Bicarb 28. BUN 27. Creatinine 0.96. Glucose 112. He continues working well with the incentive spirometer. Remains on bronchodilators. Chest x-ray does show postoperative changes of bilateral consolidation and small effusion. Objective - Vital Signs Vital signs: Vital Signs Temp 97.2 F L 01/24/23 08:00 Pulse 75 01/24/23 09:30 Resp 20 01/24/23 08:00 BP 105/72 01/24/23 08:00 Pulse Ox 95 01/24/23 08:00 FiO2 50 01/20/23 12:00 Intake & Output 01/23/23 01/24/23 01/24/23 18:59 06:59 18:59 Intake Total 930 240 Output Total 920 375 450 Balance 10 -375 -210 Weight 100.8 kg Intake: IV 50 Invasive Line 2 10 Invasive Line 7 40 Oral 880 240 Output: Urine 920 375 450 Other: Voiding Method Indwelling Catheter Indwelling Catheter Indwelling Catheter # Bowel Movements 1 ABP, PAP, CO, CI - Last Documented Arterial Blood Pressure 122/59 Pulmonary Artery Pressure 30/15 Cardiac Output 6.6 Cardiac Index 3 - Exam GENERAL EXAM: Alert, active, 49-year-old male, on 2 L nasal cannula, comfortable in no apparent distress. HEAD: Normocephalic. EYES: Normal reaction of pupils, equal size. NOSE: Clear with pink turbinates. THROAT: No erythema or exudates. NECK: No masses, no JVD. CHEST: Sternal dressing dry and intact. Heart Hugger in place. LUNGS: Equal air entry with Dayo in the posterior bases. CVS: S1 and S2 normal with no audible murmur, regular rhythm. ABDOMEN: No hepatosplenomegaly, normal bowel sounds, no guarding or rigidity. SPINE: No scoliosis or deformity SKIN: No rashes CENTRAL NERVOUS SYSTEM: No focal deficits, tone is normal in all 4 extremities. EXTREMITIES: There is no peripheral edema. No clubbing, no cyanosis. Peripheral pulses are intact. - Labs CBC & Chem 7: 01/24/23 05:27 01/24/23 05:27 Labs: Abnormal Lab Results - Last 24 Hours (Table) 01/23/23 01/24/23 01/24/23 Range/Units 16:21 05:27 05:27 RBC 2.55 L (4.30-5.90) m/uL Hgb 8.2 L (13.0-17.5) gm/dL Hct 23.8 L (39.0-53.0) % BUN 27 H (9-20) mg/dL Glucose 112 H (74-99) mg/dL POC Glucose (mg/dL) 130 H (70-110) mg/dL 01/24/23 Range/Units 12:03 RBC (4.30-5.90) m/uL Hgb (13.0-17.5) gm/dL Hct (39.0-53.0) % BUN (9-20) mg/dL Glucose (74-99) mg/dL POC Glucose (mg/dL) 145 H (70-110) mg/dL Assessment and Plan Assessment: Significant coronary artery disease, status post coronary artery bypass grafting 4. Postoperative day #5 History of ischemic cardiomyopathy with ejection fraction 40-50%, previous myocardial infarction many years ago Hyperlipidemia Hypertension Gastroesophageal reflux disease Hiatal hernia Former smoker, FEV1 value 2.36 L, 87% of predicted Plan: The patient was seen and evaluated Chest x-ray, medications and labs pending Currently stable on 2 L nasal cannula Continue bronchodilators and incentive spirometer Heparin for DVT prophylaxis Increase his activity as tolerated Home once cleared by CT services We will continue to follow I have personally seen and examined the patient, performed the documentation and the assessment and plan as written. Number of minutes spent on the visit: 10.
--- NOTE | 2023-01-24 15:56 | P.PN ---
Subjective PROGRESS NOTE The patient is a 57-year-old male who underwent cardiac catheterization and was found to have severe coronary artery disease with severe left main, ostial left circumflex and mid LAD and diagonal branch disease. He underwent coronary artery bypass grafting today. He is intubated and sedated. Hemodynamically stable. He is in sinus mechanism. There is no evidence of malignant arrhythmia and he is on no vasopressors. January 20: The patient underwent CABG yesterday, he remains intubated, following commands. Hemodynamically stable. His urine output has been stable. He could not be weaned and extubated yesterday. Apparently had bradycardia with attempted weaning yesterday. He received sequential GOMEZ to the diastolic in the LAD, left radial to the OM and SVG to the PDA with left atrial appendage clipped. His echocardiogram preoperatively showed an ejection fraction of 50% January 21: The patient is extubated, in sinus mechanism, hemodynamically stable. He feels anxious at times. He denies any dizziness or palpitations. He feels tired. He has no nausea or vomiting. He is on no vasopressors. His urine output stable. He is scheduled to have removal of [place]-Rekha catheter and Cordis. January 22: The patient is sitting up in the chair, feels tired and has generalized discomfort. He is in sinus mechanism. He walked today. He is in sinus mechanism with no evidence of malignant arrhythmia. His urine output is stable. He has no significant dyspnea or dizziness. He has no nausea. He is using his incentive spirometry. January 23: The patient had an episode of severe anxiety last night but is better now. He is feeling better. He feels stronger and his breathing is stable. He continues to be in sinus mechanism. He has no dizziness, palpitations or syncope. He denies any nausea or vomiting. He is using incentive spirometry. He feels more positive. 01/24 Patient seen and examined. He admits to some chest discomfort earlier in the morning however believes related to chest tube and back spasm. He denies any shortness breath. States he is feeling much better today. Was able have a b owel movement. Has a little bit more appetite. Medications: PHYSICAL EXAMINATION: Vitals reviewed LUNGS: Clear to auscultation HEART: Regular rate and rhythm, S1, S2. No S3. No systolic murmur ABDOMEN: Soft, no organomegaly EXTREMETIES: No edema IMPRESSION: 1. Status post CABG, extubated 2. Hyperlipidemia 3. Remote history of myocardial infarction 4. Remote history of smoking 5. History of anxiety PLAN: Continue with current regimen. Continue to monitor symptomatically. It appears to be slowly progressing. Further recommendations to follow. Objective - Vital Signs Vital signs: Vital Signs Temp 97.8 F 01/24/23 12:00 Pulse 72 01/24/23 12:27 Resp 20 01/24/23 12:00 BP 101/66 01/24/23 12:00 Pulse Ox 92 L 01/24/23 12:00 FiO2 50 01/20/23 12:00 Intake & Output 01/23/23 01/24/23 01/24/23 18:59 06:59 18:59 Intake Total 930 500 Output Total 920 375 450 Balance 10 -375 50 Weight 100.8 kg Intake: IV 50 20 Invasive Line 2 10 Invasive Line 7 40 20 Oral 880 480 Output: Urine 920 375 450 Other: Voiding Method Indwelling Catheter Indwelling Catheter Indwelling Catheter # Bowel Movements 1 ABP, PAP, CO, CI - Last Documented Arterial Blood Pressure 122/59 Pulmonary Artery Pressure 30/15 Cardiac Output 6.6 Cardiac Index 3 - Labs CBC & Chem 7: 01/24/23 05:27 01/24/23 05:27 Labs: Abnormal Lab Results - Last 24 Hours (Table) 01/23/23 01/24/23 01/24/23 Range/Units 16:21 05:27 05:27 RBC 2.55 L (4.30-5.90) m/uL Hgb 8.2 L (13.0-17.5) gm/dL Hct 23.8 L (39.0-53.0) % BUN 27 H (9-20) mg/dL Glucose 112 H (74-99) mg/dL POC Glucose (mg/dL) 130 H (70-110) mg/dL 01/24/23 Range/Units 12:03 RBC (4.30-5.90) m/uL Hgb (13.0-17.5) gm/dL Hct (39.0-53.0) % BUN (9-20) mg/dL Glucose (74-99) mg/dL POC Glucose (mg/dL) 145 H (70-110) mg/dL
[2023-01-24 16:04] VITALS: BMI 27.8
[2023-01-24 16:06] LABS: Glucose,Whole Blood 174 mg/dL (70-110)
[2023-01-24 20:08] LABS: Glucose,Whole Blood 124 mg/dL (70-110)
[2023-01-24] MEDS: SENNOSIDES-DOCUSATE SODIUM 1 EACH TAB PO SCH (20:53)
[2023-01-24] MEDS: traZODone HCL 50 MG TAB PO PRN (20:53)
[2023-01-24] MEDS: MELATONIN 5 MG TABLET PO SCH (20:53)
[2023-01-24] MEDS: TAMSULOSIN 0.4 MG CAP.ER.24H PO SCH (20:53)
--- NOTE | 2023-01-25 04:50 | P.PN ---
Subjective Progress Note Date: 01/24/23 This is a 57-year-old male admitted to the hospital for further evaluation for coronary artery disease. Patient has undergone extensive workup being followed by cardiothoracic services. Echocardiogram showing low normal LV systolic function with EF of 50%, mild TR. On patient underwent cardiac catheterization at [facility] which revealed multivessel disease with 80% distal left main stenosis, ostial circumflex disease and bifurcating mid LAD/diagonal disease. Patient was transferred to [facility] for cardiothoracic evaluation. Patient is scheduled to undergo coronary artery bypass grafting tomorrow with Dr. Whitlock. Today he has no acute complaints. Discussed he will go to the ICU after surgery tomorrow. Patient would like to have a BM today. He complains of heart burn sensation today and is continued on oral protonix. 01/19/2023 Patient scheduled to undergo coronary artery bypass grafting today for multivessel CAD with left main disease. Patient will be monitored in the intensive care unit post procedure. Patient remains on optimized medical therapy. Sliding scale insulin coverage and blood glucose has been controlled in the 100s and not requiring any insulin. Preoperative vital signs; temperature of 98.1, heart rate 68, blood pressure 135/70, 95% on room air. 01/20/2023 Patient is seen in follow-up today remains in the ICU with multiple medical consultations following. Per nursing staff there was difficulty with patient being ready for extubation requiring Precedex his propofol was being weaned off. Patient remains on pressor support and has been weaned off of sedation and is status post extubation approximately 20 minutes prior to exam. Patient is on 4- 5 L via nasal cannula and appears in no acute distress. Patient is reporting significantly dry mouth requesting swabs as patient remains nothing by mouth per protocol. Chest x-ray showing pleural effusion. Patient remains on insulin drip per surgical protocol and we will transition to sliding scale once resumed on oral diet. Patient is afebrile report some generalized discomfort with extensive weakness and chest wall pain. Patient does have heart hugger noted. Multiple chest tubes and drains remain in place at this time. 01/21/2023 Patient is currently sitting in chair. Awake alert and oriented x3. Complains of lower back pain, spasms. And also chest soreness patient states that he is feeling very anxious. Otherwise no nausea vomiting or diarrhea. Currently patient is on oxygen at 6 L via nasal cannula. Was able to use incentive spirometry but not consistently. Chest tubes and mediastinal tube in place. Chest x-ray showed post CABG changes with small bilateral pleural effusions and associated atelectasis. Patient was given a dose of IV Lasix this morning. Laboratory data showed WBC 13.2 hemoglobin 9.7 and platelets 92. Sodium 136 potassium 4.3 chloride 106 bicarb 23, BUN 15 and creatinine 0.77. Patient remains on insulin drip at 2 units/h. 01/22/2023 Patient is lying in the bed. Awake alert and oriented. Requiring oxygen at 4 L via nasal cannula. Patient states that he still having back spasms and states that his pain is not controlled and feels very depressed. Chest x-ray showed development of small right apical pneumothorax. Post CABG changes with small bilateral pleural effusions atelectasis. Laboratory data showed WBC 11.1 hemoglobin 8.8 and platelets 114 Sodium 137 potassium 4.3 chloride 105 bicarb is 25 BUN 17 and creatinine 0.82 and A1c 6.0. Patient will be continued on insulin sliding scale. Blood sugar is controlled. 01/23/2023 Patient is seen and evaluated in follow-up currently sitting up in the chair. Chest tubes have been removed and patient continues with indwelling Thomas catheter. Patient has been up and walking the halls. Patient reports having difficulty with having a bowel movement and will adjust medications and add bowel regimen. Blood sugars are well-controlled on current regimen and will be continued on sliding scale. Patient is afebrile with no reports of chest pain or palpitations. Patient having some shortness of breath on exertion and currently maintained over 90% on room air. Patient was given a dose of Lasix today as chest x-ray showing pleural effusions. Previously noted pneumothorax is absent at this time. Patient was evaluated by psychiatry and started on anti depressants. Patient with not much of an appetite and reports some of his food of choice and asking his son can bring food. Okay for [employer] type foods. 01/24/2023 Patient is seen and evaluated in follow-up today continues in the ICU although awaiting a bed on the stepdown unit as patient is a grade from ICU. Patient is continued on 2 L via nasal cannula report some shortness of breath with exertion. Patient was given a small dose of IV Lasix at 20 mg IV push. Follow- up chest x-ray and labs ordered for a.m. Patient is afebrile denies chest pain having some chest wall pain with cough and is using heart hugger. Patient has been up and walking the halls multiple times today. Encouraged to increase activity as tolerated and continued incentive spirometer use. No reported nausea or vomiting noted and patient tolerating diet. Review of Systems Constitutional: Denied any fatigue denied any fever. Cardio vascular: denied any chest pain, palpitations Gastrointestinal: denied any nausea, vomiting, reports passing gas with no bowel movement as of yet Pulmonary: reports shortness of breath with exertion, no cough Neurologic denied any new focal deficits, reports generalized weakness All inpatient medications were reviewed and appropriate changes in these medications as dictated in the interval history and assessment and plan. Assessment: Exertional dyspnea with outpatient CT showing coronary calcifications and mild nodules Positive stress test and cardiac catheterization revealing multivessel CAD with left main disease. Patient is status post CABG 4 History of myocardial infarction 15 yrs ago and prior cardiac catheterization Depression with suicidal ideation Hyperglycemia with A1C of 6.3 consistent with prediabetes History hyperlipidemia Hx cardiomyopathy with EF 40% with improved EF of 50% this hospital stay Gastroesophageal reflux disease Hx hiatal hernia Hx of tobacco use in the past Hx of alcohol use in the past GI prophylaxis on protonix Full Code Plan: Patient continues in the ICU with multiple medical consultations following status post CABG 4. Patient has been walking the halls and continues with shortness of breath with exertion. Patient is occasionally using 2 L of oxygen and weaning FiO2 as tolerated. Patient with incentive spirometer and encouraged to continue using a 10 times every hour while awake. Patient did receive a dose of IV Lasix today Patient tolerating diet and will continue on consistent carb heart healthy diet and okay family brings in food. Continued on sliding scale and Accu-Cheks Patient having concerns of constipation and no bowel movement as of yet and passing gas is on Senokot will make sure this is scheduled as well as as needed bowel regimen. Encouraged increase activity as tolerated. Patient having increased depression with thoughts of suicide and was evaluated by psychiatry started on antidepressants Patient will be continued in the ICU for now and has been downgraded and awaiting a bed on 3 S. Follow-up labs and chest x-ray ordered We will continue to follow with cardiothoracic surgery during hospitalization. Thank you kindly for this consultation The impression and plan of care has been dictated by Cesilia Ordonez, Nurse Practitioner as directed. Dr. Sunil MD I have performed a history and examination and MDM of this patient, discussed the same with the dictator, and agree with the dictator's assessment and plan as written ,documented as a scribe. Based on total visit time, I have performed more than 50% of the visit. Objective - Vital Signs Vital signs: Vital Signs Temp 97.8 F 01/24/23 12:00 Pulse 72 01/24/23 12:27 Resp 20 01/24/23 12:00 BP 101/66 01/24/23 12:00 Pulse Ox 92 L 01/24/23 12:00 FiO2 50 01/20/23 12:00 Intake & Output 01/23/23 01/24/23 01/24/23 18:59 06:59 18:59 Intake Total 930 500 Output Total 920 375 450 Balance 10 -375 50 Weight 100.8 kg 100.8 kg Intake: IV 50 20 Invasive Line 2 10 Invasive Line 7 40 20 Oral 880 480 Output: Urine 920 375 450 Other: Voiding Method Indwelling Catheter Indwelling Catheter Indwelling Catheter # Bowel Movements 1 ABP, PAP, CO, CI - Last Documented Arterial Blood Pressure 122/59 Pulmonary Artery Pressure 30/15 Cardiac Output 6.6 Cardiac Index 3 - Labs CBC & Chem 7: 01/24/23 05:27 01/24/23 05:27 Labs: Abnormal Lab Results - Last 24 Hours (Table) 01/24/23 01/24/23 01/24/23 Range/Units 05:27 05:27 12:03 RBC 2.55 L (4.30-5.90) m/uL Hgb 8.2 L (13.0-17.5) gm/dL Hct 23.8 L (39.0-53.0) % BUN 27 H (9-20) mg/dL Glucose 112 H (74-99) mg/dL POC Glucose (mg/dL) 145 H (70-110) mg/dL 01/24/23 Range/Units 16:04 RBC (4.30-5.90) m/uL Hgb (13.0-17.5) gm/dL Hct (39.0-53.0) % BUN (9-20) mg/dL Glucose (74-99) mg/dL POC Glucose (mg/dL) 174 H (70-110) mg/dL
[2023-01-25 06:02] LABS: HCT 24.6 % (39.0-53.0); HGB 8.5 gm/dL (13.0-17.5); MCHC 34.5 g/dL (31.0-37.0); MCV 92.8 fL (80.0-100.0); Mean Platelet Volume 7.7; Platelet Count 259 k/uL (150-450); RBC 2.65 m/uL (4.30-5.90); RDW 13.4 % (11.5-15.5); WBC 10.2 k/uL (3.8-10.6)
[2023-01-25 06:26] LABS: African American GFR (CKD) >90 (>60 ml/min/1.73 sqM); Anion Gap 4 mmol/L; Blood Urea Nitrogen 25 mg/dL (9-20); Calcium 8.8 mg/dL (8.4-10.2); Carbon Dioxide 30 mmol/L (22-30); Chloride 103 mmol/L (98-107); Glucose 113 mg/dL (74-99); Non-African American GFR(CKD) >90 (>60 ml/min/1.73 sqM); Sodium 137 mmol/L (137-145)
[2023-01-25] MEDS: KETOROLAC 15 MG/ML 1 ML VIAL IVP SCH (06:36)
[2023-01-25] MEDS: INSULIN ASPART (NovoLOG) 100 UNIT/ML VIAL SQ SCH ×4 (06:37→20:31)
[2023-01-25] MEDS: IPRATROPIUM-ALBUTEROL 3 ML NEB INHALATION SCH ×4 (07:39→21:14)
--- NOTE | 2023-01-25 08:19 | XR ---
EXAMINATION TYPE: XR chest 2V DATE OF EXAM: 01/25/2023 COMPARISON: 01/24/2023 TECHNIQUE: PA and lateral views submitted. HISTORY: Postop CABG FINDINGS: Bilateral consolidation small effusion. Postoperative changes. Heart size normal. No pneumothorax or overt failure. There is a hiatal hernia. Underlying COPD suspected. IMPRESSION: 1. Stable bilateral consolidation and small pleural effusion. No overt failure.
[2023-01-25] MEDS ORDERED: FUROSEMIDE 10 MG/ML 2 ML VIAL IV STA (08:25)
--- NOTE | 2023-01-25 08:44 | P.PN ---
Subjective Progress Note Date: 01/25/23 Principal diagnosis: Coronary artery disease with left main disease. Previous medical history of hyperlipidemia, cardiomyopathy with ejection fraction 40%, myocardial infarction 15 years ago, previous tobacco dependence, insomnia, anxiety/depression, hiatal hernia, GERD, family history of premature coronary artery disease with mother having a WI before the age of 60 POD #6 quadruple multiple arterial coronary artery bypass grafting using the left internal mammary artery sequentially to the diagonal coronary artery, then to the left anterior descending coronary artery, left radial artery from the aorta to the obtuse marginal coronary artery, reverse greater saphenous vein graft from the aorta to the posterior descending coronary artery. Exclusion of the left atrial appendage using a 35 mm Atriclip, intraoperative graft flow measurement using the SpanDeX system, endoscopic harvesting of the left radial artery, endoscopic harvesting of the left greater saphenous vein, intraoperative transesophageal echocardiogram and epi-aortic scanning. Postoperative acute blood loss anemia, expected given hemodilution and cardiopulmonary bypass pump Hypotension secondary to vasoplegia, requiring pressor use, currently normotensive The patient was seen and examined sitting up in bed in the intensive care unit this morning in no acute distress. Denies chest pain or shortness of breath at this time. Remains in sinus rhythm, hemodynamically stable. Remains on 2 L deysi al cannula with oxygen saturation in the low to mid 90s. Able to achieve 1500 mL on his incentive spirometry. Patient states he has been ambulatory without difficulty, he has had continued trouble sleeping but has no other complaints. Would really like to go home today. Transfer orders were placed for cardiac stepdown unit, no beds have been available up to this point. No other new concerns. Objective - Vital Signs Vital signs: Vital Signs Temp 97.9 F 01/25/23 00:00 Pulse 78 01/25/23 08:00 Resp 20 01/25/23 04:00 BP 119/80 01/25/23 04:00 Pulse Ox 92 L 01/25/23 07:44 FiO2 50 01/20/23 12:00 Intake & Output 01/24/23 01/25/23 01/25/23 18:59 06:59 18:59 Intake Total 740 170 Output Total 1250 400 Balance -510 -230 Weight 100.8 kg 100.7 kg Intake: IV 20 20 Invasive Line 7 20 20 Oral 720 150 Output: Urine 1250 400 Other: Voiding Method Indwelling Catheter Toilet Urinal # Voids 1 # Bowel Movements 1 1 ABP, PAP, CO, CI - Last Documented Arterial Blood Pressure 122/59 Pulmonary Artery Pressure 30/15 Cardiac Output 6.6 Cardiac Index 3 - Exam CONSTITUTIONAL: Appears comfortable, cooperative, no acute distress RESPIRATORY: Lungs sounds diminished bilaterally. Respirations even, nonlabored. Currently on 2 L nasal cannula with oxygen saturation 93%. Able to achieve 1500 mL on incentive spirometry. Strong cough. CARDIOVASCULAR: S1, S2 present. Regular rate and rhythm, sinus rhythm on telemetry. Sternum stable. Palpable peripheral pulses bilaterally. No edema present. No calf pain or tenderness noted. Heart hugger in place with patient demonstrating appropriate use. Antiembolism stockings, SCDs present. GASTROINTESTINAL: Abdomen soft, nontender, nondistended. Active bowel sounds present 4 quadrants. Tolerating diet. Positive bowel movement 01/25/23 GENITOURINARY: Continues to void, 1650 mL in the last 24 hours INTEGUMENTARY: Skin is warm and dry with evidence of good perfusion. Anterior chest incision well approximated. Left lower extremity EVH site as well as left radial artery harvest site well approximated without redness or drainage. NEUROLOGIC: Cranial nerves II through XII intact MUSKULOSKELETAL: Able to move all extremities, strength equal bilaterally, gait normal PSYCHIATRIC: Alert and oriented to person place and time, appropriate affect, intact judgment and insight - Allied health notes Allied health notes reviewed: nursing - Labs CBC & Chem 7: 01/25/23 05:45 01/25/23 05:45 Labs: Abnormal Lab Results - Last 24 Hours (Table) 01/24/23 01/24/23 01/24/23 Range/Units 12:03 16:04 20:06 RBC (4.30-5.90) m/uL Hgb (13.0-17.5) gm/dL Hct (39.0-53.0) % BUN (9-20) mg/dL Glucose (74-99) mg/dL POC Glucose (mg/dL) 145 H 174 H 124 H (70-110) mg/dL 01/25/23 01/25/23 Range/Units 05:45 05:45 RBC 2.65 L (4.30-5.90) m/uL Hgb 8.5 L (13.0-17.5) gm/dL Hct 24.6 L (39.0-53.0) % BUN 25 H (9-20) mg/dL Glucose 113 H (74-99) mg/dL POC Glucose (mg/dL) (70-110) mg/dL - Imaging and Cardiology Chest x-ray: report reviewed, image reviewed Assessment and Plan Assessment: Coronary artery disease with left main disease and previous history of myocardial infarction, status post four-vessel CABG History of hyperlipidemia, treated, cholesterol 142, LDL 51, triglycerides 251 Cardiomyopathy with ejection fraction 40% Previous tobacco dependence, preoperative FEV1 94% of predicted Insomnia Anxiety/depression Hiatal hernia, GERD Family history of premature coronary artery disease with mother having WI before the age of 60 Postoperative acute blood loss anemia, expected given hemodilution and cardiopulmonary bypass pump Hypotension secondary to vasoplegia, requiring pressor use, currently normotensive Plan: Continue to maximize medical therapy with aspirin, Plavix, statin, beta mustapha. Will increase beta mustapha therapy as tolerated Continue amlodipine 2.5 mg by mouth daily for radial artery spasm prophylaxis. Wean oxygen as tolerated. Encourage incentive spirometry use 10 times every hour while awake. Bronchodilators per pulmonology. Increase activity, ambulate as tolerated. PT/OT/cardiac rehab following. Will monitor daily labs and x-rays. Electrolyte replacement per protocol. Will give IV Lasix again today GI/DVT prophylaxis. Pain control with current medication regimen. Insulin management per internal medicine. Patient is not diabetic, preoperative hemoglobin A1c 6.3%. Needs tight blood sugar control to promote healing and prevent infection Continue to record strict and accurate I's and O's, continue Flomax 0.4 mg by mouth daily at bedtime. Daily weights. Transfer orders have been placed to the third floor cardiac stepdown unit, transfer when bed available. Discharge planning is in place. Anticipate discharge to home with home care later this afternoon versus tomorrow morning, will try to get patient on oxygen prior to discharge More recommendations to follow based on patient's clinical course.
--- NOTE | 2023-01-25 08:51 | P.PN ---
Subjective PROGRESS NOTE The patient is a 57-year-old male who underwent cardiac catheterization and was found to have severe coronary artery disease with severe left main, ostial left circumflex and mid LAD and diagonal branch disease. He underwent coronary artery bypass grafting today. He is intubated and sedated. Hemodynamically stable. He is in sinus mechanism. There is no evidence of malignant arrhythmia and he is on no vasopressors. January 20: The patient underwent CABG yesterday, he remains intubated, following commands. Hemodynamically stable. His urine output has been stable. He could not be weaned and extubated yesterday. Apparently had bradycardia with attempted weaning yesterday. He received sequential GOMEZ to the diastolic in the LAD, left radial to the OM and SVG to the PDA with left atrial appendage clipped. His echocardiogram preoperatively showed an ejection fraction of 50% January 21: The patient is extubated, in sinus mechanism, hemodynamically stable. He feels anxious at times. He denies any dizziness or palpitations. He feels tired. He has no nausea or vomiting. He is on no vasopressors. His urine output stable. He is scheduled to have removal of Parthenon-Rekha catheter and Cordis. January 22: The patient is sitting up in the chair, feels tired and has generalized discomfort. He is in sinus mechanism. He walked today. He is in sinus mechanism with no evidence of malignant arrhythmia. His urine output is stable. He has no significant dyspnea or dizziness. He has no nausea. He is using his incentive spirometry. January 23: The patient had an episode of severe anxiety last night but is better now. He is feeling better. He feels stronger and his breathing is stable. He continues to be in sinus mechanism. He has no dizziness, palpitations or syncope. He denies any nausea or vomiting. He is using incentive spirometry. He feels more positive. 01/24 Patient seen and examined. He admits to some chest discomfort earlier in the morning however believes related to chest tube and back spasm. He denies any shortness breath. States he is feeling much better today. Was able have a b owel movement. Has a little bit more appetite. 01/25 Patient seen and examined. Denies any further chest pain or back spasms. Denies any shortness breath however still remains on oxygen. Able ambulate to the bathroom. He was up last night with some anxiety however overall feeling fairly well about going home today. Medications: PHYSICAL EXAMINATION: Vitals reviewed LUNGS: Clear to auscultation HEART: Regular rate and rhythm, S1, S2. No S3. No systolic murmur ABDOMEN: Soft, no organomegaly EXTREMETIES: No edema IMPRESSION: 1. Status post CABG, extubated 2. Hyperlipidemia 3. Remote history of myocardial infarction 4. Remote history of smoking 5. History of anxiety 6. Acute on chronic respiratory failulre PLAN: Patient appears to be continuing to progress. No further chest pain. Appears stable from a cardiovascular standpoint for discharge home. Follow-up in office in 1 week. Objective - Vital Signs Vital signs: Vital Signs Temp 97.9 F 01/25/23 00:00 Pulse 78 01/25/23 08:00 Resp 20 01/25/23 04:00 BP 119/80 01/25/23 04:00 Pulse Ox 92 L 01/25/23 07:44 FiO2 50 01/20/23 12:00 Intake & Output 01/24/23 01/25/23 01/25/23 18:59 06:59 18:59 Intake Total 740 170 Output Total 1250 400 Balance -510 -230 Weight 100.8 kg 100.7 kg Intake: IV 20 20 Invasive Line 7 20 20 Oral 720 150 Output: Urine 1250 400 Other: Voiding Method Indwelling Catheter Toilet Urinal # Voids 1 # Bowel Movements 1 1 ABP, PAP, CO, CI - Last Documented Arterial Blood Pressure 122/59 Pulmonary Artery Pressure 30/15 Cardiac Output 6.6 Cardiac Index 3 - Labs CBC & Chem 7: 01/25/23 05:45 01/25/23 05:45 Labs: Abnormal Lab Results - Last 24 Hours (Table) 01/24/23 01/24/23 01/24/23 Range/Units 12:03 16:04 20:06 RBC (4.30-5.90) m/uL Hgb (13.0-17.5) gm/dL Hct (39.0-53.0) % BUN (9-20) mg/dL Glucose (74-99) mg/dL POC Glucose (mg/dL) 145 H 174 H 124 H (70-110) mg/dL 01/25/23 01/25/23 Range/Units 05:45 05:45 RBC 2.65 L (4.30-5.90) m/uL Hgb 8.5 L (13.0-17.5) gm/dL Hct 24.6 L (39.0-53.0) % BUN 25 H (9-20) mg/dL Glucose 113 H (74-99) mg/dL POC Glucose (mg/dL) (70-110) mg/dL
[2023-01-25] MEDS: METOPROLOL TARTRATE 25 MG TAB PO SCH ×2 (08:52→20:08)
[2023-01-25] MEDS: ASPIRIN 325 MG TAB PO SCH (08:52)
[2023-01-25] MEDS: HEPARIN SODIUM,PORCINE 5,000 UNIT/ML 1 ML VIAL SQ SCH ×2 (08:52→18:07)
[2023-01-25] MEDS: EZETIMIBE 10 MG TAB PO SCH (08:53)
[2023-01-25] MEDS: amLODIPine 2.5 MG TAB PO SCH (08:53)
[2023-01-25] MEDS: ATORVASTATIN 40 MG TAB PO SCH (08:53)
[2023-01-25] MEDS: PRAMIPEXOLE 0.5 MG TAB PO SCH ×2 (08:53→18:08)
[2023-01-25] MEDS: CLOPIDOGREL 75 MG TAB PO SCH (08:53)
[2023-01-25] MEDS: SERTRALINE 50 MG TAB PO SCH (08:53)
[2023-01-25] MEDS: PANTOPRAZOLE 40 MG TABLET PO SCH ×2 (08:53→20:08)
[2023-01-25] MEDS: LIDOCAINE 5% PATCH TOPICAL SCH (08:54)
[2023-01-25] MEDS: MULTIVITAMINS, THERA 1 EACH TAB PO SCH (08:55)
--- NOTE | 2023-01-25 10:41 | P.PN ---
Subjective Progress Note Date: 01/25/23 This is a 57-year-old male patient with a known history of hyperlipidemia, gastroesophageal reflux disease, hiatal hernia, ischemic cardiomyopathy with ejection fraction of 40% and a prior myocardial infarction, former smoker. He had been having ongoing issues with dyspnea on minimal exertion. He had un dergone elective cardiac catheterization at [facility] and was found to have significant triple-vessel disease and was transferred here for cardiothoracic evaluation. Epogen FEV1 value from 12/29/2022 revealed a baseline of 3.56 which is 87% of predicted. He had undergone coronary artery bypass grafting 4 today 01/19/2023. He is seen in the immediate postop per day. In the intensive care unit. Currently intubated on mechanical ventilator with blood settings of assist control mode of 14, tidal M6 100, FiO2 100% and a PEEP of 5. Sternal dressing is dry and intact mediastinal split chest tubes in place, right and left pleural chest tubes in place, right IJ Lagrange-Rekha catheter in place. Initial cardiac output 5.1. Cardiac index 2.3. PA pressures 31/16, CVP of 10. He is currently on propofol 50 mcg/kg/m. Nitroglycerin drip at 10 mcg/m. Insulin drip currently off. Labs, chest x-ray and ABGs are pending. Patient was reevaluated today on 01/20/2023, patient is now postoperative day #1, remains intubated and mechanically ventilated, he is presently on assist control rate of 16 tidal volume 600 FiO2 50% and PEEP of 5. Patient is still requiring propofol at 10 mcg/kg/m, he is on norepinephrine at 0.03 mcg/kg/m, he is on insulin at 0.5 units per hour and on IV fluid at 50 mL per hour in the form of 0.9 normal saline. Patient has borderline blood pressure, hence he was given albumin 2, urine output is about 60 mL per hour. Cardiac output is 3.0, cardiac index is 6.7. CVP is 10. Pulmonary artery pressure 28/13. ABG on the same noted above are pO2 of 93 pCO2 39 pH of 7.42. Chest x-ray showed adequate placement of the lines and the PA catheter, adequate placement of the endotracheal tube and nasogastric tube, there is a fairly good sized left-sided pleural effusion noted. With minimal atelectasis at the left base, expected, patient will be weaned off from propofol, and I plan to give the patient a trial of weaning if tolerated may even consider extubation. WBC count today is 10.9 hemoglobin is 10.3. Basic metabolic profile is normal, renal profile is normal. Reevaluated today on 01/21/2023, patient is sitting in bed, awake alert oriented 3, denies any specific complaints, he feels much better today compared to yesterday. He does have chronic back spasms, and these are chronic in nature patient was placed on Xanax by thoracic surgery, he is a bit tachycardic, O2 sats is 92% on 6 L nasal cannula, achieving about 76 50 mL with his incentive spirometry and with encouragement. His cardiac output is 6.8 cardiac index is 3.0 PA pressure 41/19 CVP is 25 patient did receive Lasix earlier today from cardiothoracic surgery. Chest tubes and mediastinal chest tube are in place. No air leak. WBC count is 13.4 hemoglobin 9. electrolytes are normal renal profile is normal. Chest x-ray showed evidence of postoperative changes small bilateral pleural effusions and atelectasis with mild congestive changes noted Patient was reevaluated today on 01/22/2023, remains in the ICU, on 4 L nasal cannula, patient is having difficulty with his back spasms and muscle spasms for which I recommended a trial of Mirapex. Continues to do well with incentive spirometry about 1250 patient does not seem to have any significant shortness of breath, chest x-ray showed bilateral atelectasis, small bilateral pleural effusions and a small right-sided pneumothorax. Left-sided chest tube would likely be removed today. Patient is hemodynamically stable, not requiring any inotropes or pressors. Did require straight catheterization and subsequent plac ement of Thomas catheter for urinary retention and unable to urinate on his own, Patient was seen and reevaluated today on 01/23/2023, patient is on 2 L nasal cannula with O2 saturation 93% feeling better today, does not seem to be in any distress, he is hemodynamically stable, not requiring any pressors or any inotropes. Achieving over 1500 MLS via his incentive spirometer. His back spasms are better today compared to yesterday. CBC is normal except for hemoglobin of 8.6 electrolytes are normal and renal profile is normal. Patient remains on Mirapex at 0.5 mg by mouth 3 times a day. The patient is seen today 01/24/2023 in follow-up in the intensive care unit. Postoperative day #5. He is maintaining good O2 saturations in the 90s on 2 L/m per nasal cannula. No IV fluids. Pacer wires removed this morning. White count 8.9. Hemoglobin 8.2. Platelets 187. Sodium 137. Potassium 4.1. Bicarb 28. BUN 27. Creatinine 0.96. Glucose 112. He continues working well with the incentive spirometer. Remains on bronchodilators. Chest x-ray does show postoperative changes of bilateral consolidation and small effusion. The patient is seen today 01/25/2023 in the intensive care unit. He is sitting up in bed. Awake and alert in no acute distress. He is maintaining good O2 saturations in the 90s on 2 L/m per nasal cannula. Chest x-ray reveals small stable bilateral consolidation with small effusion. No overt heart failure. No IV fluids. Postoperative day #6. Remains on bronchodilators. Working well with the incentive spirometer. Heparin for DVT prophylaxis. Possibly home later today. Objective - Vital Signs Vital signs: Vital Signs Temp 98.1 F 01/25/23 08:00 Pulse 84 01/25/23 08:00 Resp 18 01/25/23 08:00 BP 120/64 01/25/23 08:00 Pulse Ox 93 L 01/25/23 08:00 FiO2 50 01/20/23 12:00 Intake & Output 01/24/23 01/25/23 01/25/23 18:59 06:59 18:59 Intake Total 740 170 Output Total 1250 400 Balance -510 -230 Weight 100.8 kg 100.7 kg Intake: IV 20 20 Invasive Line 7 20 20 Oral 720 150 Output: Urine 1250 400 Other: Voiding Method Indwelling Catheter Toilet Urinal Urinal # Voids 1 # Bowel Movements 1 1 ABP, PAP, CO, CI - Last Documented Arterial Blood Pressure 122/59 Pulmonary Artery Pressure 30/15 Cardiac Output 6.6 Cardiac Index 3 - Exam GENERAL EXAM: Alert, pleasant 49-year-old male, on 2 L nasal cannula, comfortable in no apparent distress. HEAD: Normocephalic. EYES: Normal reaction of pupils, equal size. NOSE: Clear with pink turbinates. THROAT: No erythema or exudates. NECK: No masses, no JVD. CHEST: Sternal dressing dry and intact. Heart Hugger in place. LUNGS: Equal air entry with Dayo in the posterior bases. CVS: S1 and S2 normal with no audible murmur, regular rhythm. ABDOMEN: No hepatosplenomegaly, normal bowel sounds, no guarding or rigidity. SPINE: No scoliosis or deformity SKIN: No rashes CENTRAL NERVOUS SYSTEM: No focal deficits, tone is normal in all 4 extremities. EXTREMITIES: There is no peripheral edema. No clubbing, no cyanosis. Peripheral pulses are intact. - Labs CBC & Chem 7: 01/25/23 05:45 01/25/23 05:45 Labs: Abnormal Lab Results - Last 24 Hours (Table) 01/24/23 01/24/23 01/24/23 Range/Units 12:03 16:04 20:06 RBC (4.30-5.90) m/uL Hgb (13.0-17.5) gm/dL Hct (39.0-53.0) % BUN (9-20) mg/dL Glucose (74-99) mg/dL POC Glucose (mg/dL) 145 H 174 H 124 H (70-110) mg/dL 01/25/23 01/25/23 Range/Units 05:45 05:45 RBC 2.65 L (4.30-5.90) m/uL Hgb 8.5 L (13.0-17.5) gm/dL Hct 24.6 L (39.0-53.0) % BUN 25 H (9-20) mg/dL Glucose 113 H (74-99) mg/dL POC Glucose (mg/dL) (70-110) mg/dL Assessment and Plan Assessment: Significant coronary artery disease, status post coronary artery bypass grafting 4. Postoperative day #6 History of ischemic cardiomyopathy with ejection fraction 40-50%, previous myocardial infarction many years ago Hyperlipidemia Hypertension Gastroesophageal reflux disease Hiatal hernia Former smoker, FEV1 value 2.36 L, 87% of predicted Plan: The patient was seen and evaluated Chest x-ray, medications and labs pending Currently stable on 2 L nasal cannula To be checked for possible home oxygen Continue bronchodilators and incentive spirometer Heparin for DVT prophylaxis Home once cleared by CT services I have personally seen and examined the patient, performed the documentation and the assessment and plan as written. Number of minutes spent on the visit: 10.
[2023-01-25 11:53] LABS: Glucose,Whole Blood 143 mg/dL (70-110)
[2023-01-25] MEDS: FERROUS SULFATE 325 MG TAB PO SCH (12:38)
[2023-01-25] MEDS: ASCORBIC ACID 500 MG TAB PO SCH (12:38)
--- NOTE | 2023-01-25 12:39 | PN ---
PROGRESS NOTE DATE OF SERVICE: 01/25/2023 SUBJECTIVE: This is a 57-year-old gentleman, admitted after CAD and CABG, has improved significantly. Cardiothoracic Surgery is planning discharge. No chest pain. No palpitation. OBJECTIVE: VITAL SIGNS: Pulse is 84, blood pressure 130/65, respirations 18, pulse ox 93% on 2 L. CHEST: Few scattered rhonchi. CARDIOVASCULAR: S1, S2. ABDOMEN: Soft. NERVOUS SYSTEM: No focal deficit. LABORATORY DATA: Reviewed. ASSESSMENT: 1. Coronary artery disease, status post coronary artery bypass grafting. 2. Depression. 3. Hyperglycemia. 4. History of cardiomyopathy. 5. Gastroesophageal reflux disease. 6. Multiple medical issues. RECOMMENDATIONS AND DISCUSSION: This 57-year-old gentleman presented after surgery. The patient has improved significantly. Recommend to continue the current medications. Continue with beta blockers and incentive spirometry. Closely follow with primary physician and multiple consultants. Further recommendations to follow. MMODL / IJN: [id number] /
--- NOTE | 2023-01-25 16:12 | P.GSCN ---
History of Present Illness Consult date: 01/25/23 Reason for Consult: Urinary retention Requesting physician: Jacky Curry History of present illness: The patient is a 57-year-old white male with cardiomyopathy. He underwent quadruple CABG in 01/19/2023. He developed postoperative urinary retention. I am consulted for this reason. The Thomas catheter is now out, and the patient states that he is voiding without difficulty. He has an unremarkable urologic history. Review of Systems - Genitourinary Reports as per HPI Past Medical History Past Medical History: GERD/Reflux, Hyperlipidemia, Myocardial Infarction ([place]) Additional Past Medical History / Comment(s): Stress test negative in October that was negative, [place] in about 2003, insomnia, hiatal hernia, cardiomyopathy with an ejection fraction of 40% Last Myocardial Infarction Date:: 2003 History of Any Multi-Drug Resistant Organisms: None Reported Past Surgical History: Heart Catheterization Additional Past Surgical History / Comment(s): Nasal polyps removed "a couple years ago," heart catheterization 01/17/23 revealing severe left main blockage (cardiothoracic consult) Past Anesthesia/Blood Transfusion Reactions: No Reported Reaction Past Psychological History: No Psychological Hx Reported Smoking Status: Former smoker (Quit smoking about 13 years ago) Past Alcohol Use History: None Reported Additional Past Alcohol Use History / Comment(s): Reports he quit drinking in 1998 Past Drug Use History: None Reported - Past Family History Father Additional Family Medical History / Comment(s): Heart disease Mother Family Medical History: Myocardial Infarction ([place]) Additional Family Medical History / Comment(s): Heart disease Medications and Allergies Home Medications Medication Instructions Recorded Confirmed Type Atorvastatin [Lipitor] 80 mg PO DAILY 01/17/23 01/17/23 History Ezetimibe [Zetia] 10 mg PO DAILY 01/17/23 01/17/23 History Metoprolol Succinate (ER) [Toprol 25 mg PO DAILY 01/17/23 01/17/23 History Xl] Omeprazole [PriLOSEC] 20 mg PO AC-BRKFST 01/17/23 01/17/23 History Allergies Allergy/AdvReac Type Severity Reaction Status Date / Time Sesame Seed Allergy Rash/Hives Verified 01/17/23 12:17 Surgical - Exam Vital Signs Pulse 55 L 01/17/23 11:15 - General well developed, well nourished, no distress - Respiratory normal respiratory effort - Abdomen Abdomen: soft, non tender, no guarding, no rigid, no rebound - Genitourinary normal penis with no external lesions, testicles non-tender - Psychiatric oriented to time, oriented to person, oriented to place, speech is normal, memory intact Results - Labs 01/25/23 05:45 01/25/23 05:45 Abnormal Lab Results - Last 24 Hours (Table) 01/24/23 01/24/23 01/24/23 Range/Units 12:03 16:04 20:06 RBC (4.30-5.90) m/uL Hgb (13.0-17.5) gm/dL Hct (39.0-53.0) % BUN (9-20) mg/dL Glucose (74-99) mg/dL POC Glucose (mg/dL) 145 H 174 H 124 H (70-110) mg/dL 01/25/23 01/25/23 Range/Units 05:45 05:45 RBC 2.65 L (4.30-5.90) m/uL Hgb 8.5 L (13.0-17.5) gm/dL Hct 24.6 L (39.0-53.0) % BUN 25 H (9-20) mg/dL Glucose 113 H (74-99) mg/dL POC Glucose (mg/dL) (70-110) mg/dL Diabetes panel 01/25/23 Range/Units 05:45 Sodium 137 (137-145) mmol/L Potassium 4.0 (3.5-5.1) mmol/L Chloride 103 (98-107) mmol/L Carbon Dioxide 30 (22-30) mmol/L BUN 25 H (9-20) mg/dL Creatinine 0.85 (0.66-1.25) mg/dL Glucose 113 H (74-99) mg/dL Calcium 8.8 (8.4-10.2) mg/dL Calcium panel 01/25/23 Range/Units 05:45 Calcium 8.8 (8.4-10.2) mg/dL Pituitary panel 01/25/23 Range/Units 05:45 Sodium 137 (137-145) mmol/L Potassium 4.0 (3.5-5.1) mmol/L Chloride 103 (98-107) mmol/L Carbon Dioxide 30 (22-30) mmol/L BUN 25 H (9-20) mg/dL Creatinine 0.85 (0.66-1.25) mg/dL Glucose 113 H (74-99) mg/dL Calcium 8.8 (8.4-10.2) mg/dL Adrenal panel 01/25/23 Range/Units 05:45 Sodium 137 (137-145) mmol/L Potassium 4.0 (3.5-5.1) mmol/L Chloride 103 (98-107) mmol/L Carbon Dioxide 30 (22-30) mmol/L BUN 25 H (9-20) mg/dL Creatinine 0.85 (0.66-1.25) mg/dL Glucose 113 H (74-99) mg/dL Calcium 8.8 (8.4-10.2) mg/dL Assessment and Plan (1) Retention of urine, unspecified Current Visit: Yes Status: Acute Code(s): R33.9 - RETENTION OF URINE, UNSPECIFIED SNOMED Code(s): 700152917 Plan: The patient developed postoperative urinary retention but states that he is now voiding without difficulty. Postvoid residual will be checked to confirm adequate bladder emptying.
[2023-01-25 16:51] LABS: Glucose,Whole Blood 132 mg/dL (70-110)
[2023-01-25] MEDS: traZODone HCL 50 MG TAB PO PRN (20:08)
[2023-01-25] MEDS: TAMSULOSIN 0.4 MG CAP.ER.24H PO SCH (20:08)
[2023-01-25] MEDS: MELATONIN 5 MG TABLET PO SCH (20:08)
[2023-01-25] MEDS: SENNOSIDES-DOCUSATE SODIUM 1 EACH TAB PO SCH (20:08)
[2023-01-25 20:23] LABS: Glucose,Whole Blood 130 mg/dL (70-110)
[2023-01-26] MEDS: PRAMIPEXOLE 0.5 MG TAB PO SCH ×2 (00:07→08:43)
[2023-01-26] MEDS: HEPARIN SODIUM,PORCINE 5,000 UNIT/ML 1 ML VIAL SQ SCH ×2 (00:07→08:51)
[2023-01-26] MEDS: ACETAMINOPHEN TAB 500 MG TAB PO PRN (05:19)
[2023-01-26 06:32] LABS: Glucose,Whole Blood 128 mg/dL (70-110)
[2023-01-26] MEDS: INSULIN ASPART (NovoLOG) 100 UNIT/ML VIAL SQ SCH ×2 (06:47→12:17)
[2023-01-26] MEDS: IPRATROPIUM-ALBUTEROL 3 ML NEB INHALATION SCH ×2 (07:55→11:54)
[2023-01-26 08:27] VITALS: RESP 20
[2023-01-26 08:40] LABS: HCT 26.7 % (39.0-53.0); MCH 31.6 pg (25.0-35.0); MCHC 33.6 g/dL (31.0-37.0); MCV 94.1 fL (80.0-100.0); Platelet Count 290 k/uL (150-450); RBC 2.84 m/uL (4.30-5.90); RDW 13.8 % (11.5-15.5); WBC 13.1 k/uL (3.8-10.6)
[2023-01-26] MEDS: EZETIMIBE 10 MG TAB PO SCH (08:44)
[2023-01-26] MEDS: PANTOPRAZOLE 40 MG TABLET PO SCH (08:44)
[2023-01-26] MEDS: SERTRALINE 50 MG TAB PO SCH (08:44)
[2023-01-26] MEDS: MULTIVITAMINS, THERA 1 EACH TAB PO SCH (08:44)
[2023-01-26] MEDS: ASPIRIN 325 MG TAB PO SCH (08:44)
[2023-01-26] MEDS: METOPROLOL TARTRATE 25 MG TAB PO SCH (08:44)
[2023-01-26] MEDS: CLOPIDOGREL 75 MG TAB PO SCH (08:44)
[2023-01-26] MEDS: ATORVASTATIN 40 MG TAB PO SCH (08:44)
[2023-01-26] MEDS: amLODIPine 2.5 MG TAB PO SCH (08:44)
[2023-01-26] MEDS: LIDOCAINE 5% PATCH TOPICAL SCH (08:51)
[2023-01-26] MEDS ORDERED: AMIODARONE 200 MG TAB PO SCH (09:00)
--- NOTE | 2023-01-26 09:20 | P.PN ---
Subjective Progress Note Date: 01/26/23 Principal diagnosis: Coronary artery disease with left main disease. Previous medical history of hyperlipidemia, cardiomyopathy with ejection fraction 40%, myocardial infarction 15 years ago, previous tobacco dependence, insomnia, anxiety/depression, hiatal hernia, GERD, family history of premature coronary artery disease with mother having a [place] before the age of 60 POD #7 quadruple multiple arterial coronary artery bypass grafting using the left internal mammary artery sequentially to the diagonal coronary artery, then to the left anterior descending coronary artery, left radial artery from the aorta to the obtuse marginal coronary artery, reverse greater saphenous vein graft from the aorta to the posterior descending coronary artery. Exclusion of the left atrial appendage using a 35 mm Atriclip, intraoperative graft flow measurement using the [employer] system, endoscopic harvesting of the left radial artery, endoscopic harvesting of the left greater saphenous vein, intraoperative transesophageal echocardiogram and epi-aortic scanning. Postoperative acute blood loss anemia, expected given hemodilution and cardiopulmonary bypass pump Hypotension secondary to vasoplegia, requiring pressor use, currently normotensive The patient was seen and examined with Dr. Whitlock sitting up in bed on the cardiac stepdown unit this morning in no acute distress. Denies chest pain or shortness of breath at this time. Remains in sinus rhythm, hemodynamically stable. He had a brief 1 minute episode of afib this morning, resolved without intervention. Remains on 2 L nasal cannula with oxygen saturation in the mid 90s. He was trialed off oxygen, his saturations are 87% on room air with activity, 90% on room air at rest, he will need to go home on oxygen. Able to achieve 2939-8386 mL on his incentive spirometry. Patient states he has been ambulatory without difficulty, he has had continued trouble sleeping but has no other complaints. Would really like to go home today. No other new concerns. Objective - Vital Signs Vital signs: Vital Signs Temp 97.6 F 01/26/23 08:26 Pulse 81 01/26/23 08:26 Resp 20 01/26/23 08:26 BP 123/73 01/26/23 08:26 Pulse Ox 93 L 01/26/23 08:26 FiO2 50 01/20/23 12:00 Intake & Output 01/25/23 01/26/23 01/26/23 18:59 06:59 18:59 Intake Total 358 350 Output Total 600 400 Balance -242 -50 Weight 94.8 kg Intake: Oral 358 350 Output: Urine 600 400 Other: Voiding Method Toilet Toilet Urinal # Voids 2 ABP, PAP, CO, CI - Last Documented Arterial Blood Pressure 122/59 Pulmonary Artery Pressure 30/15 Cardiac Output 6.6 Cardiac Index 3 - Exam CONSTITUTIONAL: Appears comfortable, cooperative, no acute distress RESPIRATORY: Lungs sounds diminished bilaterally. Respirations even, nonlabored. Currently on 2 L nasal cannula with oxygen saturation 93%. Able to achieve 4160-6315 mL on incentive spirometry. Strong cough. CARDIOVASCULAR: S1, S2 present. Regular rate and rhythm, sinus rhythm on telemetry. Sternum stable. Palpable peripheral pulses bilaterally. No edema present. No calf pain or tenderness noted. Heart hugger in place with patient demonstrating appropriate use. Antiembolism stockings, SCDs present. GASTROINTESTINAL: Abdomen soft, nontender, nondistended. Active bowel sounds present 4 quadrants. Tolerating diet. Positive bowel movement 01/25/23 GENITOURINARY: Continues to void although not always in the urinal INTEGUMENTARY: Skin is warm and dry with evidence of good perfusion. Anterior chest incision well approximated. Left lower extremity EVH site as well as left radial artery harvest site well approximated without redness or drainage. NEUROLOGIC: Cranial nerves II through XII intact MUSKULOSKELETAL: Able to move all extremities, strength equal bilaterally, gait normal PSYCHIATRIC: Alert and oriented to person place and time, appropriate affect, intact judgment and insight - Allied health notes Allied health notes reviewed: nursing - Labs CBC & Chem 7: 01/26/23 08:14 01/25/23 05:45 Labs: Abnormal Lab Results - Last 24 Hours (Table) 01/25/23 01/25/23 01/25/23 Range/Units 11:45 16:43 20:22 WBC (3.8-10.6) k/uL RBC (4.30-5.90) m/uL Hgb (13.0-17.5) gm/dL Hct (39.0-53.0) % POC Glucose (mg/dL) 143 H 132 H 130 H (70-110) mg/dL 01/26/23 01/26/23 Range/Units 06:30 08:14 WBC 13.1 H (3.8-10.6) k/uL RBC 2.84 L (4.30-5.90) m/uL Hgb 9.0 L (13.0-17.5) gm/dL Hct 26.7 L (39.0-53.0) % POC Glucose (mg/dL) 128 H (70-110) mg/dL - Imaging and Cardiology Chest x-ray: image reviewed Assessment and Plan Assessment: Coronary artery disease with left main disease and previous history of myocardial infarction, status post four-vessel CABG History of hyperlipidemia, treated, cholesterol 142, LDL 51, triglycerides 251 Cardiomyopathy with ejection fraction 40% Previous tobacco dependence, preoperative FEV1 94% of predicted Insomnia Anxiety/depression Hiatal hernia, GERD Family history of premature coronary artery disease with mother having FL before the age of 60 Postoperative acute blood loss anemia, expected given hemodilution and cardiopulmonary bypass pump Hypotension secondary to vasoplegia, requiring pressor use, currently normotensive Brief episode of atrial fibrillation Plan: Continue to maximize medical therapy with aspirin, Plavix, statin, beta mustapha Will add amiodarone for 2 weeks. No anticoagulation necessary Continue amlodipine 2.5 mg by mouth daily for radial artery spasm prophylaxis. Wean oxygen as tolerated. Encourage incentive spirometry use 10 times every hour while awake. Bronchodilators per pulmonology. Increase activity, ambulate as tolerated. PT/OT/cardiac rehab following. GI/DVT prophylaxis. Pain control with current medication regimen. Insulin management per internal medicine. Patient is not diabetic, preoperative hemoglobin A1c 6.3%. Needs tight blood sugar control to promote healing and prevent infection Continue to record strict and accurate I's and O's, continue Flomax 0.4 mg by mouth daily at bedtime. Daily weights. Patient will need oxygen at discharge Discharge planning is in place. Anticipate discharge to home with home care to day More recommendations to follow
[2023-01-26 09:22] LABS: African American GFR (CKD) >90 (>60 ml/min/1.73 sqM); Anion Gap 6 mmol/L; Blood Urea Nitrogen 21 mg/dL (9-20); Calcium 8.8 mg/dL (8.4-10.2); Carbon Dioxide 29 mmol/L (22-30); Chloride 103 mmol/L (98-107); Glucose 104 mg/dL (74-99); Magnesium 2.5 mg/dL (1.6-2.3); Non-African American GFR(CKD) >90 (>60 ml/min/1.73 sqM); Potassium 4.3 mmol/L (3.5-5.1); Sodium 138 mmol/L (137-145)
--- NOTE | 2023-01-26 09:29 | XR ---
EXAMINATION TYPE: XR chest 2V DATE OF EXAM: 01/26/2023 COMPARISON: 01/25/2023 TECHNIQUE: PA and lateral views submitted. HISTORY: Post CABG FINDINGS: Bilateral consolidation small effusion. Postoperative changes. Heart size normal. No pneumothorax or overt failure. There is a hiatal hernia. Underlying COPD suspected. IMPRESSION: 1. Stable bilateral consolidation and small pleural effusion. No overt failure.
[2023-01-26] MEDS ORDERED: FUROSEMIDE 10 MG/ML 2 ML VIAL IV STA (09:31)
[2023-01-26 11:28] LABS: Glucose,Whole Blood 118 mg/dL (70-110)
[2023-01-26 11:42] VITALS: BP 93/56; PULSE 79; TEMP 98.1
[2023-01-26] MEDS: ASCORBIC ACID 500 MG TAB PO SCH (12:48)
[2023-01-26] MEDS: FERROUS SULFATE 325 MG TAB PO SCH (12:48)
--- NOTE | 2023-01-26 12:49 | P.DS ---
Providers Date of admission: 01/17/23 11:16 Expected date of discharge: 01/26/23 Attending physician: Justin Whitlock Consults: 01/17/23 12:16 Consult Physician Urgent Consulting Provider: Justin Whitlock Consult Reason/Comments: CABG eval Do you want consulting provider notified?: Yes Placement Type Exists?: Yes 01/17/23 16:32 Consult Physician Routine Consulting Provider: Oneal Vaughan Consult Reason/Comments: CAD Do you want consulting provider notified?: Yes, Notify in am 01/18/23 11:21 Consult to Anesthesia Routine Consulting Provider: Anesthesia,Services Consult Reason/Comments: Cardiac Surgery Pre-Op 01/19/23 17:29 Consult Physician Routine Consulting Provider: Varsha Piña Consult Reason/Comments: Revenue Liaison Consult: post cardiac surgery Do you want consulting provider notified?: Yes 01/22/23 08:33 Consult Physician Routine Consulting Provider: Polo Couch Consult Reason/Comments: Urinary retention Do you want consulting provider notified?: Yes 01/22/23 15:44 Consult Physician Routine Consulting Provider: Kian Khalil Consult Reason/Comments: depression Do you want consulting provider notified?: Yes 01/23/23 09:03 Consult Physician Urgent Consulting Provider: Kian Khalil Consult Reason/Comments: Depression Do you want consulting provider notified?: Yes Primary care physician: [facility] Course: FINAL DIAGNOSIS: 1. Coronary artery disease with left main disease and previous history of myocardial infarction 2. History of hyperlipidemia, treated, cholesterol 142, LDL 51, triglycerides 251 3. Cardiomyopathy with ejection fraction 40% 4. Previous tobacco dependence, preoperative FEV1 94% of predicted 5. Insomnia 6. Anxiety/depression 7. Hiatal hernia, GERD 8. Family history of premature coronary artery disease 9. Postoperative acute blood loss anemia, expected 10. Hypotension secondary to basal plegia 11. Brief episodes atrial fibrillation PRINCIPAL PROCEDURE: 1. Quadruple multiple arterial coronary artery bypass grafting using the left internal mammary artery sequentially to the diagonal coronary artery then to the left anterior descending coronary artery, left radial artery from the aorta to the obtuse marginal coronary artery, reverse greater saphenous vein graft from the aorta to the posterior descending coronary artery 2. Exclusion of the left atrial appendage using a 35 mm AtriClip 3. Intraoperative graft flow measurements using the [employer] system 4. Endoscopic harvesting of the left radial artery and left greater saphenous vein 5. Intraoperative transesophageal echocardiogram and epi-aortic scanning HISTORY OF PRESENT ILLNESS: This is a 57-year-old gentleman who follows outpatient with Dr. Garnica for primary care and Dr. Byrd for cardiology. He had been experiencing progressive shortness of breath getting worse over the previous year. He denied any other symptomatology. He underwent pulmonary function testing demonstrating FEV1 87% of predicted. In addition he underwent low-dose CT of the chest which showed scattered small nodules and severe calcification of his coronary arteries. Due to findings of coronary artery calcification he was evaluated by cardiology and underwent stress testing which did not demonstrate stressed induced ischemia. Further work-up included heart catheterization at [facility] revealing multivessel coronary artery disease including distal left main stenosis 80%. He was transferred to [facility] with consultation placed to Dr. Whitlock from cardiothoracic surgery. He was recommended to undergo coronary artery bypass surgery. The usual perioperative course was discussed in detail with the patient and his family, all risks and benefits were explained, all questions were answered, and consent was obtained to proceed with surgery. The patient was kept inpatient due to the nature of his disease process. HOSPITAL COURSE: The patient was brought to the preoperative area 01/19/23, prepared in the usual fashion, and subsequently taken to the operating room where Dr. Whitlock performed quadruple coronary artery bypass surgery. Upon completion of surgery the patient was transferred to the cardiovascular intensive care unit where he was recovered and monitored hemodynamically. He was extubated, all lines, tubes, and drips were discontinued when appropriate, and he was transferred to [facility] cardiac stepdown unit for further monitoring and rehabilitation. His oxygen was titrated down although unable to be completely weaned off, he continued to work with physical and occupational therapy, he was tolerating oral diet, his pain was controlled, and he was ready to be discharged to home with [facility] home care on postoperative day #7. He received written and verbal instruction regarding his medications, activity restrictions, signs and symptoms requiring physician notification, and follow-up appointments. Patient Condition at Discharge: Stable Plan - Discharge Summary Discharge Rx Participant: No New Discharge Prescriptions: New Amiodarone [Cordarone] 400 mg PO BID #34 tab traZODone HCL [Desyrel] 50 mg PO HS PRN #30 tab PRN Reason: Insomnia Atorvastatin [Lipitor] 40 mg PO DAILY #30 tab amLODIPine [Norvasc] 2.5 mg PO DAILY #30 tab Sertraline [Zoloft] 50 mg PO DAILY #30 tab Aspirin 325 mg PO DAILY #30 tab Tamsulosin [Flomax] 0.4 mg PO HS #30 cap Furosemide [Lasix] 20 mg PO DAILY #7 tab Metoprolol Tartrate [Lopressor] 25 mg PO BID #60 tab Multivitamins, Thera [Multivitamin (formulary)] 1 each PO DAILY tab Clopidogrel [Plavix] 75 mg PO DAILY #30 tab Pantoprazole [Protonix] 40 mg PO BID #60 tab Sennosides-Docusate Sodium [Senokot-S] 2 each PO HS PRN tab PRN Reason: Constipation Acetaminophen Tab [Tylenol] 1,000 mg PO Q6HR PRN tab PRN Reason: Fever And/ Or Mild Pain (1-3) Continue Ezetimibe [Zetia] 10 mg PO DAILY Discontinued Omeprazole [PriLOSEC] 20 mg PO AC-BRKFST Metoprolol Succinate (ER) [Toprol Xl] 25 mg PO DAILY Atorvastatin [Lipitor] 80 mg PO DAILY Discharge Medication List Ezetimibe [Zetia] 10 mg PO DAILY 01/17/23 [History] Acetaminophen Tab [Tylenol] 1,000 mg PO Q6HR PRN tab 01/26/23 [Rx] Amiodarone [Cordarone] 400 mg PO BID #34 tab 01/26/23 [Rx] Aspirin 325 mg PO DAILY #30 tab 01/26/23 [Rx] Atorvastatin [Lipitor] 40 mg PO DAILY #30 tab 01/26/23 [Rx] Clopidogrel [Plavix] 75 mg PO DAILY #30 tab 01/26/23 [Rx] Furosemide [Lasix] 20 mg PO DAILY #7 tab 01/26/23 [Rx] Metoprolol Tartrate [Lopressor] 25 mg PO BID #60 tab 01/26/23 [Rx] Multivitamins, Thera [Multivitamin (formulary)] 1 each PO DAILY tab 01/26/23 [Rx] Pantoprazole [Protonix] 40 mg PO BID #60 tab 01/26/23 [Rx] Sennosides-Docusate Sodium [Senokot-S] 2 each PO HS PRN tab 01/26/23 [Rx] Sertraline [Zoloft] 50 mg PO DAILY #30 tab 01/26/23 [Rx] Tamsulosin [Flomax] 0.4 mg PO HS #30 cap 01/26/23 [Rx] amLODIPine [Norvasc] 2.5 mg PO DAILY #30 tab 01/26/23 [Rx] traZODone HCL [Desyrel] 50 mg PO HS PRN #30 tab 01/26/23 [Rx] Follow up Appointment(s)/Referral(s): Fran Byrd MD [STAFF PHYSICIAN] - 02/06/23 10:00 am Caroline Wagner NPC [Nurse Practitioner] - 02/02/23 11:00 am (Please follow-up at [address] [place] [address], [address], [place], [place], [address]. The office number is [phone]) [facility] ,Card[facility] [NON-STAFF] - 4 Weeks (You will receive a phone call in approximately 4-6 weeks for evaluation for cardiac rehab) Justin Whitlock MD [STAFF PHYSICIAN] - 02/08/23 2:45 pm Alex Tejeda DO [Doctor of Osteopathic Medicine] - 02/09/23 8:45 am [facility], [NON-STAFF] - 1-2 Days (RN to come out for start of care the day after discharge, then 2-3 times per week until you start cardiac rehab) Tessa Garnica [Primary Care Provider] - 02/01/23 9:00 am Ambulatory/Diagnostic Orders: Complete Blood Count w/diff [LAB.AMB] Time Frame: 3 Days, Location: None Selected Comprehensive Metabolic Panel [LAB.AMB] Time Frame: 3 Days, Location: None Selected Patient Instructions/Handouts: Sternal Precautions (GEN), Mediterranean Diet (DC) Activity/Diet/Wound Care/Special Instructions: DISCHARGE INSTRUCTIONS: 1. No driving for 4 weeks, or until physician gives their ok. 2. The patient should sleep in their own bed, no medical bed needed. 3. Stairs are not an issue. If the bedroom is upstairs, it is advised that the patient go up at night and down in the morning for the first week. Go slowly, using handrail and take 1 step at a time. 4. MIRTHA hose are to be worn for 30 days or until physician discontinues. 5. Heart hugger is to be worn 100% of the time until physician discontinues.(except when showering) 6. No lifting, pushing, or pulling more than 10 pounds for 12 weeks. The physician will advise of any restriction changes. 7. The patient is expected to continue the prescribed walking program. 8. Continue pain control per as needed orders. 9. Continue with incentive spirometry and splinting/heart hugger until otherwise directed by the physician. 10. Must shower daily using liquid antibacterial soap and a separate white washcloth for each individual incision. 11. Routine sternal incision care, no ointments, lotions or powders on the incisions. 12. Please notify surgeon/nurse practitioner for temperature greater than 101F or purulent drainage from incisions 13. Prescriptions for first 30 days given per cardiac surgery service. After 30 days, all prescription refills obtained through cardiology/primary care physician. 14. A red arm and has been placed on this patient it should be worn for 30 days post surgery and will be removed by the cardiothoracic surgeons. If an ER visit is necessary, please make sure the number on the red arm band is called. HOME HEALTH SERVICES TO PROVIDE: RN SKILLED HOME CARE SERVICES FOR POST-OP SURGICAL PATIENTS WITH THE FOLLOWING: Coronary Artery Bypass Surgery (CABG), Mitral Valve Replacement/Repair ( MVR), Aortic Valve Replacement/Repair (AVR) RN TO CONTINUE EDUCATION FROM ``ROAD TO A HEALTH HEART PATIENT EDUCATION MANUAL" (GIVEN TO PATIENT IN THE HOSPITAL) MEDICATION RECONCILIATION WITH EDUCATION NEEDED ON FIRST HOME VISIT EMPHASIZE IMPORTANCE OF WEARING BREAST SUPPORT/HEART HUGGER ENCOURAGE USE OF INCENTIVE SPIROMETER 10 X EVERY HOUR WHILE AWAKE ENCOURAGE UTILIZATION OF LOWER EXTREMITY COMPRESSION STOCKINGS/MIRTHA HOSE and ELEVATE LEGS ABOVE LEVEL OF HEART WHILE AT REST. ENCOURAGE AMBULATION 3-5x/day INCREASING TOLERATES, WHILE AVOID EXTREMES IN TEMPERATURE FREQUENCY: RN TO OPEN THE PATIENT WITHIN 24 HOURS OF DISCHARGE FROM THE HOSPITAL WITH [place] [facility] [place] 2-3 X A WEEK FOR 4 WEEKS ESTABLISHED BY PATIENT NEEDS. LABORATORY: CBC, CMP TO BE DRAWN ON THE THIRD DAY HOME, (RAN STAT) FAX RESULTS TO [phone]. TELEHEALTH PARAMETERS: WEIGHT: NOTIFY MD OF WEIGHT GAIN OF 2 LBS IN 24 HOURS OR 5 LBS IN ONE WEEK HR: NOTIFY MD OF HR <55 BPM OR HR>100 BPM BP: NOTIFY MD IF BP <90/55 OR BP>140/100 O2 SAT: NOTIFY MD IF PO2<93% ON ROOM AIR SEND TELEHEALTH REPORT TO STRAW BOSS AND CARDIOVASCULAR SURGEON THE FIRST WEEK OF CARE AND THEN BI-WEEKLY. PLEASE ADDITIONALLY COMMUNICATE ANY ABNORMALS AND NEW FINDINGS TO THE SURGEONS OFFICE. Discharge Disposition: HOME WITH HOME HEALTH SERVICES
--- NOTE | 2023-01-26 12:55 | P.PN ---
Subjective Progress Note Date: 01/26/23 Principal diagnosis: Status post open heart surgery. Patient was reevaluated today on 01/22/2023, remains in the ICU, on 4 L nasal cannula, patient is having difficulty with his back spasms and muscle spasms for which I recommended a trial of Mirapex. Continues to do well with incentive spirometry about 1250 patient does not seem to have any significant shortness of breath, chest x-ray showed bilateral atelectasis, small bilateral pleural effusions and a small right-sided pneumothorax. Left-sided chest tube would likely be removed today. Patient is hemodynamically stable, not requiring any inotropes or pressors. Did require straight catheterization and subsequent placement of Thomas catheter for urinary retention and unable to urinate on his own, Patient was seen and reevaluated today on 01/23/2023, patient is on 2 L nasal cannula with O2 saturation 93% feeling better today, does not seem to be in any distress, he is hemodynamically stable, not requiring any pressors or any inotropes. Achieving over 1500 MLS via his incentive spirometer. His back spasms are better today compared to yesterday. CBC is normal except for hemoglobin of 8.6 electrolytes are normal and renal profile is normal. Patient remains on Mirapex at 0.5 mg by mouth 3 times a day. The patient is seen today 01/24/2023 in follow-up in the intensive care unit. Postoperative day #5. He is maintaining good O2 saturations in the 90s on 2 L/m per nasal cannula. No IV fluids. Pacer wires removed this morning. White count 8.9. Hemoglobin 8.2. Platelets 187. Sodium 137. Potassium 4.1. Bicarb 28. BUN 27. Creatinine 0.96. Glucose 112. He continues working well with the incentive spirometer. Remains on bronchodilators. Chest x-ray does show postoperative changes of bilateral consolidation and small effusion. The patient is seen today 01/25/2023 in the intensive care unit. He is sitting up in bed. Awake and alert in no acute distress. He is maintaining good O2 saturations in the 90s on 2 L/m per nasal cannula. Chest x-ray reveals small stable bilateral consolidation with small effusion. No overt heart failure. No IV fluids. Postoperative day #6. Remains on bronchodilators. Working well with the incentive spirometer. Heparin for DVT prophylaxis. Possibly home later today. Progress note dated 01/26/2023. The patient is seen today in room 379. The patient is postop day #7. He currently remains on 2 L of oxygen. He likely will need to be discharged on oxygen. He'll likely be a very temporary thing. Other than that, the patient feels well. He denies any shortness of breath, difficulty breathing, coughing, wheezing, or phlegm production. White count 13.1, hemoglobin 9, hematocrit 26 7, and platelet count 290,000. Sodium 138, potassium 4.3, chlorides 103, CO2 29, BUN 21, creatinine 0.86. Chest x-ray shows stable bibasilar patchy infiltrates/atelectasis. Objective - Vital Signs Vital signs: Vital Signs Temp 98.1 F 01/26/23 11:42 Pulse 79 01/26/23 11:42 Resp 20 01/26/23 11:42 BP 93/56 01/26/23 11:42 Pulse Ox 94 L 01/26/23 11:42 FiO2 50 01/20/23 12:00 Intake & Output 01/25/23 01/26/23 01/26/23 18:59 06:59 18:59 Intake Total 358 350 Output Total 600 1300 Balance -242 -950 Weight 94.8 kg Intake: Oral 358 350 Output: Urine 600 1300 Other: Voiding Method Toilet Toilet Urinal # Voids 2 ABP, PAP, CO, CI - Last Documented Arterial Blood Pressure 122/59 Pulmonary Artery Pressure 30/15 Cardiac Output 6.6 Cardiac Index 3 - Exam No acute distress, oriented 3. No respiratory distress. Currently on 2 L. Saturations are 94%. HEENT examination is grossly unremarkable. Mucous membranes are moist. No oral lesions. Neck supple. Full range of motion. No adenopathy thyromegaly or neck vein distention. Cardiovascular examination reveals regular rhythm rate. S1-S2 normal. No S3 or S4. No discernible murmur noted. Heart sounds are distant. Heart rate 79 bpm. Lungs reveal mostly clear breath sounds. Minimal scattered rhonchi. No wheezes or crackles. Breath sounds equal bilaterally. Saturations are in the mid 90s. Abdomen soft bowel sounds are heard. No masses or tenderness. Extremities are intact. No cyanosis clubbing or edema. Skin is without rash or lesion. Neurologic examination is brief but nonfocal. - Labs CBC & Chem 7: 01/26/23 08:14 01/26/23 08:14 Labs: Abnormal Lab Results - Last 24 Hours (Table) 01/25/23 01/25/23 01/26/23 Range/Units 16:43 20:22 06:30 WBC (3.8-10.6) k/uL RBC (4.30-5.90) m/uL Hgb (13.0-17.5) gm/dL Hct (39.0-53.0) % BUN (9-20) mg/dL Glucose (74-99) mg/dL POC Glucose (mg/dL) 132 H 130 H 128 H (70-110) mg/dL Magnesium (1.6-2.3) mg/dL 01/26/23 01/26/23 01/26/23 Range/Units 08:14 08:14 11:26 WBC 13.1 H (3.8-10.6) k/uL RBC 2.84 L (4.30-5.90) m/uL Hgb 9.0 L (13.0-17.5) gm/dL Hct 26.7 L (39.0-53.0) % BUN 21 H (9-20) mg/dL Glucose 104 H (74-99) mg/dL POC Glucose (mg/dL) 118 H (70-110) mg/dL Magnesium 2.5 H (1.6-2.3) mg/dL Assessment and Plan Assessment: Significant coronary artery disease, status post coronary artery bypass grafting 4. Postoperative day #7. History of ischemic cardiomyopathy with ejection fraction 40-50%, previous myocardial infarction many years ago. Hyperlipidemia. Hypertension. Gastroesophageal reflux disease. Hiatal hernia. Former smoker, FEV1 value 2.36 L, 87% of predicted. Plan: Plan dated 01/26/2023. The patient continues on oxygen at 2 L. He likely will need to be discharged home on oxygen. He likely will be a very temporary thing. No additional recommendations are made. Overall prognosis remains guarded. One of us will see him in the pulmonary clinic, after discharge, to make sure that his lungs are still functioning well. Labs, x-rays, and all medications are reviewed. Time with Patient: Less than 30
--- NOTE | 2023-01-26 13:03 | P.PN ---
Subjective HISTORY OF PRESENT ILLNESS: This is a 57-year-old male who is status post CABG 4 vessels. Postop day #7. Patient examined this afternoon. Patient denies chest pain or pressure. He denies shortness of breath. Vital signs are stable. Plan is for discharge home today. PHYSICAL EXAM: VITAL SIGNS: Reviewed. GENERAL: Well-developed in no acute distress. NECK: Supple. No JVD or thyromegaly LUNGS: Respirations even and unlabored. Lungs essentially clear to auscultation bilaterally. HEART: Regular rate and rhythm. S1 and S2 heard. EXTREMITIES: Normal range of motion. No clubbing or cyanosis. Peripheral pulses intact. No lower extremity edema ASSESSMENT: Coronary artery disease, status post CABG 4 vessels Hyperlipidemia Ischemic cardiomyopathy, ejection fraction 40% Brief episode of atrial fibrillation, converted to sinus mechanism spontaneously Acute hypoxic respiratory failure requiring supplemental oxygen Anxiety Depression Family history of premature coronary artery disease PLAN: Continue postoperative management per CT surgery Increase activity as tolerated Encourage use of incentive spirometer Continue current cardiac medications Patient is stable for discharge home today from a cardiac standpoint Nurse practitioner note has been reviewed by physician. Signing provider agrees with the documented findings, assessment, and plan of care. Objective - Vital Signs Vital signs: Vital Signs Temp 98.1 F 01/26/23 11:42 Pulse 79 01/26/23 11:42 Resp 20 01/26/23 11:42 BP 93/56 01/26/23 11:42 Pulse Ox 94 L 01/26/23 11:42 FiO2 50 01/20/23 12:00 Intake & Output 01/25/23 01/26/23 01/26/23 18:59 06:59 18:59 Intake Total 358 350 Output Total 600 400 Balance -242 -50 Weight 94.8 kg Intake: Oral 358 350 Output: Urine 600 400 Other: Voiding Method Toilet Toilet Urinal # Voids 2 ABP, PAP, CO, CI - Last Documented Arterial Blood Pressure 122/59 Pulmonary Artery Pressure 30/15 Cardiac Output 6.6 Cardiac Index 3 - Labs CBC & Chem 7: 01/26/23 08:14 01/26/23 08:14 Labs: Abnormal Lab Results - Last 24 Hours (Table) 01/25/23 01/25/23 01/25/23 Range/Units 11:45 16:43 20:22 WBC (3.8-10.6) k/uL RBC (4.30-5.90) m/uL Hgb (13.0-17.5) gm/dL Hct (39.0-53.0) % BUN (9-20) mg/dL Glucose (74-99) mg/dL POC Glucose (mg/dL) 143 H 132 H 130 H (70-110) mg/dL Magnesium (1.6-2.3) mg/dL 01/26/23 01/26/23 01/26/23 Range/Units 06:30 08:14 08:14 WBC 13.1 H (3.8-10.6) k/uL RBC 2.84 L (4.30-5.90) m/uL Hgb 9.0 L (13.0-17.5) gm/dL Hct 26.7 L (39.0-53.0) % BUN 21 H (9-20) mg/dL Glucose 104 H (74-99) mg/dL POC Glucose (mg/dL) 128 H (70-110) mg/dL Magnesium 2.5 H (1.6-2.3) mg/dL 01/26/23 Range/Units 11:26 WBC (3.8-10.6) k/uL RBC (4.30-5.90) m/uL Hgb (13.0-17.5) gm/dL Hct (39.0-53.0) % BUN (9-20) mg/dL Glucose (74-99) mg/dL POC Glucose (mg/dL) 118 H (70-110) mg/dL Magnesium (1.6-2.3) mg/dL
--- NOTE | 2023-01-26 14:56 | P.PN ---
Subjective Progress Note Date: 01/26/23 This is a 57-year-old male admitted to the hospital for further evaluation for coronary artery disease. Patient has undergone extensive workup being followed by cardiothoracic services. Echocardiogram showing low normal LV systolic function with EF of 50%, mild TR. On patient underwent cardiac catheterization at [facility] which revealed multivessel disease with 80% distal left main stenosis, ostial circumflex disease and bifurcating mid LAD/diagonal disease. Patient was transferred to [facility] for cardiothoracic evaluation. Patient is scheduled to undergo coronary artery bypass grafting tomorrow with Dr. Whitlock. Today he has no acute complaints. Discussed he will go to the ICU after surgery tomorrow. Patient would like to have a BM today. He complains of heart burn sensation today and is continued on oral protonix. 01/19/2023 Patient scheduled to undergo coronary artery bypass grafting today for multivessel CAD with left main disease. Patient will be monitored in the intensive care unit post procedure. Patient remains on optimized medical therapy. Sliding scale insulin coverage and blood glucose has been controlled in the 100s and not requiring any insulin. Preoperative vital signs; temperature of 98.1, heart rate 68, blood pressure 135/70, 95% on room air. 01/20/2023 Patient is seen in follow-up today remains in the ICU with multiple medical consultations following. Per nursing staff there was difficulty with patient being ready for extubation requiring Precedex his propofol was being weaned off. Patient remains on pressor support and has been weaned off of sedation and is status post extubation approximately 20 minutes prior to exam. Patient is on 4- 5 L via nasal cannula and appears in no acute distress. Patient is reporting significantly dry mouth requesting swabs as patient remains nothing by mouth per protocol. Chest x-ray showing pleural effusion. Patient remains on insulin drip per surgical protocol and we will transition to sliding scale once resumed on oral diet. Patient is afebrile report some generalized discomfort with extensive weakness and chest wall pain. Patient does have heart hugger noted. Multiple chest tubes and drains remain in place at this time. 01/21/2023 Patient is currently sitting in chair. Awake alert and oriented x3. Complains of lower back pain, spasms. And also chest soreness patient states that he is feeling very anxious. Otherwise no nausea vomiting or diarrhea. Currently patient is on oxygen at 6 L via nasal cannula. Was able to use incentive spirometry but not consistently. Chest tubes and mediastinal tube in place. Chest x-ray showed post CABG changes with small bilateral pleural effusions and associated atelectasis. Patient was given a dose of IV Lasix this morning. Laboratory data showed WBC 13.2 hemoglobin 9.7 and platelets 92. Sodium 136 potassium 4.3 chloride 106 bicarb 23, BUN 15 and creatinine 0.77. Patient remains on insulin drip at 2 units/h. 01/22/2023 Patient is lying in the bed. Awake alert and oriented. Requiring oxygen at 4 L via nasal cannula. Patient states that he still having back spasms and states that his pain is not controlled and feels very depressed. Chest x-ray showed development of small right apical pneumothorax. Post CABG changes with small bilateral pleural effusions atelectasis. Laboratory data showed WBC 11.1 hemoglobin 8.8 and platelets 114 Sodium 137 potassium 4.3 chloride 105 bicarb is 25 BUN 17 and creatinine 0.82 and A1c 6.0. Patient will be continued on insulin sliding scale. Blood sugar is controlled. 01/23/2023 Patient is seen and evaluated in follow-up currently sitting up in the chair. Chest tubes have been removed and patient continues with indwelling Thomas catheter. Patient has been up and walking the halls. Patient reports having difficulty with having a bowel movement and will adjust medications and add bowel regimen. Blood sugars are well-controlled on current regimen and will be continued on sliding scale. Patient is afebrile with no reports of chest pain or palpitations. Patient having some shortness of breath on exertion and currently maintained over 90% on room air. Patient was given a dose of Lasix today as chest x-ray showing pleural effusions. Previously noted pneumothorax is absent at this time. Patient was evaluated by psychiatry and started on anti depressants. Patient with not much of an appetite and reports some of his food of choice and asking his son can bring food. Okay for [employer] type foods. 01/24/2023 Patient is seen and evaluated in follow-up today continues in the ICU although awaiting a bed on the stepdown unit as patient is a grade from ICU. Patient is continued on 2 L via nasal cannula report some shortness of breath with exertion. Patient was given a small dose of IV Lasix at 20 mg IV push. Follow- up chest x-ray and labs ordered for a.m. Patient is afebrile denies chest pain having some chest wall pain with cough and is using heart hugger. Patient has been up and walking the halls multiple times today. Encouraged to increase activity as tolerated and continued incentive spirometer use. No reported nausea or vomiting noted and patient tolerating diet. 01/26/2023 Patient is seen in follow-up this morning sitting up in the chair on 3 S. Patient reports he is planning on going home today. Patient arranging for oxygen to be delivered as patient requires 2 L via nasal cannula. Patient has been instructed to follow-up with primary care provider along with CT surgery as scheduled and continue with current medications prescribed. Patient is afebrile with no reports of chest pain or shortness of breath. Patient is tolerating diet and encourage the patient to follow a consistent carb heart healthy diet and follow-up with primary care provider in regards to blood sugars. Patient is medically stable for discharge today Review of Systems Constitutional: Denied any fatigue denied any fever. Cardio vascular: denied any chest pain, palpitations Gastrointestinal: denied any nausea, vomiting, reports passing gas and having bowel movements Pulmonary: reports shortness of breath with exertion, no cough Neurologic denied any new focal deficits, reports generalized weakness All inpatient medications were reviewed and appropriate changes in these medications as dictated in the interval history and assessment and plan. Assessment: Exertional dyspnea with outpatient CT showing coronary calcifications and mild nodules Positive stress test and cardiac catheterization revealing multivessel CAD with left main disease. Patient is status post CABG 4 History of myocardial infarction 15 yrs ago and prior cardiac catheterization Depression with suicidal ideation Hyperglycemia with A1C of 6.3 consistent with prediabetes History hyperlipidemia Hx cardiomyopathy with EF 40% with improved EF of 50% this hospital stay Gastroesophageal reflux disease Hx hiatal hernia Hx of tobacco use in the past Hx of alcohol use in the past GI prophylaxis on protonix Full Code Plan: Patient plans on discharging today with close outpatient follow-up with CT surgery status post CABG 4 Arrangements for home O2 ongoing and patient will receive 2 L via nasal cannula Patient instructed to continue heart healthy consistent carb diet and close outpatient follow-up with primary care provider to discuss hemoglobin A1c along with tight glycemic control and blood sugars Homecare being arranged Patient is medically stable for discharge today Thank you for this consultation and we will continue to follow during hospitalization. The impression and plan of care has been dictated by Cesilia Ordonez, Nurse Practitioner as directed. Dr. Sunil MD I have performed a history and examination and MDM of this patient, discussed the same with the dictator, and agree with the dictator's assessment and plan as written ,documented as a scribe. Based on total visit time, I have performed more than 50% of the visit. Objective - Vital Signs Vital signs: Vital Signs Temp 98.1 F 01/26/23 11:42 Pulse 79 01/26/23 11:42 Resp 20 01/26/23 11:42 BP 93/56 01/26/23 11:42 Pulse Ox 94 L 01/26/23 11:42 FiO2 50 01/20/23 12:00 Intake & Output 01/25/23 01/26/23 01/26/23 18:59 06:59 18:59 Intake Total 358 350 Output Total 600 1300 Balance -242 -950 Weight 94.8 kg Intake: Oral 358 350 Output: Urine 600 1300 Other: Voiding Method Toilet Toilet Urinal # Voids 2 ABP, PAP, CO, CI - Last Documented Arterial Blood Pressure 122/59 Pulmonary Artery Pressure 30/15 Cardiac Output 6.6 Cardiac Index 3 - Labs CBC & Chem 7: 01/26/23 08:14 01/26/23 08:14 Labs: Abnormal Lab Results - Last 24 Hours (Table) 01/25/23 01/25/23 01/26/23 Range/Units 16:43 20:22 06:30 WBC (3.8-10.6) k/uL RBC (4.30-5.90) m/uL Hgb (13.0-17.5) gm/dL Hct (39.0-53.0) % BUN (9-20) mg/dL Glucose (74-99) mg/dL POC Glucose (mg/dL) 132 H 130 H 128 H (70-110) mg/dL Magnesium (1.6-2.3) mg/dL 01/26/23 01/26/23 01/26/23 Range/Units 08:14 08:14 11:26 WBC 13.1 H (3.8-10.6) k/uL RBC 2.84 L (4.30-5.90) m/uL Hgb 9.0 L (13.0-17.5) gm/dL Hct 26.7 L (39.0-53.0) % BUN 21 H (9-20) mg/dL Glucose 104 H (74-99) mg/dL POC Glucose (mg/dL) 118 H (70-110) mg/dL Magnesium 2.5 H (1.6-2.3) mg/dL
--- NOTE | 2023-02-01 08:35 | CDI ---
Documentation Clarification Form Date: 02/01/2023 08:25:16 AM From: Susana Salomon RN, CCDS Email: [email or web address] Admit Date: 01/17/2023 11:16:00 AM Patient Name: Daniel Walton Visit Number: [id number] Discharge Date: 01/26/2023 01:01:00 PM ATTENTION: The Clinical Documentation Specialists (CDI) and [facility] Coding Staff appreciate your assistance in clarifying documentation. Please respond to the clarification below the line at the bottom and electronically sign. The CDI & [facility] Coding staff will review the response and follow-up if needed. Please note: Queries are made part of the Legal Health Record. If you have any questions, please contact the author of this message via ITS. Dr. Varsha Piña Your patient has the documented diagnosis of acute mild CHF in the 01/22 and 01/23 progress notes. Additional information regarding the type of CHF is requested. History/Risk Factors: Cardiomyopathy EF 40%, [place], GERD and HLD. Was having SOB, underwent a cardiac cath at [facility] and found to have significant CAD in the left main. S/P CABG x4. Clinical Indicators: 01/19 Op note: postoperative diagnoses: triple vessel CAD with left main disease, mild to moderate left ventricular dysfunction. 01/22 and 01/23 Pulmonary: "Small bilateral pleural effusions secondary to acute mild congestive heart failure/ischemic cardiomyopathy and LV dysfunction." 01/17 Echocardiogram Results: moderately increased left ventricular wall thickness. EF 50%. 01/20 CXR: BL consolidation with small effusion 01/22 CXR: Development of small right apical pneumothorax. Post CABG changes with small bilateral pleural effusions and associated atelectasis. 01/21-01/23 POX: 88-98% Treatment: Lasix 40mg IV QD 01/21-01/22; Lasix 20mg IV QD 01/23-01/26; Metoprolol 12.5mg po BID on 01/20 then 25mg po BID 01/21-01/26; ICU monitoring, IS, titrate FiO2 accordingly and maintain O2 saturation of 90% In your professional opinion, can you please clarify the type of CHF if known? [ x ] Acute Systolic Heart Failure (reduced EF) [ ] Acute on Chronic Systolic Heart Failure (reduced EF) [ ] Acute Diastolic Heart Failure (preserved EF) [ ] Acute on Chronic Diastolic Heart Failure (preserved EF) [ ] Acute Systolic & Diastolic Heart Failure [ ] Acute on Chronic Heart Failure Systolic & Diastolic Heart Failure [ ] Other, please specify [ ] Unable to determine MTDD
--- NOTE | 2023-02-01 09:48 | CDI ---
Documentation Clarification Form Date: 02/01/2023 09:09:53 AM From: Susana Salomon RN, CCDS Email: [email or web address] Admit Date: 01/17/2023 11:16:00 AM Patient Name: Dnaiel Walton Visit Number: [id number] Discharge Date: 01/26/2023 01:01:00 PM ATTENTION: The Clinical Documentation Specialists (CDI) and [facility] Coding Staff appreciate your assistance in clarifying documentation. Please respond to the clarification below the line at the bottom and electronically sign. The CDI & [facility] Coding staff will review the response and follow-up if needed. Please note: Queries are made part of the Legal Health Record. If you have any questions, please contact the author of this message via ITS. Dr. Whitlock Your patient has an abnormal lab value on 01/19 and 01/20. Please clarify if there is an additional diagnosis and/or clinical significance related to this value. History/Risk Factors: Cardiomyopathy EF 40%, [place], GERD and HLD. Was having SOB, underwent a cardiac cath at [facility] and found to have significant CAD in the left main. S/P CABG x4. Clinical indicators: 01/19 ABG Ionized Calcium: 4.0-4.1-4.1-4.1 Ca 7.6 01/20 Ca 7.7 Treatment: Monitor daily Calcium level; Monitor Ionized calicum level; IV Calcium Chloride for intraop use was ordered. Is there an additional diagnosis and/or clinical significance related to the above lab result/information? [ ] Hypocalcemia [ x ] No additional diagnosis/Not clinically significant [ ] Other, please specify [ ] Unable to determine MTDD
--- NOTE | 2023-02-01 10:18 | CDI ---
Documentation Clarification Form Date: 02/01/2023 10:08:45 AM From: Susana Salomon RN, CCDS Email: [email or web address] Admit Date: 01/17/2023 11:16:00 AM Patient Name: Daniel Walton Visit Number: [id number] Discharge Date: 01/26/2023 01:01:00 PM ATTENTION: The Clinical Documentation Specialists (CDI) and [facility] Coding Staff appreciate your assistance in clarifying documentation. Please respond to the clarification below the line at the bottom and electronically sign. The CDI & [facility] Coding staff will review the response and follow-up if needed. Please note: Queries are made part of the Legal Health Record. If you have any questions, please contact the author of this message via ITS. Dr. Justin Whitlock Your patient was receiving Norepinephrine during hospital stay. Please clarify what condition/diagnosis was being treated. History/Risk Factors: Cardiomyopathy EF 40%, [place], GERD and HLD. Was having SOB, underwent a cardiac cath at [facility] and found to have significant CAD in the left main. S/P CABG x4. Clinical indicators: 01/19 Pulmonary consult: "Estimated Blood Loss 2000." 01/20 Pulmonary: "patient remains on pressors and requiring norepinephrine." 01/22 Surgery: "Hypotension, requiring norepinephrine drip, resolved." 01/25 Surgery: "Hypotension secondary to vasoplegia, requiring pressor use, currently normotensive." 01/19 BP 71/46 01/20 BP 77/50 Treatment: IV Norepinephrine titrated 01/19-01/20; 0.9 NS @ 75ml/hr 01/17-01/19 What diagnosis were you treating: [ ] Vasoplegic shock [ ] Hypovolemic shock [ ] No additional diagnosis [ ] Other, please specify [ x] Unable to determine MTDD
--- NOTE | 2023-02-01 11:00 | CDI ---
Documentation Clarification Form Date: 02/01/2023 10:57:27 AM From: Susana Salomon RN, CCDS Email: [email or web address] Admit Date: 01/17/2023 11:16:00 AM Patient Name: Daniel Walton Visit Number: [id number] Discharge Date: 01/26/2023 01:01:00 PM ATTENTION: The Clinical Documentation Specialists (CDI) and [facility] Coding Staff appreciate your assistance in clarifying documentation. Please respond to the clarification below the line at the bottom and electronically sign. The CDI & [facility] Coding staff will review the response and follow-up if needed. Please note: Queries are made part of the Legal Health Record. If you have any questions, please contact the author of this message via ITS. Dr. Justin Whitlock Your patient was on supplemental oxygen during admission and required home O2. Based on this information and the findings below, is there an additional diagnosis that is clinically appropriate for this patient? Patient history/risk factors: Cardiomyopathy EF 40%, [place], GERD and HLD. Was having SOB, underwent a cardiac cath at [facility] and found to have significant CAD in the left main. S/P CABG x4. Clinical Indicators: 01/26 Surgery: "He was trialed off oxygen, his saturations are 87% on room air with activity, 90% on room air at rest, he will need to go home on oxygen." 01/26 IM: "Arrangements for home O2 ongoing and patient will receive 2 L via nasal cannula." 9/6 O2 sat with exercise: 90% on 2LNC, HR 93 9/6 O2 sat room air with exercise: 87%, HR 91 9/6 O2 sat room air at rest: 90%, HR 87 Treatment: Supplemental oxygen during admission of 2-6LNC; Discharged with home oxygen. Incentive spirometer Is there an additional diagnosis that is clinically appropriate for this patient? [ ] Acute pulmonary insufficiency following CABG [ ] No additional diagnosis/Not clinically significant [ ] Unable to determine [ x ] Other, please specify _post-op atelectasis MTDD
--- NOTE | 2023-02-03 11:47 | CDI ---
Documentation Clarification Form Date: 02/01/2023 10:08:00 AM From: Susana Salomon RN, CCDS Email: [email or web address] Admit Date: 01/17/2023 11:16:00 AM Patient Name: Daniel Walton Visit Number: [id number] Discharge Date: 01/26/2023 01:01:00 PM ATTENTION: The Clinical Documentation Specialists (CDI) and [facility] Coding Staff appreciate your assistance in clarifying documentation. Please respond to the clarification below the line at the bottom and electronically sign. The CDI & [facility] Coding staff will review the response and follow-up if needed. Please note: Queries are made part of the Legal Health Record. If you have any questions, please contact the author of this message via ITS. Dr. Varsha Piña The patient was receiving Norepinephrine during hospital stay. Please clarify what condition/diagnosis was being treated. History/Risk Factors: Cardiomyopathy EF 40%, [place], GERD and HLD. Was having SOB, underwent a cardiac cath at [facility] and found to have significant CAD in the left main. S/P CABG x4. Clinical indicators: 01/19 Pulmonary consult: "Estimated Blood Loss 2000." 01/20 Pulmonary: "patient remains on pressors and requiring Norepinephrine." 01/22 Surgery: "Hypotension, requiring Norepinephrine drip, resolved." 01/25 Surgery: "Hypotension secondary to vasoplegia, requiring pressor use, currently normotensive." 01/19 BP 71/46 01/20 BP 77/50 Treatment: IV Norepinephrine titrated 01/19-01/20; 0.9 NS @ 75ml/hr 01/17-01/19 What diagnosis was being treated: [ x] Vasoplegic shock [ ] Hypovolemic shock [ ] No additional diagnosis [ ] Other, please specify [ ] Unable to determine MTDD
== END 2023-01-26 13:01 | disposition home health service (06) | DRG 166 ==
LOC: OBSVTOIN 11:16 → 3SCARD 11:16 → 2SICU 01-19 08:27 → 3SCARD 01-25 09:52
PROVIDERS: ADMIT Surgery; ATTEND Surgery
PROC: B24BZZ4 Ultrasonography of Heart with Aorta, Transesophageal (ICD-10-PCS; 2023-01-19)
PROC: 02L70CK Occlusion of Left Atrial Appendage with Extraluminal Device, Open Approach (ICD-10-PCS; 2023-01-19)
PROC: 03BC4ZZ Excision of Left Radial Artery, Percutaneous Endoscopic Approach (ICD-10-PCS; 2023-01-19)
PROC: 06BQ4ZZ Excision of Left Saphenous Vein, Percutaneous Endoscopic Approach (ICD-10-PCS; 2023-01-19)
PROC: 3E033XZ Introduction of Vasopressor into Peripheral Vein, Percutaneous Approach (ICD-10-PCS; 2023-01-19)
PROC: 02100AW Bypass Coronary Artery, One Artery from Aorta with Autologous Arterial Tissue, Open Approach (ICD-10-PCS; principal; 2023-01-19 08:00)
PROC: 02110Z9 Bypass Coronary Artery, Two Arteries from Left Internal Mammary, Open Approach (ICD-10-PCS; 2023-01-19 08:00)
PROC: 5A1221Z Performance of Cardiac Output, Continuous (ICD-10-PCS; 2023-01-19 08:00)
PROC: 021009W Bypass Coronary Artery, One Artery from Aorta with Autologous Venous Tissue, Open Approach (ICD-10-PCS; 2023-01-19 08:00)
DX: I25.10 Atherosclerotic heart disease of native coronary artery without angina pectoris (principal); R57.8 Other shock; I50.21 Acute systolic (congestive) heart failure; I11.0 Hypertensive heart disease with heart failure; I48.91 Unspecified atrial fibrillation; E78.5 Hyperlipidemia, unspecified; D62 Acute posthemorrhagic anemia; F32.A Depression, unspecified; F41.9 Anxiety disorder, unspecified; G47.00 Insomnia, unspecified; M62.838 Other muscle spasm; M62.830 Muscle spasm of back; J98.11 Atelectasis; K21.9 Gastro-esophageal reflux disease without esophagitis; I25.5 Ischemic cardiomyopathy; K44.9 Diaphragmatic hernia without obstruction or gangrene; R73.03 Prediabetes; I25.2 Old myocardial infarction; Z79.899 Other long term (current) drug therapy; Z87.891 Personal history of nicotine dependence; Z88.8 Allergy status to other drugs, medicaments and biological substances; Z82.49 Family history of ischemic heart disease and other diseases of the circulatory system
CPT/HCPCS: 71045; 71046; 80048; 80053; 80061; 80074; 81003; 82330; 82805; 83036; 83735; 84443; 85025; 85027; 85610; 85730; 86850; 86891; 86900; 86901; 86920; 87070; 93306; 93880; 93922; 93970; 94002; 94003; 94640; 94760

== ENCOUNTER → 2023-02-10 | Outpatient (CLI) | payer OTHER ==
--- NOTE | 2023-02-10 08:20 | US ---
EXAMINATION TYPE: US chest DATE OF EXAM: 02/10/2023 COMPARISON: NONE CLINICAL INDICATION: Male, 57 years old with history of J90 PLEURAL EFFUSION; right pleural effusion open heart surgery 01/20/2023 TECHNIQUE: Targeted ultrasound of the posterior lower right hemithorax EXAM MEASUREMENTS: Right Pleural Effusion pocket size: 3.8 cm Right skin surface to fluid distance: 2.3 cm Left Pleural Effusion pocket size: 1.6 cm Right side marked for possible thoracentesis outside the dept. Pulmonologists are able to review the images in the patient?s EMR. IMPRESSIONS: Small bilateral pleural effusions
== END | disposition home or self-care (01) ==
LOC: RADUSWWP 07:47
PROVIDERS: ATTEND Internal Medicine Critical Care Medicine
DX: J90 Pleural effusion, not elsewhere classified (principal)
CPT/HCPCS: 76604

== ENCOUNTER → 2024-05-28 | Outpatient (CLI) | payer OTHER ==
--- NOTE | 2024-05-28 12:11 | CTL ---
EXAMINATION TYPE: CT Low Dose Lung DATE OF EXAM: 05/28/2024 9:34 AM COMPARISON: Radiograph 02/09/2023. CLINICAL INDICATION: Male, 58 years old with history of Z87.891 nicotine dependence, personal hx of n icotine dependence 1ppd X 30 years, former smoker, History of tobacco use. TECHNIQUE: Low dose computed tomography scan was performed through the chest at 1 mm thick sections a nd reconstructed images in multiple planes at 1 mm and [address] DLP: 148.1 mGycm, CT CTDI: 3.5 mGy, Automated exposure control for dose reduction was used. CT DIAGNOSTIC QUALITY: Satisfactory FINDINGS: Median sternotomy wires and post-CABG clips. Heart normal size without pericardial effusion. Aorta normal caliber with bovine configuration to the aortic arch. No thoracic lymphadenopathy by CT size criteria. Mild emphysematous change. Some minimal scattered strandy scarring or atelectasis noted. No consolida tion or pleural effusion. 5 mm right midlung pulmonary nodule located along the major fissure suggestive of an intrafissural ly mph node. Otherwise, no suspicious pulmonary nodule is seen. There is a moderate to large hiatal hernia with two thirds of the stomach located within the lower ch est. Some mild scattered colonic diverticulosis in the visualized upper abdomen. Nonobstructive 7 mm right renal stone noted. Bones: Mild degenerative disc disease mid to lower thoracic spine. IMPRESSION: 1. Lung RADS 2, benign. A single 5 mm right midlung pulmonary nodule on baseline screening; location suggesting a benign intrafissural lymph node. 2. COPD with mild emphysema. 3. Moderate to large hiatal hernia with two thirds of the stomach located within the lower chest. CT LUNG RAD AND CT CHEST RECOMMENDATION: Lung-Rad 2 Benign Appearance or Behavior: Continue annual sc reening with LDCT in 12 months. S Modifier (other clinically significant findings): None [facility], , 05/28/2024 12:08 PM
== END | disposition home or self-care (01) ==
LOC: RADCTMAIN 09:09
PROVIDERS: ATTEND Internal Medicine Critical Care Medicine
DX: Z12.2 Encounter for screening for malignant neoplasm of respiratory organs (principal); J44.9 Chronic obstructive pulmonary disease, unspecified; J43.9 Emphysema, unspecified; Z87.891 Personal history of nicotine dependence; R91.1 Solitary pulmonary nodule; K44.9 Diaphragmatic hernia without obstruction or gangrene
CPT/HCPCS: 71271